=== PATIENT | female | born 1960 | race African-American/Black ===

== ENCOUNTER 2016-09-04 20:12 | Inpatient (IN) | payer MEDICARE, MEDICAID ==
--- NOTE | 2016-09-04 21:44 | ER Document Report ---
ED Medical Screen (RME) - General Stated Complaint: SWELLING LEGS Time seen by provider: 21:39 Mode of Arrival: Ambulatory Information source: Patient Notes: 55-year-old female presents to ED for bilateral leg swelling for about 3 weeks. She states she has not been to a provider since they started swelling. She has a history of a kidney transplant in . She states she called the train to [place] a couple days after she got to [place] her leg started swelling it has slowly progressed. She states that the swelling got bad a little over a week ago so she tried elevating them but that did not help. Her son brought her home about a week ago. She takes oxycodone for her chronic pain in her back and neck. She has a history of lupus and she's had surgery on her neck and her back. I have greeted and performed a rapid initial assessment of this patient. A comprehensive ED assessment and evaluation of the patient, analysis of test results and completion of medical decision making process will be conducted by an additional ED providers. TRAVEL OUTSIDE OF THE [place] IN LAST 30 DAYS: No - Related Data Allergies/Adverse Reactions: latex [Latex] Allergy (Mild, Verified 12/28/13 10:25) Hives Past Medical History - Past Medical History Cardiac Medical History: Reports: Hx Congestive Heart Failure, Hx Hypercholesterolemia, Hx Hypertension Pulmonary Medical History: Denies: Hx Tuberculosis Neurological Medical History: Denies: Hx Seizures Renal/ Medical History: Reports: Hx End Stage Renal Disease - s/p kidney transplant in 2002 GI Medical History: Reports: Hx Gastroesophageal Reflux Disease Psychiatric Medical History: Reports: Hx Depression Past Surgical History: Reports: Hx Kidney (Renal Surgery) - kidney transplant 2002, Hx Orthopedic Surgery - neck fusion. Denies: Hx Hysterectomy - Immunizations Hx Diphtheria, Pertussis, Tetanus Vaccination: - unk
[2016-09-04 22:23] LABS: ABSOLUTE EOSINOPHILS # (AUTO) 0.1 10^3/uL (0.0-0.6); ABSOLUTE LYMPHOCYTES (AUTO) 0.7 10^3/uL (0.5-4.7); ABSOLUTE MONOCYTES (AUTO) 0.7 10^3/uL (0.1-1.4); ABSOLUTE NEUT (AUTO) 4.8 10^3/uL (1.7-8.2); BASOPHILS % (AUTO) 0.4 % (0-2); EOSINOPHILS % (AUTO) 0.8 % (0-6); HEMATOCRIT 19.8 % (36.0-47.0); HGB HCT DIFFERENCE -0.9; LYMPHOCYTES % (AUTO) 10.8 % (13-45); MEAN CORPUSCULAR HEMOGLOBIN 26.3 pg (27.0-33.4); MEAN CORPUSCULAR VOLUME 82 fl (80-97); MONOCYTES % (AUTO) 10.5 % (3-13); RED BLOOD COUNT 2.41 10^6/uL (3.72-5.28); RED CELL DISTRIBUTION WIDTH 15.3 % (11.5-14.0); SEGMENTED NEUTROPHILS % (AUTO) 77.5 % (42-78); WHITE BLOOD COUNT 6.2 10^3/uL (4.0-10.5)
[2016-09-04 22:28] LABS: APPEARANCE,URINE CLEAR; BILIRUBIN,URINE NEGATIVE (NEGATIVE); GLUCOSE, URINE 150 mg/dL (NEGATIVE); KETONES,URINE NEGATIVE (NEGATIVE); LEUKOCYTE ESTERASE,URINE NEGATIVE (NEGATIVE); NITRITE,URINE NEGATIVE (NEGATIVE); PROTEIN,URINE >=500 mg/dL (NEGATIVE); URINE SPECIFIC GRAVITY 1.008; UROBILINOGEN,URINE NEGATIVE mg/dL (<2.0)
[2016-09-04 22:42] LABS: ALANINE AMINOTRANSFERASE 22 U/L (9-52); ALBUMIN 3.8 g/dL (3.5-5.0); ALKALINE PHOSPHATASE 90 U/L (38-126); ANION GAP 15 (5-19); ASPARTATE AMINO TRANSFERASE 12 U/L (14-36); BILIRUBIN,DIRECT 0.2 mg/dL (0.0-0.4); BILIRUBIN,TOTAL 0.3 mg/dL (0.2-1.3); BLOOD UREA NITROGEN 29 mg/dL (7-20); CALCIUM 9.2 mg/dL (8.4-10.2); CARBON DIOXIDE 16 mmol/L (22-30); CHLORIDE 110 mmol/L (98-107); CREATININE RESULT 3.56 mg/dL (0.52-1.25); GLUCOSE 102 mg/dL (75-110); POTASSIUM 4.1 mmol/L (3.6-5.0); SODIUM 140.8 mmol/L (137-145); TOTAL PROTEIN 6.7 g/dL (6.3-8.2)
[2016-09-04 22:43] LABS: HEMOGLOBIN 6.3 g/dL (12.0-15.5)
[2016-09-05] MEDS ORDERED: OXYCODONE HCL IR 5 MG TABLET PO ONE (00:42)
[2016-09-05 01:25] LABS: THYROID STIMULATING HORMONE 2.95 uIU/mL (0.47-4.68)
--- NOTE | 2016-09-05 01:50 | ER Document Report ---
ED General - General Chief Complaint: Leg Swelling Stated Complaint: SWELLING LEGS Time seen by provider: 00:05 Mode of Arrival: Ambulatory Information source: Patient TRAVEL OUTSIDE OF THE [place] IN LAST 30 DAYS: No - HPI Notes: Patient is a 55-year-old female with history of lupus and previous renal failure with renal transplant 2002 comes in with report of increasing dyspnea on exertion over the last few weeks with approximately 40 pound weight loss in the last 3 months and progressive swelling throughout both lower extremities for the last month. The patient does not her completely updated list of medications, presenting with a medication list from one year ago. The patient states she was supposed to be taking Lasix but she was not. She states she has been unable to take her sodium bicarbonate pills that she is regularly prescribed. She does describe previous transfusion over 10 years ago, and one year ago she was diagnosed with an esophageal ulcer in [place]. The patient reports no chest pain or fever or diarrhea or melena. - Related Data Allergies/Adverse Reactions: latex [Latex] Allergy (Mild, Verified 12/28/13 10:25) Hives Past Medical History - General Information source: Patient - Social History Smoking Status: Never Smoker Chew tobacco use (# tins/day): No Frequency of alcohol use: None Drug Abuse: None Family History: Reviewed & Not Pertinent Patient has suicidal ideation: No Patient has homicidal ideation: No - Past Medical History Cardiac Medical History: Reports: Hx Congestive Heart Failure, Hx Hypercholesterolemia, Hx Hypertension Pulmonary Medical History: Denies: Hx Tuberculosis Neurological Medical History: Denies: Hx Seizures Renal/ Medical History: Reports: Hx End Stage Renal Disease - s/p kidney transplant in 2002. Denies: Hx Peritoneal Dialysis GI Medical History: Reports: Hx Gastroesophageal Reflux Disease Psychiatric Medical History: Reports: Hx Depression Past Surgical History: Reports: Hx Kidney (Renal Surgery) - kidney transplant 2002, Hx Orthopedic Surgery - neck fusion. Denies: Hx Hysterectomy - Immunizations Hx Diphtheria, Pertussis, Tetanus Vaccination: - unk Hx Pneumococcal Vaccination: 06/08/09 Review of Systems - Review of Systems Notes: REVIEW OF SYSTEMS: CONSTITUTIONAL : Denies fever, chills, or sweats. Denies recent illness. EENT: Denies eye, ear, throat, or mouth pain or symptoms. Denies nasal or sinus congestion or discharge. Denies throat, tongue, or mouth swelling or difficulty swallowing. CARDIOVASCULAR: Denies chest pain. Denies palpitations or racing or irregular heart beat. RESPIRATORY: Denies cough, cold, or chest congestion. Denies wheezing. GASTROINTESTINAL: Denies abdominal pain or distention. Denies nausea, vomiting , or diarrhea. Denies blood in vomitus, stools, or per rectum. Denies black, tarry stools. Reports mild chronic constipation. GENITOURINARY: Denies difficulty urinating, painful urination, burning, frequency, blood in urine, or discharge. FEMALE GENITOURINARY: Denies vaginal bleeding, heavy or abnormal periods, irregular periods. Denies vaginal discharge or odor. MUSCULOSKELETAL: Denies back or neck pain or stiffness. Denies joint pain. SKIN: Denies rash, lesions or sores. HEMATOLOGIC : Denies easy bruising or bleeding. LYMPHATIC: Denies swollen, enlarged glands. NEUROLOGICAL: Denies confusion or altered mental status. Denies passing out or loss of consciousness. Denies dizziness or lightheadedness. Denies headache. Denies weakness or paralysis or loss of use of either side. Denies problems with gait or speech. Denies sensory loss, numbness, or tingling. Denies seizures. PSYCHIATRIC: Denies anxiety or stress. Denies depression, suicidal ideation, or homicidal ideation. ALL OTHER SYSTEMS REVIEWED AND NEGATIVE. Dictation was performed using [employer] voice recognition software Physical Exam - Vital signs Vitals: Temp Pulse Resp BP Pulse Ox 98.8 F 89 16 135/85 H 97 09/04/16 21:39 09/04/16 21:39 09/04/16 21:39 09/04/16 21:39 09/04/16 21:39 - Notes Notes: PHYSICAL EXAMINATION: GENERAL: Well-appearing, well-nourished and in no acute distress. HEAD: Atraumatic, normocephalic. EYES: Pupils equal round and reactive to light, extraocular movements intact, conjunctiva are normal. ENT: Nares patent, oropharynx clear without exudates. Moist mucous membranes. NECK: Normal range of motion, supple without lymphadenopathy. no JVD. LUNGS: Breath sounds clear to auscultation bilaterally and equal. No wheezes or rhonchi. Scant mid lung field rales HEART: Regular rate and rhythm 1/6 murmur over the apex. ABDOMEN: Soft, nontender, nondistended abdomen. No guarding, no rebound. No masses appreciated. Female : deferred Musculoskeletal: Normal range of motion. No cyanosis. 2+ bilateral lower extremity edema. Negative Homans. No palpable cord. NEUROLOGICAL: Cranial nerves grossly intact. Normal speech, normal gait. Normal sensory, motor exams PSYCH: Normal mood, normal affect. SKIN: Warm, Dry, normal turgor, no rashes or lesions noted. Course - Re-evaluation Re-evalutation: 09/05/16 01:51 Patient was heme negative on exam. Patient's anemia is much more pronounced than previous, but her renal insufficiency is consistent with previous values. Bicarbonate level somewhat low at 16, but she previously has been 17 in the past , and she admits to being noncompliant with sodium bicarbonate tablets. No obvious evidence for current GI bleed. Unclear if the anemia is related to chronic renal disease versus patient's lupus. Chest x-ray is negative for obvious congestive heart failure, but patient's BNP is elevated. I am somewhat concerned about diuresing the patient to aggressively given her low bicarbonate. No clinical suggestion for DVT given the equal lower extremity swelling. Swelling may be secondary to Lasix noncompliance versus secondary effects of patient's chronic anemia. Discussion was undertaken with the patient, and she was in agreement with transfusion of blood products given her symptoms and significant anemia. Patient was given magnesium replacement IV. Transfusion for 1 unit packed RBCs was given, with pretreatment of Lasix 40 mg IV. Discussion was undertaken with Dr. Muhammad, who agreed to admit the patient to observation. 09/05/16 02:00 09/05/16 02:01 - Vital Signs Vital signs: Temp Pulse Resp BP Pulse Ox 98.8 F 89 18 135/85 H 97 09/04/16 21:39 09/04/16 21:39 09/04/16 23:32 09/04/16 21:39 09/04/16 21:39 - Laboratory Result Diagrams: 09/04/16 21:50 09/04/16 21:50 Laboratory results interpreted by me: 09/04/16 09/04/16 09/04/16 21:50 21:50 21:50 RBC 2.41 L Hgb 6.3 L Hct 19.8 L MCH 26.3 L RDW 15.3 H Lymphocytes % 10.8 L Chloride 110 H Carbon Dioxide 16 L BUN 29 H Creatinine 3.56 H Est GFR ( Amer) 16 L Est GFR (Non-Af Amer) 13 L Magnesium AST 12 L NT-Pro-B Natriuret Pep Urine Protein >=500 H Urine Glucose (UA) 150 H 09/04/16 09/04/16 21:50 21:50 RBC Hgb Hct MCH RDW Lymphocytes % Chloride Carbon Dioxide BUN Creatinine Est GFR ( Amer) Est GFR (Non-Af Amer) Magnesium 1.2 L* AST NT-Pro-B Natriuret Pep 3800 H Urine Protein Urine Glucose (UA) Critical Care Note - Critical Care Note Total time excluding time spent on procedures (mins): 43 Discharge - Discharge Clinical Impression: Stage 3 chronic kidney disease, Hypomagnesemia Anemia Qualifiers: Anemia type: other cause Other causes of anemia: chronic disease, kidney Qualified Code(s): N18.9 - Chronic kidney disease, unspecified; D63.1 - Anemia in chronic kidney disease SLE (systemic lupus erythematosus) Qualifiers: Systemic lupus erythematosus type: unspecified Systemic lupus erythematosus organ involvement: tubulo-interstitial nephropathy Qualified Code(s): M32.15 - Tubulo-interstitial nephropathy in systemic lupus erythematosus Congestive heart failure Qualifiers: Congestive heart failure type: unspecified congestive heart failure type Congestive heart failure chronicity: unspecified congestive heart failure chronicity Qualified Code(s): I50.9 - Heart failure, unspecified Disposition: ADMITTED OBSERVATION Admitting Provider: Hospitalist Unit Admitted: Telemetry
[2016-09-05] MEDS ORDERED: NORMAL SALINE 250 ML IV PRN ×4 (01:59→11:10)
[2016-09-05] MEDS ORDERED: ACETAMINOPHEN 325 MG TABLET PO PRN (02:01)
[2016-09-05] MEDS ORDERED: MAG HYDROX/AL HYDROX/SIMETH SUSP 30 ML UDCUP PO PRN (02:01)
[2016-09-05] MEDS ORDERED: IPRATROPIUM/ALBUTEROL 0.5-2.5 MG/3 ML AMPUL NEB PRN (02:01)
[2016-09-05] MEDS ORDERED: FUROSEMIDE INJ/PF 40 MG/4 ML SDV IV ONE (02:04)
[2016-09-05] MEDS ORDERED: SODIUM BICARBONATE 650 MG TABLET PO ONE (02:31)
[2016-09-05] MEDS: MAGNESIUM SULFATE/D5W 100 ML IV SCH ×2 (02:32→03:45)
[2016-09-05 02:51] LABS: ERYTHROCYTE SEDIMENTATION RATE 84 mm/hr (0-30)
[2016-09-05 03:07] LABS: URINE BARBITURATES SCREEN NEGATIVE; URINE METHADONE SCREEN NEGATIVE; URINE OPIATES LOW NEGATIVE; URINE PHENCYCLIDINE SCREEN NEGATIVE
--- NOTE | 2016-09-05 03:21 | PDOC H&P ---
History of Present Illness Patient complains of: Exertional shortness of breath and lower extremity swelling History of Present Illness: YUSUF CANTRELL is a 55 year old female with a past medical history of lupus leading to renal failure followed by renal transplant 2001, depression, chronic pain, GERD and hypertension. Who was in her usual state of health until approximately 6 weeks ago with lower extremity swelling, new hypertension and a change of her urine described as foamy, denying change in color denying menorrhagia, dark stools or hemorrhoids. At that time she was started on 2 blood pressure agents that she cannot recall that did not improve her lower extremity edema at which time Lasix was prescribed and taken for approximately a week without response. Over the last several days she's had excessive fatigue shortness of breath with exertion prompting her to seek evaluation emergency room where she's found to have a hemoglobin of only 6, metabolic acidosis, end-stage renal failure with a GFR of 20 and proteinuria without hematuria. She's referred to the hospitalist for admission Past Medical History Cardiac Medical History: Reports: Congestive Heart Failure, Hyperlipidema, Hypertension Pulmonary Medical History: Denies: Tuberculosis Neurological Medical History: Denies: Seizures Renal/ Medical History: Reports: End Stage Renal Disease - s/p kidney transplant in 2002 GI Medical History: Reports: Gastroesophageal Reflux Disease Psychiatric Medical History: Reports: Depression Past Surgical History Past Surgical History: Reports: Orthopedic Surgery - neck fusion, Other - Renal transplant 2001 Denies: Hysterectomy Social History Information Source: Patient Lives with: Family Smoking Status: Never Smoker Frequency of Alcohol Use: None Hx Recreational Drug Use: No Drugs: None Hx Prescription Drug Abuse: No - Advance Directive Resuscitation Status: Full Code Family History Family History: Hypertension Parental Family History Reviewed: Yes Children Family History Reviewed: Yes Sibling(s) Family History Reviewed.: Yes Medication/Allergy Home Medications: Amlodipine Besylate 1 tab PO DAILY 07/27/13 Fluoxetine HCl [Prozac] 10 mg PO QAM 07/27/13 Furosemide [Lasix] 20 mg PO QAM 07/27/13 Labetalol HCl 100 mg PO BID 07/27/13 Medroxyprogesterone Acet [Provera 10 mg Tablet] 10 mg PO QAM 07/27/13 Mycophenolate Sodium [Myfortic 180 mg Tablet.dr] 540 mg PO BID 07/27/13 Oxycodone HCl 15 mg PO ASDIR PRN 07/27/13 Prednisone 5 mg PO QAM 07/27/13 Tacrolimus Anhydrous [Prograf 1 mg Capsule] 2 mg PO BID 07/27/13 Cyclobenzaprine HCl 10 mg PO Q8H PRN 07/28/13 Ondansetron [Zofran Odt 4 mg Tablet] 4 mg PO Q4HP PRN #10 tab.rapdis 12/31/13 Hydrocodone/Acetaminophen [[place] 7.5-325 Tablet] 1 each PO Q6 PRN #12 tablet Mag Hydrox/Al Hydrox/Simeth [Maalox Suspension] 15 ml PO Q2H PRN #300 oral.susp 09/09/15 Ondansetron [Zofran Odt 4 mg Tablet] 1 - 2 tab PO Q4H PRN #20 tab.rapdis Clindamycin HCl 300 mg PO TID #30 capsule 10/08/15 Oxycodone HCl/Acetaminophen [Percocet 5-325 mg Tablet] 1 - 2 tab PO Q4H PRN #15 tablet 10/08/15 Allergies/Adverse Reactions: latex [Latex] Allergy (Mild, Verified 12/28/13 10:25) Hives Review of Systems Constitutional: PRESENT: as per HPI, fatigue, weakness Eyes: ABSENT: visual disturbances Ears: ABSENT: hearing changes Cardiovascular: ABSENT: chest pain, dyspnea on exertion, edema, orthropnea, palpitations Respiratory: PRESENT: dyspnea Gastrointestinal: ABSENT: abdominal pain, constipation, diarrhea, hematemesis, hematochezia, nausea, vomiting Genitourinary: ABSENT: dysuria, hematuria Musculoskeletal: ABSENT: joint swelling Integumentary: ABSENT: rash, wounds Neurological: ABSENT: abnormal gait, abnormal speech, confusion, dizziness, focal weakness, syncope Psychiatric: ABSENT: anxiety, depression, homidical ideation, suicidal ideation Endocrine: ABSENT: cold intolerance, heat intolerance, polydipsia, polyuria Hematologic/Lymphatic: ABSENT: easy bleeding, easy bruising Physical Exam Vital Signs: Temp Pulse Resp BP Pulse Ox 98.8 F 89 17 154/90 H 100 09/04/16 21:39 09/04/16 21:39 09/05/16 02:31 09/05/16 02:31 09/05/16 02:31 Intake & Output 09/03/16 09/04/16 09/05/16 11:59 11:59 11:59 Weight 78.4 kg General appearance: PRESENT: no acute distress, well-developed, well-nourished Head exam: PRESENT: atraumatic, normocephalic Eye exam: PRESENT: conjunctiva pink, EOMI, PERRLA. ABSENT: scleral icterus Ear exam: PRESENT: normal external ear exam Mouth exam: PRESENT: moist, tongue midline Neck exam: ABSENT: carotid bruit, JVD, lymphadenopathy, thyromegaly Respiratory exam: PRESENT: clear to auscultation анна. ABSENT: rales, rhonchi, wheezes Cardiovascular exam: PRESENT: RRR. ABSENT: diastolic murmur, rubs, systolic murmur Pulses: PRESENT: normal dorsalis pedis pul Vascular exam: PRESENT: normal capillary refill GI/Abdominal exam: PRESENT: normal bowel sounds, soft. ABSENT: distended, guarding, mass, organolmegaly, rebound, tenderness Rectal exam: PRESENT: deferred Extremities exam: PRESENT: full ROM, pedal edema, +2 edema. ABSENT: calf tenderness, clubbing, joint swelling Neurological exam: PRESENT: alert, awake, oriented to person, oriented to place , oriented to time, oriented to situation, CN II-XII grossly intact. ABSENT: motor sensory deficit Psychiatric exam: PRESENT: appropriate affect, normal mood. ABSENT: homicidal ideation, suicidal ideation Skin exam: PRESENT: dry, intact, warm. ABSENT: cyanosis, rash Results Laboratory Results: 09/04/16 21:50 09/04/16 21:50 09/04/16 09/04/16 09/04/16 21:50 21:50 21:50 WBC 6.2 RBC 2.41 L Hgb 6.3 L Hct 19.8 L MCV 82 MCH 26.3 L MCHC 32.0 RDW 15.3 H Plt Count 306 Seg Neutrophils % 77.5 Lymphocytes % 10.8 L Monocytes % 10.5 Eosinophils % 0.8 Basophils % 0.4 Absolute Neutrophils 4.8 Absolute Lymphocytes 0.7 Absolute Monocytes 0.7 Absolute Eosinophils 0.1 Absolute Basophils 0.0 Retic Count (auto) Sodium 140.8 Potassium 4.1 Chloride 110 H Carbon Dioxide 16 L Anion Gap 15 BUN 29 H Creatinine 3.56 H Est GFR ( Amer) 16 L Est GFR (Non-Af Amer) 13 L Glucose 102 Calcium 9.2 Magnesium Total Bilirubin 0.3 AST 12 L ALT 22 Alkaline Phosphatase 90 Total Protein 6.7 Albumin 3.8 TSH Free T4 Urine Color YELLOW Urine Appearance CLEAR Urine pH 6.0 Ur Specific [place] 1.008 Urine Protein >=500 H Urine Glucose (UA) 150 H Urine Ketones NEGATIVE Urine Blood NEGATIVE Urine Nitrite NEGATIVE Ur Leukocyte Esterase NEGATIVE Urine WBC (Auto) 0 Stool Occult Blood Blood Type Antibody Screen 09/04/16 09/04/16 09/04/16 21:50 21:50 21:50 WBC RBC Hgb Hct MCV MCH MCHC RDW Plt Count Seg Neutrophils % Lymphocytes % Monocytes % Eosinophils % Basophils % Absolute Neutrophils Absolute Lymphocytes Absolute Monocytes Absolute Eosinophils Absolute Basophils Retic Count (auto) 1.12 Sodium Potassium Chloride Carbon Dioxide Anion Gap BUN Creatinine Est GFR ( Amer) Est GFR (Non-Af Amer) Glucose Calcium Magnesium 1.2 L* Total Bilirubin AST ALT Alkaline Phosphatase Total Protein Albumin TSH 2.95 Free T4 0.93 Urine Color Urine Appearance Urine pH Ur Specific [place] Urine Protein Urine Glucose (UA) Urine Ketones Urine Blood Urine Nitrite Ur Leukocyte Esterase Urine WBC (Auto) Stool Occult Blood Blood Type Antibody Screen 09/05/16 09/05/16 00:23 00:45 WBC RBC Hgb Hct MCV MCH MCHC RDW Plt Count Seg Neutrophils % Lymphocytes % Monocytes % Eosinophils % Basophils % Absolute Neutrophils Absolute Lymphocytes Absolute Monocytes Absolute Eosinophils Absolute Basophils Retic Count (auto) Sodium Potassium Chloride Carbon Dioxide Anion Gap BUN Creatinine Est GFR ( Amer) Est GFR (Non-Af Amer) Glucose Calcium Magnesium Total Bilirubin AST ALT Alkaline Phosphatase Total Protein Albumin TSH Free T4 Urine Color Urine Appearance Urine pH Ur Specific [place] Urine Protein Urine Glucose (UA) Urine Ketones Urine Blood Urine Nitrite Ur Leukocyte Esterase Urine WBC (Auto) Stool Occult Blood NEGATIVE Blood Type O POSITIVE Antibody Screen NEGATIVE 09/04/16 21:50 NT-Pro-B Natriuret Pep 3800 H Impressions: Chest X-Ray 09/04/16 21:44 IMPRESSION: No acute findings. Assessment & Plan - Diagnosis (1) Kidney disease, chronic, stage IV (GFR 15-29 ml/min) Is this a current diagnosis for this admission?: YesPlan: Unclear cause and compliance will obtain nephrology consultation Avoid nephrotoxic meds and doses (2) Nephrotic syndrome Is this a current diagnosis for this admission?: YesPlan: Likely resulting in lower extremity edema will obtain nephrology consultation continue outpatient medications including prednisone (3) Anemia Qualifiers: Anemia type: other cause Other causes of anemia: chronic disease, kidney Qualified Code(s): N18.9 - Chronic kidney disease, unspecified; D63.1 - Anemia in chronic kidney disease Is this a current diagnosis for this admission?: YesPlan: Most likely secondary to chronic kidney disease though will obtain anemia workup. She is receiving 1 unit of pack red blood cells with follow-up CBC (4) SLE (systemic lupus erythematosus) Is this a current diagnosis for this admission?: YesPlan: I'll screen activity with ESR level and otherwise continue immunosuppressive regiment - Time Time Spent: 50 to 70 Minutes
[2016-09-05] MEDS ORDERED: METHYLPREDNISOLONE INJ 125 MG/2 ML SDV IV ONE (03:22)
[2016-09-05 04:25] LABS: FOLATE > 20.00 ng/mL (>2.76)
[2016-09-05] MEDS ORDERED: HEPARIN SOD (PORCINE) 5,000 UNIT/ML 1 ML SYRINGE SUBCUT SCH (06:00)
[2016-09-05] MEDS: SODIUM BICARBONATE 650 MG TABLET PO SCH ×3 (06:24→18:21)
[2016-09-05] MEDS ORDERED: PREDNISONE 5 MG TABLET PO SCH (08:00)
[2016-09-05] MEDS: FLUOXETINE HCL 20 MG/5 ML UDCUP PO SCH (08:17)
[2016-09-05] MEDS: DOCUSATE SODIUM 100 MG CAPSULE PO SCH ×2 (09:11→18:20)
[2016-09-05] MEDS: AMLODIPINE BESYLATE 10 MG TABLET PO SCH (09:12)
[2016-09-05] MEDS: TACROLIMUS ANHYDROUS 1 MG CAPSULE PO SCH ×2 (09:12→18:23)
[2016-09-05] MEDS: PREDNISONE 20 MG TABLET PO SCH ×2 (09:13→18:20)
[2016-09-05] MEDS ORDERED: LABETALOL HCL 200 MG TABLET PO SCH (10:00)
[2016-09-05] MEDS ORDERED: (PENDING PHARMACY ID) (Labetalol Hcl [Labetalol Hcl] 100 MG) PO SCH (10:00)
[2016-09-05] MEDS ORDERED: (PENDING PHARMACY ID) (Mycophenolate Sodium 540 MG) PO SCH (10:00)
[2016-09-05 10:08] LABS: HEMATOCRIT 22.6 % (36.0-47.0); HGB HCT DIFFERENCE -0.7; MEAN CORPUSCULAR HEMOGLOBIN 26.6 pg (27.0-33.4); MEAN CORPUSCULAR HGB CONC 32.2 g/dL (32.0-36.0); MEAN CORPUSCULAR VOLUME 83 fl (80-97); RED BLOOD COUNT 2.74 10^6/uL (3.72-5.28); RED CELL DISTRIBUTION WIDTH 14.9 % (11.5-14.0); WHITE BLOOD COUNT 5.7 10^3/uL (4.0-10.5)
[2016-09-05 10:10] LABS: HEMOGLOBIN 7.3 g/dL (12.0-15.5)
[2016-09-05] MEDS: LABETALOL HCL 200 MG TABLET PO SCH ×2 (10:20→22:08)
[2016-09-05] MEDS ORDERED: CYANOCOBALAMIN (VITAMIN B-12) 1,000 MCG TABLET PO ONE (11:45)
--- NOTE | 2016-09-05 12:06 | PDOC PROGRESS REPORT ---
Subjective Progress Note for:: 09/05/16 Subjective:: Patient is complaining of discomfort in the lower extremity because of the swelling She has no chest pain no shortness of breath no fever no chills She has some discomfort in her abdomen Physical Exam Vital Signs: Temp Pulse Resp BP Pulse Ox 99.4 F 89 16 139/83 H 98 09/05/16 11:56 09/05/16 11:56 09/05/16 11:56 09/05/16 11:56 09/05/16 11:56 Intake & Output 09/04/16 09/05/16 09/06/16 00:59 00:59 00:59 Intake Total 700 Balance 700 Weight 77.3 kg General appearance: PRESENT: no acute distress, well-developed, well-nourished Head exam: PRESENT: atraumatic, normocephalic Eye exam: PRESENT: conjunctiva pink, EOMI, PERRLA. ABSENT: scleral icterus Ear exam: PRESENT: normal external ear exam Mouth exam: PRESENT: moist, tongue midline Neck exam: ABSENT: carotid bruit, JVD, lymphadenopathy, thyromegaly Respiratory exam: PRESENT: clear to auscultation анна. ABSENT: rales, rhonchi, wheezes Cardiovascular exam: PRESENT: RRR, systolic murmur - Grade 2/6. ABSENT: diastolic murmur, rubs Pulses: PRESENT: normal dorsalis pedis pul Vascular exam: PRESENT: normal capillary refill GI/Abdominal exam: PRESENT: normal bowel sounds, soft. ABSENT: distended, guarding, mass, organolmegaly, rebound, tenderness Rectal exam: PRESENT: deferred Extremities exam: PRESENT: full ROM, pedal edema, +2 edema - Bilaterally. ABSENT: calf tenderness, clubbing Neurological exam: PRESENT: alert, awake, oriented to person, oriented to place , oriented to time, oriented to situation, CN II-XII grossly intact. ABSENT: motor sensory deficit Psychiatric exam: PRESENT: appropriate affect, normal mood. ABSENT: homicidal ideation, suicidal ideation Skin exam: PRESENT: dry, intact, warm. ABSENT: cyanosis, rash Results Laboratory Results: 09/05/16 09:35 09/05/16 09:35 WBC 5.7 RBC 2.74 L Hgb 7.3 L Hct 22.6 L MCV 83 MCH 26.6 L MCHC 32.2 RDW 14.9 H Plt Count 289 Impressions: Chest X-Ray 09/04/16 21:44 IMPRESSION: No acute findings. Assessment & Plan - Diagnosis (1) Edema, lower extremity Qualifiers: Laterality: bilateral Qualified Code(s): R60.0 - Localized edema Is this a current diagnosis for this admission?: YesPlan: Likely to be secondary to hypoalbuminemia We will obtain a venous ultrasound lower extremities to exclude DVT (2) Weight loss Is this a current diagnosis for this admission?: YesPlan: Reason is unclear patient states she lost more than 50 pounds in the last 6 weeks and has anorexia CT abdomen and pelvis is pending (3) Proteinuria Qualifiers: Proteinuria type: unspecified Qualified Code(s): R80.9 - Proteinuria , unspecified Is this a current diagnosis for this admission?: YesPlan: 24 hour urine for protein and creatinine are pending Patient may have nephrotic syndrome; the last serum albumin was not very low at 3.4 (4) Anemia Qualifiers: Anemia type: other cause Other causes of anemia: chronic disease, kidney Qualified Code(s): N18.9 - Chronic kidney disease, unspecified; D63.1 - Anemia in chronic kidney disease Is this a current diagnosis for this admission?: YesPlan: acute on chronic anemia Multiple causes Vitamin B-12 deficiency; we will replace Anemia of chronic disease secondary to chronic renal failure; patient may benefit initiate from Procrit injections Iron deficiency anemia from blood loss has to be excluded Stools for occult blood will be sent; does have a history of peptic ulcer disease a year ago ; serum iron is 34 (5) Kidney disease, chronic, stage IV (GFR 15-29 ml/min) Is this a current diagnosis for this admission?: YesPlan: Worsening of the kidney function Creatinine is now 3.5; it was 2.[address] abdomen and pelvis is pending to evaluate transplanted kidney and exclude post obstructive uropathy (6) Lupus Qualifiers: Systemic lupus erythematosus type: unspecified Systemic lupus erythematosus organ involvement: tubulo-interstitial nephropathy Qualified Code(s): M32.15 - Tubulo-interstitial nephropathy in systemic lupus erythematosus Is this a current diagnosis for this admission?: YesPlan: Increased prednisone to 60 mg daily - Time Time Spent with patient: 25-34 minutes
[2016-09-05] MEDS: OXYCODONE HCL IR 5 MG TABLET PO PRN ×2 (12:31→18:20)
--- NOTE | 2016-09-05 12:34 | XCELERA REPORT ---
[address] [address] Lower Extremity Venous Evaluation Name: YUSUF CANTRELL Age: 55 yrs Gender: Female : 1960 Patient Status: Inpatient Patient Location: 5\[id number]\532\[id number]\A Study Date: 09/05/2016 11:54 AM Procedure: Color flow and duplex imaging bilaterally of the veins of the lower extremities as well as the Common Femoral veins. Reason For Study: edema lower extremities Ordering Physician: JUDY SELBY Performed By: Destiney Diamond Right Sided Venous Evaluation Normal vessel filling wall to wall, compression and augmentation as well as Colour flow down to the infrageniculate veins. Left Sided Venous Evaluation Normal vessel filling wall to wall, compression and augmentation as well as Colour flow down to the infrageniculate veins. Interpretation Summary No duplex evidence of DVT or obstruction in the bilateral lower extremities. : JUDY SELBY > Moisés Ennis
[2016-09-05] MEDS: SUCRALFATE 1 GM TABLET PO SCH ×2 (16:05→22:07)
[2016-09-05] MEDS ORDERED: EPOETIN ALFA INJ 20000 UNIT/1 ML VIAL (RENAL) SUBCUT ONE (16:30)
--- NOTE | 2016-09-05 16:30 | PDOC CONSULTATION ---
Consultation Consult Date: 09/05/16 Attending physician:: JUDY SELBY Consult reason:: I was asked by Dr. Selby to see the patient because of worsening kidney function with history of previous kidney transplant. 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 At that time she was started on 2 blood pressure agents that she cannot recall that did not improve her lower extremity edema at which time Lasix was prescribed and taken for approximately a week without response. Records from TCU revealed that her labetalol was changed to carvedilol and hydralazine was added on June 2016. Over the last several days she's had excessive fatigue, shortness of breath with exertion, lightheadedness prompting her to seek evaluation emergency room where she's found to have a hemoglobin of only 6, metabolic acidosis, renal failure with a GFR of 20 and proteinuria without hematuria. She's referred to the hospitalist for admission. Patient came in yesterday with BUN of 29 and creatinine of 3.56 with estimated GFR of 16. Based from her records [facility], her last creatinine was 3.3 on 06/2016. Apparently her baseline prior to that was 2.2- 2.5 mg per deciliter of creatinine. She is also known to have proteinuria with urine protein to creatinine ratio 4.7 at the same time. At that time the immunosuppression medication were not change. Her blood pressure medications were modified as above. During this admission her urinalysis showed persistent proteinuria and is mentioned above no hematuria. 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 She didn't mention any changes in her urine output. In terms of her anemia she tells me that she has never been anemic before. She denies any blood in the stool or any hematemesis. She said she was on iron for 3 months last year but that was stopped. She is currently not being maintained on Procrit. We don't have a more recent hemoglobin from [facility] based from her records that we received. Patient was given a dose of Lasix 40 mg intravenously early this morning. She was also given one unit of packed RBC and is supposed to receive 2 more units of packed RBC today. She said her leg swelling seems to be slightly better but not significantly better yet. She still feels the same and not feeling any better than when she presented. She denies any chest pain nor nausea nor vomiting nor diarrhea. She denies any history of congestive heart failure in the past. She does not follow up with a clinical statistical programmer for her lupus. She said she has not had a lupus flare since she has been on antirejection medications after the kidney transplant in 2001. 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; uterine or bladder prolapse GI Medical History: Reports: Gastroesophageal Reflux Disease, Peptic Ulcer Disease - 2016 Musculoskeltal Medical History: Reports: Systemic Lupus Erythematosus Psychiatric Medical History: Reports: Depression Hematology Medical History: Reports Iron Deficiency Anemia Past Surgical History Past Surgical History: Reports: Orthopedic Surgery - neck fusion, Other - Renal transplant 2001; low back surgery Social History Lives with: Alone Smoking Status: Never Smoker Frequency of Alcohol Use: None Hx Recreational Drug Use: Yes Drugs: None Hx Prescription Drug Abuse: No - Advance Directive Resuscitation Status: Full Code Family History Family History: Hypertension - Mother Parental Family History Reviewed: Yes Children Family History Reviewed: Yes Sibling(s) Family History Reviewed.: Yes Medication/Allergy Home Medications: Amlodipine Besylate [Norvasc 10 mg Tablet] 10 mg PO DAILY 09/05/16 Carvedilol [Coreg 12.5 mg Tablet] 12.5 mg PO BID 09/05/16 Furosemide [Lasix] 20 mg PO DAILY 09/05/16 Hydralazine HCl [Apresoline 50 mg Tablet] 50 mg PO BID 09/05/16 Labetalol HCl [Trandate] 100 mg PO BID 09/05/16 Mycophenolate Sodium [Myfortic 180 mg Tablet.dr] 2 tab PO BID 09/05/16 Omeprazole 20 mg PO BID 09/05/16 Oxycodone HCl 15 mg PO Q4HP PRN 09/05/16 Prednisone [Deltasone 5 mg Tablet] 5 mg PO [id number] 09/05/16 Sodium Bicarbonate [Sodium Bicarbonate 650 mg Tablet] 650 mg PO BID 09/05/16 Sucralfate [Carafate 1 gm Tablet] 1 gm PO QID 09/05/16 Tacrolimus Anhydrous [Prograf 1 mg Capsule] 2 mg PO BID 09/05/16 Topiramate [Topamax 25 mg Tablet] 25 mg PO DAILY 09/05/16 Allergies/Adverse Reactions: latex [Latex] Allergy (Mild, Verified 12/28/13 10:25) Hives Review of Systems All systems: reviewed and no additional remarkable complaints except as stated Review of Systems: Constitutional: ABSENT: chills, fever(s), headache(s), weight gain; admits to fatigue and weight loss Eyes: ABSENT: visual disturbances Ears: ABSENT: hearing changes Cardiovascular: ABSENT: chest pain, orthropnea, palpitations; admits worsening lower extremity edema and dyspnea on exertion Respiratory: ABSENT: cough, hemoptysis Gastrointestinal: ABSENT: abdominal pain, constipation, diarrhea, hematemesis, hematochezia, nausea, vomiting Genitourinary: ABSENT: dysuria, hematuria Musculoskeletal: ABSENT: joint swelling Integumentary: ABSENT: rash, wounds Neurological: ABSENT: abnormal gait, abnormal speech, confusion, focal weakness , numbness, syncope; admits lightheadedness Psychiatric: ABSENT: anxiety, depression Endocrine: ABSENT: cold intolerance, heat intolerance, polydipsia, polyuria Hematologic/Lymphatic: ABSENT: easy bleeding, easy bruising, lymphadenopathy Physical Exam Vital Signs: Temp Pulse Resp BP Pulse Ox 99.4 F 85 16 139/83 H 98 09/05/16 11:56 09/05/16 14:27 09/05/16 11:56 09/05/16 11:56 09/05/16 11:56 Intake & Output 09/04/16 09/05/16 09/06/16 06:59 06:59 06:59 Intake Total 400 300 Balance 400 300 Weight 77.3 kg Exam: General appearance: no acute distress, cooperative, well-developed, well- nourished Head exam: PRESENT: atraumatic, normocephalic Eye exam: PRESENT: Conjunctiva pale, EOMI, PERRLA. ABSENT: conjunctival injection, scleral icterus Mouth exam: PRESENT: moist, neck supple, tongue midline Neck exam: PRESENT: full ROM. ABSENT: carotid bruit, JVD, lymphadenopathy, thyromegaly Respiratory exam: PRESENT: Diminished to auscultation bilaterally. ABSENT: rales, rhonchi, stridor, wheezes Cardiovascular exam: PRESENT: RRR, +S1, +S2. ABSENT: systolic murmur Pulses: PRESENT: normal radial pulses, normal dorsalis pedis pulses GI/Abdominal exam: PRESENT: normal bowel sounds, soft. Palpable kidney transplant graft on her right lower quadrant area without any tenderness ABSENT : guarding, mass, tenderness Rectal exam: deferred Extremities exam: PRESENT: full ROM. Positive grade 2 bilateral pitting edema ABSENT: calf tenderness Musculoskeletal: PRESENT: full ROM. ABSENT: deformity Neurological exam: PRESENT: alert, Awake, Oriented to person, Oriented to place , Oriented to time, reflexes normal, CN II-XII grossly intact. ABSENT: motor sensory deficit Psychiatric exam: PRESENT: appropriate affect, normal mood. ABSENT: homicidal ideation, suicidal ideation Skin exam: PRESENT: intact, dry, warm. She has very minimal stage I ulcer in her her rectal area without any drainage ABSENT: rash Results Laboratory Results: 09/05/16 09:35 09/05/16 09:35 WBC 5.7 RBC 2.74 L Hgb 7.3 L Hct 22.6 L MCV 83 MCH 26.6 L MCHC 32.2 RDW 14.9 H Plt Count 289 Impressions: Chest X-Ray 09/04/16 21:44 IMPRESSION: No acute findings. Abdomen/Pelvis CT 09/05/16 11:20 IMPRESSION: 1. TRANSPLANT KIDNEY IN THE RIGHT LOWER QUADRANT. NO ABNORMAL APPEARANCE. 2. CHRONIC SEVERE HYDRONEPHROSIS OF THE RIGHT KIDNEY WITH MARKED CORTICAL THINNING. SURGICAL CLIP ACROSS THE MID URETER. CHRONIC ATROPHY OF THE LEFT KIDNEY. 3. STABLE HEPATIC CYST. 4. UMBILICAL HERNIA CONTAINING FAT ONLY. LOWER ABDOMINAL WALL HERNIA CONTAINING A PORTION OF SMALL BOWEL WITH NO BOWEL OBSTRUCTION. 5. PROBABLE UTERINE FIBROIDS. 6. THE ABOVE FINDINGS ARE CHRONIC AND STABLE. NO OTHER SIGNIFICANT FINDINGS. Assessment & Plan - Diagnosis (1) Chronic kidney disease, stage IV (severe) Is this a current diagnosis for this admission?: YesPlan: Patient has history of living related kidney transplant in November 2001, with history of acute cellular rejection in February 2015. Patient's kidney function seems to be progressively deteriorating. This is associated with nephrotic range proteinuria. She does not have any hematuria. I think this is a progressive decline of her kidney function and possibly indicating a failing kidney transplant rather than lupus nephritis flare. I will give the patient Lasix 40 mg IV every 12 hours. Agree with blood transfusion. I discussed the case with Dr. Selby today. If her creatinine is worse tomorrow anywhere from creatinine of 4 or more, I think we need to transfer her to the [facility] transplant team for further management. She might need at least transplant kidney biopsy which we do not do here in the hospital. Continue antirejection medications. Patient is to bring her Myfortic acid medication from home since it is not available in the hospital so she can continue to get it while here. Continue to monitor kidney function. She does not need any urgent renal replacement therapy at this time. I discussed assessment and plan with the patient and she understood. (2) Status post living-donor kidney transplantation Is this a current diagnosis for this admission?: YesPlan: Needs to consider possibility of acute rejection versus progressive deterioration of transplanted kidney. Patient was given methylprednisolone intravenously in the emergency room and is currently on a higher dose of prednisone. This will not hurt so we will continue at this point. (3) Proteinuria Qualifiers: Proteinuria type: unspecified Qualified Code(s): R80.9 - Proteinuria , unspecified Is this a current diagnosis for this admission?: YesPlan: Known with the nephrotic range since at least June 2016 with urine protein creatinine ratio that time of 4.7 g. (4) Metabolic acidosis Is this a current diagnosis for this admission?: YesPlan: Continue sodium bicarbonate orally. (5) Edema, lower extremity Qualifiers: Laterality: bilateral Qualified Code(s): R60.0 - Localized edema Is this a current diagnosis for this admission?: YesPlan: Lasix 40 mg IV every 12 hours. (6) Anemia Qualifiers: Anemia type: other cause Other causes of anemia: chronic disease, kidney Qualified Code(s): N18.9 - Chronic kidney disease, unspecified; D63.1 - Anemia in chronic kidney disease Is this a current diagnosis for this admission?: YesPlan: This is likely secondary to progressive deterioration of kidney function leading to anemia of chronic kidney disease. Agree with blood transfusion of 2 more units. Patient does not have any evidence of acute bleeding. I will also give Procrit 20,000 units subcutaneously 1 dose tonight. (7) Hypomagnesemia Is this a current diagnosis for this admission?: YesPlan: Magnesium replacement as necessary. - Notes Notes: Thank you very much for this consultation. Plan discussed with Dr. Selby. - Time Time Spent: Greater than 70 Minutes
[2016-09-05] MEDS ORDERED: (PENDING PHARMACY ID) (Labetalol Hcl [Trandate] 100 MG) PO SCH (18:00)
[2016-09-05] MEDS ORDERED: MYCOPHENOLATE SODIUM PO SCH (18:00)
[2016-09-05] MEDS: FUROSEMIDE INJ/PF 40 MG/4 ML SDV IV SCH (18:21)
[2016-09-05] MEDS: HYDRALAZINE HCL 50 MG TABLET PO SCH (18:21)
[2016-09-05] MEDS: FUROSEMIDE 20 MG TABLET PO PRN (20:12)
[2016-09-05] MEDS: CARVEDILOL 12.5 MG TABLET PO SCH (22:09)
[2016-09-05] MEDS: HEPARIN SOD (PORCINE) 5,000 UNIT/ML 1 ML SYRINGE SUBCUT SCH (22:09)
[2016-09-06] MEDS: PANTOPRAZOLE SODIUM 40 MG VIAL IV SCH ×2 (00:22→10:53)
[2016-09-06] MEDS: OXYCODONE HCL IR 5 MG TABLET PO PRN ×2 (00:23→07:44)
[2016-09-06] MEDS: SODIUM BICARBONATE 650 MG TABLET PO SCH ×2 (00:23→06:13)
[2016-09-06] MEDS: FUROSEMIDE 20 MG TABLET PO PRN (00:24)
[2016-09-06 03:17] LABS: HEMATOCRIT 26.8 % (36.0-47.0); HEMOGLOBIN 8.8 g/dL (12.0-15.5); HGB HCT DIFFERENCE -0.4; MEAN CORPUSCULAR HEMOGLOBIN 27.3 pg (27.0-33.4); MEAN CORPUSCULAR VOLUME 83 fl (80-97); RED BLOOD COUNT 3.23 10^6/uL (3.72-5.28); RED CELL DISTRIBUTION WIDTH 15.3 % (11.5-14.0); WHITE BLOOD COUNT 6.2 10^3/uL (4.0-10.5)
[2016-09-06] MEDS: FUROSEMIDE INJ/PF 40 MG/4 ML SDV IV SCH (06:13)
[2016-09-06] MEDS: HYDRALAZINE HCL 50 MG TABLET PO SCH (06:13)
[2016-09-06 07:44] LABS: ABSOLUTE LYMPHOCYTES (AUTO) 0.4 10^3/uL (0.5-4.7); ABSOLUTE MONOCYTES (AUTO) 0.2 10^3/uL (0.1-1.4); ABSOLUTE NEUT (AUTO) 6.8 10^3/uL (1.7-8.2); BASOPHILS % (AUTO) 0.3 % (0-2); HEMOGLOBIN 8.8 g/dL (12.0-15.5); HGB HCT DIFFERENCE -0.6; LYMPHOCYTES % (AUTO) 5.7 % (13-45); MEAN CORPUSCULAR HEMOGLOBIN 27.2 pg (27.0-33.4); MEAN CORPUSCULAR HGB CONC 32.6 g/dL (32.0-36.0); MEAN CORPUSCULAR VOLUME 84 fl (80-97); MONOCYTES % (AUTO) 3.1 % (3-13); RED BLOOD COUNT 3.23 10^6/uL (3.72-5.28); RED CELL DISTRIBUTION WIDTH 15.4 % (11.5-14.0); SEGMENTED NEUTROPHILS % (AUTO) 90.9 % (42-78); WHITE BLOOD COUNT 7.5 10^3/uL (4.0-10.5)
[2016-09-06 08:03] LABS: BLOOD UREA NITROGEN 38 mg/dL (7-20); CARBON DIOXIDE 13 mmol/L (22-30); CHLORIDE 108 mmol/L (98-107); CREATININE RESULT 3.54 mg/dL (0.52-1.25); GLUCOSE 110 mg/dL (75-110); POTASSIUM 4.3 mmol/L (3.6-5.0); SODIUM 137.1 mmol/L (137-145)
[2016-09-06 08:04] LABS: ANION GAP 16 (5-19); MAGNESIUM 1.6 mg/dL (1.6-2.3)
[2016-09-06] MEDS ORDERED: FUROSEMIDE 20 MG TABLET PO SCH (10:00)
[2016-09-06] MEDS ORDERED: TOPIRAMATE 25 MG TABLET PO SCH (10:00)
[2016-09-06] MEDS ORDERED: CYANOCOBALAMIN (VITAMIN B-12) 1,000 MCG TABLET PO SCH (10:00)
[2016-09-06] MEDS: TACROLIMUS ANHYDROUS 1 MG CAPSULE PO SCH (10:54)
[2016-09-06] MEDS: LABETALOL HCL 200 MG TABLET PO SCH (10:54)
[2016-09-06] MEDS: CARVEDILOL 12.5 MG TABLET PO SCH (10:54)
[2016-09-06] MEDS: DOCUSATE SODIUM 100 MG CAPSULE PO SCH (10:54)
[2016-09-06] MEDS: PREDNISONE 20 MG TABLET PO SCH (10:54)
[2016-09-06] MEDS: AMLODIPINE BESYLATE 10 MG TABLET PO SCH (10:55)
[2016-09-06] MEDS: SUCRALFATE 1 GM TABLET PO SCH (10:55)
[2016-09-06] MEDS: HEPARIN SOD (PORCINE) 5,000 UNIT/ML 1 ML SYRINGE SUBCUT SCH (10:56)
[2016-09-06] MEDS: FLUOXETINE HCL 20 MG/5 ML UDCUP PO SCH (10:57)
--- NOTE | 2016-09-06 12:46 | PDOC DISCHARGE SUMMARY ---
General - Admit/Disc Date/PCP Admission Date/Primary Care Provider: 09/05/16 18:10 Dr [facility] Discharge Date: 09/06/16 - Discharge Diagnosis (1) Edema, lower extremity Is this a current diagnosis for this admission?: YesSummary: secondary to nephrotic syndrome lasix was increased to 40 mg twice a day (2) Weight loss Is this a current diagnosis for this admission?: YesSummary: 50 lbs in pat 6 weeks etiology unknown Patient was diagnosed of PUD in June 2016 ; Protonix was prescribed 40 mg po qHS follow up with GI may be indicated (3) Proteinuria Is this a current diagnosis for this admission?: YesSummary: nephrotic range (4) Anemia Is this a current diagnosis for this admission?: YesSummary: anemia chronic disease patient was transfused 4 units PRBc's she received Procrit 20.000 SC 09/04/16 09/04/16 09/06/16 21:50 21:50 06:21 Hgb 6.3 L 8.8 L Hct 19.8 L 27.0 L Iron 34.5 L TIBC 223 L % Saturation 15 Ferritin 178.00 Vitamin B12 322.0 Folate > 20.00 (5) Kidney disease, chronic, stage IV (GFR 15-29 ml/min) Is this a current diagnosis for this admission?: YesSummary: acute / chronic renal failure creatinine 3.5 ? progressive deterioration versus acute rejection increase prednisone dose to 60 mg daily and evaluation by transplant team early next week (6) Lupus Is this a current diagnosis for this admission?: Yes - Additional Information Resuscitation Status: Full Code Discharge Diet: Other (Comments) - prerenal Discharge Activity: Activity As Tolerated Home Medications: Amlodipine Besylate [Norvasc 10 mg Tablet] 10 mg PO DAILY 09/05/16 Carvedilol [Coreg 12.5 mg Tablet] 12.5 mg PO BID 09/05/16 Hydralazine HCl [Apresoline 50 mg Tablet] 50 mg PO BID 09/05/16 Labetalol HCl [Trandate] 100 mg PO BID 09/05/16 Mycophenolate Sodium [Myfortic 180 mg Tablet.] 2 tab PO BID 09/05/16 Oxycodone HCl 15 mg PO Q4HP PRN 09/05/16 Sucralfate [Carafate 1 gm Tablet] 1 gm PO QID 09/05/16 Tacrolimus Anhydrous [Prograf 1 mg Capsule] 2 mg PO BID 09/05/16 Topiramate [Topamax 25 mg Tablet] 25 mg PO DAILY 09/05/16 Furosemide [Lasix] 40 mg PO BID #60 tablet 09/06/16 Pantoprazole Sodium [Protonix] 40 mg PO QHS #30 tablet. 09/06/16 Prednisone [Deltasone 20 mg Tablet] 30 mg PO BID #50 tablet 09/06/16 Sodium Bicarbonate [Sodium Bicarbonate 650 mg Tablet] 1,300 mg PO BID #100 tablet 09/06/16 History of Present Illness Patient complains of: SOB and swelling lower extremities History of Present Illness: YUSUF CANTRELL is a 55 year old female with a past medical history of lupus leading to renal failure followed by renal transplant 2001, depression, chronic pain, GERD and hypertension. Who was in her usual state of health until approximately 6 weeks ago with lower extremity swelling, new hypertension and a change of her urine described as foamy, denying change in color denying menorrhagia, dark stools or hemorrhoids. At that time she was started on 2 blood pressure agents that she cannot recall that did not improve her lower extremity edema at which time Lasix was prescribed and taken for approximately a week without response. Over the last several days she's had excessive fatigue shortness of breath with exertion prompting her to seek evaluation emergency room where she's found to have a hemoglobin of only 6, metabolic acidosis, end-stage renal failure with a GFR of 20 and proteinuria without hematuria. She's referred to the hospitalist for admission Hospital Course Hospital Course: see above Physical Exam Vital Signs: Temp Pulse Resp BP Pulse Ox 98.5 F 68 16 153/94 H 100 09/06/16 09:00 09/06/16 09:00 09/06/16 09:00 09/06/16 07:57 09/06/16 07:57 Intake & Output 09/05/16 09/06/16 09/07/16 00:59 00:59 00:59 Intake Total 1200 1050 Output Total 2300 Balance -1100 1050 Weight 80.5 kg General appearance: PRESENT: no acute distress, well-developed, well-nourished Head exam: PRESENT: atraumatic, normocephalic Eye exam: PRESENT: conjunctiva pink, EOMI, PERRLA. ABSENT: scleral icterus Ear exam: PRESENT: normal external ear exam Mouth exam: PRESENT: moist, tongue midline Neck exam: ABSENT: carotid bruit, JVD, lymphadenopathy, thyromegaly Respiratory exam: PRESENT: clear to auscultation анна. ABSENT: rales, rhonchi, wheezes Cardiovascular exam: PRESENT: RRR, systolic murmur. ABSENT: diastolic murmur, rubs Pulses: PRESENT: normal dorsalis pedis pul Vascular exam: PRESENT: normal capillary refill GI/Abdominal exam: PRESENT: normal bowel sounds, soft. ABSENT: distended, guarding, mass, organolmegaly, rebound, tenderness Rectal exam: PRESENT: deferred Extremities exam: PRESENT: full ROM. ABSENT: calf tenderness, clubbing, pedal edema Neurological exam: PRESENT: alert, awake, oriented to person, oriented to place , oriented to time, oriented to situation, CN II-XII grossly intact. ABSENT: motor sensory deficit Psychiatric exam: PRESENT: appropriate affect, normal mood. ABSENT: homicidal ideation, suicidal ideation Skin exam: PRESENT: dry, intact, warm. ABSENT: cyanosis, rash Results Laboratory Results: 09/06/16 06:21 09/06/16 06:21 09/06/16 09/06/16 09/06/16 03:06 06:21 06:21 WBC 6.2 7.5 RBC 3.23 L 3.23 L Hgb 8.8 L 8.8 L Hct 26.8 L 27.0 L MCV 83 84 MCH 27.3 27.2 MCHC 33.0 32.6 RDW 15.3 H 15.4 H Plt Count 267 180 Seg Neutrophils % 90.9 H Lymphocytes % 5.7 L Monocytes % 3.1 Eosinophils % 0.0 Basophils % 0.3 Absolute Neutrophils 6.8 Absolute Lymphocytes 0.4 L Absolute Monocytes 0.2 Absolute Eosinophils 0.0 Absolute Basophils 0.0 Sodium 137.1 Potassium 4.3 Chloride 108 H Carbon Dioxide 13 L Anion Gap 16 BUN 38 H Creatinine 3.54 H Est GFR ( Amer) 16 L Est GFR (Non-Af Amer) 13 L Glucose 110 Calcium 9.0 Magnesium 1.6 Labs- Entire Visit 09/04/16 09/04/16 09/04/16 21:50 21:50 21:50 WBC 6.2 RBC 2.41 L Hgb 6.3 L Hct 19.8 L MCV 82 MCH 26.3 L MCHC 32.0 RDW 15.3 H Plt Count 306 Seg Neutrophils % 77.5 Lymphocytes % 10.8 L Monocytes % 10.5 Eosinophils % 0.8 Basophils % 0.4 Absolute Neutrophils 4.8 Absolute Lymphocytes 0.7 Absolute Monocytes 0.7 Absolute Eosinophils 0.1 Absolute Basophils 0.0 ESR Retic Count (auto) PT INR Sodium 140.8 Potassium 4.1 Chloride 110 H Carbon Dioxide 16 L Anion Gap 15 BUN 29 H Creatinine 3.56 H Est GFR ( Amer) 16 L Est GFR (Non-Af Amer) 13 L Glucose 102 Calcium 9.2 Magnesium Iron TIBC % Saturation Ferritin Total Bilirubin 0.3 Direct Bilirubin 0.2 Indirect Bilirubin Not Reportable Neonat Total Bilirubin Not Reportable AST 12 L ALT 22 Alkaline Phosphatase 90 NT-Pro-B Natriuret Pep Total Protein 6.7 Albumin 3.8 Vitamin B12 Folate TSH Free T4 Urine Color YELLOW Urine Appearance CLEAR Urine pH 6.0 Ur Specific Bloomery 1.008 Urine Protein >=500 H Urine Glucose (UA) 150 H Urine Ketones NEGATIVE Urine Blood NEGATIVE Urine Nitrite NEGATIVE Urine Bilirubin NEGATIVE Urine Urobilinogen NEGATIVE Ur Leukocyte Esterase NEGATIVE Urine WBC (Auto) 0 Squamous Epi Cells Auto <1 Urine Mucus (Auto) RARE Urine Ascorbic Acid NEGATIVE Stool Occult Blood Urine Opiates Screen Urine Methadone Screen Ur Barbiturates Screen Ur Phencyclidine Scrn Ur Amphetamines Screen U Benzodiazepines Scrn Urine Cocaine Screen U Marijuana (THC) Screen Blood Type Blood Type Confirm Antibody Screen Crossmatch 09/04/16 09/04/16 09/04/16 21:50 21:50 21:50 WBC RBC Hgb Hct MCV MCH MCHC RDW Plt Count Seg Neutrophils % Lymphocytes % Monocytes % Eosinophils % Basophils % Absolute Neutrophils Absolute Lymphocytes Absolute Monocytes Absolute Eosinophils Absolute Basophils ESR Retic Count (auto) PT INR Sodium Potassium Chloride Carbon Dioxide Anion Gap BUN Creatinine Est GFR ( Amer) Est GFR (Non-Af Amer) Glucose Calcium Magnesium 1.2 L* Iron TIBC % Saturation Ferritin Total Bilirubin Direct Bilirubin Indirect Bilirubin Neonat Total Bilirubin AST ALT Alkaline Phosphatase NT-Pro-B Natriuret Pep 3800 H Total Protein Albumin Vitamin B12 Folate TSH 2.95 Free T4 0.93 Urine Color Urine Appearance Urine pH Ur Specific Bloomery Urine Protein Urine Glucose (UA) Urine Ketones Urine Blood Urine Nitrite Urine Bilirubin Urine Urobilinogen Ur Leukocyte Esterase Urine WBC (Auto) Squamous Epi Cells Auto Urine Mucus (Auto) Urine Ascorbic Acid Stool Occult Blood Urine Opiates Screen Urine Methadone Screen Ur Barbiturates Screen Ur Phencyclidine Scrn Ur Amphetamines Screen U Benzodiazepines Scrn Urine Cocaine Screen U Marijuana (THC) Screen Blood Type Blood Type Confirm Antibody Screen Crossmatch 09/04/16 09/04/16 09/04/16 21:50 21:50 21:50 WBC RBC Hgb Hct MCV MCH MCHC RDW Plt Count Seg Neutrophils % Lymphocytes % Monocytes % Eosinophils % Basophils % Absolute Neutrophils Absolute Lymphocytes Absolute Monocytes Absolute Eosinophils Absolute Basophils ESR 84 H Retic Count (auto) 1.12 PT 14.0 INR 1.05 Sodium Potassium Chloride Carbon Dioxide Anion Gap BUN Creatinine Est GFR ( Amer) Est GFR (Non-Af Amer) Glucose Calcium Magnesium Iron 34.5 L TIBC 223 L % Saturation 15 Ferritin 178.00 Total Bilirubin Direct Bilirubin Indirect Bilirubin Neonat Total Bilirubin AST ALT Alkaline Phosphatase NT-Pro-B Natriuret Pep Total Protein Albumin Vitamin B12 322.0 Folate > 20.00 TSH Free T4 Urine Color Urine Appearance Urine pH Ur Specific Bloomery Urine Protein Urine Glucose (UA) Urine Ketones Urine Blood Urine Nitrite Urine Bilirubin Urine Urobilinogen Ur Leukocyte Esterase Urine WBC (Auto) Squamous Epi Cells Auto Urine Mucus (Auto) Urine Ascorbic Acid Stool Occult Blood Urine Opiates Screen Urine Methadone Screen Ur Barbiturates Screen Ur Phencyclidine Scrn Ur Amphetamines Screen U Benzodiazepines Scrn Urine Cocaine Screen U Marijuana (THC) Screen Blood Type Blood Type Confirm Antibody Screen Crossmatch 09/04/16 09/05/16 09/05/16 21:50 00:23 00:45 WBC RBC Hgb Hct MCV MCH MCHC RDW Plt Count Seg Neutrophils % Lymphocytes % Monocytes % Eosinophils % Basophils % Absolute Neutrophils Absolute Lymphocytes Absolute Monocytes Absolute Eosinophils Absolute Basophils ESR Retic Count (auto) PT INR Sodium Potassium Chloride Carbon Dioxide Anion Gap BUN Creatinine Est GFR ( Amer) Est GFR (Non-Af Amer) Glucose Calcium Magnesium Iron TIBC % Saturation Ferritin Total Bilirubin Direct Bilirubin Indirect Bilirubin Neonat Total Bilirubin AST ALT Alkaline Phosphatase NT-Pro-B Natriuret Pep Total Protein Albumin Vitamin B12 Folate TSH Free T4 Urine Color Urine Appearance Urine pH Ur Specific Bloomery Urine Protein Urine Glucose (UA) Urine Ketones Urine Blood Urine Nitrite Urine Bilirubin Urine Urobilinogen Ur Leukocyte Esterase Urine WBC (Auto) Squamous Epi Cells Auto Urine Mucus (Auto) Urine Ascorbic Acid Stool Occult Blood NEGATIVE Urine Opiates Screen NEGATIVE Urine Methadone Screen NEGATIVE Ur Barbiturates Screen NEGATIVE Ur Phencyclidine Scrn NEGATIVE Ur Amphetamines Screen NEGATIVE U Benzodiazepines Scrn NEGATIVE Urine Cocaine Screen NEGATIVE U Marijuana (THC) Screen NEGATIVE Blood Type O POSITIVE Blood Type Confirm O POSITIVE Antibody Screen NEGATIVE Crossmatch See Detail 09/05/16 09/05/16 09/06/16 01:31 09:35 03:06 WBC 5.7 6.2 RBC 2.74 L 3.23 L Hgb 7.3 L 8.8 L Hct 22.6 L 26.8 L MCV 83 83 MCH 26.6 L 27.3 MCHC 32.2 33.0 RDW 14.9 H 15.3 H Plt Count 289 267 Seg Neutrophils % Lymphocytes % Monocytes % Eosinophils % Basophils % Absolute Neutrophils Absolute Lymphocytes Absolute Monocytes Absolute Eosinophils Absolute Basophils ESR Retic Count (auto) PT INR Sodium Potassium Chloride Carbon Dioxide Anion Gap BUN Creatinine Est GFR ( Amer) Est GFR (Non-Af Amer) Glucose Calcium Magnesium Iron TIBC % Saturation Ferritin Total Bilirubin Direct Bilirubin Indirect Bilirubin Neonat Total Bilirubin AST ALT Alkaline Phosphatase NT-Pro-B Natriuret Pep Total Protein Albumin Vitamin B12 Folate TSH Free T4 Urine Color Urine Appearance Urine pH Ur Specific Bloomery Urine Protein Urine Glucose (UA) Urine Ketones Urine Blood Urine Nitrite Urine Bilirubin Urine Urobilinogen Ur Leukocyte Esterase Urine WBC (Auto) Squamous Epi Cells Auto Urine Mucus (Auto) Urine Ascorbic Acid Stool Occult Blood Urine Opiates Screen Urine Methadone Screen Ur Barbiturates Screen Ur Phencyclidine Scrn Ur Amphetamines Screen U Benzodiazepines Scrn Urine Cocaine Screen U Marijuana (THC) Screen Blood Type Blood Type Confirm O POSITIVE Antibody Screen Crossmatch 09/06/16 09/06/16 06:21 06:21 WBC 7.5 RBC 3.23 L Hgb 8.8 L Hct 27.0 L MCV 84 MCH 27.2 MCHC 32.6 RDW 15.4 H Plt Count 180 Seg Neutrophils % 90.9 H Lymphocytes % 5.7 L Monocytes % 3.1 Eosinophils % 0.0 Basophils % 0.3 Absolute Neutrophils 6.8 Absolute Lymphocytes 0.4 L Absolute Monocytes 0.2 Absolute Eosinophils 0.0 Absolute Basophils 0.0 ESR Retic Count (auto) PT INR Sodium 137.1 Potassium 4.3 Chloride 108 H Carbon Dioxide 13 L Anion Gap 16 BUN 38 H Creatinine 3.54 H Est GFR ( Amer) 16 L Est GFR (Non-Af Amer) 13 L Glucose 110 Calcium 9.0 Magnesium 1.6 Iron TIBC % Saturation Ferritin Total Bilirubin Direct Bilirubin Indirect Bilirubin Neonat Total Bilirubin AST ALT Alkaline Phosphatase NT-Pro-B Natriuret Pep Total Protein Albumin Vitamin B12 Folate TSH Free T4 Urine Color Urine Appearance Urine pH Ur Specific Bloomery Urine Protein Urine Glucose (UA) Urine Ketones Urine Blood Urine Nitrite Urine Bilirubin Urine Urobilinogen Ur Leukocyte Esterase Urine WBC (Auto) Squamous Epi Cells Auto Urine Mucus (Auto) Urine Ascorbic Acid Stool Occult Blood Urine Opiates Screen Urine Methadone Screen Ur Barbiturates Screen Ur Phencyclidine Scrn Ur Amphetamines Screen U Benzodiazepines Scrn Urine Cocaine Screen U Marijuana (THC) Screen Blood Type Blood Type Confirm Antibody Screen Crossmatch Impressions: Chest X-Ray 09/04/16 21:44 IMPRESSION: No acute findings. Abdomen/Pelvis CT 09/05/16 11:20 IMPRESSION: 1. TRANSPLANT KIDNEY IN THE RIGHT LOWER QUADRANT. NO ABNORMAL APPEARANCE. 2. CHRONIC SEVERE HYDRONEPHROSIS OF THE RIGHT KIDNEY WITH MARKED CORTICAL THINNING. SURGICAL CLIP ACROSS THE MID URETER. CHRONIC ATROPHY OF THE LEFT KIDNEY. 3. STABLE HEPATIC CYST. 4. UMBILICAL HERNIA CONTAINING FAT ONLY. LOWER ABDOMINAL WALL HERNIA CONTAINING A PORTION OF SMALL BOWEL WITH NO BOWEL OBSTRUCTION. 5. PROBABLE UTERINE FIBROIDS. 6. THE ABOVE FINDINGS ARE CHRONIC AND STABLE. NO OTHER SIGNIFICANT FINDINGS. Plan Discharge Plan: discharge home follow up with transplant clinic on thursday Case was discussed with Him Analyst at [facility] Time Spent: Greater than 30 Minutes
[2016-09-06 12:51] VITALS: BP 145/87
== END 2016-09-06 13:22 | disposition home or self-care (01) | DRG 699 ==
LOC: ER 20:12 → EH 09-05 02:01 → UNDOADMOB 09-05 02:18 → 5 09-05 04:11 → OBSVTOIN 09-05 18:10
PROVIDERS: ADMIT Internal Medicine; ATTEND Internal Medicine
PROC: 30233N1 Transfusion of Nonautologous Red Blood Cells into Peripheral Vein, Percutaneous Approach (ICD-10-PCS; principal; 2016-09-05)
DX: N04.9 Nephrotic syndrome with unspecified morphologic changes (principal); I13.0 Hypertensive heart and chronic kidney disease with heart failure and stage 1 through stage 4 chronic kidney disease, or unspecified chronic kidney disease; Z94.0 Kidney transplant status; E87.2 Acidosis; N18.4 Chronic kidney disease, stage 4 (severe); I50.9 Heart failure, unspecified; D63.1 Anemia in chronic kidney disease; M32.15 Tubulo-interstitial nephropathy in systemic lupus erythematosus; F32.9 Major depressive disorder, single episode, unspecified; K21.9 Gastro-esophageal reflux disease without esophagitis; G89.29 Other chronic pain; E78.5 Hyperlipidemia, unspecified; R63.4 Abnormal weight loss; Z79.899 Other long term (current) drug therapy; Z91.040 Latex allergy status
CPT/HCPCS: 36415; 36430; 71020; 74176; 80048; 80053; 80307; 81001; 82272; 82607; 82728; 82746; 83540; 83550; 83735; 83880; 84439; 84443; 85025; 85027; 85045; 85610; 85652; 86850; 86900; 86901; 86920; 93970; 96365; 96375; 99291; G0378; J1644; J1940; J2930; J3475; J3490; J7507; J7512; P9016; Q4081; S0164

== ENCOUNTER 2016-12-05 14:05 | Emergency (ER) | payer MEDICARE, MEDICAID ==
--- NOTE | 2016-12-05 16:08 | ER Document Report ---
ED Medical Screen (RME) - General Chief Complaint: Vaginal Discharge Stated Complaint: ABDOMINAL PAIN Time Seen by Provider: 12/05/16 15:59 Mode of Arrival: Ambulatory Information source: Patient Notes: 56 yo female presents to ed for pelvic pain off on for about 6 months and her primary md was to refer her to [facility] but she was not able to keep appointment due to emergency. she also has pain in right flank for the past three days where she has a donor kidney. Her primary/trasplant md is in [facility]. Patient denies any nausea or vomiting but states she has lost a lot of weight in the last 2 months. Patient states she is on progesterone that was started in october but she has not had a menstrual cycle in 2-3 years. she sees a specialist in [place] for her back she went to them at the beginning of November she weighted 167 and went back on the and weighted 147. I have greeted and performed a rapid initial assessment of this patient. A comprehensive ED assessment and evaluation of the patient, analysis of test results and completion of medical decision making process will be conducted by an additional ED providers. TRAVEL OUTSIDE OF THE [place] IN LAST 30 DAYS: No - Related Data Allergies/Adverse Reactions: latex [Latex] Allergy (Mild, Verified 12/28/13 10:25) Hives Past Medical History - General Last Menstrual Period: ? - Past Medical History Cardiac Medical History: Reports: Hx Congestive Heart Failure, Hx Hypercholesterolemia, Hx Hypertension Pulmonary Medical History: Denies: Hx Tuberculosis Neurological Medical History: Denies: Hx Seizures Renal/ Medical History: Reports: Hx End Stage Renal Disease - Was on dialysis for 6 months prior to kidney transplant. Denies: Hx Peritoneal Dialysis GI Medical History: Reports: Hx Gastroesophageal Reflux Disease Psychiatric Medical History: Reports: Hx Depression Past Surgical History: Reports: Hx Kidney (Renal Surgery) - kidney transplant 2002, Hx Orthopedic Surgery - neck fusion, Other - Renal transplant 2001; low back surgery. Denies: Hx Hysterectomy - Immunizations Hx Diphtheria, Pertussis, Tetanus Vaccination: - unk Physical Exam - Vital signs Vitals: Temp Pulse Resp BP Pulse Ox 98.2 F 87 15 128/75 H 100 12/05/16 14:28 12/05/16 14:28 12/05/16 14:28 12/05/16 14:28 12/05/16 14:28 Course - Vital Signs Vital signs: Temp Pulse Resp BP Pulse Ox 98.2 F 87 15 128/75 H 100 12/05/16 14:28 12/05/16 14:28 12/05/16 14:28 12/05/16 14:28 12/05/16 14:28 - Laboratory Result Diagrams: 12/05/16 16:15 12/05/16 16:15 Laboratory results interpreted by me: 12/05/16 12/05/16 12/05/16 16:15 16:15 16:15 RBC 3.40 L Hgb 8.7 L Hct 28.6 L MCH 25.5 L MCHC 30.3 L RDW 15.0 H Carbon Dioxide 18 L BUN 31 H Creatinine 3.49 H Est GFR ( Amer) 16 L Est GFR (Non-Af Amer) 14 L Magnesium 1.4 L AST 12 L Urine Protein Urine Glucose (UA) Ur Leukocyte Esterase 12/05/16 16:55 RBC Hgb Hct MCH MCHC RDW Carbon Dioxide BUN Creatinine Est GFR ( Amer) Est GFR (Non-Af Amer) Magnesium AST Urine Protein >=500 H Urine Glucose (UA) 150 H Ur Leukocyte Esterase TRACE H
[2016-12-05 16:27] LABS: ABSOLUTE EOSINOPHILS # (AUTO) 0.1 10^3/uL (0.0-0.6); ABSOLUTE LYMPHOCYTES (AUTO) 1.1 10^3/uL (0.5-4.7); ABSOLUTE MONOCYTES (AUTO) 0.5 10^3/uL (0.1-1.4); ABSOLUTE NEUT (AUTO) 2.7 10^3/uL (1.7-8.2); BASOPHILS % (AUTO) 0.8 % (0-2); EOSINOPHILS % (AUTO) 1.6 % (0-6); HEMATOCRIT 28.6 % (36.0-47.0); HEMOGLOBIN 8.7 g/dL (12.0-15.5); HGB HCT DIFFERENCE -2.5; LYMPHOCYTES % (AUTO) 24.1 % (13-45); MEAN CORPUSCULAR HEMOGLOBIN 25.5 pg (27.0-33.4); MEAN CORPUSCULAR HGB CONC 30.3 g/dL (32.0-36.0); MEAN CORPUSCULAR VOLUME 84 fl (80-97); MONOCYTES % (AUTO) 12.1 % (3-13); SEGMENTED NEUTROPHILS % (AUTO) 61.4 % (42-78); WHITE BLOOD COUNT 4.4 10^3/uL (4.0-10.5)
[2016-12-05 16:43] LABS: ALANINE AMINOTRANSFERASE 19 U/L (9-52); ALBUMIN 3.8 g/dL (3.5-5.0); ALKALINE PHOSPHATASE 89 U/L (38-126); ANION GAP 13 (5-19); ASPARTATE AMINO TRANSFERASE 12 U/L (14-36); BILIRUBIN,DIRECT 0.4 mg/dL (0.0-0.4); BILIRUBIN,TOTAL 0.5 mg/dL (0.2-1.3); BLOOD UREA NITROGEN 31 mg/dL (7-20); CALCIUM 8.7 mg/dL (8.4-10.2); CARBON DIOXIDE 18 mmol/L (22-30); CHLORIDE 107 mmol/L (98-107); CREATININE RESULT 3.49 mg/dL (0.52-1.25); GLUCOSE 86 mg/dL (75-110); POTASSIUM 3.8 mmol/L (3.6-5.0); SODIUM 137.8 mmol/L (137-145)
--- NOTE | 2016-12-05 16:56 | ER Document Report ---
ED General - General Chief Complaint: Vaginal Discharge Stated Complaint: ABDOMINAL PAIN Time Seen by Provider: 12/05/16 15:59 Mode of Arrival: Ambulatory Information source: Patient Notes: This is a 56-year-old female with a history of a kidney transplant (2003, in [place]) followed by Dr Zheng Olivo who presents to the emergency room with pain in the stomach and vaginal area with protrusion of something out of her vagina. Patient states she has had the Organ coming out of her vagina on and off for the past year. She does have an appointment with a paint mixer in [place] in December. She does have an appointment with Dr. Calzada in [place] in December as well. Denies any fever, chills. She does admit to generalized weakness. She reports having anemia and requiring admission for transfusion in September. Her BUN and creatinine at that time was approximately 38/3.5 TRAVEL OUTSIDE OF THE [place] IN LAST 30 DAYS: No - HPI Onset: Just prior to arrival Onset/Duration: Gradual Quality of pain: Achy Severity: None Pain Level: Denies Associated symptoms: denies: Chest pain, Fever, Shortness of breath Exacerbated by: Denies Relieved by: Denies Similar symptoms previously: Yes Recently seen / treated by doctor: Yes - Related Data Allergies/Adverse Reactions: latex [Latex] Allergy (Mild, Verified 12/28/13 10:25) Hives Past Medical History - General Information source: Patient Last Menstrual Period: ? - Social History Smoking Status: Never Smoker Cigarette use (# per day): No Chew tobacco use (# tins/day): No Frequency of alcohol use: None Drug Abuse: None Lives with: Family Family History: Hypertension Patient has suicidal ideation: No Patient has homicidal ideation: No - Past Medical History Cardiac Medical History: Reports: Hx Congestive Heart Failure, Hx Hypercholesterolemia, Hx Hypertension Pulmonary Medical History: Denies: Hx Tuberculosis Neurological Medical History: Denies: Hx Seizures Renal/ Medical History: Reports: Hx End Stage Renal Disease - Was on dialysis for 6 months prior to kidney transplant. Denies: Hx Peritoneal Dialysis GI Medical History: Reports: Hx Gastroesophageal Reflux Disease Psychiatric Medical History: Reports: Hx Depression Past Surgical History: Reports: Hx Kidney (Renal Surgery) - kidney transplant 2002, Hx Orthopedic Surgery - neck fusion, Other - Renal transplant 2001; low back surgery. Denies: Hx Hysterectomy - Immunizations Hx Diphtheria, Pertussis, Tetanus Vaccination: - unk Hx Pneumococcal Vaccination: 06/08/09 Review of Systems - Review of Systems Constitutional: denies: Chills, Fever EENT: No symptoms reported Cardiovascular: No symptoms reported Respiratory: No symptoms reported Gastrointestinal: See HPI Genitourinary: No symptoms reported Female Genitourinary: No symptoms reported Musculoskeletal: No symptoms reported Skin: No symptoms reported Hematologic/Lymphatic: No symptoms reported Neurological/Psychological: No symptoms reported Physical Exam - Vital signs Vitals: Temp Pulse BP Pulse Ox 98.2 F 82 128/75 H 100 12/05/16 14:27 12/05/16 14:27 12/05/16 14:27 12/05/16 14:27 Notes: Physical exam: GENERAL: 56-year-old female, alert and oriented 3, no acute distress HEAD: Atraumatic, normocephalic. EYES: Pupils equal round and reactive to light, extraocular movements intact, sclera anicteric, conjunctiva are normal. ENT: TMs normal, nares patent, oropharynx clear without exudates. Moist mucous membranes. NECK: Normal range of motion, supple without lymphadenopathy or JVD. LUNGS: Breath sounds clear to auscultation bilaterally and equal. No wheezes rales or rhonchi. HEART: Regular rate and rhythm without murmurs, rubs or gallops. ABDOMEN: Soft, normoactive bowel sounds. No tenderness to palpation. No guarding, no rebound. No masses appreciated. Kidney transplant is in the right lower quadrant and there is no overlying erythema or pain or swelling over that area. Vaginal: In the presence of a female tech: Patient does have her cervix protruding from her vaginal canal. The tissue is pink and there is no cyanosis. I was able to manually place the cervix back into the vaginal canal. EXTREMITIES: Normal range of motion, no pitting or edema. No clubbing or cyanosis. NEUROLOGICAL: Cranial nerves II through XII grossly intact. Normal speech, normal gait. PSYCH: Normal mood, normal affect. SKIN: Warm, Dry, normal turgor, no rashes or lesions noted. Course - Vital Signs Vital signs: Temp Pulse Resp BP Pulse Ox 98.3 F 72 16 131/90 H 100 12/05/16 21:51 12/05/16 21:51 12/05/16 21:51 12/05/16 21:51 12/05/16 21:51 - Laboratory Result Diagrams: 12/05/16 16:15 12/05/16 16:15 Laboratory results interpreted by me: 12/05/16 12/05/16 12/05/16 16:15 16:15 16:15 RBC 3.40 L Hgb 8.7 L Hct 28.6 L MCH 25.5 L MCHC 30.3 L RDW 15.0 H Carbon Dioxide 18 L BUN 31 H Creatinine 3.49 H Est GFR ( Amer) 16 L Est GFR (Non-Af Amer) 14 L Magnesium 1.4 L AST 12 L Urine Protein Urine Glucose (UA) Ur Leukocyte Esterase 12/05/16 16:55 RBC Hgb Hct MCH MCHC RDW Carbon Dioxide BUN Creatinine Est GFR ( Amer) Est GFR (Non-Af Amer) Magnesium AST Urine Protein >=500 H Urine Glucose (UA) 150 H Ur Leukocyte Esterase TRACE H - Diagnostic Test Radiology reviewed: Image reviewed, Reports reviewed - Transplanted kidney shows no significant obstructive issues Discharge - Discharge Clinical Impression: PROLAPSED UTERUS, UTI, Hypomagnesemia Condition: Stable Disposition: HOME, SELF-CARE Instructions: Oral Narcotic Medication ([facility]) Additional Instructions: As we discussed, your kidney tests were at baseline which is good. CT scan looked okay. The urine test did show some white cells which could be suggestive of a urine infection. Your magnesium level was low and you were given IV magnesium. Magnesium is an electrolyte. Take the antibiotics as prescribed. Your exam did show you when prolapse of the uterus. Ultimately, he may require surgery. Follow-up with the paint mixer in [place] as planned. Also like you to follow-up with your kidney doctor in [place]: Bring a copy of today's lab work, urine analysis and CT with you when you go. Emergency room for any problems. Prescriptions: Cephalexin Monohydrate [Keflex 500 mg Capsule] 500 mg PO QID #20 capsule Oxycodone HCl/Acetaminophen [Percocet 5-325 mg Tablet] 1 - 2 tab PO ASDIR PRN # 25 tablet PRN Reason: Promethazine HCl [Phenergan 25 mg Tablet] 25 mg PO Q6H PRN #15 tablet PRN Reason: Referrals: KIARA JOYCE MD [Primary Care Provider] - Follow up in 3-5 days
[2016-12-05] MEDS ORDERED: OXYCODONE HCL IR 5 MG TABLET PO ONE (18:03)
[2016-12-05] MEDS: MAGNESIUM SULFATE/D5W 100 ML IV SCH ×2 (18:24→20:28)
--- NOTE | 2016-12-05 18:32 | RADIOLOGY REPORT (SQ) ---
EXAM DESCRIPTION: CT ABD/PELVIS NO ORAL OR IV COMPLETED DATE/TIME: 12/05/2016 6:12 pm REASON FOR STUDY: right flank pain COMPARISON: 09/05/2016 TECHNIQUE: CT scan of the abdomen and pelvis performed without intravenous or oral contrast. Images reviewed with lung, soft tissue, and bone windows. Reconstructed coronal and sagittal MPR images revi ewed. All images stored on PACS. All CT scanners at this facility use dose modulation, iterative reconstruction, and/or weight based d osing when appropriate to reduce radiation dose to as low as reasonably achievable (ALARA). [facility]: Dose Right [facility]: CareDose [facility]: Dose Right [facility]: Teradose 4D [facility]: [employer] RADIATION DOSE: 5.55mGy. LIMITATIONS: None. FINDINGS: LOWER CHEST: No significant findings. No nodules or infiltrates. NON-CONTRASTED LIVER, SPLEEN, ADRENALS: A 3 cm cyst is present in the liver. The spleen and adrenal glands are normal. PANCREAS: No masses. No peripancreatic inflammatory changes. GALLBLADDER: No identified stones by CT criteria. No inflammatory changes to suggest cholecystitis. RIGHT KIDNEY AND URETER: The tangirnaq right kidney represents a hydronephrotic sac. LEFT KIDNEY AND URETER: There is marked atrophy of the left kidney. No significant calcifications. No hydronephrosis or hydroureter. AORTA AND RETROPERITONEUM: No aneurysm. No retroperitoneal masses or adenopathy. BOWEL AND PERITONEAL CAVITY: No obvious masses or inflammatory changes. No free fluid. APPENDIX: Not identified. PELVIS, BLADDER, AND ABDOMINAL WALL:A transplanted kidney is present in the upper pelvis on the right . The urinary bladder is normal. There is no adnexal mass or fluid collection. There is a ventral hernia containing only fat. BONES: No significant findings. OTHER: No other significant finding. IMPRESSION: 1. Marked hydronephrosis of the right kidney. Atrophy of the left kidney. 2. Normal appearing transplanted kidney the right upper pelvis. 3. Hepatic cyst. 4. Ventral hernia containing only fat. TECHNICAL DOCUMENTATION: JOB ID: [id number] Quality ID # [id number]: Final reports with documentation of one or more dose reduction techniques (e.g., Au tomated exposure control, adjustment of the mA and/or kV according to patient size, use of iterative reconstruction technique) 2010 [employer]- All Rights Reserved
[2016-12-05 18:42] LABS: APPEARANCE,URINE CLEAR; BILIRUBIN,URINE NEGATIVE (NEGATIVE); GLUCOSE, URINE 150 mg/dL (NEGATIVE); KETONES,URINE NEGATIVE (NEGATIVE); LEUKOCYTE ESTERASE,URINE TRACE (NEGATIVE); NITRITE,URINE NEGATIVE (NEGATIVE); PROTEIN,URINE >=500 mg/dL (NEGATIVE); URINE SPECIFIC GRAVITY 1.009; UROBILINOGEN,URINE NEGATIVE mg/dL (<2.0)
[2016-12-05 22:00] VITALS: BP 131/90
== END 2016-12-05 22:00 | disposition home or self-care (01) ==
LOC: ER 14:05
DX: N81.4 Uterovaginal prolapse, unspecified (principal); N39.0 Urinary tract infection, site not specified; E83.42 Hypomagnesemia; Z94.0 Kidney transplant status; R53.1 Weakness; I10 Essential (primary) hypertension; Z91.040 Latex allergy status
CPT/HCPCS: 99284; 96365; 96366; 36415; 83735; 84703; 85025; 80053; 81001; 74176; J3475; A9270

== ENCOUNTER 2016-12-31 09:36 | Emergency (ER) | payer MEDICAID, MEDICARE ==
--- NOTE | 2016-12-31 10:29 | ER Document Report ---
ED Fall - General Chief Complaint: Fall Stated Complaint: FALL/BACK,ARM,LEG PAIN Time Seen by Provider: 12/31/16 10:03 Notes: 56yo female c/o pain to right shoulder, elbow, low back and left hip after falling. pt reports she slipped on a wet floor at [employer]. her left leg went out from under her. she twisted, tried to catch her self. did not hit head. no LOC TRAVEL OUTSIDE OF THE [place] IN LAST 30 DAYS: No - HPI Occurred: Just prior to arrival Where: Public place - [employer] Context: Slipped Associated symptoms: None Location of injury/pain: Back, Elbow - right, Hip - left, Shoulder - right Adult Front & Back: 1 - pain 2 - pain 3 - pain - Related data Allergies/Adverse Reactions: latex [Latex] Allergy (Mild, Verified 12/31/16 09:39) Hives Past Medical History - Social History Smoking Status: Never Smoker Chew tobacco use (# tins/day): No Frequency of alcohol use: None Drug Abuse: None Family History: Hypertension - Past Medical History Cardiac Medical History: Reports: Hx Congestive Heart Failure, Hx Hypercholesterolemia, Hx Hypertension Pulmonary Medical History: Denies: Hx Tuberculosis Neurological Medical History: Denies: Hx Seizures Renal/ Medical History: Reports: Hx End Stage Renal Disease - Was on dialysis for 6 months prior to kidney transplant. Denies: Hx Peritoneal Dialysis GI Medical History: Reports: Hx Gastroesophageal Reflux Disease Psychiatric Medical History: Reports: Hx Depression Past Surgical History: Reports: Hx Kidney (Renal Surgery) - kidney transplant 2002, Hx Orthopedic Surgery - neck fusion, Other - Renal transplant 2001; low back surgery. Denies: Hx Hysterectomy - Immunizations Hx Diphtheria, Pertussis, Tetanus Vaccination: Yes - unk Hx Pneumococcal Vaccination: 06/08/09 Physical Exam - Vital signs Vitals: Temp Pulse Resp BP Pulse Ox 98.4 F 99 18 133/89 H 98 12/31/16 09:40 12/31/16 09:40 12/31/16 09:40 12/31/16 09:40 12/31/16 09:40 Course - Re-evaluation Re-evalutation: 12/31/16 11:32 xrays negative. results reviewed with patient. will treat with muscle relaxant and pain meds. pt stable for discharge and outpatient PCM follow up. pt agreeable with plan - Vital Signs Vital signs: Temp Pulse Resp BP Pulse Ox 98.4 F 99 18 133/89 H 98 12/31/16 09:40 12/31/16 09:40 12/31/16 09:40 12/31/16 09:40 12/31/16 09:40 Discharge - Discharge Clinical Impression: Right shoulder strain Condition: Stable Disposition: HOME, SELF-CARE Instructions: Sprain ([facility]), Muscle Strain ([facility]), Low Back Pain ([facility]), Muscle Relaxers ([facility]), Oral Narcotic Medication ([facility]), Ice Packs ([facility]), Warm Packs ([facility] ) Additional Instructions: Your xrays are negative for fracture Take muscle relaxant and pain medication as needed alternate ice/heat to sore areas follow up with primary care for further evaluation and treatment Prescriptions: Methocarbamol [Robaxin 500 Mg Tablet] 1,000 mg PO Q6 #30 tablet Oxycodone HCl/Acetaminophen [Percocet 5-325 mg Tablet] 1 - 2 tab PO ASDIR PRN # 25 tablet PRN Reason:
--- NOTE | 2016-12-31 11:26 | RADIOLOGY REPORT (SQ) ---
EXAM DESCRIPTION: HIP LEFT AP/LATERAL COMPLETED DATE/TIME: 12/31/2016 11:08 am REASON FOR STUDY: fell on wet tile floor COMPARISON: None. NUMBER OF VIEWS: Two views. TECHNIQUE: AP pelvis and additional frog-leg view of the left hip. LIMITATIONS: None. FINDINGS: MINERALIZATION: Normal. LEFT HIP: No fracture or dislocation. No worrisome bone lesions. RIGHT HIP: No fracture or dislocation. No worrisome bone lesions. PUBIS AND ISCHIUM: No fracture. PELVIS: No fracture. SACRUM: No fracture or dislocation. No worrisome bone lesions. LOWER LUMBAR SPINE: No fracture or dislocation. No worrisome bone lesions. No significant disc disea se. SOFT TISSUES: No findings. OTHER: No other significant finding. IMPRESSION: NEGATIVE STUDY OF THE LEFT HIP AND PELVIS. NO RADIOGRAPHIC EVIDENCE OF ACUTE INJURY. TECHNICAL DOCUMENTATION: JOB ID: [id number] [email or web address]- All Rights Reserved
--- NOTE | 2016-12-31 11:28 | RADIOLOGY REPORT (SQ) ---
EXAM DESCRIPTION: SHOULDER RIGHT 2 OR MORE VIEWS COMPLETED DATE/TIME: 12/31/2016 11:08 am REASON FOR STUDY: fell on wet tile floor COMPARISON: None. NUMBER OF VIEWS: Three views. TECHNIQUE: Internal rotation, external rotation, and Y view images acquired of the right shoulder. LIMITATIONS: None. FINDINGS: MINERALIZATION: Normal. BONES: No acute fracture or dislocation. No worrisome bone lesions. JOINTS: No dislocation. VISUALIZED LUNGS AND RIBS: No pneumothorax. No rib fracture. SOFT TISSUES: No radiopaque foreign body. OTHER: No other significant finding. IMPRESSION: NEGATIVE STUDY OF THE RIGHT SHOULDER. NO RADIOGRAPHIC EVIDENCE OF ACUTE INJURY. TECHNICAL DOCUMENTATION: JOB ID: [id number] [employer]- All Rights Reserved
--- NOTE | 2016-12-31 11:28 | RADIOLOGY REPORT (SQ) ---
EXAM DESCRIPTION: L SPINE WHOLE COMPLETED DATE/TIME: 12/31/2016 11:08 am REASON FOR STUDY: fell on wet tile floor COMPARISON: None. NUMBER OF VIEWS: Five views including obliques. TECHNIQUE: AP, lateral, oblique, and sacral radiographic images acquired of the lumbar spine. LIMITATIONS: None. FINDINGS: MINERALIZATION: Normal. SEGMENTATION: Normal. No transitional anatomy. ALIGNMENT: Normal. VERTEBRAE: Maintained height. No fracture or worrisome bone lesion. DISCS: Disc space narrowing with vacuum change at L5-S1. POSTERIOR ELEMENTS: Pedicles and facets are intact. No pars defect or posterior arch defects. HARDWARE: None in the spine. PARASPINAL SOFT TISSUES: Normal. PELVIS: Intact as visualized. No fractures or worrisome bone lesions. SI joints intact. OTHER: No other significant finding. IMPRESSION: DEGENERATIVE DISC DISEASE AT L5-S 1. NO ACUTE FINDINGS. TECHNICAL DOCUMENTATION: JOB ID: [id number] [employer]- All Rights Reserved
--- NOTE | 2016-12-31 11:28 | RADIOLOGY REPORT (SQ) ---
EXAM DESCRIPTION: ELBOW RIGHT OVER 2 VIEWS COMPLETED DATE/TIME: 12/31/2016 11:08 am REASON FOR STUDY: fell on wet tile floor COMPARISON: None. NUMBER OF VIEWS: Four views. TECHNIQUE: AP, lateral, and both oblique radiographic images acquired of the right elbow. LIMITATIONS: None. FINDINGS: MINERALIZATION: Normal. BONES: No acute fracture or dislocation. No worrisome bone lesions. JOINT: No effusion. SOFT TISSUES: No soft tissue swelling. No foreign body. OTHER: No other significant finding. IMPRESSION: NEGATIVE STUDY OF THE RIGHT ELBOW. NO RADIOGRAPHIC EVIDENCE OF ACUTE INJURY. TECHNICAL DOCUMENTATION: JOB ID: [id number] [employer]- All Rights Reserved
[2016-12-31 11:46] VITALS: BP 127/90
== END 2016-12-31 11:50 | disposition home or self-care (01) ==
LOC: ER 09:36
DX: S46.911A Strain of unspecified muscle, fascia and tendon at shoulder and upper arm level, right arm, initial encounter (principal); M25.521 Pain in right elbow; M25.552 Pain in left hip; M54.5 Low back pain; W01.0XXA Fall on same level from slipping, tripping and stumbling without subsequent striking against object, initial encounter; Y92.512 Supermarket, store or market as the place of occurrence of the external cause
CPT/HCPCS: 72110; 99283

== ENCOUNTER 2017-05-19 13:13 | Inpatient (IN) | payer MEDICARE, MEDICAID ==
[2017-05-19] MEDS ORDERED: ONDANSETRON 4 MG TAB.RAPDIS PO ONE (13:45)
--- NOTE | 2017-05-19 13:47 | ER Document Report ---
ED Medical Screen (RME) - General Chief Complaint: Vomiting/Diarrhea Stated Complaint: DIARRHEA,VOMITING Time Seen by Provider: 05/19/17 13:41 Notes: 56-year-old female patient complains of one-week history of nausea vomiting diarrhea. Reports he feels lightheaded and weak. Has noted some bright red blood in the vomitus. She has not tried any medication for the nausea or the vomiting. I have greeted and performed a rapid initial assessment of this patient. A comprehensive ED assessment and evaluation of the patient, analysis of test results and completion of the medical decision making process will be conducted by additional ED providers. TRAVEL OUTSIDE OF THE [place] IN LAST 30 DAYS: No - Related Data Allergies/Adverse Reactions: latex [Latex] Allergy (Mild, Verified 05/19/17 13:14) Hives Home Medications: Current Home Medications Promethazine HCl [Phenergan 25 mg Tablet] 25 mg PO Q6H 05/19/17 [History] Past Medical History - Social History Chew tobacco use (# tins/day): No Frequency of alcohol use: None Drug Abuse: None - Past Medical History Cardiac Medical History: Reports: Hx Congestive Heart Failure, Hx Hypercholesterolemia, Hx Hypertension Pulmonary Medical History: Denies: Hx Tuberculosis Neurological Medical History: Denies: Hx Seizures Renal/ Medical History: Reports: Hx End Stage Renal Disease - Was on dialysis for 6 months prior to kidney transplant. Denies: Hx Peritoneal Dialysis GI Medical History: Reports: Hx Gastroesophageal Reflux Disease Psychiatric Medical History: Reports: Hx Depression Past Surgical History: Reports: Hx Kidney (Renal Surgery) - kidney transplant 2002, Hx Orthopedic Surgery - neck fusion, Other - Renal transplant 2001; low back surgery. Denies: Hx Hysterectomy - Immunizations Hx Diphtheria, Pertussis, Tetanus Vaccination: Yes - unk Physical Exam - Vital signs Vitals: Temp Pulse Resp BP Pulse Ox 98.7 F 75 16 124/79 97 05/19/17 13:18 05/19/17 13:18 05/19/17 13:18 05/19/17 13:18 05/19/17 13:18 Course - Vital Signs Vital signs: Temp Pulse Resp BP Pulse Ox 98.7 F 75 16 124/79 97 05/19/17 13:18 05/19/17 13:18 05/19/17 13:18 05/19/17 13:18 05/19/17 13:18
[2017-05-19 14:29] LABS: ABSOLUTE LYMPHOCYTES (AUTO) 0.4 10^3/uL (0.5-4.7); ABSOLUTE MONOCYTES (AUTO) 0.1 10^3/uL (0.1-1.4); ABSOLUTE NEUT (AUTO) 4.4 10^3/uL (1.7-8.2); BASOPHILS % (AUTO) 0.7 % (0-2); EOSINOPHILS % (AUTO) 0.1 % (0-6); HEMATOCRIT 21.8 % (36.0-47.0); HGB HCT DIFFERENCE -0.8; LYMPHOCYTES % (AUTO) 7.3 % (13-45); MEAN CORPUSCULAR HEMOGLOBIN 27.6 pg (27.0-33.4); MEAN CORPUSCULAR HGB CONC 32.2 g/dL (32.0-36.0); MEAN CORPUSCULAR VOLUME 86 fl (80-97); MONOCYTES % (AUTO) 2.5 % (3-13); RED BLOOD COUNT 2.54 10^6/uL (3.72-5.28); RED CELL DISTRIBUTION WIDTH 13.6 % (11.5-14.0); SEGMENTED NEUTROPHILS % (AUTO) 89.4 % (42-78); WHITE BLOOD COUNT 4.9 10^3/uL (4.0-10.5)
[2017-05-19 14:58] LABS: ALANINE AMINOTRANSFERASE 24 U/L (9-52); ALBUMIN 4.1 g/dL (3.5-5.0); ALKALINE PHOSPHATASE 88 U/L (38-126); ASPARTATE AMINO TRANSFERASE 12 U/L (14-36); BILIRUBIN,DIRECT 0.4 mg/dL (0.0-0.4); BILIRUBIN,TOTAL 0.4 mg/dL (0.2-1.3); BLOOD UREA NITROGEN 43 mg/dL (7-20); CARBON DIOXIDE 11 mmol/L (22-30); CHLORIDE 109 mmol/L (98-107); CREATININE RESULT 4.99 mg/dL (0.52-1.25); GLUCOSE 79 mg/dL (75-110); TOTAL PROTEIN 7.4 g/dL (6.3-8.2)
[2017-05-19 15:06] LABS: SODIUM 139.7 mmol/L (137-145)
[2017-05-19 15:10] LABS: ANION GAP 20 (5-19)
[2017-05-19 16:43] LABS: PROTHROMBIN TIME 12.4 SEC (11.4-15.4)
[2017-05-19] MEDS ORDERED: NORMAL SALINE 1000 ML 1,000 ML IV ONE (21:01)
[2017-05-19] MEDS ORDERED: NORMAL SALINE 250 ML IV PRN ×2 (21:20)
[2017-05-19] MEDS ORDERED: MORPHINE SULFATE 10 MG/ML INJ IV ONE (21:22)
--- NOTE | 2017-05-19 21:29 | ER Document Report ---
ED General - General Chief Complaint: Vomiting/Diarrhea Stated Complaint: DIARRHEA,VOMITING Time Seen by Provider: 05/19/17 13:41 Mode of Arrival: Ambulatory Information source: Patient TRAVEL OUTSIDE OF THE [place] IN LAST 30 DAYS: No - HPI Patient complains to provider of: Vomiting and diarrhea Onset: Other - Patient states that she has had decreased appetite for some time now. She states the last few weeks she has had watery diarrhea. She states she threw up once at 430 this morning and it was bloody. She threw up here in the emergency department and there was no blood in it. - Related Data Allergies/Adverse Reactions: latex [Latex] Allergy (Mild, Verified 05/19/17 13:14) Hives Home Medications: Current Home Medications Promethazine HCl [Phenergan 25 mg Tablet] 25 mg PO Q6H 05/19/17 [History] Past Medical History - General Information source: Patient - Social History Smoking Status: Never Smoker Chew tobacco use (# tins/day): No Frequency of alcohol use: None Drug Abuse: None Lives with: Family Family History: Hypertension Patient has suicidal ideation: No Patient has homicidal ideation: No - Medical History Notes: States her last blood transfusion was approximately 2 months ago - Past Medical History Cardiac Medical History: Reports: Hx Congestive Heart Failure, Hx Hypercholesterolemia, Hx Hypertension Pulmonary Medical History: Reports: None Denies: Hx Tuberculosis EENT Medical History: Reports: None Neurological Medical History: Denies: Hx Seizures Endocrine Medical History: Reports: None Other: Patient received a kidney transplant 11/21/2002 from her sister after having kidney failure secondary to lupus. She states that her kidney is starting to fail. Renal/ Medical History: Reports: Hx End Stage Renal Disease - Was on dialysis for 6 months prior to kidney transplant, Other - Patient had kidney failure secondary to lupus.. Denies: Hx Peritoneal Dialysis GI Medical History: Reports: Hx Gastroesophageal Reflux Disease, Hx Endoscopy - Patient had an endoscopy at [facility] approximately 2 months ago. Musculoskeltal Medical History: Reports None Skin Medical History: Reports None Psychiatric Medical History: Reports: Hx Depression Past Surgical History: Reports: Hx Kidney (Renal Surgery) - kidney transplant 2002, Hx Orthopedic Surgery - neck fusion, Other - Renal transplant 2001; low back surgery. Denies: Hx Hysterectomy - Immunizations Hx Diphtheria, Pertussis, Tetanus Vaccination: Yes - unk Hx Pneumococcal Vaccination: 06/08/09 Review of Systems - Review of Systems Constitutional: Chills, Weakness EENT: No symptoms reported Cardiovascular: Lightheaded Respiratory: No symptoms reported Gastrointestinal: Diarrhea, Nausea, Vomiting, Poor appetite, Blood in vomit Genitourinary: No symptoms reported Female Genitourinary: No symptoms reported Musculoskeletal: No symptoms reported Skin: No symptoms reported Hematologic/Lymphatic: Anemia Neurological/Psychological: No symptoms reported Physical Exam - Vital signs Vitals: Temp Pulse Resp BP Pulse Ox 98.7 F 75 16 124/79 97 05/19/17 13:18 05/19/17 13:18 05/19/17 13:18 05/19/17 13:18 05/19/17 13:18 - Notes Notes: PHYSICAL EXAMINATION: GENERAL: Pale, ill-appearing. HEAD: Atraumatic, normocephalic. EYES: Pupils equal round and reactive to light, extraocular movements intact, conjunctiva are normal. ENT: Nares patent, oropharynx clear without exudates. Dry mucous membranes. NECK: Normal range of motion, supple without lymphadenopathy. LUNGS: Breath sounds clear to auscultation bilaterally and equal. No wheezes rales or rhonchi. HEART: Regular rate and rhythm without murmurs ABDOMEN: Soft, mildly diffuse abdominal tenderness, nondistended abdomen. No guarding, no rebound. No masses appreciated. Female : deferred Musculoskeletal: Normal range of motion, no pitting or edema. No cyanosis. NEUROLOGICAL: Cranial nerves grossly intact. Normal speech, normal gait. Normal sensory, motor exams PSYCH: Normal mood, normal affect. SKIN: Warm, Dry, normal turgor, no rashes or lesions noted. Course - Vital Signs Vital signs: Temp Pulse Resp BP Pulse Ox 98.7 F 75 16 124/79 99 05/19/17 13:18 05/19/17 13:18 05/19/17 13:18 05/19/17 13:18 05/19/17 21:35 - Laboratory Result Diagrams: 05/19/17 14:00 05/19/17 14:00 Laboratory results interpreted by me: 05/19/17 05/19/17 05/19/17 14:00 14:00 16:20 RBC 2.54 L Hgb 7.0 L Hct 21.8 L Seg Neutrophils % 89.4 H Lymphocytes % 7.3 L Monocytes % 2.5 L Absolute Lymphocytes 0.4 L Chloride 109 H Carbon Dioxide 11 L Anion Gap 20 H BUN 43 H Creatinine 4.99 H Est GFR ( Amer) 11 L Est GFR (Non-Af Amer) 9 L AST 12 L Crossmatch See Detail Discharge - Discharge Clinical Impression: Anemia, Kidney disease, chronic, stage IV (GFR 15-29 ml/min), Status post living-donor kidney transplantation, Vomiting, Dehydration Condition: Stable Disposition: ADMITTED INPATIENT Admitting Provider: Armida Sethi [place] [facility] Admitted: Telemetry
[2017-05-19] MEDS ORDERED: ONDANSETRON HCL INJ/PF 4 MG/2 ML SDV IV PRN (21:52)
[2017-05-19] MEDS ORDERED: OXYCODONE-ACETAMINOPHEN 5-325 MG TABLET PO PRN (21:52)
[2017-05-19] MEDS ORDERED: PROMETHAZINE HCL 25 MG SUPP.RECT PR PRN (21:52)
[2017-05-19] MEDS ORDERED: ACETAMINOPHEN 325 MG TABLET PO PRN (21:52)
[2017-05-19 22:51] LABS: PROTHROMBIN TIME 15.4 SEC (11.4-15.4)
[2017-05-19 22:52] LABS: PARTIAL THROMBOPLASTIN TIME 36.5 SEC (23.5-35.8)
[2017-05-19] MEDS ORDERED: TACROLIMUS ANHYDROUS 1 MG CAPSULE PO ONE (23:00)
[2017-05-19] MEDS: PANTOPRAZOLE SODIUM 40 MG VIAL IV SCH (23:08)
[2017-05-19] MEDS: SUCRALFATE 1 GM TABLET PO SCH (23:09)
[2017-05-19] MEDS: METHOCARBAMOL 500 MG TABLET PO SCH (23:09)
[2017-05-19] MEDS: NORMAL SALINE 1000 ML 1,000 ML IV PRN (23:12)
[2017-05-20] MEDS: NORMAL SALINE 1000 ML 1,000 ML IV PRN ×2 (00:35→18:16)
[2017-05-20] MEDS ORDERED: MAGNESIUM SULFATE/D5W 1 GM/100 ML RTUPB IV ONE (01:37)
[2017-05-20] MEDS ORDERED: SODIUM BICARBONATE 650 MG TABLET PO ONE (01:43)
--- NOTE | 2017-05-20 01:53 | PDOC H&P ---
History of Present Illness Admission Date/PCP: 05/19/17 21:49 Dr. Calzada, [facility] History of Present Illness: YUSUF CANTRELL is a 56 year old female with past medical history of systemic lupus erythematosus, hypertension, GERD, depression, chronic opioid dependency due to chronic neck and back pain, chronic kidney disease with renal transplant in 2002, peptic ulcer disease who presents to the emergency department with complaints of nausea vomiting and diarrhea. Patient has had several admissions for nausea vomiting and diarrhea. Patient reports that she was noted to have a hiatal hernia and underwent recent surgery for this. Patient reports that she has had nausea vomiting and diarrhea for approximately the last week. She denies any raw or undercooked meat or any foreign travel. Patient reports that her kidney is chronically failing and her baseline creatinine is somewhere between 4 and 5. She reports however she has been able unable to keep down food or medicine. Her stools have been clear in color and water-like in consistency without hematochezia or melena. She admits to chills, but no fever. Patient reports recently being on Keflex for UTI. She does report to a total of 100 pounds weight loss over the past 12 months. Patient also reports recent upper and lower endoscopy within the last 2 months. Past Medical History Cardiac Medical History: Reports: Congestive Heart Failure, Hyperlipidema, Hypertension Pulmonary Medical History: Reports: None Denies: Tuberculosis EENT Medical History: Reports: None Neurological Medical History: Denies: Seizures Endocrine Medical History: Reports: None Renal/ Medical History: Reports: End Stage Renal Disease - Was on dialysis for 6 months prior to kidney transplant, Other - Patient had kidney failure secondary to lupus. GI Medical History: Reports: Gastroesophageal Reflux Disease, Hiatal Hernia, Peptic Ulcer Disease Musculoskeltal Medical History: Reports: Arthritis, Other - Systemic lupus erythematosus Skin Medical History: Reports: None Psychiatric Medical History: Reports: Depression Past Surgical History Past Surgical History: Reports: Orthopedic Surgery - neck fusion, Other - Renal transplant 2001; low back surgery Tess fundoplication Denies: Hysterectomy Social History Lives with: Family Smoking Status: Never Smoker Frequency of Alcohol Use: None Hx Recreational Drug Use: No Drugs: None Hx Prescription Drug Abuse: No - Advance Directive Resuscitation Status: Full Code Surrogate healthcare decision maker:: Kevin Cantrell, son Family History Family History: Hypertension, Malignancy Parental Family History Reviewed: Yes Children Family History Reviewed: Yes Sibling(s) Family History Reviewed.: Yes Medication/Allergy Home Medications: Amlodipine Besylate [Norvasc 10 mg Tablet] 10 mg PO DAILY 09/05/16 Carvedilol [Coreg 12.5 mg Tablet] 12.5 mg PO BID 09/05/16 Hydralazine HCl [Apresoline 50 mg Tablet] 50 mg PO BID 09/05/16 Labetalol HCl [Trandate] 100 mg PO BID 09/05/16 Mycophenolate Sodium [Myfortic 180 mg Tablet.] 2 tab PO BID 09/05/16 Sucralfate [Carafate 1 gm Tablet] 1 gm PO QID 09/05/16 Tacrolimus Anhydrous [Prograf 1 mg Capsule] 2 mg PO BID 09/05/16 Furosemide [Lasix] 40 mg PO BID #60 tablet 09/06/16 Pantoprazole Sodium [Protonix] 40 mg PO QHS #30 tablet. 09/06/16 Prednisone [Deltasone 20 mg Tablet] 30 mg PO BID #50 tablet 09/06/16 Sodium Bicarbonate [Sodium Bicarbonate 650 mg Tablet] 1,300 mg PO BID #100 tablet 09/06/16 Cephalexin Monohydrate [Keflex 500 mg Capsule] 500 mg PO QID #20 capsule Oxycodone HCl/Acetaminophen [Percocet 5-325 mg Tablet] 1 - 2 tab PO ASDIR PRN # 25 tablet 12/05/16 Methocarbamol [Robaxin 500 Mg Tablet] 1,000 mg PO Q6 #30 tablet 12/31/16 Promethazine HCl [Phenergan 25 mg Tablet] 25 mg PO Q6H 05/19/17 Allergies/Adverse Reactions: latex [Latex] Allergy (Mild, Verified 05/19/17 13:14) Hives Review of Systems Constitutional: PRESENT: anorexia, chills, fatigue, weakness, weight loss. ABSENT: fever(s), headache(s), weight gain Eyes: ABSENT: visual disturbances Ears: ABSENT: hearing changes Cardiovascular: ABSENT: chest pain, dyspnea on exertion, edema, orthropnea, palpitations Respiratory: ABSENT: cough, dyspnea, hemoptysis, sputum Gastrointestinal: PRESENT: abdominal pain, diarrhea, heartburn, nausea, vomiting. ABSENT: coffee ground emesis, constipation, hematemesis, hematochezia , melena Genitourinary: ABSENT: difficulty urinating, dysuria, hematuria Musculoskeletal: PRESENT: back pain - Chronic. ABSENT: joint swelling Integumentary: ABSENT: rash, wounds Neurological: ABSENT: abnormal gait, abnormal speech, confusion, dizziness, focal weakness, syncope Psychiatric: ABSENT: anxiety, depression, homidical ideation, suicidal ideation Endocrine: ABSENT: cold intolerance, heat intolerance, polydipsia, polyuria Hematologic/Lymphatic: ABSENT: easy bleeding, easy bruising Physical Exam Vital Signs: Temp Pulse Resp BP Pulse Ox 98.7 F 75 16 114/79 100 05/19/17 13:18 05/19/17 13:18 05/19/17 23:01 05/19/17 23:01 05/19/17 23:01 General appearance: PRESENT: no acute distress, thin, well-developed. ABSENT: well-nourished Head exam: PRESENT: atraumatic, normocephalic Eye exam: PRESENT: conjunctiva pink, EOMI, PERRLA. ABSENT: scleral icterus Ear exam: PRESENT: normal external ear exam Mouth exam: PRESENT: moist, tongue midline Neck exam: ABSENT: JVD, lymphadenopathy, thyromegaly, tracheal deviation Respiratory exam: PRESENT: clear to auscultation анна, unlabored. ABSENT: accessory muscle use, prolonged expiratory phas, rales, rhonchi, tachypnea, wheezes Cardiovascular exam: PRESENT: RRR, +S1, +S2, systolic murmur. ABSENT: diastolic murmur, gallop, rubs Pulses: PRESENT: normal dorsalis pedis pul Vascular exam: PRESENT: normal capillary refill GI/Abdominal exam: PRESENT: hyperactive bowel sounds, soft, tenderness - Mild tenderness to palpation suprapubically. ABSENT: ascites, distended, firm, guarding, hernia, mass, Gonzalez's sign, organolmegaly, rebound, rigid Rectal exam: PRESENT: deferred Extremities exam: PRESENT: full ROM. ABSENT: calf tenderness, clubbing, pedal edema Neurological exam: PRESENT: alert, awake, oriented to person, oriented to place , oriented to time, oriented to situation, CN II-XII grossly intact. ABSENT: motor sensory deficit Psychiatric exam: PRESENT: appropriate affect, normal mood. ABSENT: homicidal ideation, suicidal ideation Skin exam: PRESENT: dry, intact, warm. ABSENT: cyanosis, rash Results Laboratory Results: 05/19/17 22:12 Blood Type O POSITIVE Antibody Screen NEGATIVE 12/05/16 05/19/17 05/19/17 16:15 14:00 14:00 WBC 4.9 Hgb 7.0 L Hct 21.8 L Seg Neutrophils % 89.4 H INR Sodium 139.7 Potassium 4.0 Chloride 109 H Carbon Dioxide 11 L Anion Gap 20 H BUN 43 H Creatinine 4.99 H Est GFR ( Amer) 11 L Glucose 79 Calcium 9.0 Magnesium 1.4 L Total Bilirubin 0.4 Direct Bilirubin 0.4 AST 12 L ALT 24 Alkaline Phosphatase 88 Total Protein 7.4 Albumin 4.1 TSH 05/19/17 05/19/17 14:00 22:12 WBC Hgb Hct Seg Neutrophils % INR 1.14 Sodium Potassium Chloride Carbon Dioxide Anion Gap BUN Creatinine Est GFR ( Amer) Glucose Calcium Magnesium Total Bilirubin Direct Bilirubin AST ALT Alkaline Phosphatase Total Protein Albumin TSH 3.40 Status: Imported from PACS Assessment & Plan - Diagnosis (1) High anion gap metabolic acidosis Is this a current diagnosis for this admission?: Yes Plan: We will repeat patient's BMP and give sodium bicarbonate. Will monitor on telemetry for arrhythmia and for signs of tetany. Likely secondary to patient' s renal failure, but will check a lactate and alcohol level. (2) Acute on chronic renal failure Qualifiers: Acute renal failure type: unspecified Chronic kidney disease stage: stage 4 (severe) Qualified Code(s): N17.9 - Acute kidney failure, unspecified; N18.4 - Chronic kidney disease, stage 4 (severe); N18.4 - Chronic kidney disease , stage 4 (severe); N18.4 - Chronic kidney disease, stage 4 (severe); N18.4 - Chronic kidney disease, stage 4 (severe) Is this a current diagnosis for this admission?: Yes Plan: Patient appears to have a baseline creatinine at least 6 months ago of 3.49. This would give her CKD stage IV now with superimposed RF due to dehydration. Will place on gentle hydration and consult nephrology. Have sent for a tacrolimus level. She reports no recent changes in her medications. We will also check a UA and urine culture as she reports she has been treated recently with Keflex for a UTI. (3) Anemia Qualifiers: Anemia type: unspecified type Qualified Code(s): D64.9 - Anemia, unspecified Is this a current diagnosis for this admission?: Yes Plan: Likely secondary to anemia of chronic disease. Concern for acute blood loss anemia due to reports of bloody emesis. Will transfuse 1 unit and continue to monitor (4) Dehydration Is this a current diagnosis for this admission?: Yes (5) Status post living-donor kidney transplantation Is this a current diagnosis for this admission?: Yes Plan: Check ultrasound of her kidney, ENE virus in the urine, and tacrolimus level. Will discuss with the team contacting her kidney transplant specialist at [facility], Dr. Roberto Calzada. (6) Vomiting Qualifiers: Vomiting type: unspecified Vomiting Intractability: non-intractable Nausea presence: with nausea Qualified Code(s): R11.2 - Nausea with vomiting, unspecified Is this a current diagnosis for this admission?: Yes Plan: Continue patient on Phenergan (7) Hypomagnesemia Is this a current diagnosis for this admission?: Yes Plan: Replete and recheck (8) Metabolic acidosis Is this a current diagnosis for this admission?: Yes Plan: Patient is chronically on sodium bicarbonate at home and I feel that this is likely a chronic issue for this patient and based on past laboratory studies it has been chronic for her. (9) Proteinuria Qualifiers: Proteinuria type: persistent Qualified Code(s): R80.1 - Persistent proteinuria, unspecified Is this a current diagnosis for this admission?: Yes Plan: Patient has in the past for nephrotic range proteinuria (10) Weight loss Is this a current diagnosis for this admission?: Yes (11) GERD (gastroesophageal reflux disease) Qualifiers: Esophagitis presence: esophagitis presence not specified Qualified Code(s) : K21.9 - Gastro-esophageal reflux disease without esophagitis Is this a current diagnosis for this admission?: Yes Plan: Continue patient on PPI and Carafate (12) SLE (systemic lupus erythematosus) Qualifiers: Systemic lupus erythematosus type: other Systemic lupus erythematosus organ involvement: unspecified Qualified Code(s): M32.8 - Other forms of systemic lupus erythematosus Is this a current diagnosis for this admission?: Yes Plan: Patient with kidney transplant secondary to this. On chronic prednisone (13) UTI (urinary tract infection) Qualifiers: Urinary tract infection type: site unspecified Hematuria presence: without hematuria Qualified Code(s): N39.0 - Urinary tract infection, site not specified Is this a current diagnosis for this admission?: Yes Plan: Place patient on Rocephin and obtain culture and UA - Time Time Spent: 50 to 70 Minutes Medications reviewed and adjusted accordingly: Yes Anticipated discharge: Home with Homehealth Within: Other - Upon improvement of symptomatology - Inpatient Certification Based on my medical assessment, after consideration of the patient's comorbidities, presenting symptoms, or acuity I expect that the services needed warrant INPATIENT care.: Yes I certify that my determination is in accordance with my understanding of Medicare's requirements for reasonable and necessary INPATIENT services [42 CFR 412.3e].: Yes Medical Necessity: Need For IV Fluids, Need For Continuous Telemetry Monitoring , Need for IV Antibiotics, Risk of Complication if Not Cared For in Hospital Post Hospital Care: D/C Vp Clinical Research Documentation
[2017-05-20 02:25] LABS: ABSOLUTE LYMPHOCYTES (AUTO) 0.8 10^3/uL (0.5-4.7); ABSOLUTE MONOCYTES (AUTO) 0.4 10^3/uL (0.1-1.4); ABSOLUTE NEUT (AUTO) 2.5 10^3/uL (1.7-8.2); BASOPHILS % (AUTO) 0.5 % (0-2); EOSINOPHILS % (AUTO) 0.4 % (0-6); HEMATOCRIT 21.4 % (36.0-47.0); HGB HCT DIFFERENCE -0.7; LYMPHOCYTES % (AUTO) 21.5 % (13-45); MEAN CORPUSCULAR HEMOGLOBIN 27.9 pg (27.0-33.4); MEAN CORPUSCULAR HGB CONC 32.1 g/dL (32.0-36.0); MEAN CORPUSCULAR VOLUME 87 fl (80-97); MONOCYTES % (AUTO) 10.1 % (3-13); RED BLOOD COUNT 2.46 10^6/uL (3.72-5.28); RED CELL DISTRIBUTION WIDTH 13.6 % (11.5-14.0); SEGMENTED NEUTROPHILS % (AUTO) 67.5 % (42-78); WHITE BLOOD COUNT 3.7 10^3/uL (4.0-10.5)
[2017-05-20 02:28] LABS: HEMOGLOBIN 6.9 g/dL (12.0-15.5)
[2017-05-20 02:38] LABS: ALANINE AMINOTRANSFERASE 24 U/L (9-52); ALBUMIN 3.8 g/dL (3.5-5.0); ALKALINE PHOSPHATASE 83 U/L (38-126); ASPARTATE AMINO TRANSFERASE 11 U/L (14-36); BILIRUBIN,DIRECT 0.2 mg/dL (0.0-0.4); BILIRUBIN,TOTAL 0.2 mg/dL (0.2-1.3); BLOOD UREA NITROGEN 48 mg/dL (7-20); CALCIUM 8.5 mg/dL (8.4-10.2); CREATININE RESULT 5.01 mg/dL (0.52-1.25); GLUCOSE 69 mg/dL (75-110); PHOSPHORUS 6.3 mg/dL (2.5-4.5); POTASSIUM 4.1 mmol/L (3.6-5.0); TOTAL PROTEIN 6.8 g/dL (6.3-8.2)
[2017-05-20 02:57] LABS: CHLORIDE 115 mmol/L (98-107); SODIUM 144.4 mmol/L (137-145)
[2017-05-20 02:58] LABS: ANION GAP 20 (5-19)
[2017-05-20 02:59] LABS: CARBON DIOXIDE 9 mmol/L (22-30); MAGNESIUM 1.2 mg/dL (1.6-2.3)
--- NOTE | 2017-05-20 03:18 | RADIOLOGY REPORT (SQ) ---
EXAM DESCRIPTION: 1. Complete retroperitoneal ultrasound. 2. Renal artery duplex ultrasound of transplant kidney. CLINICAL HISTORY: 56 years, Female, RLQ FOR EVAL OF KTP COMPARISON: None. TECHNIQUE: Real-time sonographic images of the retroperitoneum and transplant kidney obtained. Color and spectral Doppler imaging of the transplant renal artery and aorta obtained. FINDINGS: Retroperitoneal ultrasound: Right kidney measures 14.9 x 7.1 x 6.0 cm. Numerous cysts throughout the right kidney. Thin renal parenchyma. No definite hydronephrosis or solid mass. Left kidney is not visualized. The urinary bladder is not visualized. Right transplant kidney measures 11.1 x 5.5 x 4.8 cm. No hydronephrosis. Velocities (in centimeters per second): Renal hilum: 66.8 Segmental artery: 62.4 Aortic: 74.0 Renal aortic ratio: 0.9 IMPRESSION: 1. Right pelvic transplant kidney has a normal ultrasound appearance. No evidence of transplant renal arterial stenosis. 2. 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 3. Left [place] kidney not visualized. 2011 [employer]- All Rights Reserved
--- NOTE | 2017-05-20 03:18 | RADIOLOGY REPORT (SQ) ---
EXAM DESCRIPTION: 1. Complete retroperitoneal ultrasound. 2. Renal artery duplex ultrasound of transplant kidney. CLINICAL HISTORY: 56 years, Female, RLQ FOR EVAL OF KTP COMPARISON: None. TECHNIQUE: Real-time sonographic images of the retroperitoneum and transplant kidney obtained. Color and spectral Doppler imaging of the transplant renal artery and aorta obtained. FINDINGS: Retroperitoneal ultrasound: Right kidney measures 14.9 x 7.1 x 6.0 cm. Numerous cysts throughout the right kidney. Thin renal parenchyma. No definite hydronephrosis or solid mass. Left kidney is not visualized. The urinary bladder is not visualized. Right transplant kidney measures 11.1 x 5.5 x 4.8 cm. No hydronephrosis. Velocities (in centimeters per second): Renal hilum: 66.8 Segmental artery: 62.4 Aortic: 74.0 Renal aortic ratio: 0.9 IMPRESSION: 1. Right pelvic transplant kidney has a normal ultrasound appearance. No evidence of transplant renal arterial stenosis. 2. 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 3. Left [place] kidney not visualized. 2011 [employer]- All Rights Reserved
[2017-05-20] MEDS ORDERED: SODIUM BICARBONATE 8.4% INJ 50 MEQ/50 ML DISP.SYRIN IV ONE (03:31)
[2017-05-20] MEDS: OXYCODONE-ACETAMINOPHEN 5-325 MG TABLET PO PRN ×4 (03:45→22:54)
[2017-05-20] MEDS: MAGNESIUM SULFATE/D5W 1 GM/100 ML RTUPB IV SCH ×2 (04:39→04:56)
[2017-05-20 06:56] LABS: HEMATOCRIT 20.8 % (36.0-47.0); HGB HCT DIFFERENCE -0.4; MEAN CORPUSCULAR HEMOGLOBIN 27.6 pg (27.0-33.4); MEAN CORPUSCULAR HGB CONC 32.5 g/dL (32.0-36.0); MEAN CORPUSCULAR VOLUME 85 fl (80-97); RED BLOOD COUNT 2.45 10^6/uL (3.72-5.28); RED CELL DISTRIBUTION WIDTH 13.8 % (11.5-14.0); WHITE BLOOD COUNT 3.7 10^3/uL (4.0-10.5)
[2017-05-20 07:16] LABS: HEMOGLOBIN 6.8 g/dL (12.0-15.5)
[2017-05-20] MEDS: METHOCARBAMOL 500 MG TABLET PO SCH ×3 (07:18→18:40)
[2017-05-20 07:33] LABS: ABSOLUTE EOSINOPHILS# (MANUAL) 0.1 10^3/uL (0.0-0.6); BASOPHILS % (MANUAL) 1 % (0-2); EOSINOPHILS % (MANUAL) 2 % (0-6); LYMPHOCYTES % (MANUAL) 31 % (13-45); OVALOCYTES 2+; POIKILOCYTOSIS 2+; ROULEAUX SLIGHT; TOTAL CELLS COUNTED 100
[2017-05-20 07:34] LABS: HYPOCHROMASIA SLIGHT; POLYCHROMASIA SLIGHT; SCHISTOCYTES SLIGHT
[2017-05-20 08:40] LABS: ALANINE AMINOTRANSFERASE 24 U/L (9-52); ALBUMIN 3.1 g/dL (3.5-5.0); ALKALINE PHOSPHATASE 76 U/L (38-126); ANION GAP 17 (5-19); ASPARTATE AMINO TRANSFERASE 10 U/L (14-36); BILIRUBIN,DIRECT 0.3 mg/dL (0.0-0.4); BILIRUBIN,TOTAL 0.4 mg/dL (0.2-1.3); BLOOD UREA NITROGEN 46 mg/dL (7-20); CALCIUM 8.2 mg/dL (8.4-10.2); CARBON DIOXIDE 11 mmol/L (22-30); CHLORIDE 110 mmol/L (98-107); CREATININE RESULT 4.72 mg/dL (0.52-1.25); GLUCOSE 70 mg/dL (75-110); POTASSIUM 3.6 mmol/L (3.6-5.0); SODIUM 138.4 mmol/L (137-145); TOTAL PROTEIN 5.9 g/dL (6.3-8.2)
[2017-05-20] MEDS: MAGNESIUM OXIDE 400 MG TABLET PO SCH ×3 (09:59→18:17)
[2017-05-20] MEDS: CALCIUM ACETATE 667 MG CAPSULE PO SCH ×3 (09:59→18:17)
[2017-05-20] MEDS ORDERED: AMLODIPINE BESYLATE 10 MG TABLET PO SCH (10:00)
[2017-05-20] MEDS ORDERED: PREDNISONE 20 MG TABLET PO SCH (10:00)
[2017-05-20] MEDS ORDERED: CARVEDILOL 12.5 MG TABLET PO SCH (10:00)
[2017-05-20] MEDS ORDERED: HYDRALAZINE HCL 50 MG TABLET PO SCH ×2 (10:00→22:00)
[2017-05-20] MEDS ORDERED: DOCUSATE SODIUM 100 MG/10 ML UDC PO SCH (10:00)
[2017-05-20] MEDS ORDERED: (PENDING PHARMACY ID) (Labetalol Hcl [Trandate] 100 MG) PO SCH (10:00)
[2017-05-20] MEDS ORDERED: FUROSEMIDE 40 MG TABLET PO SCH (10:00)
[2017-05-20] MEDS ORDERED: MYCOPHENOLATE SODIUM PO SCH (10:00)
[2017-05-20] MEDS: CEFTRIAXONE 1 GM/D5W RTU 1 GM/50 ML RTUPB IV SCH (10:01)
[2017-05-20] MEDS: PANTOPRAZOLE SODIUM 40 MG VIAL IV SCH ×2 (10:02→21:14)
[2017-05-20] MEDS: SODIUM BICARBONATE 650 MG TABLET PO SCH ×2 (10:02→18:18)
[2017-05-20] MEDS: LACTOBACILLUS ACIDOPHILUS 250 MG TAB PO SCH ×2 (10:02→18:17)
[2017-05-20] MEDS: SUCRALFATE 1 GM TABLET PO SCH ×4 (10:03→21:15)
[2017-05-20 10:04] LABS: APPEARANCE,URINE CLEAR; BILIRUBIN,URINE NEGATIVE (NEGATIVE); GLUCOSE, URINE 50 mg/dL (NEGATIVE); KETONES,URINE 20 mg/dL (NEGATIVE); LEUKOCYTE ESTERASE,URINE MODERATE (NEGATIVE); NITRITE,URINE NEGATIVE (NEGATIVE); PROTEIN,URINE 100 mg/dL (NEGATIVE); URINE SPECIFIC GRAVITY 1.009; UROBILINOGEN,URINE NEGATIVE mg/dL (<2.0)
[2017-05-20] MEDS: TACROLIMUS ANHYDROUS 1 MG CAPSULE PO SCH ×3 (10:11→21:14)
[2017-05-20] MEDS: PSYLLIUM SEED-SF 5.85 GM PACKET PO SCH ×2 (10:11)
[2017-05-20] MEDS ORDERED: PREDNISONE 5 MG TABLET PO ONE ×2 (13:30→14:00)
[2017-05-20] MEDS ORDERED: TOPIRAMATE 25 MG TABLET PO ONE (14:30)
--- NOTE | 2017-05-20 15:33 | Physician Advisory Note ---
Physician Advisor ProgressNote .: [facility], I have reviewed the medical record for this patient. Physician Advisor Statement: Nice documentation of ARF on CKD stage 4. Please specify in documentation, if possible: 1. Does she have "Acute on chronic metabolic acidosis", or just "Chronic metabolic acidosis"? 2. Anemia of chronic Kidney dz? or "Anemia of chronic [dz type]"? 3. "Chronic ___ type CHF"? or "Past episode of ___ [systolic? diastolic?] type CHF due to ___ that is resolved, not chronic" Thanks! CK
[2017-05-20 16:54] LABS: HEMATOCRIT 23.2 % (36.0-47.0); HGB HCT DIFFERENCE -0.7; MEAN CORPUSCULAR HEMOGLOBIN 27.3 pg (27.0-33.4); MEAN CORPUSCULAR HGB CONC 32.4 g/dL (32.0-36.0); MEAN CORPUSCULAR VOLUME 84 fl (80-97); RED BLOOD COUNT 2.75 10^6/uL (3.72-5.28); RED CELL DISTRIBUTION WIDTH 13.8 % (11.5-14.0); WHITE BLOOD COUNT 3.2 10^3/uL (4.0-10.5)
[2017-05-20 16:57] LABS: HEMOGLOBIN 7.5 g/dL (12.0-15.5)
[2017-05-20 17:10] LABS: ANION GAP 15 (5-19); BLOOD UREA NITROGEN 44 mg/dL (7-20); CALCIUM 8.5 mg/dL (8.4-10.2); CARBON DIOXIDE 13 mmol/L (22-30); CHLORIDE 109 mmol/L (98-107); CREATININE RESULT 4.27 mg/dL (0.52-1.25); GLUCOSE 86 mg/dL (75-110); POTASSIUM 3.4 mmol/L (3.6-5.0); SODIUM 137.4 mmol/L (137-145)
--- NOTE | 2017-05-20 17:17 | PDOC CONSULTATION ---
Consultation Consult Date: 05/20/17 Consult reason:: Acute on CKD 4. History of Present Illness Admission Date/PCP: 05/19/17 21:49 History of Present Illness: YUSUF CANTRELL is a 56 year old female with past medical history of systemic lupus erythematosus, hypertension, GERD, depression, chronic opioid dependency due to chronic neck and back pain, chronic kidney disease with a living related donor renal transplant from her sister in 2002, peptic ulcer disease who presents to the emergency department with complaints of nausea vomiting and diarrhea. Patient has had several admissions for nausea vomiting and diarrhea. Says was on a antibiotic during .However she is not a good historian as she seemed to struggle to remember her diagnoses and issues. New and is it related with possible early uremia ??. Patient reports that she was noted to have a hiatal hernia and underwent recent surgery for this. Patient reports that she has had nausea vomiting and diarrhea for approximately the last week. She denies any raw or undercooked meat or any foreign travel. She sees Dr Choi, transplant Plating Equipment Tender [facility] for her renal transplant and failing kidney. Patient reports that her kidney is chronically failing and her baseline creatinine is somewhere between 4 and 5. She reports however she has been unable to keep down food or medicine. Her stools have been clear in color and water-like in consistency without hematochezia or melena. She admits to chills, but no fever. She does report to a total of 100 pounds weight loss over the past 12 months. Patient also reports recent upper and lower endoscopy within the last 2 months. Past Medical History Cardiac Medical History: Reports: Hyperlipidemia, Hypertension-primary Pulmonary Medical History: Reports: None Denies: Tuberculosis EENT Medical History: Reports: None Neurological Medical History: Denies: Seizures Endocrine Medical History: Reports: None Renal/ Medical History: Reports: Chronic Kidney Disease Stage IV, End Stage Renal Disease - Was on dialysis for 6 months prior to kidney transplant, Renal Transplant, Other - Patient had kidney failure secondary to lupus. GI Medical History: Reports: Gastroesophageal Reflux Disease, Hiatal Hernia, Peptic Ulcer Disease Musculoskeltal Medical History: Reports: None, Arthritis, Systemic Lupus Erythematosus, Other - Systemic lupus erythematosus Skin Medical History: Reports: None Psychiatric Medical History: Reports: Depression Past Surgical History Past Surgical History: Reports: Orthopedic Surgery - neck fusion, Other - Renal transplant 2001; low back surgery Tess fundoplication Denies: Hysterectomy Social History Lives with: Family Smoking Status: Never Smoker Frequency of Alcohol Use: None Hx Recreational Drug Use: No Drugs: None Hx Prescription Drug Abuse: No - Advance Directive Resuscitation Status: Full Code Family History Parental Family History Reviewed: No Children Family History Reviewed: No Sibling(s) Family History Reviewed.: No Medication/Allergy Home Medications: Amlodipine Besylate [Norvasc 10 mg Tablet] 10 mg PO DAILY 09/05/16 Hydralazine HCl [Apresoline 50 mg Tablet] 50 mg PO Q12 09/05/16 Labetalol HCl [Trandate] 100 mg PO Q12 09/05/16 Mycophenolate Sodium [Myfortic 180 mg Tablet.] 180 mg PO Q12 09/05/16 Tacrolimus Anhydrous [Prograf 1 mg Capsule] 2 mg PO Q12 09/05/16 Pantoprazole Sodium [Protonix] 40 mg PO QHS #30 tablet. 09/06/16 Furosemide [Lasix 80 mg Tablet] 80 mg PO QAM 05/20/17 Oxycodone HCl [Oxy-Ir 5 mg Tablet] 15 mg PO Q8HP PRN MDD 3 TABS 05/20/17 Prednisone [Deltasone 5 mg Tablet] 5 mg PO [id number] 05/20/17 Topiramate [Topamax] 50 mg PO DAILY 05/20/17 Allergies/Adverse Reactions: latex [Latex] Allergy (Mild, Verified 05/19/17 13:14) Hives Review of Systems Constitutional: PRESENT: fatigue, weakness. ABSENT: fever(s), headache(s), night sweats Nose, Mouth, and Throat: ABSENT: mouth pain, sore throat, vertigo Cardiovascular: PRESENT: dyspnea on exertion. ABSENT: edema, orthropnea, palpitations Gastrointestinal: PRESENT: bloating, diarrhea, nausea. ABSENT: abdominal pain, dysphagia, heartburn, hematemesis, hematochezia Integumentary: ABSENT: erythema, lesions, pruritus, rash Neurological: ABSENT: abnormal movements, abnormal speech, convulsions, focal weakness Hematologic/Lymphatic: ABSENT: easy bruising, lymphadenopathy Physical Exam Vital Signs: Temp Pulse Resp BP Pulse Ox 98.7 F 64 16 141/78 H 100 05/20/17 07:35 05/20/17 07:35 05/20/17 07:35 05/20/17 07:35 05/20/17 07:35 Intake & Output 05/19/17 05/20/17 05/21/17 06:59 06:59 06:59 Intake Total 1230 350 Balance 1230 350 Weight 54.8 kg General appearance: PRESENT: no acute distress Eye exam: PRESENT: conjunctiva pink, EOMI, PERRLA. ABSENT: nystagmus Ear exam: PRESENT: normal external ear exam Mouth exam: PRESENT: neck supple. ABSENT: moist Neck exam: ABSENT: lymphadenopathy, meningismus, tenderness, thyromegaly, tracheal deviation Respiratory exam: PRESENT: clear to auscultation анна, symmetrical. ABSENT: crackles Cardiovascular exam: PRESENT: +S1, +S2 GI/Abdominal exam: PRESENT: soft, tenderness - mildly tender over her renal transplant in [place].No bruits heard. Extremities exam: ABSENT: pedal edema Neurological exam: PRESENT: awake, oriented to person, oriented to place Psychiatric exam: PRESENT: flat affect Skin exam: ABSENT: dry, erythema, mottled Results Laboratory Results: 05/20/17 06:27 05/20/17 06:26 05/19/17 05/20/17 05/20/17 22:12 02:10 02:10 WBC 3.7 L RBC 2.46 L Hgb 6.9 L Hct 21.4 L MCV 87 MCH 27.9 MCHC 32.1 RDW 13.6 Plt Count 174 Seg Neutrophils % 67.5 Lymphocytes % 21.5 Monocytes % 10.1 Eosinophils % 0.4 Basophils % 0.5 Absolute Neutrophils 2.5 Absolute Lymphocytes 0.8 Absolute Monocytes 0.4 Absolute Eosinophils 0.0 Absolute Basophils 0.0 Sodium 144.4 Potassium 4.1 Chloride 115 H Carbon Dioxide 9 L* Anion Gap 20 H BUN 48 H Creatinine 5.01 H Est GFR ( Amer) 11 L Est GFR (Non-Af Amer) 9 L Glucose 69 L Lactic Acid Calcium 8.5 Phosphorus 6.3 H Magnesium 1.2 L* Total Bilirubin 0.2 AST 11 L ALT 24 Alkaline Phosphatase 83 Total Protein 6.8 Albumin 3.8 Urine Color Urine Appearance Urine pH Ur Specific [place] Urine Protein Urine Glucose (UA) Urine Ketones Urine Blood Urine Nitrite Ur Leukocyte Esterase Urine WBC (Auto) Urine RBC (Auto) Stool Occult Blood Stool for White Cells Blood Type O POSITIVE Antibody Screen NEGATIVE 05/20/17 05/20/17 05/20/17 02:10 02:14 02:14 WBC RBC Hgb Hct MCV MCH MCHC RDW Plt Count Seg Neutrophils % Lymphocytes % Monocytes % Eosinophils % Basophils % Absolute Neutrophils Absolute Lymphocytes Absolute Monocytes Absolute Eosinophils Absolute Basophils Sodium Potassium Chloride Carbon Dioxide Anion Gap BUN Creatinine Est GFR ( Amer) Est GFR (Non-Af Amer) Glucose Lactic Acid 0.8 Calcium Phosphorus Magnesium Total Bilirubin AST ALT Alkaline Phosphatase Total Protein Albumin Urine Color Urine Appearance Urine pH Ur Specific [place] Urine Protein Urine Glucose (UA) Urine Ketones Urine Blood Urine Nitrite Ur Leukocyte Esterase Urine WBC (Auto) Urine RBC (Auto) Stool Occult Blood NEGATIVE Stool for White Cells FEW H Blood Type Antibody Screen 05/20/17 05/20/17 05/20/17 06:26 06:26 06:27 WBC 3.7 L RBC 2.45 L Hgb 6.8 L Hct 20.8 L MCV 85 MCH 27.6 MCHC 32.5 RDW 13.8 Plt Count 153 Seg Neutrophils % Not Reportable Lymphocytes % Not Reportable Monocytes % Not Reportable Eosinophils % Not Reportable Basophils % Not Reportable Absolute Neutrophils Not Reportable Absolute Lymphocytes Not Reportable Absolute Monocytes Not Reportable Absolute Eosinophils Not Reportable Absolute Basophils Not Reportable Sodium 138.4 Potassium 3.6 Chloride 110 H Carbon Dioxide 11 L Anion Gap 17 BUN 46 H Creatinine 4.72 H Est GFR ( Amer) 12 L Est GFR (Non-Af Amer) 10 L Glucose 70 L Lactic Acid Calcium 8.2 L Phosphorus Magnesium 2.1 Total Bilirubin 0.4 AST 10 L ALT 24 Alkaline Phosphatase 76 Total Protein 5.9 L Albumin 3.1 L Urine Color Urine Appearance Urine pH Ur Specific [place] Urine Protein Urine Glucose (UA) Urine Ketones Urine Blood Urine Nitrite Ur Leukocyte Esterase Urine WBC (Auto) Urine RBC (Auto) Stool Occult Blood Stool for White Cells Blood Type Antibody Screen 05/20/17 09:25 WBC RBC Hgb Hct MCV MCH MCHC RDW Plt Count Seg Neutrophils % Lymphocytes % Monocytes % Eosinophils % Basophils % Absolute Neutrophils Absolute Lymphocytes Absolute Monocytes Absolute Eosinophils Absolute Basophils Sodium Potassium Chloride Carbon Dioxide Anion Gap BUN Creatinine Est GFR ( Amer) Est GFR (Non-Af Amer) Glucose Lactic Acid Calcium Phosphorus Magnesium Total Bilirubin AST ALT Alkaline Phosphatase Total Protein Albumin Urine Color STRAW Urine Appearance CLEAR Urine pH 6.0 Ur Specific [place] 1.009 Urine Protein 100 H Urine Glucose (UA) 50 H Urine Ketones 20 H Urine Blood SMALL H Urine Nitrite NEGATIVE Ur Leukocyte Esterase MODERATE H Urine WBC (Auto) 23 Urine RBC (Auto) 1 Stool Occult Blood Stool for White Cells Blood Type Antibody Screen Impressions: Renal Ultrasound 05/20/17 00:00 IMPRESSION: 1. Right pelvic transplant kidney has a normal ultrasound appearance. No evidence of transplant renal arterial stenosis. 2. 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 3. Left [place] kidney not visualized. 2010 [employer]- All Rights Reserved Vascular Ultrasound 05/20/17 00:00 IMPRESSION: 1. Right pelvic transplant kidney has a normal ultrasound appearance. No evidence of transplant renal arterial stenosis. 2. 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 3. Left [place] kidney not visualized. 2010 [employer]- All Rights Reserved Assessment & Plan - Diagnosis (1) Diarrhea Plan: Need to r/o C.Diff. Diff includes Colitis, Myfortic, which can be held if c.diff is negative. (2) Acute on chronic renal failure Qualifiers: Acute renal failure type: unspecified Chronic kidney disease stage: stage 4 (severe) Qualified Code(s): N17.9 - Acute kidney failure, unspecified; N18.4 - Chronic kidney disease, stage 4 (severe); N18.4 - Chronic kidney disease , stage 4 (severe); N18.4 - Chronic kidney disease, stage 4 (severe); N18.4 - Chronic kidney disease, stage 4 (severe) Is this a current diagnosis for this admission?: Yes Plan: She has a base creatinine between 3.5 and 4 and is almost ESRD. Lytes are stable and she has gap acidosis. Started on bicarb replacement. She looks like she might be in early uremia. See how she responds to conservative managements including fluid resuscitation. Monitor closely for initiation of dialysis. (3) Anemia Qualifiers: Anemia type: unspecified type Qualified Code(s): D64.9 - Anemia, unspecified Is this a current diagnosis for this admission?: Yes Plan: She has been transfused. Get iron studies and other relevant tests and start on EPO. (4) Chronic kidney disease, stage IV (severe) Plan: In the setting of failing renal transplant. She is aware of her failing renal status and is expecting to be starting on dialysis soon. (5) Dehydration Is this a current diagnosis for this admission?: Yes Plan: Recommend gentle hydration. (6) Status post living-donor kidney transplantation Is this a current diagnosis for this admission?: Yes (7) Lupus Qualifiers: Systemic lupus erythematosus type: unspecified Systemic lupus erythematosus organ involvement: tubulo-interstitial nephropathy Qualified Code(s): M32.15 - Tubulo-interstitial nephropathy in systemic lupus erythematosus Is this a current diagnosis for this admission?: Yes Plan: Apparently the initial cause of her ESRD and getting the living donor renal transplant. (8) Hypomagnesemia Is this a current diagnosis for this admission?: Yes Plan: s/p replacement.Monitor.
--- NOTE | 2017-05-20 18:30 | PDOC PROGRESS REPORT ---
Subjective Progress Note for:: 05/20/17 Subjective:: 56-year-old female with past medical history of SLE Hypertension Depression Chronic neck and back pain with chronic opiate dependence GERD Chronic kidney disease with renal transplant in 2002 Peptic ulcer disease Hiatal hernia status post recent surgery CHF Hyperlipidemia . She is on prednisone Prograf and CellCept. She presented to the hospital on May 19 with nausea vomiting and diarrhea the past 1 week. The patient reported being unable to keep down any food or medicine and her stools have been clear and watery like. She did not notice any hematochezia or melena. She admitted to some chills but no fever and noted that she was recently started on Keflex for a urinary tract infection. The patient reported an approximate 100 pound weight loss in the past 12 months and also recently had an upper endoscopy and colonoscopy within the past year. She was diagnosed with acute on chronic renal failure. Baseline creatinine is around 3.49. Patient was started on Rocephin for a UTI. Urine analysis and cultures were ordered. Was found to have high anion gap metabolic acidosis and was given sodium bicarbonate. Kidney ultrasound, ENE virus in the urine and tacrolimus levels were ordered. Office Administration is Dr. Roberto Calzada in [place]. Renal ultrasound showed numerous cysts throughout the right kidney with thin renal parenchyma. Left kidney not visualized. Right transplant kidney showed no hydronephrosis or renal artery stenosis. Reason For Visit: ACUTE ON CHRONIC RENAL FAILURE N/V/D Physical Exam Vital Signs: Temp Pulse Resp BP Pulse Ox 98.0 F 66 16 150/88 H 98 05/20/17 04:55 05/20/17 04:55 05/20/17 04:55 05/20/17 04:55 05/20/17 04:55 Intake & Output 05/19/17 05/20/17 05/21/17 06:59 06:59 06:59 Intake Total 600 350 Balance 600 350 Weight 54.8 kg Additional comments: The patient is a middle-aged -[place] female sitting up in bed not in acute distress HEENT: Pupils equal reactive light was pink vaginal mucosa with no lesions, normal external ears and nose Lungs: Clear to auscultation bilaterally normal respiratory effort Cardiac: S1-S2 regular no murmurs heard cyanosis no calf tenderness Abdomen: Soft, no focal tenderness, normal bowel sounds Skin: Warm and dry Neuro: Awake and alert, speech is clear and fluent, no facial droop Results Laboratory Results: 05/20/17 06:27 05/19/17 05/20/17 05/20/17 22:12 02:10 02:10 WBC 3.7 L RBC 2.46 L Hgb 6.9 L Hct 21.4 L MCV 87 MCH 27.9 MCHC 32.1 RDW 13.6 Plt Count 174 Seg Neutrophils % 67.5 Lymphocytes % 21.5 Monocytes % 10.1 Eosinophils % 0.4 Basophils % 0.5 Absolute Neutrophils 2.5 Absolute Lymphocytes 0.8 Absolute Monocytes 0.4 Absolute Eosinophils 0.0 Absolute Basophils 0.0 Sodium 144.4 Potassium 4.1 Chloride 115 H Carbon Dioxide 9 L* Anion Gap 20 H BUN 48 H Creatinine 5.01 H Est GFR ( Amer) 11 L Est GFR (Non-Af Amer) 9 L Glucose 69 L Lactic Acid Calcium 8.5 Phosphorus 6.3 H Magnesium 1.2 L* Total Bilirubin 0.2 AST 11 L ALT 24 Alkaline Phosphatase 83 Total Protein 6.8 Albumin 3.8 Stool Occult Blood Stool for White Cells Blood Type O POSITIVE Antibody Screen NEGATIVE 05/20/17 05/20/17 05/20/17 02:10 02:14 02:14 WBC RBC Hgb Hct MCV MCH MCHC RDW Plt Count Seg Neutrophils % Lymphocytes % Monocytes % Eosinophils % Basophils % Absolute Neutrophils Absolute Lymphocytes Absolute Monocytes Absolute Eosinophils Absolute Basophils Sodium Potassium Chloride Carbon Dioxide Anion Gap BUN Creatinine Est GFR ( Amer) Est GFR (Non-Af Amer) Glucose Lactic Acid 0.8 Calcium Phosphorus Magnesium Total Bilirubin AST ALT Alkaline Phosphatase Total Protein Albumin Stool Occult Blood NEGATIVE Stool for White Cells FEW H Blood Type Antibody Screen 05/20/17 06:27 WBC 3.7 L RBC 2.45 L Hgb 6.8 L Hct 20.8 L MCV 85 MCH 27.6 MCHC 32.5 RDW 13.8 Plt Count 153 Seg Neutrophils % Not Reportable Lymphocytes % Not Reportable Monocytes % Not Reportable Eosinophils % Not Reportable Basophils % Not Reportable Absolute Neutrophils Not Reportable Absolute Lymphocytes Not Reportable Absolute Monocytes Not Reportable Absolute Eosinophils Not Reportable Absolute Basophils Not Reportable Sodium Potassium Chloride Carbon Dioxide Anion Gap BUN Creatinine Est GFR ( Amer) Est GFR (Non-Af Amer) Glucose Lactic Acid Calcium Phosphorus Magnesium Total Bilirubin AST ALT Alkaline Phosphatase Total Protein Albumin Stool Occult Blood Stool for White Cells Blood Type Antibody Screen Impressions: Renal Ultrasound 05/20/17 00:00 IMPRESSION: 1. Right pelvic transplant kidney has a normal ultrasound appearance. No evidence of transplant renal arterial stenosis. 2. Polycystic [place] right kidney. 3. Left [place] kidney not visualized. 2010 [employer]- All Rights Reserved Vascular Ultrasound 05/20/17 00:00 IMPRESSION: 1. Right pelvic transplant kidney has a normal ultrasound appearance. No evidence of transplant renal arterial stenosis. 2. Polycystic [place] right kidney. 3. Left [place] kidney not visualized. 2010 [employer]- All Rights Reserved Assessment & Plan - Diagnosis (2) Acute on chronic renal failure Qualifiers: Acute renal failure type: unspecified Chronic kidney disease stage: stage 4 (severe) Qualified Code(s): N17.9 - Acute kidney failure, unspecified; N18.4 - Chronic kidney disease, stage 4 (severe); N18.4 - Chronic kidney disease , stage 4 (severe); N18.4 - Chronic kidney disease, stage 4 (severe); N18.4 - Chronic kidney disease, stage 4 (severe) Is this a current diagnosis for this admission?: Yes (3) Anemia Qualifiers: Anemia type: unspecified type Qualified Code(s): D64.9 - Anemia, unspecified Is this a current diagnosis for this admission?: Yes (5) Dehydration Is this a current diagnosis for this admission?: Yes (7) High anion gap metabolic acidosis Is this a current diagnosis for this admission?: Yes (8) Status post living-donor kidney transplantation Is this a current diagnosis for this admission?: Yes (9) Vomiting Qualifiers: Vomiting type: unspecified Vomiting Intractability: non-intractable Nausea presence: with nausea Qualified Code(s): R11.2 - Nausea with vomiting, unspecified Is this a current diagnosis for this admission?: Yes (10) Hypomagnesemia Is this a current diagnosis for this admission?: Yes (11) Proteinuria Qualifiers: Proteinuria type: persistent Qualified Code(s): R80.1 - Persistent proteinuria, unspecified Is this a current diagnosis for this admission?: Yes (12) GERD (gastroesophageal reflux disease) Qualifiers: Esophagitis presence: esophagitis presence not specified Qualified Code(s) : K21.9 - Gastro-esophageal reflux disease without esophagitis Is this a current diagnosis for this admission?: Yes (13) SLE (systemic lupus erythematosus) Qualifiers: Systemic lupus erythematosus type: other Systemic lupus erythematosus organ involvement: unspecified Qualified Code(s): M32.8 - Other forms of systemic lupus erythematosus Is this a current diagnosis for this admission?: Yes Plan: I spoke to Dr. Julianne Ruiz, the mobile developer on-call at [facility]. The patient has been accepted to their service. She recommended reducing the Prograf to 1mg BID. Patient received 1 unit of packed red blood cells this morning. We are following her labs closely. We will continue IV fluids and hold her Lasix. Avoid any nephrotoxic agents and continue to monitor renal function. She is awaiting a bed at [facility]. - Time Time Spent with patient: 35 or more minutes
[2017-05-20] MEDS: TOPIRAMATE 25 MG TABLET PO SCH (21:15)
[2017-05-21 05:07] LABS: HEMATOCRIT 20.4 % (36.0-47.0); HGB HCT DIFFERENCE -0.3; MEAN CORPUSCULAR HEMOGLOBIN 27.5 pg (27.0-33.4); MEAN CORPUSCULAR HGB CONC 33.1 g/dL (32.0-36.0); MEAN CORPUSCULAR VOLUME 83 fl (80-97); RED BLOOD COUNT 2.45 10^6/uL (3.72-5.28); RED CELL DISTRIBUTION WIDTH 13.7 % (11.5-14.0); WHITE BLOOD COUNT 2.6 10^3/uL (4.0-10.5)
[2017-05-21 05:30] LABS: ALANINE AMINOTRANSFERASE 23 U/L (9-52); ALKALINE PHOSPHATASE 74 U/L (38-126); ANION GAP 13 (5-19); ASPARTATE AMINO TRANSFERASE 11 U/L (14-36); BILIRUBIN,DIRECT 0.2 mg/dL (0.0-0.4); BILIRUBIN,TOTAL 0.2 mg/dL (0.2-1.3); BLOOD UREA NITROGEN 37 mg/dL (7-20); CALCIUM 8.5 mg/dL (8.4-10.2); CARBON DIOXIDE 13 mmol/L (22-30); CHLORIDE 112 mmol/L (98-107); CREATININE RESULT 3.96 mg/dL (0.52-1.25); GLUCOSE 88 mg/dL (75-110); POTASSIUM 3.4 mmol/L (3.6-5.0); SODIUM 138.2 mmol/L (137-145); TOTAL PROTEIN 5.6 g/dL (6.3-8.2)
[2017-05-21 05:52] LABS: HEMOGLOBIN 6.7 g/dL (12.0-15.5)
[2017-05-21 05:56] LABS: BASOPHILS % (MANUAL) 0 % (0-2); EOSINOPHILS % (MANUAL) 1 % (0-6); LYMPHOCYTES % (MANUAL) 12 % (13-45); TOTAL CELLS COUNTED 100
[2017-05-21 05:58] LABS: BURR CELLS SLIGHT; OVALOCYTES SLIGHT; POIKILOCYTOSIS SLIGHT
[2017-05-21] MEDS ORDERED: LANSOPRAZOLE 30 MG TAB.RAP.DR PO SCH (06:00)
[2017-05-21] MEDS ORDERED: PREDNISONE 5 MG TABLET PO SCH (08:00)
[2017-05-21] MEDS ORDERED: HYDRALAZINE HCL 25 MG TABLET PO SCH (08:00)
[2017-05-21] MEDS ORDERED: POTASSIUM CHLORIDE 10 MEQ TABLET.SA PO ONE (08:20)
[2017-05-21] MEDS ORDERED: FUROSEMIDE INJ/PF 40 MG/4 ML SDV IV ONE ×2 (08:32→13:30)
[2017-05-21] MEDS: CALCIUM ACETATE 667 MG CAPSULE PO SCH ×2 (08:39→13:18)
[2017-05-21] MEDS: PREDNISONE 5 MG TABLET PO SCH (08:39)
[2017-05-21] MEDS: MAGNESIUM OXIDE 400 MG TABLET PO SCH ×3 (08:39→18:02)
[2017-05-21] MEDS: OXYCODONE-ACETAMINOPHEN 5-325 MG TABLET PO PRN ×2 (08:40→15:13)
[2017-05-21] MEDS: NORMAL SALINE 1000 ML 1,000 ML IV PRN (08:42)
[2017-05-21] MEDS: AMLODIPINE BESYLATE 2.5 MG TABLET PO SCH (10:55)
[2017-05-21] MEDS: CEFTRIAXONE 1 GM/D5W RTU 1 GM/50 ML RTUPB IV SCH (10:56)
[2017-05-21] MEDS: LACTOBACILLUS ACIDOPHILUS 250 MG TAB PO SCH (10:56)
[2017-05-21] MEDS: HYDRALAZINE HCL 25 MG TABLET PO SCH ×2 (10:56→21:25)
[2017-05-21] MEDS: PSYLLIUM SEED-SF 5.85 GM PACKET PO SCH ×2 (10:56)
[2017-05-21] MEDS: SUCRALFATE 1 GM TABLET PO SCH ×4 (10:58→21:26)
[2017-05-21] MEDS: PANTOPRAZOLE SODIUM 40 MG VIAL IV SCH ×2 (10:58→21:26)
[2017-05-21] MEDS: TACROLIMUS ANHYDROUS 1 MG CAPSULE PO SCH ×2 (10:59→21:27)
[2017-05-21] MEDS ORDERED: MYFORTIC PO ONE (11:00)
[2017-05-21] MEDS: SODIUM BICARBONATE 650 MG TABLET PO SCH ×2 (11:00→18:02)
[2017-05-21] MEDS: TOPIRAMATE 25 MG TABLET PO SCH ×2 (11:12→21:30)
[2017-05-21] MEDS ORDERED: INFLUENZA ADLT QUAD (36MOS+) 2017-18 VAC 0.5 ML SYR IM PRN (12:12)
--- NOTE | 2017-05-21 13:35 | PDOC PROGRESS REPORT ---
Subjective Progress Note for:: 05/21/17 Subjective:: Patient was seen comfortably laying in her bed. She was happy the current progress that was being made here. Since admission her diarrhea has gotten better. She is aware of the need for blood transfusions and is agreeable. She is also agreeable to receiving epogen if need be. Denies SOB, chest pain, fever or chills. Reason For Visit: ACUTE ON CHRONIC RENAL FAILURE N/V/D Physical Exam Vital Signs: Temp Pulse Resp BP Pulse Ox 98.1 F 67 19 132/82 H 100 05/21/17 12:45 05/21/17 12:45 05/21/17 12:45 05/21/17 12:45 05/21/17 12:45 Intake & Output 05/20/17 05/21/17 05/22/17 06:59 06:59 06:59 Intake Total 1230 4964 300 Output Total 700 Balance 1230 4264 300 Weight 54.8 kg 59.9 kg General appearance: PRESENT: no acute distress, well-developed, well-nourished Head exam: PRESENT: atraumatic, normocephalic Mouth exam: PRESENT: moist, tongue midline Neck exam: PRESENT: full ROM. ABSENT: JVD Respiratory exam: PRESENT: clear to auscultation анна. ABSENT: accessory muscle use, crackles, rales, wheezes Cardiovascular exam: PRESENT: RRR, +S1, +S2 GI/Abdominal exam: PRESENT: soft. ABSENT: distended, tenderness - mildly tender over her renal transplant in [place].No bruits heard. Extremities exam: ABSENT: pedal edema, tenderness Musculoskeletal exam: PRESENT: normal inspection. ABSENT: deformity, tenderness Neurological exam: PRESENT: alert, awake, oriented to person, oriented to place , oriented to time, oriented to situation Psychiatric exam: PRESENT: appropriate affect, normal mood Skin exam: PRESENT: dry, intact, warm Results Laboratory Results: 05/21/17 04:16 05/21/17 04:16 05/19/17 05/20/17 05/20/17 22:12 16:28 16:28 WBC 3.2 L RBC 2.75 L Hgb 7.5 L Hct 23.2 L MCV 84 MCH 27.3 MCHC 32.4 RDW 13.8 Plt Count 160 Seg Neutrophils % Lymphocytes % Monocytes % Eosinophils % Basophils % Absolute Neutrophils Absolute Lymphocytes Absolute Monocytes Absolute Eosinophils Absolute Basophils Sodium 137.4 Potassium 3.4 L Chloride 109 H Carbon Dioxide 13 L Anion Gap 15 BUN 44 H Creatinine 4.27 H Est GFR ( Amer) 13 L Est GFR (Non-Af Amer) 11 L Glucose 86 Calcium 8.5 Total Bilirubin AST ALT Alkaline Phosphatase Total Protein Albumin Blood Type O POSITIVE Antibody Screen NEGATIVE 05/21/17 05/21/17 04:16 04:16 WBC 2.6 L RBC 2.45 L Hgb 6.7 L Hct 20.4 L MCV 83 MCH 27.5 MCHC 33.1 RDW 13.7 Plt Count 146 L Seg Neutrophils % Not Reportable Lymphocytes % Not Reportable Monocytes % Not Reportable Eosinophils % Not Reportable Basophils % Not Reportable Absolute Neutrophils Not Reportable Absolute Lymphocytes Not Reportable Absolute Monocytes Not Reportable Absolute Eosinophils Not Reportable Absolute Basophils Not Reportable Sodium 138.2 Potassium 3.4 L Chloride 112 H Carbon Dioxide 13 L Anion Gap 13 BUN 37 H Creatinine 3.96 H Est GFR ( Amer) 14 L Est GFR (Non-Af Amer) 12 L Glucose 88 Calcium 8.5 Total Bilirubin 0.2 AST 11 L ALT 23 Alkaline Phosphatase 74 Total Protein 5.6 L Albumin 3.0 L Blood Type Antibody Screen Impressions: Renal Ultrasound 05/20/17 00:00 IMPRESSION: 1. Right pelvic transplant kidney has a normal ultrasound appearance. No evidence of transplant renal arterial stenosis. 2. Polycystic [place] right kidney. 3. Left [place] kidney not visualized. 2010 [employer] All Rights Reserved Vascular Ultrasound 05/20/17 00:00 IMPRESSION: 1. Right pelvic transplant kidney has a normal ultrasound appearance. No evidence of transplant renal arterial stenosis. 2. Polycystic [place] right kidney. 3. Left [place] kidney not visualized. 2010 [employer] All Rights Reserved Assessment & Plan - Diagnosis (1) Acute on chronic renal failure Qualifiers: Acute renal failure type: unspecified Chronic kidney disease stage: stage 4 (severe) Qualified Code(s): N17.9 - Acute kidney failure, unspecified; N18.4 - Chronic kidney disease, stage 4 (severe); N18.4 - Chronic kidney disease , stage 4 (severe); N18.4 - Chronic kidney disease, stage 4 (severe); N18.4 - Chronic kidney disease, stage 4 (severe) Is this a current diagnosis for this admission?: Yes Plan: looks to be improving, advise to continue orally rehydrating the kidneys. (2) Metabolic acidosis Is this a current diagnosis for this admission?: Yes Plan: currently on sodium bicarb 1300mg bid, trending up right now. (3) Hypokalemia Plan: ordered 20mEQ of PO potassium. (4) Anemia Qualifiers: Anemia type: unspecified type Qualified Code(s): D64.9 - Anemia, unspecified Is this a current diagnosis for this admission?: Yes Plan: drawing iron panels in the morning and if normal will give epogen (5) Chronic kidney disease, stage IV (severe) Plan: almost down to baseline of 3.5. Seems to be lost foggy minded and able to process information better today. (6) Diarrhea Plan: looks to be improving (7) Lupus Qualifiers: Systemic lupus erythematosus type: unspecified Systemic lupus erythematosus organ involvement: tubulo-interstitial nephropathy Qualified Code(s): M32.15 - Tubulo-interstitial nephropathy in systemic lupus erythematosus Is this a current diagnosis for this admission?: Yes
[2017-05-21] MEDS: MORPHINE SULFATE 10 MG/ML INJ IV PRN ×2 (17:14→21:26)
--- NOTE | 2017-05-21 17:16 | PDOC PROGRESS REPORT ---
Subjective Progress Note for:: 05/21/17 Subjective:: 56-year-old female with past medical history of SLE Hypertension Depression Chronic neck and back pain with chronic opiate dependence GERD Chronic kidney disease with renal transplant in 2002 Peptic ulcer disease Hiatal hernia status post recent surgery CHF Hyperlipidemia . She is on prednisone Prograf and CellCept. She presented to the hospital on May 19 with nausea vomiting and diarrhea the past 1 week. The patient reported being unable to keep down any food or medicine and her stools have been clear and watery like. She did not notice any hematochezia or melena. She admitted to some chills but no fever and noted that she was recently started on Keflex for a urinary tract infection. The patient reported an approximate 100 pound weight loss in the past 12 months and also recently had an upper endoscopy and colonoscopy within the past year. She was diagnosed with acute on chronic renal failure. Baseline creatinine is around 3.49. Patient was started on Rocephin for a UTI. Urine analysis and cultures were ordered. Was found to have high anion gap metabolic acidosis and was given sodium bicarbonate. Kidney ultrasound, ENE virus in the urine and tacrolimus levels were ordered. Recruiter Coordinator is Dr. Roberto Calzada in [place]. Renal ultrasound showed numerous cysts throughout the right kidney with thin renal parenchyma. Left kidney not visualized. Right transplant kidney showed no hydronephrosis or renal artery stenosis. Reason For Visit: ACUTE ON CHRONIC RENAL FAILURE N/V/D She feels better today diarrhea has resolved. Eating her diet okay. Has been accepted at [facility] by Dr. Carrillo and is awaiting a bed. Physical Exam Vital Signs: Temp Pulse Resp BP Pulse Ox 98.4 F 68 19 129/79 H 98 05/21/17 16:40 05/21/17 16:40 05/21/17 16:40 05/21/17 16:40 05/21/17 16:40 Intake & Output 05/20/17 05/21/17 05/22/17 06:59 06:59 06:59 Intake Total 1230 4964 637 Output Total 700 1000 Balance 1230 4296 -363 Weight 54.8 kg 59.9 kg Additional comments: Middle-aged -Niue[place] female sitting in bed not in acute distress Lungs: Clear to auscultation bilaterally normal respiratory effort Cardiac: S1-S2 regular no murmurs heard no peripheral edema Abdomen: Soft, no focal tenderness normal bowel sounds Skin: Warm and dry Neurologic: Awake and alert oriented 3 speech is clear and fluent Results Laboratory Results: 05/21/17 04:16 05/21/17 04:16 05/19/17 05/21/17 05/21/17 22:12 04:16 04:16 WBC 2.6 L RBC 2.45 L Hgb 6.7 L Hct 20.4 L MCV 83 MCH 27.5 MCHC 33.1 RDW 13.7 Plt Count 146 L Seg Neutrophils % Not Reportable Lymphocytes % Not Reportable Monocytes % Not Reportable Eosinophils % Not Reportable Basophils % Not Reportable Absolute Neutrophils Not Reportable Absolute Lymphocytes Not Reportable Absolute Monocytes Not Reportable Absolute Eosinophils Not Reportable Absolute Basophils Not Reportable Sodium 138.2 Potassium 3.4 L Chloride 112 H Carbon Dioxide 13 L Anion Gap 13 BUN 37 H Creatinine 3.96 H Est GFR ( Amer) 14 L Est GFR (Non-Af Amer) 12 L Glucose 88 Calcium 8.5 Total Bilirubin 0.2 AST 11 L ALT 23 Alkaline Phosphatase 74 Total Protein 5.6 L Albumin 3.0 L Blood Type O POSITIVE Antibody Screen NEGATIVE Impressions: Renal Ultrasound 05/20/17 00:00 IMPRESSION: 1. Right pelvic transplant kidney has a normal ultrasound appearance. No evidence of transplant renal arterial stenosis. 2. Polycystic [place] right kidney. 3. Left [place] kidney not visualized. 2010 [employer] All Rights Reserved Vascular Ultrasound 05/20/17 00:00 IMPRESSION: 1. Right pelvic transplant kidney has a normal ultrasound appearance. No evidence of transplant renal arterial stenosis. 2. Polycystic [place] right kidney. 3. Left [place] kidney not visualized. 2010 [employer] All Rights Reserved Assessment & Plan - Diagnosis (2) Acute on chronic renal failure Qualifiers: Acute renal failure type: unspecified Chronic kidney disease stage: stage 4 (severe) Qualified Code(s): N17.9 - Acute kidney failure, unspecified; N18.4 - Chronic kidney disease, stage 4 (severe); N18.4 - Chronic kidney disease , stage 4 (severe); N18.4 - Chronic kidney disease, stage 4 (severe); N18.4 - Chronic kidney disease, stage 4 (severe) Is this a current diagnosis for this admission?: Yes (3) Anemia Qualifiers: Anemia type: unspecified type Qualified Code(s): D64.9 - Anemia, unspecified Is this a current diagnosis for this admission?: Yes (5) Dehydration Is this a current diagnosis for this admission?: Yes (7) High anion gap metabolic acidosis Is this a current diagnosis for this admission?: Yes (8) Status post living-donor kidney transplantation Is this a current diagnosis for this admission?: Yes (9) Vomiting Qualifiers: Vomiting type: unspecified Vomiting Intractability: non-intractable Nausea presence: with nausea Qualified Code(s): R11.2 - Nausea with vomiting, unspecified Is this a current diagnosis for this admission?: Yes (10) Hypomagnesemia Is this a current diagnosis for this admission?: Yes (11) Proteinuria Qualifiers: Proteinuria type: persistent Qualified Code(s): R80.1 - Persistent proteinuria, unspecified Is this a current diagnosis for this admission?: Yes (12) GERD (gastroesophageal reflux disease) Qualifiers: Esophagitis presence: esophagitis presence not specified Qualified Code(s) : K21.9 - Gastro-esophageal reflux disease without esophagitis Is this a current diagnosis for this admission?: Yes (13) SLE (systemic lupus erythematosus) Qualifiers: Systemic lupus erythematosus type: other Systemic lupus erythematosus organ involvement: unspecified Qualified Code(s): M32.8 - Other forms of systemic lupus erythematosus Is this a current diagnosis for this admission?: Yes - Time Time Spent with patient: 25-34 minutes - Plan Summary Plan Summary: Continue current management with IV fluids. 2 more packed red blood cells were ordered today. Continue to monitor electrolyte and kidney function and replete as needed. Prograf levels are pending.
[2017-05-21] MEDS: MYFORTIC PO SCH (18:02)
[2017-05-21] MEDS: LABETALOL HCL 200 MG TABLET PO SCH (21:25)
[2017-05-22] MEDS: MORPHINE SULFATE 10 MG/ML INJ IV PRN (05:05)
[2017-05-22 05:06] LABS: ALANINE AMINOTRANSFERASE 25 U/L (9-52); ALBUMIN 3.1 g/dL (3.5-5.0); ALKALINE PHOSPHATASE 76 U/L (38-126); ANION GAP 13 (5-19); ASPARTATE AMINO TRANSFERASE 10 U/L (14-36); BILIRUBIN,DIRECT 0.3 mg/dL (0.0-0.4); BILIRUBIN,TOTAL 0.4 mg/dL (0.2-1.3); BLOOD UREA NITROGEN 30 mg/dL (7-20); CALCIUM 8.6 mg/dL (8.4-10.2); CARBON DIOXIDE 15 mmol/L (22-30); CHLORIDE 110 mmol/L (98-107); CREATININE RESULT 3.77 mg/dL (0.52-1.25); GLUCOSE 90 mg/dL (75-110); MAGNESIUM 1.5 mg/dL (1.6-2.3); PHOSPHORUS 3.6 mg/dL (2.5-4.5); POTASSIUM 3.1 mmol/L (3.6-5.0); SODIUM 137.8 mmol/L (137-145)
[2017-05-22 05:07] LABS: HEMATOCRIT 26.1 % (36.0-47.0); HGB HCT DIFFERENCE 1.2; MEAN CORPUSCULAR HEMOGLOBIN 28.2 pg (27.0-33.4); MEAN CORPUSCULAR HGB CONC 34.9 g/dL (32.0-36.0); MEAN CORPUSCULAR VOLUME 81 fl (80-97); RED BLOOD COUNT 3.22 10^6/uL (3.72-5.28); RED CELL DISTRIBUTION WIDTH 14.6 % (11.5-14.0); WHITE BLOOD COUNT 3.2 10^3/uL (4.0-10.5)
[2017-05-22 05:33] LABS: BASOPHILS % (MANUAL) 0 % (0-2); EOSINOPHILS % (MANUAL) 0 % (0-6); LYMPHOCYTES % (MANUAL) 18 % (13-45); TOTAL CELLS COUNTED 100
[2017-05-22 05:35] LABS: ANISOCYTOSIS SLIGHT; BURR CELLS SLIGHT; POIKILOCYTOSIS SLIGHT; SCHISTOCYTES SLIGHT; TOXIC GRANULATION SLIGHT
[2017-05-22 05:36] LABS: HEMOGLOBIN 9.1 g/dL (12.0-15.5)
[2017-05-22] MEDS: PREDNISONE 5 MG TABLET PO SCH (07:45)
[2017-05-22] MEDS: HYDRALAZINE HCL 25 MG TABLET PO SCH ×2 (07:57→21:33)
[2017-05-22] MEDS: OXYCODONE-ACETAMINOPHEN 5-325 MG TABLET PO PRN ×3 (07:57→21:34)
[2017-05-22] MEDS: AMLODIPINE BESYLATE 2.5 MG TABLET PO SCH (07:57)
[2017-05-22] MEDS: NORMAL SALINE 1000 ML 1,000 ML IV PRN ×2 (07:59→21:10)
[2017-05-22] MEDS ORDERED: MAGNESIUM OXIDE 400 MG TABLET PO SCH (10:00)
[2017-05-22] MEDS ORDERED: POTASSI CL 20 MEQ/50 ML RIDER 20 MEQ/50 ML RTUPB IV ONE (10:00)
[2017-05-22] MEDS ORDERED: EPOETIN ALFA INJ 20000 UNIT/1 ML VIAL (RENAL) SUBCUT ONE (10:06)
[2017-05-22] MEDS ORDERED: PREDNISONE 5 MG TABLET PO SCH (10:12)
--- NOTE | 2017-05-22 10:13 | PDOC PROGRESS REPORT ---
Subjective Progress Note for:: 05/22/17 Reason For Visit: Patient was seen for follow up of her GILSON on CKD 4 in the setting of renal transplant. She is feeling better today even though she still has some diarrhea .Its not as intense as earlier. She has mild intermittent nausea and an occasional vomiting. No abdominal pains, blood in stools.C.Diff is negative. Apparently the hospitalist has decided to transfer the patient to [facility]. Physical Exam Vital Signs: Temp Pulse Resp BP Pulse Ox 98.3 F 63 18 143/93 H 99 05/22/17 07:37 05/22/17 07:37 05/22/17 07:37 05/22/17 07:37 05/22/17 07:37 Intake & Output 05/21/17 05/22/17 05/23/17 06:59 06:59 06:59 Intake Total 4964 3119 Output Total 700 2800 Balance 4264 319 Weight 59.9 kg 59.9 kg General appearance: PRESENT: no acute distress Respiratory exam: PRESENT: clear to auscultation анна, symmetrical. ABSENT: crackles Cardiovascular exam: PRESENT: RRR, +S1, +S2 GI/Abdominal exam: PRESENT: normal bowel sounds, soft. ABSENT: distended, organomegaly, tenderness - mildly tender over her renal transplant in [place].No bruits heard. Extremities exam: ABSENT: pedal edema Neurological exam: PRESENT: alert, awake, oriented to person, oriented to place Results Laboratory Results: 05/22/17 04:17 05/22/17 04:17 05/19/17 05/22/17 05/22/17 22:12 04:17 04:17 WBC 3.2 L RBC 3.22 L Hgb 9.1 L D Hct 26.1 L MCV 81 MCH 28.2 MCHC 34.9 RDW 14.6 H Plt Count 145 L Seg Neutrophils % Not Reportable Lymphocytes % Not Reportable Monocytes % Not Reportable Eosinophils % Not Reportable Basophils % Not Reportable Absolute Neutrophils Not Reportable Absolute Lymphocytes Not Reportable Absolute Monocytes Not Reportable Absolute Eosinophils Not Reportable Absolute Basophils Not Reportable Sodium 137.8 Potassium 3.1 L Chloride 110 H Carbon Dioxide 15 L Anion Gap 13 BUN 30 H Creatinine 3.77 H Est GFR ( Amer) 15 L Est GFR (Non-Af Amer) 12 L Glucose 90 Calcium 8.6 Phosphorus 3.6 Magnesium 1.5 L Iron 128.2 TIBC 155 L % Saturation 83 Ferritin 340.00 H Total Bilirubin 0.4 AST 10 L ALT 25 Alkaline Phosphatase 76 Total Protein 6.0 L Albumin 3.1 L Blood Type O POSITIVE Antibody Screen NEGATIVE 05/20/17 02:14 Stool - Stool - Final Impressions: Renal Ultrasound 05/20/17 00:00 IMPRESSION: 1. Right pelvic transplant kidney has a normal ultrasound appearance. No evidence of transplant renal arterial stenosis. 2. Polycystic [place] right kidney. 3. [place] kidney not visualized. 2010 [email or web address] All Rights Reserved Vascular Ultrasound 05/20/17 00:00 IMPRESSION: 1. Right pelvic transplant kidney has a normal ultrasound appearance. No evidence of transplant renal arterial stenosis. 2. Polycystic [place] right kidney. 3. Left [place] kidney not visualized. 2010 [employer] All Rights Reserved Assessment & Plan - Diagnosis (1) Diarrhea Plan: It looks like Myfortic is the culprit here and so I am going to hold off on it. Will later start it at a lower dose once her GI symptoms improve. (2) Acute on chronic renal failure Qualifiers: Acute renal failure type: unspecified Chronic kidney disease stage: stage 4 (severe) Qualified Code(s): N17.9 - Acute kidney failure, unspecified; N18.4 - Chronic kidney disease, stage 4 (severe); N18.4 - Chronic kidney disease , stage 4 (severe); N18.4 - Chronic kidney disease, stage 4 (severe); N18.4 - Chronic kidney disease, stage 4 (severe) Is this a current diagnosis for this admission?: Yes Plan: Improving well. 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 Continue on IVF. (3) Anemia Qualifiers: Anemia type: unspecified type Qualified Code(s): D64.9 - Anemia, unspecified Is this a current diagnosis for this admission?: Yes Plan: S/P Transfusion. Iron stores are adequate. Will start on Procrit 20 K. (4) Chronic kidney disease, stage IV (severe) Plan: In the setting of failing renal transplant. She is aware of her failing renal status and is expecting to be starting on dialysis soon.However she is showing improving renal nos and that is very encouraging. (5) Dehydration Is this a current diagnosis for this admission?: Yes (6) Status post living-donor kidney transplantation Is this a current diagnosis for this admission?: Yes Plan: On high risk meds.Hold off on Myfortic ,increase prednisone to 10 mg qd. (7) Lupus Qualifiers: Systemic lupus erythematosus type: unspecified Systemic lupus erythematosus organ involvement: tubulo-interstitial nephropathy Qualified Code(s): M32.15 - Tubulo-interstitial nephropathy in systemic lupus erythematosus Is this a current diagnosis for this admission?: Yes (8) Hypomagnesemia Is this a current diagnosis for this admission?: Yes Plan: Will replace IV and monitor. (9) Hypokalemia Plan: will replace IV and monitor. (10) High anion gap metabolic acidosis Is this a current diagnosis for this admission?: Yes Plan: On replacements and improving.
[2017-05-22] MEDS: MYFORTIC PO SCH (10:35)
[2017-05-22] MEDS: CEFTRIAXONE 1 GM/D5W RTU 1 GM/50 ML RTUPB IV SCH (10:47)
[2017-05-22] MEDS: PANTOPRAZOLE SODIUM 40 MG VIAL IV SCH ×2 (10:48→21:34)
[2017-05-22] MEDS: LABETALOL HCL 200 MG TABLET PO SCH ×2 (10:51→21:34)
[2017-05-22] MEDS: SODIUM BICARBONATE 650 MG TABLET PO SCH ×2 (10:51→17:45)
[2017-05-22] MEDS: TACROLIMUS ANHYDROUS 1 MG CAPSULE PO SCH ×2 (10:51→21:34)
[2017-05-22] MEDS: SUCRALFATE 1 GM TABLET PO SCH ×4 (10:53→21:34)
[2017-05-22] MEDS: TOPIRAMATE 25 MG TABLET PO SCH ×2 (10:55→21:35)
[2017-05-22] MEDS ORDERED: MAGNESIUM SULFATE/D5W 1 GM/100 ML RTUPB IV SCH ×2 (11:00→13:30)
[2017-05-22] MEDS ORDERED: PREDNISONE 5 MG TABLET PO ONE (11:15)
--- NOTE | 2017-05-22 16:20 | PDOC PROGRESS REPORT ---
Subjective Progress Note for:: 05/22/17 Subjective:: 56-year-old female with past medical history of SLE Hypertension Depression Chronic neck and back pain with chronic opiate dependence GERD Chronic kidney disease with renal transplant in 2002 Peptic ulcer disease Hiatal hernia status post recent surgery CHF Hyperlipidemia She is on prednisone Prograf and CellCept. The patient presented to the hospital on May 19 with nausea vomiting and diarrhea the past 1 week. She reported being unable to keep down any food or medicine and her stools have been clear and watery like. She did not notice any hematochezia or melena. She was diagnosed with acute on chronic renal failure and anemia. Baseline creatinine is around 3.49. Urine analysis and cultures were ordered. Was found to have high anion gap metabolic acidosis and was started on PO sodium bicarbonate. Community Engagement Manager is Dr. Roberto Calzada in [place]. Renal ultrasound showed numerous cysts throughout the right kidney with thin renal parenchyma. Left kidney not visualized. Right transplant kidney showed no hydronephrosis or renal artery stenosis. She has received 4 units of packed red blood cells so far. She does not have any hematemesis melena or hematochezia. Approximately 3 weeks ago she was released from [facility] after having spent days there. She underwent endoscopy and hiatal hernia surgery there. I spoke to the transplant assistant broker math and science division chair on May 20, and given her GI symptoms and recent workup at [facility], they recommended transfer to that hospital. As of now beds are still unavailable, she is on their waiting list. The patient reports feeling much better today. She has been tolerating her diet well. Diarrhea has improved. C. difficile was negative. Reason For Visit: ACUTE ON CHRONIC RENAL FAILURE N/V/D Physical Exam Vital Signs: Temp Pulse Resp BP Pulse Ox 97.3 F 63 18 144/84 H 96 05/22/17 11:20 05/22/17 11:20 05/22/17 11:20 05/22/17 11:20 05/22/17 11:20 Intake & Output 05/21/17 05/22/17 05/23/17 06:59 06:59 06:59 Intake Total 4964 3119 440 Output Total 700 2800 600 Balance 4264 319 -160 Weight 59.9 kg 59.9 kg Results Laboratory Results: 05/22/17 04:17 05/22/17 04:17 05/22/17 05/22/17 04:17 04:17 WBC 3.2 L RBC 3.22 L Hgb 9.1 L D Hct 26.1 L MCV 81 MCH 28.2 MCHC 34.9 RDW 14.6 H Plt Count 145 L Seg Neutrophils % Not Reportable Lymphocytes % Not Reportable Monocytes % Not Reportable Eosinophils % Not Reportable Basophils % Not Reportable Absolute Neutrophils Not Reportable Absolute Lymphocytes Not Reportable Absolute Monocytes Not Reportable Absolute Eosinophils Not Reportable Absolute Basophils Not Reportable Sodium 137.8 Potassium 3.1 L Chloride 110 H Carbon Dioxide 15 L Anion Gap 13 BUN 30 H Creatinine 3.77 H Est GFR ( Amer) 15 L Est GFR (Non-Af Amer) 12 L Glucose 90 Calcium 8.6 Phosphorus 3.6 Magnesium 1.5 L Iron 128.2 TIBC 155 L % Saturation 83 Ferritin 340.00 H Total Bilirubin 0.4 AST 10 L ALT 25 Alkaline Phosphatase 76 Total Protein 6.0 L Albumin 3.1 L 05/20/17 02:14 Stool - Stool - Final 05/20/17 02:14 Stool - Stool Stool Culture - Final NO SALMONELLA, SHIGELLA, CAMPYLOBACTER, OR E.COLI 0157 RECOVERED. NEGATIVE FOR SHIGA TOXINS 1&2. 05/20/17 09:25 Clean Catch Midstream Urine Culture - Final Mixed Urogenital Estefany Impressions: Renal Ultrasound 05/20/17 00:00 IMPRESSION: 1. Right pelvic transplant kidney has a normal ultrasound appearance. No evidence of transplant renal arterial stenosis. 2. Polycystic [place] right kidney. 3. Left [place] kidney not visualized. 2010 [employer] All Rights Reserved Vascular Ultrasound 05/20/17 00:00 IMPRESSION: 1. Right pelvic transplant kidney has a normal ultrasound appearance. No evidence of transplant renal arterial stenosis. 2. Polycystic [place] right kidney. 3. Left [place] kidney not visualized. 2010 [employer] All Rights Reserved Assessment & Plan - Diagnosis (2) Acute on chronic renal failure Qualifiers: Acute renal failure type: unspecified Chronic kidney disease stage: stage 4 (severe) Qualified Code(s): N17.9 - Acute kidney failure, unspecified; N18.4 - Chronic kidney disease, stage 4 (severe); N18.4 - Chronic kidney disease , stage 4 (severe); N18.4 - Chronic kidney disease, stage 4 (severe); N18.4 - Chronic kidney disease, stage 4 (severe) Is this a current diagnosis for this admission?: Yes (3) Anemia Qualifiers: Anemia type: unspecified type Qualified Code(s): D64.9 - Anemia, unspecified Is this a current diagnosis for this admission?: Yes (5) Dehydration Is this a current diagnosis for this admission?: Yes (7) High anion gap metabolic acidosis Is this a current diagnosis for this admission?: Yes (8) Status post living-donor kidney transplantation Is this a current diagnosis for this admission?: Yes (9) Vomiting Qualifiers: Vomiting type: unspecified Vomiting Intractability: non-intractable Nausea presence: with nausea Qualified Code(s): R11.2 - Nausea with vomiting, unspecified Is this a current diagnosis for this admission?: Yes (10) Hypomagnesemia Is this a current diagnosis for this admission?: Yes (11) Proteinuria Qualifiers: Proteinuria type: persistent Qualified Code(s): R80.1 - Persistent proteinuria, unspecified Is this a current diagnosis for this admission?: Yes (12) GERD (gastroesophageal reflux disease) Qualifiers: Esophagitis presence: esophagitis presence not specified Qualified Code(s) : K21.9 - Gastro-esophageal reflux disease without esophagitis Is this a current diagnosis for this admission?: Yes (13) SLE (systemic lupus erythematosus) Qualifiers: Systemic lupus erythematosus type: other Systemic lupus erythematosus organ involvement: unspecified Qualified Code(s): M32.8 - Other forms of systemic lupus erythematosus Is this a current diagnosis for this admission?: Yes - Time Time Spent with patient: 25-34 minutes - Plan Summary Plan Summary: Continue gentle IV fluids monitor renal function. Her electrolytes and hemoglobin level. Myfortic dose has been reduced since Dr. Gay felt that this could be contributing to her diarrhea.
[2017-05-22] MEDS: POTASSI CL 20 MEQ/50 ML RIDER 20 MEQ/50 ML RTUPB IV SCH (17:46)
[2017-05-23 05:07] LABS: HEMATOCRIT 26.3 % (36.0-47.0); HEMOGLOBIN 8.9 g/dL (12.0-15.5); HGB HCT DIFFERENCE 0.4; MEAN CORPUSCULAR HEMOGLOBIN 27.9 pg (27.0-33.4); MEAN CORPUSCULAR HGB CONC 33.9 g/dL (32.0-36.0); MEAN CORPUSCULAR VOLUME 82 fl (80-97); RED CELL DISTRIBUTION WIDTH 14.8 % (11.5-14.0); WHITE BLOOD COUNT 2.9 10^3/uL (4.0-10.5)
[2017-05-23 05:29] LABS: ANION GAP 10 (5-19); BLOOD UREA NITROGEN 22 mg/dL (7-20); CALCIUM 8.6 mg/dL (8.4-10.2); CARBON DIOXIDE 16 mmol/L (22-30); CHLORIDE 113 mmol/L (98-107); CREATININE RESULT 3.34 mg/dL (0.52-1.25); GLUCOSE 83 mg/dL (75-110); MAGNESIUM 1.6 mg/dL (1.6-2.3); POTASSIUM 3.5 mmol/L (3.6-5.0); SODIUM 138.8 mmol/L (137-145)
[2017-05-23] MEDS: OXYCODONE-ACETAMINOPHEN 5-325 MG TABLET PO PRN ×2 (07:54→18:39)
[2017-05-23] MEDS ORDERED: AMLODIPINE BESYLATE 10 MG TABLET PO SCH (10:00)
[2017-05-23] MEDS: CEFTRIAXONE 1 GM/D5W RTU 1 GM/50 ML RTUPB IV SCH (10:46)
[2017-05-23] MEDS: NORMAL SALINE 1000 ML 1,000 ML IV PRN (10:46)
[2017-05-23] MEDS: MAGNESIUM SULFATE/D5W 1 GM/100 ML RTUPB IV SCH ×2 (10:47→13:33)
[2017-05-23] MEDS: MORPHINE SULFATE 10 MG/ML INJ IV PRN (10:47)
[2017-05-23] MEDS: PANTOPRAZOLE SODIUM 40 MG VIAL IV SCH (10:48)
[2017-05-23] MEDS: SODIUM BICARBONATE 650 MG TABLET PO SCH ×2 (10:50→18:06)
[2017-05-23] MEDS: HYDRALAZINE HCL 25 MG TABLET PO SCH (10:50)
[2017-05-23] MEDS: LABETALOL HCL 200 MG TABLET PO SCH (10:51)
[2017-05-23] MEDS: SUCRALFATE 1 GM TABLET PO SCH ×3 (10:51→18:06)
[2017-05-23] MEDS: TACROLIMUS ANHYDROUS 1 MG CAPSULE PO SCH (10:56)
[2017-05-23] MEDS: TOPIRAMATE 25 MG TABLET PO SCH (10:56)
[2017-05-23] MEDS ORDERED: MAGNESIUM SULFATE/D5W 1 GM/100 ML RTUPB IV ONE (13:30)
[2017-05-23] MEDS: POTASSI CL 20 MEQ/50 ML RIDER 20 MEQ/50 ML RTUPB IV SCH ×2 (14:16→18:06)
--- NOTE | 2017-05-23 16:57 | PDOC DISCHARGE SUMMARY ---
General - Admit/Disc Date/PCP Admission Date/Primary Care Provider: 05/19/17 21:49 Discharge Date: 05/23/17 - Discharge Diagnosis (2) Acute on chronic renal failure Is this a current diagnosis for this admission?: Yes (3) Anemia Is this a current diagnosis for this admission?: Yes (5) Dehydration Is this a current diagnosis for this admission?: Yes (7) High anion gap metabolic acidosis Is this a current diagnosis for this admission?: Yes (8) Status post living-donor kidney transplantation Is this a current diagnosis for this admission?: Yes (9) Vomiting Is this a current diagnosis for this admission?: Yes (10) Hypomagnesemia Is this a current diagnosis for this admission?: Yes (11) Proteinuria Is this a current diagnosis for this admission?: Yes (12) GERD (gastroesophageal reflux disease) Is this a current diagnosis for this admission?: Yes (13) SLE (systemic lupus erythematosus) Is this a current diagnosis for this admission?: Yes - Additional Information Resuscitation Status: Full Code Discharge Diet: Full Liquids Home Medications: Amlodipine Besylate [Norvasc 10 mg Tablet] 10 mg PO DAILY 09/05/16 Hydralazine HCl [Apresoline 50 mg Tablet] 50 mg PO Q12 09/05/16 Labetalol HCl [Trandate] 100 mg PO Q12 09/05/16 Pantoprazole Sodium [Protonix] 40 mg PO QHS #30 tablet. 09/06/16 Oxycodone HCl [Oxy-Ir 5 mg Tablet] 15 mg PO Q8HP PRN MDD 3 TABS 05/20/17 Prednisone [Deltasone 5 mg Tablet] 5 mg PO [id number] 05/20/17 Acetaminophen [Tylenol 325 mg Tablet] 650 mg PO Q4HP PRN tablet 05/23/17 Amlodipine Besylate [Norvasc 10 mg Tablet] 10 mg PO DAILY tablet 05/23/17 Oxycodone HCl/Acetaminophen [Percocet 5-325 mg Tablet] 1 tab PO Q4HP PRN tablet 05/23/17 Sodium Bicarbonate [Sodium Bicarbonate 650 mg Tablet] 1,300 mg PO BID tablet Sucralfate [Carafate 1 gm Tablet] 1 gm PO QID tablet 05/23/17 Tacrolimus Anhydrous [Prograf 1 mg Capsule] 1 mg PO Q12 capsule 05/23/17 Topiramate [Topamax 25 mg Tablet] 50 mg PO Q12 tablet 05/23/17 History of Present Illness History of Present Illness: YUSUF CANTRELL is a 56-year-old female with past medical history of SLE Hypertension Depression Chronic neck and back pain on chronic opiates GERD Chronic kidney disease with renal transplant in 2002 Peptic ulcer disease Hiatal hernia status post recent surgery CHF Hyperlipidemia She is on prednisone Prograf and CellCept The patient presented to the hospital on May 19 with nausea vomiting diarrhea for the past 1 week. She reported being unable to keep down any food or medicine or fluids and her stools had been clear and watery. She did have one episode of hematemesis. No hematochezia or melena was noted. She was diagnosed with acute on chronic renal failure and anemia. Hemoglobin on admission was 6.9. Her baseline creatinine is 3.49. She was found to have high anion gap metabolic acidosis and was given IV fluids and bicarbonate. Renal Ultrasound showed numerous cysts throughout the right kidney with thin renal parenchyma. Right transplant kidney showed no hydronephrosis or renal artery stenosis. 4 units of packed red blood cells were transfused. She had one episode of vomiting while in the hospital but no further hematemesis. Stool was heme negative. Ultimately 3 weeks ago she was released from [facility] after having spent 10 days there. She reported undergoing an upper endoscopy and hiatal hernia surgery. The transplant equine science instructor on-call was consulted and they recommended reducing the Prograf dose to 1 mg twice a day Her Prograf level was 1.9 She was seen by our equine science instructor here in the hospital. Stool C. difficile was negative. The patient has been tolerating a soft diet well. Kidney function has been improving. Diarrhea has improved. She continues to have abdominal discomfort worsened by food. She will require further workup cysts gastroenterology services are unavailable and she recently had procedures and surgery done at [facility] Course Hospital Course: See above. Physical Exam Vital Signs: Temp Pulse Resp BP Pulse Ox 98.3 F 77 16 129/80 H 95 05/23/17 13:04 05/23/17 13:04 05/23/17 13:04 05/23/17 13:04 05/23/17 13:04 Intake & Output 05/22/17 05/23/17 05/24/17 06:59 06:59 06:59 Intake Total 3119 4197 Output Total 2800 1200 Balance 319 2997 Weight 59.9 kg 62.7 kg Additional comments: Middle-aged Afro-Macanese female sitting up in bed not in acute distress HEENT: Pupils equal reactive to light, moist pink oropharyngeal mucosa with no lesions Lungs: Clear to auscultation bilaterally, normal respiratory effort Cardiac: S1-S2 regular no murmurs heard no peripheral edema no cyanosis no calf tenderness Abdomen: Soft, she has some epigastric periumbilical tenderness. Normal bowel sounds Skin: Warm and dry Neurologic: Awake and alert oriented 3 speech is clear and fluent no facial droop. Results Laboratory Results: 05/23/17 04:54 05/23/17 04:54 05/23/17 05/23/17 04:54 04:54 WBC 2.9 L RBC 3.20 L Hgb 8.9 L Hct 26.3 L MCV 82 MCH 27.9 MCHC 33.9 RDW 14.8 H Plt Count 141 L Sodium 138.8 Potassium 3.5 L Chloride 113 H Carbon Dioxide 16 L Anion Gap 10 BUN 22 H Creatinine 3.34 H Est GFR ( Amer) 17 L Est GFR (Non-Af Amer) 14 L Glucose 83 Calcium 8.6 Magnesium 1.6 05/20/17 02:14 Stool - Stool - Final 05/20/17 02:14 Stool - Stool Stool Culture - Final NO SALMONELLA, SHIGELLA, CAMPYLOBACTER, OR E.COLI 0157 RECOVERED. NEGATIVE FOR SHIGA TOXINS 1&2. 05/20/17 09:25 Clean Catch Midstream Urine Culture - Final Mixed Urogenital Estefany Impressions: Renal Ultrasound 05/20/17 00:00 IMPRESSION: 1. Right pelvic transplant kidney has a normal ultrasound appearance. No evidence of transplant renal arterial stenosis. 2. Polycystic [place] right kidney. 3. Left [place] kidney not visualized. 2010 [employer]- All Rights Reserved Vascular Ultrasound 05/20/17 00:00 IMPRESSION: 1. Right pelvic transplant kidney has a normal ultrasound appearance. No evidence of transplant renal arterial stenosis. 2. Polycystic [place] right kidney. 3. Left [place] kidney not visualized. 2010 [employer]- All Rights Reserved Qualifiers PATEINT BEING DISCHARGED WITH ANY OF THE FOLLOWING DIAGNOSIS?: No Plan Time Spent: Greater than 30 Minutes
[2017-05-23 17:02] VITALS: BP 133/84
== END 2017-05-23 18:53 | disposition short-term general hospital (02) | DRG 683 ==
LOC: ER 13:13 → EH 21:49 → 3W 23:54
PROVIDERS: ADMIT Family Medicine; ATTEND Family Medicine
PROC: 30233N1 Transfusion of Nonautologous Red Blood Cells into Peripheral Vein, Percutaneous Approach (ICD-10-PCS; principal; 2017-05-20)
DX: N17.9 Acute kidney failure, unspecified (principal); E87.2 Acidosis; Z94.0 Kidney transplant status; Q61.02 Congenital multiple renal cysts; T86.12 Kidney transplant failure; I13.0 Hypertensive heart and chronic kidney disease with heart failure and stage 1 through stage 4 chronic kidney disease, or unspecified chronic kidney disease; N39.0 Urinary tract infection, site not specified; K52.1 Toxic gastroenteritis and colitis; N18.4 Chronic kidney disease, stage 4 (severe); T45.1X5A Adverse effect of antineoplastic and immunosuppressive drugs, initial encounter; D63.1 Anemia in chronic kidney disease; E86.0 Dehydration; E83.42 Hypomagnesemia; K21.9 Gastro-esophageal reflux disease without esophagitis; M19.90 Unspecified osteoarthritis, unspecified site; F32.9 Major depressive disorder, single episode, unspecified; M32.15 Tubulo-interstitial nephropathy in systemic lupus erythematosus; E78.5 Hyperlipidemia, unspecified; G89.29 Other chronic pain; M54.9 Dorsalgia, unspecified; R63.4 Abnormal weight loss; I50.9 Heart failure, unspecified; Z68.23 Body mass index [BMI] 23.0-23.9, adult; M54.2 Cervicalgia; Z79.891 Long term (current) use of opiate analgesic; Z79.899 Other long term (current) drug therapy; Z87.11 Personal history of peptic ulcer disease; Z91.040 Latex allergy status; Z82.49 Family history of ischemic heart disease and other diseases of the circulatory system; Z80.9 Family history of malignant neoplasm, unspecified
CPT/HCPCS: 36415; 36430; 76770; 80048; 80053; 80197; 80307; 81001; 82272; 82728; 83540; 83550; 83605; 83735; 84100; 84443; 85025; 85027; 85610; 85730; 86850; 86900; 86901; 86920; 87040; 87045; 87086; 87205; 87493; 89055; 93976; 96361; 96374; 99285; J0696; J1940; J2270; J2405; J3475; J3480; J3490; J7030; J7507; J7512; P9016; Q4081; S0119; S0164

== ENCOUNTER 2017-07-29 16:54 | Emergency (ER) | payer MEDICARE, MEDICAID ==
[2017-07-29] MEDS ORDERED: NORMAL SALINE 1000 ML 1,000 ML IV ONE (18:21)
[2017-07-29] MEDS ORDERED: ONDANSETRON HCL INJ/PF 4 MG/2 ML SDV IV ONE (18:21)
[2017-07-29] MEDS ORDERED: HYDROMORPHONE HCL INJ/PF 2 MG/ML AMPULE IV ONE (18:23)
--- NOTE | 2017-07-29 18:24 | ER Document Report ---
ED Medical Screen (RME) - General Chief Complaint: Headache Stated Complaint: HEADACHE Time Seen by Provider: 07/29/17 18:20 Notes: Patient states that she has a history of this. She states she has been having a migraine and feels very weak like her blood is low again. She also states been having some pain around the site of her kidney transplant. TRAVEL OUTSIDE OF THE [place] IN LAST 30 DAYS: No - Related Data Allergies/Adverse Reactions: latex [Latex] Allergy (Mild, Verified 07/29/17 16:56) Hives Past Medical History - Past Medical History Cardiac Medical History: Reports: Hx Congestive Heart Failure, Hx Hypercholesterolemia, Hx Hypertension Pulmonary Medical History: Denies: Hx Tuberculosis Neurological Medical History: Denies: Hx Seizures Renal/ Medical History: Reports: Hx End Stage Renal Disease - Was on dialysis for 6 months prior to kidney transplant. Denies: Hx Peritoneal Dialysis GI Medical History: Reports: Hx Gastroesophageal Reflux Disease, Hx Hiatal Hernia, Hx Endoscopy - Patient had an endoscopy at [place] approximately 2 months ago. Musculoskeltal Medical History: Reports Hx Arthritis Psychiatric Medical History: Reports: Hx Depression Past Surgical History: Reports: Hx Kidney (Renal Surgery) - kidney transplant 2002, Hx Orthopedic Surgery - neck fusion, Other - Renal transplant 2001; low back surgery Tess fundoplication. Denies: Hx Hysterectomy - Immunizations Hx Diphtheria, Pertussis, Tetanus Vaccination: Yes - unk History of Influenza Vaccine for 03/2017 - 08/2017 Season: No Physical Exam - Vital signs Vitals: Temp Pulse Resp BP Pulse Ox 98.2 F 78 16 130/96 H 100 07/29/17 17:12 07/29/17 17:12 07/29/17 17:12 07/29/17 17:12 07/29/17 17:12 Course - Vital Signs Vital signs: Temp Pulse Resp BP Pulse Ox 98.2 F 78 16 130/96 H 100 07/29/17 17:12 07/29/17 17:12 07/29/17 17:12 07/29/17 17:12 07/29/17 17:12
[2017-07-29 19:37] LABS: APPEARANCE,URINE CLEAR; BILIRUBIN,URINE NEGATIVE (NEGATIVE); COLOR,URINE STRAW; GLUCOSE, URINE 50 mg/dL (NEGATIVE); KETONES,URINE NEGATIVE (NEGATIVE); LEUKOCYTE ESTERASE,URINE TRACE (NEGATIVE); NITRITE,URINE NEGATIVE (NEGATIVE); PROTEIN,URINE 100 mg/dL (NEGATIVE); URINE SPECIFIC GRAVITY 1.009; UROBILINOGEN,URINE NEGATIVE mg/dL (<2.0)
[2017-07-29 19:38] LABS: ABSOLUTE LYMPHOCYTES (AUTO) 0.9 10^3/uL (0.5-4.7); ABSOLUTE MONOCYTES (AUTO) 0.6 10^3/uL (0.1-1.4); ABSOLUTE NEUT (AUTO) 2.2 10^3/uL (1.7-8.2); BASOPHILS % (AUTO) 0.7 % (0-2); EOSINOPHILS % (AUTO) 1.1 % (0-6); HEMATOCRIT 27.2 % (36.0-47.0); HEMOGLOBIN 8.6 g/dL (12.0-15.5); LYMPHOCYTES % (AUTO) 24.6 % (13-45); MEAN CORPUSCULAR HEMOGLOBIN 26.8 pg (27.0-33.4); MEAN CORPUSCULAR HGB CONC 31.7 g/dL (32.0-36.0); MEAN CORPUSCULAR VOLUME 85 fl (80-97); MONOCYTES % (AUTO) 15.1 % (3-13); PLATELET COUNT 250 10^3/uL (150-450); RED BLOOD COUNT 3.22 10^6/uL (3.72-5.28); RED CELL DISTRIBUTION WIDTH 15.4 % (11.5-14.0); SEGMENTED NEUTROPHILS % (AUTO) 58.5 % (42-78); TOTAL CELLS COUNTED % (AUTO) 100 %; WHITE BLOOD COUNT 3.7 10^3/uL (4.0-10.5)
--- NOTE | 2017-07-29 19:47 | RADIOLOGY REPORT (SQ) ---
EXAM DESCRIPTION: CT HEAD WITHOUT COMPLETED DATE/TIME: 07/29/2017 7:28 pm REASON FOR STUDY: headache COMPARISON: 03/25/2008 TECHNIQUE: Axial images acquired through the brain without intravenous contrast. Images reviewed wi th bone, brain and subdural windows. Images stored on PACS. All CT scanners at this facility use dose modulation, iterative reconstruction, and/or weight based d osing when appropriate to reduce radiation dose to as low as reasonably achievable (ALARA). [facility]: Dose Right [facility]: CareDose [facility]: Dose Right [facility]: Teradose 4D [facility]: Smart Modanisa RADIATION DOSE: CT Rad equipment meets quality standard of care and radiation dose reduction techniq ues were employed. CTDIvol: 64.6 mGy. DLP: 1163 mGy-cm. mGy. LIMITATIONS: None. FINDINGS: VENTRICLES: Normal size and contour. CEREBRUM: No masses. No hemorrhage. No midline shift. No evidence for acute infarction. Normal gra y/white matter differentiation. No areas of low density in the white matter. CEREBELLUM: No masses. No hemorrhage. No alteration of density. No evidence for acute infarction. EXTRAAXIAL SPACES: No fluid collections. No masses. ORBITS AND GLOBE: No intra- or extraconal masses. Normal contour of globe without masses. CALVARIUM: No fracture. PARANASAL SINUSES: No fluid or mucosal thickening. SOFT TISSUES: No mass or hematoma. OTHER: No other significant finding. IMPRESSION: No acute intracranial findings. EVIDENCE OF ACUTE STROKE: NO. COMMENT: Quality ID # [id number]: Final reports with documentation of one or more dose reduction techniques (e.g., Automated exposure control, adjustment of the mA and/or kV according to patient size, use of iterative reconstruction technique) TECHNICAL DOCUMENTATION: JOB ID: [id number] [place]-72 2010 [employer]- All Rights Reserved
[2017-07-29 19:48] LABS: ALANINE AMINOTRANSFERASE 14 U/L (9-52); ALBUMIN 4.5 g/dL (3.5-5.0); ALKALINE PHOSPHATASE 109 U/L (38-126); ANION GAP 16 (5-19); ASPARTATE AMINO TRANSFERASE 14 U/L (14-36); BILIRUBIN,DIRECT 0.2 mg/dL (0.0-0.4); BILIRUBIN,TOTAL 0.3 mg/dL (0.2-1.3); BLOOD UREA NITROGEN 45 mg/dL (7-20); CALCIUM 9.4 mg/dL (8.4-10.2); CARBON DIOXIDE 16 mmol/L (22-30); CHLORIDE 109 mmol/L (98-107); GLUCOSE 82 mg/dL (75-110); POTASSIUM 4.2 mmol/L (3.6-5.0); SODIUM 140.8 mmol/L (137-145); TOTAL PROTEIN 7.3 g/dL (6.3-8.2)
[2017-07-29] MEDS ORDERED: DIPHENHYDRAMINE HCL 50 MG/ML VIAL IV ONE (21:29)
[2017-07-29] MEDS ORDERED: PROCHLORPERAZINE EDISYLATE INJ 10 MG/2 ML VIAL IV ONE (21:29)
[2017-07-29] MEDS ORDERED: DEXAMETHASONE SOD PHOS INJ 10 MG/1 ML VIAL IV ONE (21:30)
--- NOTE | 2017-07-29 21:33 | ER Document Report ---
ED Headache - General Chief Complaint: Headache Stated Complaint: HEADACHE Time Seen by Provider: 07/29/17 18:20 Notes: The patient is a 56-year-old female, past medical history kidney transplant, CKD , anemia, presents with 2 weeks of a left-sided headache as a dull ache. She is also having chronic back pain and feels like her anemia is worsening. She tried taking double the dose of her oxycodone without much relief of her symptoms. Patient denies fevers, nausea, vomiting, neck stiffness, blurry vision, focal weakness, numbness, tingling or back pain. TRAVEL OUTSIDE OF THE [place] IN LAST 30 DAYS: No - Related Data Allergies/Adverse Reactions: latex [Latex] Allergy (Mild, Verified 07/29/17 16:56) Hives Past Medical History - General Information source: Patient - Social History Smoking Status: Unknown if Ever Smoked Family History: Hypertension, Malignancy Patient has suicidal ideation: No Patient has homicidal ideation: No - Past Medical History Cardiac Medical History: Reports: Hx Congestive Heart Failure, Hx Hypercholesterolemia, Hx Hypertension Pulmonary Medical History: Denies: Hx Tuberculosis Neurological Medical History: Denies: Hx Seizures Renal/ Medical History: Reports: Hx End Stage Renal Disease - Was on dialysis for 6 months prior to kidney transplant. Denies: Hx Peritoneal Dialysis GI Medical History: Reports: Hx Gastroesophageal Reflux Disease, Hx Hiatal Hernia, Hx Endoscopy - Patient had an endoscopy at [facility] approximately 2 months ago. Musculoskeltal Medical History: Reports Hx Arthritis Psychiatric Medical History: Reports: Hx Depression Past Surgical History: Reports: Hx Kidney (Renal Surgery) - kidney transplant 2002, Hx Orthopedic Surgery - neck fusion, Other - Renal transplant 2001; low back surgery Tess fundoplication. Denies: Hx Hysterectomy - Immunizations Hx Diphtheria, Pertussis, Tetanus Vaccination: Yes - unk Hx Pneumococcal Vaccination: 06/08/09 Review of Systems - Review of Systems Notes: REVIEW OF SYSTEMS: CONSTITUTIONAL: -fevers, -chills EENT: -eye pain, -difficulty swallowing, -nasal congestion CARDIOVASCULAR: -chest pain, -syncope. RESPIRATORY: -cough, -SOB GASTROINTESTINAL: -abdominal pain, -nausea, -vomiting, -diarrhea GENITOURINARY: -dysuria, -hematuria MUSCULOSKELETAL: -back pain, -neck pain SKIN: -rash or skin lesions. HEMATOLOGIC: -easy bruising or bleeding. LYMPHATIC: -swollen, enlarged glands. NEUROLOGICAL: -altered mental status or loss of consciousness, +headache, - neurologic symptoms PSYCHIATRIC: -anxiety, -depression. ALL OTHER SYSTEMS REVIEWED AND NEGATIVE. Physical Exam - Vital signs Vitals: Temp Pulse Resp BP Pulse Ox 98.2 F 78 16 130/96 H 100 07/29/17 17:12 07/29/17 17:12 07/29/17 17:12 07/29/17 17:12 07/29/17 17:12 - Notes Notes: PHYSICAL EXAMINATION: GENERAL: Well-appearing, well-nourished and in no acute distress. HEAD: Atraumatic, normocephalic. EYES: Pupils equal round and reactive to light, extraocular movements intact, sclera anicteric, conjunctiva are normal. ENT: nares patent, oropharynx clear without exudates. Moist mucous membranes. NECK: Normal range of motion, supple without lymphadenopathy LUNGS: Breath sounds clear to auscultation bilaterally and equal. No wheezes rales or rhonchi. HEART: Regular rate and rhythm without murmurs ABDOMEN: Soft, nontender, normoactive bowel sounds. No guarding, no rebound. No masses appreciated. EXTREMITIES: Normal range of motion, no pitting or edema. No cyanosis. NEUROLOGICAL: Cranial nerves grossly intact. Normal speech, normal gait. Normal sensory and motor exams. PSYCH: Normal mood, normal affect. SKIN: Warm, Dry, normal turgor, no rashes or lesions noted. Course - Re-evaluation Re-evalutation: Patient's headache appears benign in nature and she has had this for several weeks. CT head obtained from triage does not show any acute abnormalities and blood work is consistent with her known CKD. Symptoms do not appear typical for SAH, meningitis and ICH at this time. Urine does not show evidence of a kidney infection. Her headache has improved after medications. Instructed her to continue Tylenol, fluids and have her follow-up with her primary care physician and neurologist. - Vital Signs Vital signs: Temp Pulse Resp BP Pulse Ox 98.2 F 78 16 130/96 H 100 07/29/17 17:12 07/29/17 17:12 07/29/17 17:12 07/29/17 17:12 07/29/17 17:12 - Laboratory Result Diagrams: 07/29/17 19:15 07/29/17 19:15 Laboratory results interpreted by me: 07/29/17 07/29/17 07/29/17 19:00 19:15 19:15 WBC 3.7 L RBC 3.22 L Hgb 8.6 L Hct 27.2 L MCH 26.8 L MCHC 31.7 L RDW 15.4 H Monocytes % 15.1 H Chloride 109 H Carbon Dioxide 16 L BUN 45 H Creatinine 3.60 H Est GFR ( Amer) 16 L Est GFR (Non-Af Amer) 13 L Urine Protein 100 H Urine Glucose (UA) 50 H Ur Leukocyte Esterase TRACE H - Diagnostic Test Radiology reviewed: Image reviewed, Reports reviewed Radiology results interpreted by me: CT Head: NAD Discharge - Discharge Clinical Impression: Headache Qualifiers: Headache type: unspecified Headache chronicity pattern: chronic headache Intractability: not intractable Qualified Code(s): R51 - Headache Back pain Qualifiers: Back pain location: back pain in unspecified location Chronicity: chronic Back pain laterality: unspecified Qualified Code(s): M54.9 - Dorsalgia, unspecified Condition: Stable Disposition: HOME, SELF-CARE Additional Instructions: HEADACHE: The physician does not feel that the headache you are experiencing has a serious underlying cause. Most headaches are due to emotional stress, with resultant muscle tension (tension headache). Occasionally, headaches are secondary to changes in the blood vessels of the scalp (vascular headache and migraine headache). Sometimes, a headache is the first symptom of another developing illness, such as a viral infection. You have no evidence of stroke, bleeding, meningitis, or other serious cause of your headache. The treatment of headaches varies with the severity and cause of the pain. Not all headaches need pain shots. In fact, there is evidence that using narcotics for headaches may make them worse in the long run. The physician will determine the therapy that's in your best interest. If you develop a fever, if the headache is different from any you've previously experienced, or if the headache progressively worsens, then call your physician at once or go to the emergency room. USE OF DIPHENHYDRAMINE: Diphenhydramine (Benadryl) is an antihistamine and has been recommended to help treat your headache and to prevent side effects of other medications used to treat headaches. The medication can be repeated four times daily. Age Elixir (12.5 mg/tsp) 25 mg pill adult 1-2 tabs Antihistamines may cause drowsiness, especially with the first dose. Do not operate machinery or drive while under the effects of the medication. Do not combine the medication with alcohol, or with any other medication without talking to your doctor. INTRAVENOUS COMPAZINE FOR HEADACHE: You have received therapy for headaches, using intravenous Compazine. This treatment is dramatically successful in relieving the headache in about 50 percent of cases. When it works, it provides a rapid method of eliminating the headache without resorting to narcotics (and the problems associated with them). Most patients still feel fully alert after the Compazine, but others may be slightly drowsy. It's best not to drive or work with machinery for six to eight hours. Do not take alcohol or other medication unless you discuss it with the doctor. If you develop tightness and spasms in your muscles, especially the neck and tongue, you should return. This is a side effect which can be treated. FOLLOW-UP CARE: If you have been referred to a physician for follow-up care, call the physician s office for an appointment as you were instructed or within the next two days. If you experience worsening or a significant change in your symptoms, notify the physician immediately or return to the Emergency Department at any time for re-evaluation. Prescriptions: Butalb/Acetaminophen/Caffeine [Fioricet 50-300-40 mg Capsule] 1 cap PO Q4 PRN # 10 cap PRN Reason: Forms: Elevated Blood Pressure Referrals: IVONNE FERRARA MD [ACTIVE STAFF] - Follow up as needed
[2017-07-29 23:28] VITALS: BP 161/98
== END 2017-07-29 23:28 | disposition home or self-care (01) ==
LOC: ER 16:54
DX: R51 Headache (principal); G89.29 Other chronic pain; M54.9 Dorsalgia, unspecified; Z79.891 Long term (current) use of opiate analgesic; I12.9 Hypertensive chronic kidney disease with stage 1 through stage 4 chronic kidney disease, or unspecified chronic kidney disease; N18.9 Chronic kidney disease, unspecified; Z94.0 Kidney transplant status; Z91.040 Latex allergy status
CPT/HCPCS: 99284; 96361; 96374; 96375; 36415; 85025; 80053; 81001; 70450; J1200; J1170; J0780; J2405; J7030; J1100

== ENCOUNTER 2017-09-07 12:09 | Emergency (ER) | payer MEDICARE, MEDICAID | END 2017-09-07 12:35 | disposition left against medical advice (07) | LOC: ER 12:09 | DX: Z53.21 Procedure and treatment not carried out due to patient leaving prior to being seen by health care provider (principal) ==

== ENCOUNTER 2017-11-16 09:45 | Inpatient (IN) | payer MEDICARE, MEDICAID ==
--- NOTE | 2017-11-16 11:10 | ER Document Report ---
ED Medical Screen (RME) - General Chief Complaint: Vaginal Discharge Stated Complaint: FLANK PAIN Time Seen by Provider: 11/16/17 11:09 Mode of Arrival: Ambulatory Information source: Patient Notes: 57-year-old female history of kidney transplant presents with complaints of right flank pain foul-smelling vaginal discharge. Patient notes that she has a pessary in place for 1 year has not had any intercourse for 3 years states symptoms have been ongoing for a few days now I have greeted and performed a rapid initial assessment of this patient. A comprehensive ED assessment and evaluation of the patient, analysis of test results and completion of the medical decision making process will be conducted by additional ED providers. PHYSICAL EXAMINATION: GENERAL: Well-appearing, well-nourished and in no acute distress. HEAD: Atraumatic, normocephalic. EYES: Pupils equal round extraocular movements intact, conjunctiva are normal. ENT: Nares patent NECK: Normal range of motion LUNGS: No respiratory distress Musculoskeletal: Normal range of motion NEUROLOGICAL: Normal speech, normal gait. PSYCH: Normal mood, normal affect. SKIN: Warm, Dry, normal turgor, no rashes or lesions noted. TRAVEL OUTSIDE OF THE [place] IN LAST 30 DAYS: No - Related Data Allergies/Adverse Reactions: latex [Latex] Allergy (Mild, Verified 11/16/17 09:48) Hives Past Medical History - Past Medical History Cardiac Medical History: Reports: Hx Congestive Heart Failure, Hx Hypercholesterolemia, Hx Hypertension Pulmonary Medical History: Denies: Hx Tuberculosis Neurological Medical History: Denies: Hx Seizures Renal/ Medical History: Reports: Hx End Stage Renal Disease - Was on dialysis for 6 months prior to kidney transplant. Denies: Hx Peritoneal Dialysis GI Medical History: Reports: Hx Gastroesophageal Reflux Disease, Hx Hiatal Hernia, Hx Endoscopy - Patient had an endoscopy at [place] approximately 2 months ago. Musculoskeltal Medical History: Reports Hx Arthritis Psychiatric Medical History: Reports: Hx Depression Past Surgical History: Reports: Hx Kidney (Renal Surgery) - kidney transplant 2002, Hx Orthopedic Surgery - neck fusion, Other - Renal transplant 2001; low back surgery Tess fundoplication. Denies: Hx Hysterectomy - Immunizations Hx Diphtheria, Pertussis, Tetanus Vaccination: Yes - unk History of Influenza Vaccine for 03/2017 - 08/2017 Season: No Physical Exam - Vital signs Vitals: Temp Pulse Resp BP Pulse Ox 98.3 F 69 18 146/94 H 99 11/16/17 09:53 11/16/17 09:53 11/16/17 09:53 11/16/17 09:53 11/16/17 09:53 Course - Vital Signs Vital signs: Temp Pulse Resp BP Pulse Ox 98.3 F 69 18 146/94 H 99 11/16/17 09:53 11/16/17 09:53 11/16/17 09:53 11/16/17 09:53 11/16/17 09:53
[2017-11-16 12:04] LABS: ABSOLUTE LYMPHOCYTES (AUTO) 0.4 10^3/uL (0.5-4.7); ABSOLUTE MONOCYTES (AUTO) 0.2 10^3/uL (0.1-1.4); ABSOLUTE NEUT (AUTO) 3.5 10^3/uL (1.7-8.2); BASOPHILS % (AUTO) 0.4 % (0-2); EOSINOPHILS % (AUTO) 1.1 % (0-6); HEMATOCRIT 27.9 % (36.0-47.0); HEMOGLOBIN 8.7 g/dL (12.0-15.5); LYMPHOCYTES % (AUTO) 9.4 % (13-45); MEAN CORPUSCULAR HEMOGLOBIN 26.8 pg (27.0-33.4); MEAN CORPUSCULAR HGB CONC 31.3 g/dL (32.0-36.0); MEAN CORPUSCULAR VOLUME 86 fl (80-97); MONOCYTES % (AUTO) 4.5 % (3-13); PLATELET COUNT 262 10^3/uL (150-450); RED BLOOD COUNT 3.25 10^6/uL (3.72-5.28); RED CELL DISTRIBUTION WIDTH 15.3 % (11.5-14.0); SEGMENTED NEUTROPHILS % (AUTO) 84.6 % (42-78); TOTAL CELLS COUNTED % (AUTO) 100 %; WHITE BLOOD COUNT 4.1 10^3/uL (4.0-10.5)
[2017-11-16 12:31] LABS: ALANINE AMINOTRANSFERASE 11 U/L (9-52); ALKALINE PHOSPHATASE 131 U/L (38-126); ANION GAP 15 (5-19); ASPARTATE AMINO TRANSFERASE 11 U/L (14-36); BILIRUBIN,DIRECT 0.2 mg/dL (0.0-0.4); BILIRUBIN,TOTAL 0.2 mg/dL (0.2-1.3); BLOOD UREA NITROGEN 32 mg/dL (7-20); CARBON DIOXIDE 15 mmol/L (22-30); CHLORIDE 111 mmol/L (98-107); GLUCOSE 92 mg/dL (75-110); SODIUM 140.7 mmol/L (137-145); TOTAL PROTEIN 7.1 g/dL (6.3-8.2)
[2017-11-16 13:03] LABS: APPEARANCE,URINE CLEAR; BILIRUBIN,URINE NEGATIVE (NEGATIVE); COLOR,URINE YELLOW; GLUCOSE, URINE >=500 mg/dL (NEGATIVE); KETONES,URINE NEGATIVE (NEGATIVE); LEUKOCYTE ESTERASE,URINE TRACE (NEGATIVE); NITRITE,URINE NEGATIVE (NEGATIVE); PROTEIN,URINE >=500 mg/dL (NEGATIVE); URINE SPECIFIC GRAVITY 1.011; UROBILINOGEN,URINE NEGATIVE mg/dL (<2.0)
[2017-11-16] MEDS ORDERED: PROMETHAZINE HCL 25 MG TABLET PO ONE (13:19)
[2017-11-16] MEDS ORDERED: CEFTRIAXONE INJ 1000 MG VIAL IV ONE (13:19)
[2017-11-16] MEDS ORDERED: OXYCODONE-ACETAMINOPHEN 5-325 MG TABLET PO ONE (13:19)
[2017-11-16] MEDS ORDERED: CEFTRIAXONE 1 GM/D5W RTU 1 GM/50 ML RTUPB IV ONE (13:30)
[2017-11-16 13:33] LABS: T.VAGINALIS (WET MOUNT) NO TRICHOMONAS SEEN; WBCS (WET MOUNT) 1+ WBCS SEEN; YEAST (WET MOUNT) BUDDING YEAST SEEN
[2017-11-16 13:34] LABS: RBCS (WET MOUNT) NO RBCS SEEN
--- NOTE | 2017-11-16 13:34 | ER Document Report ---
ED GI/ - General Chief Complaint: Vaginal Discharge Stated Complaint: FLANK PAIN Time Seen by Provider: 11/16/17 11:09 Mode of Arrival: Ambulatory Notes: Patient is complaining of pain in the lower right abdomen since Thursday, 2 days ago. She has not eaten much and not drinking much. Pain is constant and does not radiate. She is vomited once. Has noted some urinary frequency. Not aware of any fever. She feels lightheaded and dizzy. Patient noted that she had a foul-smelling vaginal discharge about 2 weeks ago. She is taken a couple of vinegar baths to try to self treat the discharge. She underwent a kidney transplant in 2002 at [facility]. Is followed up there annually. Knows that her kidney function has been affected somewhat with some abnormal values, but not certain as to the values for her creatinine, etc. Patient wears a pessary which she will remove from my pelvic exam. Patient has lupus and is on prednisone 5 mg daily. Has had an abdominal hernia repair. Has had bilateral upper and lower back surgery. TRAVEL OUTSIDE OF THE [place] IN LAST 30 DAYS: No - Related Data Allergies/Adverse Reactions: latex [Latex] Allergy (Mild, Verified 11/16/17 12:12) Hives Past Medical History - General Information source: Patient - Social History Smoking Status: Never Smoker Frequency of alcohol use: None Drug Abuse: None Family History: Reviewed & Not Pertinent, Hypertension, Malignancy Patient has suicidal ideation: No Patient has homicidal ideation: No - Past Medical History Cardiac Medical History: Reports: Hx Congestive Heart Failure, Hx Hypercholesterolemia, Hx Hypertension Renal/ Medical History: Reports: Hx End Stage Renal Disease - Was on dialysis for 6 months prior to kidney transplant, Other - Kidney transplant in 2002. GI Medical History: Reports: Hx Gastroesophageal Reflux Disease, Hx Hiatal Hernia, Hx Endoscopy - Patient had an endoscopy at [facility] approximately 2 months ago. Musculoskeltal Medical History: Reports Hx Arthritis, Reports Other - Lupus Psychiatric Medical History: Reports: Hx Depression Past Surgical History: Reports: Hx Herniorrhaphy, Hx Kidney (Renal Surgery) - kidney transplant 2002, Hx Orthopedic Surgery - neck fusion, Other - Renal transplant 2001; low back surgery Tess fundoplication. Denies: Hx Hysterectomy - Immunizations Hx Diphtheria, Pertussis, Tetanus Vaccination: Yes - unk Hx Pneumococcal Vaccination: 06/08/09 Review of Systems - Review of Systems Notes: REVIEW OF SYSTEMS: CONSTITUTIONAL : Denies fever. EENT: Denies eye, ear, nose or mouth or throat pain or other symptoms. CARDIOVASCULAR: Denies chest pain. RESPIRATORY: Denies cough, chest congestion, or shortness of breath. GASTROINTESTINAL: See HPI. Vomited once. GENITOURINARY: Denies difficulty or painful urinating, urinary frequency, blood in urine. MUSCULOSKELETAL: Denies back or neck pain. Denies joint pain or swelling. SKIN: Denies rash or skin lesions. NEUROLOGICAL: Denies LOC or altered mental status. Denies headache. Denies sensory loss or motor deficits. ALL OTHER SYSTEMS REVIEWED AND NEGATIVE. Physical Exam - Vital signs Vitals: Temp Pulse Resp BP Pulse Ox 98.3 F 69 18 146/94 H 99 11/16/17 09:53 11/16/17 09:53 11/16/17 09:53 11/16/17 09:53 11/16/17 09:53 Interpretation: Normal - Notes Notes: PHYSICAL EXAMINATION: GENERAL: Well-appearing, in no acute distress. Vital signs were all normal. HEAD: Atraumatic, normocephalic. EYES: Pupils equal round and reactive to light, extraocular movements intact. ENT: oropharynx clear without exudates. Moist mucous membranes. NECK: Normal range of motion, supple. LUNGS: Breath sounds clear and equal bilaterally. HEART: Regular rate and rhythm without murmurs. ABDOMEN: Soft, tender in the right lower quadrant of the abdomen. Perhaps some small guarding present. No masses felt. No bruits heard. BACK: No tenderness throughout entire back. EXTREMITIES: Normal range of motion without pain. NEUROLOGICAL: Normal speech, normal gait. Normal sensory, motor, and reflex exams. Awake, alert, and oriented x3. Cranial nerves normal. PSYCH: Normal mood, normal affect. SKIN: Warm, dry, no rashes. - Genitourinary External exam: Normal Speculum exam: Cervix closed, Vaginal discharge Vaginal bleeding: None Bimanuel exam: Adnexal tenderness, Other - Diffusely tender, but no specific 1 Spot most tender above all others.. No: Cervical motion tender, Bladder/ Urethral tender, Adnexal mass Course - Vital Signs Vital signs: Temp Pulse Resp BP Pulse Ox 98.3 F 66 16 164/98 H 99 11/16/17 18:13 11/16/17 18:13 11/16/17 18:13 11/16/17 18:13 11/16/17 18:13 - Laboratory Result Diagrams: 11/16/17 11:41 11/16/17 11:41 Laboratory results interpreted by me: 11/16/17 11/16/17 11/16/17 11:41 11:41 11:41 RBC 3.25 L Hgb 8.7 L Hct 27.9 L MCH 26.8 L MCHC 31.3 L RDW 15.3 H Seg Neutrophils % 84.6 H Lymphocytes % 9.4 L Absolute Lymphocytes 0.4 L Chloride 111 H Carbon Dioxide 15 L BUN 32 H Creatinine 4.22 H Est GFR ( Amer) 13 L Est GFR (Non-Af Amer) 11 L AST 11 L Alkaline Phosphatase 131 H Urine Protein >=500 H Urine Glucose (UA) >=500 H Urine Blood SMALL H Ur Leukocyte Esterase TRACE H Discharge - Discharge Condition: Stable Disposition: ADMITTED OBSERVATION Admitting Provider: Hospitalist Unit Admitted: Medical Floor
[2017-11-16 14:58] LABS: CHLAM PCR NOT DETECTED (NOT DETECT); GON PCR NOT DETECTED (NOT DETECT)
--- NOTE | 2017-11-16 17:01 | RADIOLOGY REPORT (SQ) ---
EXAM DESCRIPTION: CT ABD/PELVIS ORAL ONLY COMPLETED DATE/TIME: 11/16/2017 4:23 pm REASON FOR STUDY: Right sided abdominal pain for 2 days COMPARISON: CT abdomen pelvis 06/24/2012, 09/05/2016, 12/05/2016 TECHNIQUE: CT scan of the abdomen and pelvis performed without intravenous or oral contrast. Images reviewed with lung, soft tissue, and bone windows. Reconstructed coronal and sagittal MPR images revi ewed. All images stored on PACS. All CT scanners at this facility use dose modulation, iterative reconstruction, and/or weight based d osing when appropriate to reduce radiation dose to as low as reasonably achievable (ALARA). [facility]: Dose Right [facility]: CareDose [facility]: Dose Right [facility]: Teradose 4D [facility]: [employer] RADIATION DOSE: CT Rad equipment meets quality standard of care and radiation dose reduction techniq ues were employed. CTDIvol: 5.1 mGy. DLP: 239 mGy-cm.mGy. LIMITATIONS: None. FINDINGS: LOWER CHEST: No significant findings. No nodules or infiltrates. NON-CONTRASTED LIVER, SPLEEN, ADRENALS: Evaluation limited by lack of IV contrast. No identified sign ificant masses. 4 cm benign-appearing cyst sub- diaphragmatic surface right lobe liver PANCREAS: No masses. No peripancreatic inflammatory changes. GALLBLADDER: No identified stones by CT criteria. No inflammatory changes to suggest cholecystitis. RIGHT KIDNEY AND URETER: Chronic appearing right-sided hydronephrosis and hydroureter with marked rig ht renal cortical thinning. Surgical clips are present in the right retroperitoneum adjacent to the mid 3rd ureter on coronal image 30. LEFT KIDNEY AND URETER: Left kidney is small, 6 cm in length with advanced cortical thinning. AORTA AND RETROPERITONEUM: No aneurysm. No retroperitoneal masses or adenopathy. BOWEL AND PERITONEAL CAVITY: Patient drank oral contrast. No bowel obstruction. No free intraperito arianne air. Trace fluid in the right pericolic gutter/ along the right upper pole transplant kidney, b est shown on coronal image 34. There is a chronic left of midline ventral hernia in the suprapubic r egion containing nonobstructed small bowel loops, best shown on axial images 57 through 61. This is similar compared to previous studies APPENDIX: Not visualized. PELVIS, BLADDER:No abnormal masses. No free fluid. Bladder normal. Normal size female pelvic organs. . BONES: No significant findings. OTHER: There is a right lower quadrant transplant kidney, 10 cm in length. No right lower quadrant t ransplant kidney hydronephrosis or calculi. Findings discussed with Dr. Mcarthur. IMPRESSION: Appendix not visualized. Trace fluid in the right pericolic gutter/ along the upper pole right transplant kidney of uncertain significance Small left lower quadrant ventral hernia containing nonobstructed small bowel loops. COMMENT: Quality ID # [id number]: Final reports with documentation of one or more dose reduction techniques (e.g., Automated exposure control, adjustment of the mA and/or kV according to patient size, use of iterative reconstruction technique) TECHNICAL DOCUMENTATION: JOB ID: [id number] [employer]- All Rights Reserved Reading location - IP/workstation name: [facility]
[2017-11-16] MEDS ORDERED: FENTANYL CITRATE INJ/PF 100 MCG/2 ML AMPUL IV ONE (18:22)
[2017-11-16] MEDS ORDERED: NORMAL SALINE 1000 ML 1,000 ML IV ONE ×2 (19:05→19:40)
--- NOTE | 2017-11-16 19:18 | PDOC CONSULTATION ---
Consultation Consult Date: 11/16/17 Attending physician:: ENRIQUE KNOTT Consult reason:: Abdominal pain History of Present Illness Patient complains of: Abdominal pain History of Present Illness: YUSUF CANTRELL is a 57 year old female Comes to the emergency department complaining of a several day history of abdominal pain right flank decreased p.o. intake decreased energy foul smell from the vagina. She was evaluated earlier today in the emergency department where she was felt initially to have a gynecologic problem however Dr. Andrea Knott performed a pelvic exam and found no suspicious findings on exam. Patient removed her own pessary. Gynecologic workup for STD essentially unremarkable. Urinalysis showed minimal findings. Patient does not complain of dysuria. Patient underwent CT scan of the abdomen with oral contrast only which showed no acute pathologic findings. She has known right [place] kidney hydronephrosis, hydro-ureter, left lower quadrant abdominal wall hernia with the prolapsing small bowel, large amount of colon adherent, and a distended bladder. There is no evidence of free fluid for free air phlegmon etc. the appendix could not be visualized. The patient is uncertain whether her appendix has been removed. Last colonoscopy was last year without significant pathologic findings According the patient about a month ago she had an EGD up in [place]. All of her medical care is up at [facility]. Her pocketed spring assembler is Dr. Roberto Calzada. Patient is 15 years status post living related donor kidney transplant right pelvis by Dr. Miguel Minor; her sister was her donor. Patient has had aggressive decrease in GFR; last year she had a renal biopsy, findings unknown. She remains on triple immunosuppressive agents including prednisone, Prograf and a third agent. Last year she underwent abdominal wall hernia repair, open, by general surgeon in [place], name unknown. She subsequently developed an early recurrence left side of midline. She has had some intermittent constipation. According to the patient she has had decreased energy p.o. intake for the last several weeks. She feels like she is getting sick but uncertain what exactly her problem is. She received pain medication just prior to my examination of her. Past Medical History Cardiac Medical History: Reports: Congestive Heart Failure, Hyperlipidema, Hypertension Pulmonary Medical History: Denies: Tuberculosis Neurological Medical History: Denies: Seizures Renal/ Medical History: Reports: End Stage Renal Disease - Was on dialysis for 6 months prior to kidney transplant, Other - Kidney transplant in 2002. GI Medical History: Reports: Gastroesophageal Reflux Disease, Hiatal Hernia Musculoskeltal Medical History: Reports: Arthritis, Other - Lupus Psychiatric Medical History: Reports: Depression Past Surgical History Past Surgical History: Tess fundoplication, abdominal wall hernia repair, multiple kidney biopsies; [facility] renal transplant 2002 Past Surgical History: Reports: Herniorrhaphy, Orthopedic Surgery - neck fusion , Other - Renal transplant 2001; low back surgery Tess fundoplication Denies: Hysterectomy Social History Smoking Status: Never Smoker Frequency of Alcohol Use: None Hx Recreational Drug Use: No Drugs: None Hx Prescription Drug Abuse: No Family History Family History: Reviewed & Not Pertinent, Hypertension, Malignancy Parental Family History Reviewed: Yes Children Family History Reviewed: Yes Sibling(s) Family History Reviewed.: Yes Medication/Allergy Home Medications: Amoxicillin/Potassium Clav [Amox-Clav 875-125 mg Tablet] 1 each PO Q12H Furosemide 80 mg PO DAILY 11/16/17 Hydralazine HCl 50 mg PO BID 11/16/17 Labetalol HCl 100 mg PO BID 11/16/17 Mycophenolate Sodium [Myfortic 180 mg Tablet.dr] 180 mg PO BID 11/16/17 Oxycodone HCl 15 mg PO Q4H PRN 11/16/17 Pantoprazole Sodium 40 mg PO QHS 11/16/17 Prednisone 5 mg PO WBRKFST 11/16/17 Sodium Bicarbonate 1,300 mg PO BID 11/16/17 Tacrolimus [Prograf] 2 mg PO BID 11/16/17 Topiramate [Topamax] 50 mg PO Q12 11/16/17 Allergies/Adverse Reactions: latex [Latex] Allergy (Mild, Verified 11/16/17 12:12) Hives Review of Systems Constitutional: PRESENT: as per HPI, weakness Eyes: ABSENT: visual disturbances Ears: ABSENT: hearing changes Cardiovascular: ABSENT: chest pain, dyspnea on exertion, edema, orthropnea, palpitations Respiratory: ABSENT: cough, hemoptysis Gastrointestinal: PRESENT: other - Decreased p.o. intake as stated above Genitourinary: ABSENT: dysuria, hematuria Musculoskeletal: ABSENT: joint swelling Neurological: ABSENT: abnormal gait, abnormal speech, confusion, dizziness, focal weakness, syncope Psychiatric: ABSENT: anxiety, depression, homidical ideation, suicidal ideation Physical Exam Vital Signs: Temp Pulse Resp BP Pulse Ox 98.3 F 66 16 164/98 H 99 11/16/17 18:13 11/16/17 18:13 11/16/17 18:13 11/16/17 18:13 11/16/17 18:13 Intake & Output 11/15/17 11/16/17 11/17/17 06:59 06:59 06:59 Weight 56.7 kg General appearance: PRESENT: mild distress Head exam: PRESENT: normocephalic Eye exam: PRESENT: EOMI Mouth exam: PRESENT: dry mucosa Neck exam: PRESENT: full ROM Respiratory exam: PRESENT: clear to auscultation анна Cardiovascular exam: PRESENT: RRR Pulses: PRESENT: normal carotid pulses GI/Abdominal exam: PRESENT: other - Scars consistent with midline and right flank surgery. There is a reducible our hernia left of midline with lapsing small bowel. Diffuse nonfocal abdominal tenderness Rectal exam: PRESENT: deferred Extremities exam: PRESENT: full ROM Neurological exam: PRESENT: alert, oriented to person, oriented to place, oriented to time, oriented to situation Psychiatric exam: PRESENT: anxious Results Laboratory Results: 11/16/17 11:41 11/16/17 11:41 11/16/17 11/16/17 11/16/17 11:41 11:41 11:41 WBC 4.1 RBC 3.25 L Hgb 8.7 L Hct 27.9 L MCV 86 MCH 26.8 L MCHC 31.3 L RDW 15.3 H Plt Count 262 Seg Neutrophils % 84.6 H Lymphocytes % 9.4 L Monocytes % 4.5 Eosinophils % 1.1 Basophils % 0.4 Absolute Neutrophils 3.5 Absolute Lymphocytes 0.4 L Absolute Monocytes 0.2 Absolute Eosinophils 0.0 Absolute Basophils 0.0 Sodium 140.7 Potassium 4.0 Chloride 111 H Carbon Dioxide 15 L Anion Gap 15 BUN 32 H Creatinine 4.22 H Est GFR ( Amer) 13 L Est GFR (Non-Af Amer) 11 L Glucose 92 Calcium 9.0 Total Bilirubin 0.2 AST 11 L ALT 11 Alkaline Phosphatase 131 H Total Protein 7.1 Albumin 4.0 Urine Color YELLOW Urine Appearance CLEAR Urine pH 6.0 Ur Specific [place] 1.011 Urine Protein >=500 H Urine Glucose (UA) >=500 H Urine Ketones NEGATIVE Urine Blood SMALL H Urine Nitrite NEGATIVE Ur Leukocyte Esterase TRACE H Urine WBC (Auto) 3 Urine RBC (Auto) 1 Impressions: Abdomen/Pelvis CT 11/16/17 13:20 IMPRESSION: Appendix not visualized. Trace fluid in the right pericolic gutter/ along the upper pole right transplant kidney of uncertain significance Small left lower quadrant ventral hernia containing nonobstructed small bowel loops. Assessment & Plan - Diagnosis (1) Abdominal pain Qualifiers: Abdominal location: right lower quadrant Qualified Code(s): R10.31 - Right lower quadrant pain Is this a current diagnosis for this admission?: Yes Plan: Discussion and recommendations I am uncertain as to what is plaguing this patient. I do not believe she has an acute abdomen tonight. Her examination is to due to her having just received narcotic pain medication; furthermore she is on triple immunosuppressive therapy so the reliability of her exam is limited as her white count which is essentially normal with only a minimal left shift. Her symptoms appear subacute and progressive. 1. Rehydration 2. May need bladder drained 3. Consult internal medicine; may require admission for observation further evaluation; suggest speaking with Dr. Roberto Calzada or colleague, pocketed spring assembler at [facility] who is well-known to this patient. (2) Chronic renal disease, stage 3, moderately decreased glomerular filtration rate (GFR) between 30-59 mL/min/1.73 square meter Is this a current diagnosis for this admission?: Yes Plan: Patient actually developing chronic renal failure in her transplanted kidney over the past year (3) Dehydration Is this a current diagnosis for this admission?: Yes (4) High anion gap metabolic acidosis Is this a current diagnosis for this admission?: Yes - Time Time Spent: 30 to 50 Minutes Smoking Cessation Education: over 10 minutes Medications reviewed and adjusted accordingly: Yes Anticipated discharge: Home
[2017-11-16] MEDS ORDERED: LACTULOSE SYRUP 20 GM/30 ML UDCUP PO ONE (19:31)
[2017-11-16] MEDS ORDERED: FLUCONAZOLE 100 MG TABLET PO ONE (19:31)
[2017-11-16] MEDS ORDERED: ACETAMINOPHEN 325 MG TABLET PO PRN (19:37)
[2017-11-16] MEDS ORDERED: IPRATROPIUM/ALBUTEROL 0.5-2.5 MG/3 ML AMPUL NEB PRN (19:37)
[2017-11-16] MEDS ORDERED: ONDANSETRON HCL INJ/PF 4 MG/2 ML SDV IV PRN (19:37)
[2017-11-16] MEDS ORDERED: MAGNESIUM HYDROXIDE SUSP 30 ML UDCUP PO ONE (19:40)
[2017-11-16] MEDS: LABETALOL HCL 200 MG TABLET PO SCH (22:07)
[2017-11-16] MEDS: TOPIRAMATE 25 MG TABLET PO SCH (22:13)
[2017-11-16] MEDS: HEPARIN SOD (PORCINE) 5,000 UNIT/ML 1 ML SYRINGE SUBCUT SCH (22:16)
[2017-11-16] MEDS: LANSOPRAZOLE 30 MG TAB.RAP.DR PO SCH (22:16)
[2017-11-16] MEDS: HYDRALAZINE HCL 50 MG TABLET PO SCH (22:21)
[2017-11-16] MEDS ORDERED: LACTULOSE SYRUP 20 GM/30 ML UDCUP PR ONE (22:55)
--- NOTE | 2017-11-17 04:50 | PDOC H&P ---
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 She presents with 2 days of abdominal pain which is intermittent in intensity and location exacerbated by movement and p.o. intake. She denies fever chills she has had nausea without vomiting or diarrhea. Secondary complaint is malodorous vaginal discharge, gynecologic workup for STD is unremarkable urinalysis is also unremarkable. In the emergency room she has an unremarkable workup, CT does not visualize appendix however physical exam reproduces diffuse abdominal pain arguably more intense in the left lower quadrant. She is referred to the hospitalist for admission. Past Medical History Cardiac Medical History: Reports: Congestive Heart Failure, Hyperlipidema, Hypertension Pulmonary Medical History: Denies: Tuberculosis Neurological Medical History: Denies: Seizures Renal/ Medical History: Reports: End Stage Renal Disease - Was on dialysis for 6 months prior to kidney transplant, Other - Kidney transplant in 2002. GI Medical History: Reports: Gastroesophageal Reflux Disease, Hiatal Hernia Musculoskeltal Medical History: Reports: Arthritis, Other - Lupus Psychiatric Medical History: Reports: Depression Past Surgical History Past Surgical History: Reports: Herniorrhaphy, Orthopedic Surgery - neck fusion , Other - Renal transplant 2001; low back surgery Tess fundoplication Denies: Hysterectomy Social History Information Source: Patient, [facility] Records Smoking Status: Never Smoker Frequency of Alcohol Use: None Hx Recreational Drug Use: No Drugs: None Hx Prescription Drug Abuse: No - Advance Directive Resuscitation Status: Full Code Family History Family History: Reviewed & Not Pertinent, Hypertension, Malignancy Parental Family History Reviewed: Yes Children Family History Reviewed: Yes Sibling(s) Family History Reviewed.: Yes Medication/Allergy Home Medications: Amoxicillin/Potassium Clav [Amox-Clav 875-125 mg Tablet] 1 each PO Q12H Furosemide 80 mg PO DAILY 11/16/17 Hydralazine HCl 50 mg PO BID 11/16/17 Labetalol HCl 100 mg PO BID 11/16/17 Mycophenolate Sodium [Myfortic 180 mg Tablet.] 180 mg PO BID 11/16/17 Oxycodone HCl 15 mg PO Q4H PRN 11/16/17 Pantoprazole Sodium 40 mg PO QHS 11/16/17 Prednisone 5 mg PO WBRKFST 11/16/17 Sodium Bicarbonate 1,300 mg PO BID 11/16/17 Tacrolimus [Prograf] 2 mg PO BID 11/16/17 Topiramate [Topamax] 50 mg PO Q12 11/16/17 Allergies/Adverse Reactions: latex [Latex] Allergy (Mild, Verified 11/16/17 12:12) Hives Review of Systems Constitutional: ABSENT: chills, fever(s), headache(s), weight gain, weight loss Eyes: ABSENT: visual disturbances Ears: ABSENT: hearing changes Cardiovascular: ABSENT: chest pain, dyspnea on exertion, edema, orthropnea, palpitations Respiratory: ABSENT: cough, hemoptysis Gastrointestinal: ABSENT: abdominal pain, constipation, diarrhea, hematemesis, hematochezia, nausea, vomiting Genitourinary: ABSENT: dysuria, hematuria Musculoskeletal: ABSENT: joint swelling Integumentary: ABSENT: rash, wounds Neurological: ABSENT: abnormal gait, abnormal speech, confusion, dizziness, focal weakness, syncope Psychiatric: ABSENT: anxiety, depression, homidical ideation, suicidal ideation Endocrine: ABSENT: cold intolerance, heat intolerance, polydipsia, polyuria Hematologic/Lymphatic: ABSENT: easy bleeding, easy bruising Physical Exam Vital Signs: Temp Pulse Resp BP Pulse Ox 98.1 F 66 18 164/98 H 99 11/16/17 22:04 11/16/17 22:04 11/16/17 22:04 11/16/17 18:13 11/16/17 22:04 General appearance: PRESENT: no acute distress, well-developed, well-nourished Head exam: PRESENT: atraumatic, normocephalic Eye exam: PRESENT: conjunctiva pink, EOMI, PERRLA. ABSENT: scleral icterus Ear exam: PRESENT: normal external ear exam Mouth exam: PRESENT: moist, tongue midline Neck exam: ABSENT: carotid bruit, JVD, lymphadenopathy, thyromegaly Respiratory exam: PRESENT: clear to auscultation анна. ABSENT: rales, rhonchi, wheezes Cardiovascular exam: PRESENT: RRR. ABSENT: diastolic murmur, rubs, systolic murmur Pulses: PRESENT: normal dorsalis pedis pul Vascular exam: PRESENT: normal capillary refill GI/Abdominal exam: PRESENT: hypoactive bowel sounds, normal bowel sounds, soft, tenderness. ABSENT: ascites, distended, guarding, mass, organolmegaly, rebound Rectal exam: PRESENT: deferred Extremities exam: PRESENT: full ROM. ABSENT: calf tenderness, clubbing, pedal edema Neurological exam: PRESENT: alert, awake, oriented to person, oriented to place , oriented to time, oriented to situation, CN II-XII grossly intact. ABSENT: motor sensory deficit Psychiatric exam: PRESENT: appropriate affect, normal mood. ABSENT: homicidal ideation, suicidal ideation Skin exam: PRESENT: dry, intact, warm. ABSENT: cyanosis, rash Results Impressions: Abdomen/Pelvis CT 11/16/17 13:20 IMPRESSION: Appendix not visualized. Trace fluid in the right pericolic gutter/ along the upper pole right transplant kidney of uncertain significance Small left lower quadrant ventral hernia containing nonobstructed small bowel loops. Assessment & Plan - Diagnosis (1) Abdominal pain Qualifiers: Abdominal location: right lower quadrant Qualified Code(s): R10.31 - Right lower quadrant pain Is this a current diagnosis for this admission?: Yes Plan: Medical floor observation, differential includes acute appendicitis, supportive care, surgical consultation, bowel prep (2) Acute on chronic renal failure Qualifiers: Acute renal failure type: unspecified Chronic kidney disease stage: stage 4 (severe) Qualified Code(s): N17.9 - Acute kidney failure, unspecified; N18.4 - Chronic kidney disease, stage 4 (severe); N18.4 - Chronic kidney disease , stage 4 (severe); N18.4 - Chronic kidney disease, stage 4 (severe); N18.4 - Chronic kidney disease, stage 4 (severe) Is this a current diagnosis for this admission?: Yes Plan: Avoid nephrotoxic meds and doses, reevaluate chemistry continue immunomodulation (3) Anemia Qualifiers: Anemia type: unspecified type Qualified Code(s): D64.9 - Anemia, unspecified Is this a current diagnosis for this admission?: Yes Plan: Likely secondary to chronic renal failure, deferred to outpatient. - Time Time Spent: 30 to 50 Minutes - Inpatient Certification Medical Necessity: Need Close Monitoring Due to Risk of Patient Decompensation
[2017-11-17] MEDS: HEPARIN SOD (PORCINE) 5,000 UNIT/ML 1 ML SYRINGE SUBCUT SCH ×3 (05:07→21:38)
[2017-11-17 05:44] LABS: HEMATOCRIT 25.2 % (36.0-47.0); HEMOGLOBIN 8.1 g/dL (12.0-15.5); MEAN CORPUSCULAR HEMOGLOBIN 27.5 pg (27.0-33.4); MEAN CORPUSCULAR HGB CONC 32.2 g/dL (32.0-36.0); MEAN CORPUSCULAR VOLUME 86 fl (80-97); PLATELET COUNT 228 10^3/uL (150-450); RED BLOOD COUNT 2.95 10^6/uL (3.72-5.28); RED CELL DISTRIBUTION WIDTH 14.9 % (11.5-14.0); WHITE BLOOD COUNT 3.6 10^3/uL (4.0-10.5)
[2017-11-17 05:46] LABS: ANION GAP 13 (5-19); BLOOD UREA NITROGEN 31 mg/dL (7-20); CALCIUM 8.5 mg/dL (8.4-10.2); CARBON DIOXIDE 12 mmol/L (22-30); CHLORIDE 116 mmol/L (98-107); GLUCOSE 70 mg/dL (75-110); POTASSIUM 3.8 mmol/L (3.6-5.0); SODIUM 140.6 mmol/L (137-145)
[2017-11-17 06:18] LABS: ABSOLUTE LYMPHOCYTES# (MANUAL) 1.4 10^3/uL (0.5-4.7); ABSOLUTE MONOCYTES # (MANUAL) 0.3 10^3/uL (0.1-1.4); ABSOLUTE NEUTROPHILS# (MANUAL) 1.9 10^3/uL (1.7-8.2); ANISOCYTOSIS 1+; BASOPHILS % (MANUAL) 0 % (0-2); EOSINOPHILS % (MANUAL) 2 % (0-6); HYPOCHROMASIA 2+; LYMPHOCYTES % (MANUAL) 36 % (13-45); MONOCYTES % (MANUAL) 8 % (3-13); OVALOCYTES 1+; POIKILOCYTOSIS 1+; SEGMENTED NEUTROPHILS % (MAN) 52 % (42-78); TOTAL CELLS COUNTED 100
[2017-11-17 06:19] LABS: PLATELET COMMENT ADEQUATE
[2017-11-17] MEDS: TOPIRAMATE 25 MG TABLET PO SCH ×2 (09:36→21:38)
[2017-11-17] MEDS: HYDRALAZINE HCL 50 MG TABLET PO SCH ×2 (09:37→21:38)
[2017-11-17] MEDS: LABETALOL HCL 200 MG TABLET PO SCH ×2 (09:37→21:38)
[2017-11-17] MEDS: SODIUM BICARBONATE 650 MG TABLET PO SCH ×2 (09:37→18:30)
[2017-11-17] MEDS ORDERED: MYCOPHENOLATE SODIUM 180 MG PO SCH (10:00)
[2017-11-17] MEDS ORDERED: (PENDING PHARMACY ID) (Labetalol Hcl [Labetalol Hcl] 100 MG) PO SCH (10:00)
[2017-11-17] MEDS: TACROLIMUS ANHYDROUS 1 MG CAPSULE PO SCH ×2 (10:12→18:30)
[2017-11-17] MEDS: PREDNISONE 5 MG TABLET PO SCH (10:13)
--- NOTE | 2017-11-17 17:31 | PDOC PROGRESS REPORT ---
Subjective Progress Note for:: 11/17/17 Subjective:: Patient was admitted with abdominal pain which somewhat better this morning but still pretty markedly tender. She has a history of failed allogenic transplant renal, 15 years ago and does have stage IV chronic kidney disease. She is on immunosuppressants with prednisone, CellCept and Prograf. She has been seen by the general surgeon with no indication for acute intervention noted abdominal CT noted right paracolic gutter fluid along the upper pole of the right transplanted kidney of uncertain significance. There is no nausea or vomiting. Reason For Visit: ABDOMINAL PAIN Physical Exam Vital Signs: Temp Pulse Resp BP Pulse Ox 98.4 F 71 16 149/96 H 100 11/17/17 16:00 11/17/17 16:00 11/17/17 16:00 11/17/17 16:00 11/17/17 16:00 Intake & Output 11/16/17 11/17/17 11/18/17 06:59 06:59 06:59 Intake Total 120 1200 Balance 120 1200 Weight 57.8 kg General appearance: PRESENT: no acute distress, well-developed, well-nourished Head exam: PRESENT: atraumatic, normocephalic Eye exam: PRESENT: conjunctiva pink, EOMI, PERRLA. ABSENT: scleral icterus Ear exam: PRESENT: normal external ear exam Mouth exam: PRESENT: moist, tongue midline Neck exam: ABSENT: carotid bruit, JVD, lymphadenopathy, thyromegaly Respiratory exam: PRESENT: clear to auscultation анна. ABSENT: rales, rhonchi, wheezes Cardiovascular exam: PRESENT: RRR. ABSENT: diastolic murmur, rubs, systolic murmur Pulses: PRESENT: normal dorsalis pedis pul Vascular exam: PRESENT: normal capillary refill GI/Abdominal exam: PRESENT: normal bowel sounds, rebound, soft, tenderness - Right upper quadrant tenderness. ABSENT: distended, guarding, mass, organolmegaly Rectal exam: PRESENT: deferred Extremities exam: PRESENT: full ROM. ABSENT: calf tenderness, clubbing, pedal edema Neurological exam: PRESENT: alert, awake, oriented to person, oriented to place , oriented to time, oriented to situation, CN II-XII grossly intact. ABSENT: motor sensory deficit Psychiatric exam: PRESENT: appropriate affect, normal mood. ABSENT: homicidal ideation, suicidal ideation Skin exam: PRESENT: dry, intact, warm. ABSENT: cyanosis, rash Results Laboratory Results: 11/17/17 04:36 11/17/17 04:36 11/17/17 11/17/17 04:36 04:36 WBC 3.6 L RBC 2.95 L Hgb 8.1 L Hct 25.2 L MCV 86 MCH 27.5 MCHC 32.2 RDW 14.9 H Plt Count 228 Seg Neutrophils % Not Reportable Lymphocytes % Not Reportable Monocytes % Not Reportable Eosinophils % Not Reportable Basophils % Not Reportable Absolute Neutrophils Not Reportable Absolute Lymphocytes Not Reportable Absolute Monocytes Not Reportable Absolute Eosinophils Not Reportable Absolute Basophils Not Reportable Sodium 140.6 Potassium 3.8 Chloride 116 H Carbon Dioxide 12 L Anion Gap 13 BUN 31 H Creatinine 4.08 H Est GFR ( Amer) 14 L Est GFR (Non-Af Amer) 11 L Glucose 70 L Calcium 8.5 Impressions: Abdomen/Pelvis CT 11/16/17 13:20 IMPRESSION: Appendix not visualized. Trace fluid in the right pericolic gutter/ along the upper pole right transplant kidney of uncertain significance Small left lower quadrant ventral hernia containing nonobstructed small bowel loops. Assessment & Plan - Time Time Spent with patient: 15-24 minutes Medications reviewed and adjusted accordingly: Yes Anticipated discharge: Home Within: within 72 hours - Inpatient Certification Based on my medical assessment, after consideration of the patient's comorbidities, presenting symptoms, or acuity I expect that the services needed warrant INPATIENT care.: Yes Medical Necessity: Significant Comorbidiites Make Outpatient Treatment Too Risky , Risk of Complication if Not Cared For in Hospital - Plan Summary Plan Summary: Abdominal pain of unclear etiology. There appears to be no indication of an acute abdomen a suggestion to rule out renal vein thrombosis was made and so an ultrasound Doppler has been ordered to rule out thrombosis of the transplanted kidney. This would forget patient is also on immunosuppressant so her pain physical exam will definitely be blunted. Will try to minimize any pain medicine as not to mask her true symptoms. 2. Acute on chronic renal failure stage IV will continue to monitor kidney function 3. Anemia secondary to chronic kidney disease no acute intervention planned 4. Acidosis normal anion gap likely metabolic which is pretty significant patient be is careful observation as etiology of abdominal pain is not clear with a significant acidosis will need to carefully monitor. I cannot explain her acidosis based on her kidney function alone. Has been continued on oral bicarb.
--- NOTE | 2017-11-17 19:50 | PDOC PROGRESS REPORT ---
Subjective Progress Note for:: 11/17/17 Subjective:: Overall feels better still having right sided abdominal pain. Tolerating clear liquids well with no vomiting. Patient notes about a 2 year history of failure to thrive with weight loss and diminished appetite and just not feeling well. Uncertain of the workup that has been performed to evaluate the symptoms. She does note that she has had a upper and lower endoscopies and was noted with peptic ulcer disease in the past. She states that she had a ventral hernia repair in the fall of last year and ever since that time she has had abdominal pain issues. Apparently the ventral hernia repair failed and she had prompt recurrence of her hernia. There are no obstructive symptoms however. She notes that she has good bowel function. Patient is chronic narcotic dependent for chronic back pain issues. She complains that she has not received any pain medication while she is in the hospital. Reason For Visit: ABDOMINAL PAIN Physical Exam Vital Signs: Temp Pulse Resp BP Pulse Ox 98.4 F 71 16 149/96 H 100 11/17/17 16:00 11/17/17 16:00 11/17/17 16:00 11/17/17 16:00 11/17/17 16:00 Intake & Output 11/16/17 11/17/17 11/18/17 06:59 06:59 06:59 Intake Total 120 2404 Balance 120 2404 Weight 57.8 kg General appearance: PRESENT: no acute distress, cooperative - When I walked in the room she appears very well with a cheerful affect drinking a clear liquid dinner. She does not appear ill. Eye exam: PRESENT: conjunctiva pink Respiratory exam: PRESENT: clear to auscultation анна Cardiovascular exam: PRESENT: RRR GI/Abdominal exam: PRESENT: other - Soft, nondistended, tender mostly at her right lateral abdomen. Palpable hernia defect on the mid lateral side that is easily reducible. No significant tenderness at the mid and left abdomen. Results Laboratory Results: 11/17/17 04:36 11/17/17 04:36 11/17/17 11/17/17 04:36 04:36 WBC 3.6 L RBC 2.95 L Hgb 8.1 L Hct 25.2 L MCV 86 MCH 27.5 MCHC 32.2 RDW 14.9 H Plt Count 228 Seg Neutrophils % Not Reportable Lymphocytes % Not Reportable Monocytes % Not Reportable Eosinophils % Not Reportable Basophils % Not Reportable Absolute Neutrophils Not Reportable Absolute Lymphocytes Not Reportable Absolute Monocytes Not Reportable Absolute Eosinophils Not Reportable Absolute Basophils Not Reportable Sodium 140.6 Potassium 3.8 Chloride 116 H Carbon Dioxide 12 L Anion Gap 13 BUN 31 H Creatinine 4.08 H Est GFR ( Amer) 14 L Est GFR (Non-Af Amer) 11 L Glucose 70 L Calcium 8.5 Impressions: Abdomen/Pelvis CT 11/16/17 13:20 IMPRESSION: Appendix not visualized. Trace fluid in the right pericolic gutter/ along the upper pole right transplant kidney of uncertain significance Small left lower quadrant ventral hernia containing nonobstructed small bowel loops. Assessment & Plan - Diagnosis (1) Abdominal pain Qualifiers: Abdominal location: right lower quadrant Qualified Code(s): R10.31 - Right lower quadrant pain Is this a current diagnosis for this admission?: Yes Plan: Patient appears to have most of the pain and tenderness overlying the region of her transplanted kidney. Patient is pending ultrasound vascular study of her kidney. I do not see evidence of a intra-abdominal catastrophe by CT nor by her clinical appearance. She certainly does not appear septic. Although appendicitis cannot be ruled out, her abdominal pain has been present for several weeks and I think appendicitis would be readily apparent on CT if it has been present for so long. I will obtain a right upper quadrant ultrasound to evaluate for gallstones since her pain is located on the right side. I have asked the hospitalist to resume her chronic narcotics to avoid withdrawal. I do not see any reason to withhold her narcotic pain medication. If an acute process can be ruled out in the next several days with close observation, recommend discharged with follow-up with her team leader who has been overseeing her overall care.
[2017-11-17] MEDS: LANSOPRAZOLE 30 MG TAB.RAP.DR PO SCH (21:38)
[2017-11-17] MEDS: OXYCODONE HCL IR 5 MG TABLET PO PRN (23:24)
[2017-11-18] MEDS: OXYCODONE HCL IR 5 MG TABLET PO PRN ×4 (05:36→23:59)
[2017-11-18] MEDS: HEPARIN SOD (PORCINE) 5,000 UNIT/ML 1 ML SYRINGE SUBCUT SCH ×3 (05:36→21:45)
[2017-11-18 06:30] LABS: HEMATOCRIT 25.1 % (36.0-47.0); MEAN CORPUSCULAR HEMOGLOBIN 26.7 pg (27.0-33.4); MEAN CORPUSCULAR HGB CONC 31.5 g/dL (32.0-36.0); MEAN CORPUSCULAR VOLUME 85 fl (80-97); PLATELET COUNT 231 10^3/uL (150-450); RED BLOOD COUNT 2.96 10^6/uL (3.72-5.28)
[2017-11-18 06:53] LABS: ANION GAP 13 (5-19); BLOOD UREA NITROGEN 31 mg/dL (7-20); CALCIUM 8.4 mg/dL (8.4-10.2); CARBON DIOXIDE 14 mmol/L (22-30); CHLORIDE 114 mmol/L (98-107); GLUCOSE 75 mg/dL (75-110); POTASSIUM 3.9 mmol/L (3.6-5.0); SODIUM 140.5 mmol/L (137-145)
[2017-11-18 06:56] LABS: HEMOGLOBIN 7.9 g/dL (12.0-15.5)
[2017-11-18 07:00] LABS: ABSOLUTE MONOCYTES # (MANUAL) 0.3 10^3/uL (0.1-1.4); ABSOLUTE NEUTROPHILS# (MANUAL) 1.7 10^3/uL (1.7-8.2); BASOPHILS % (MANUAL) 0 % (0-2); EOSINOPHILS % (MANUAL) 1 % (0-6); LYMPHOCYTES % (MANUAL) 32 % (13-45); MONOCYTES % (MANUAL) 9 % (3-13); SEGMENTED NEUTROPHILS % (MAN) 58 % (42-78); TOTAL CELLS COUNTED 100
[2017-11-18 07:02] LABS: HYPOCHROMASIA SLIGHT; OVALOCYTES SLIGHT; PLATELET COMMENT ADEQUATE
--- NOTE | 2017-11-18 08:48 | RADIOLOGY REPORT (SQ) ---
EXAM DESCRIPTION: DUPLEX ART/WANDY FLOW COMPLETE COMPLETED DATE/TIME: 11/18/2017 7:33 am REASON FOR STUDY: thrombus/ right kidney transplant. E87.2 ACIDOSIS COMPARISON: None. TECHNIQUE: Realtime and static grayscale images acquired of the right lower quadrant transplant kimn ey. Selected color Doppler, velocities and spectral images recorded. LIMITATIONS: None. FINDINGS: Right lower quadrant transplant kidney: RENAL ARTERY VELOCITIES: At the hilum 59 cm/sec. Segmental artery velocity 30 cm/sec. RENAL VEIN: Color doppler flow present, patent. VELOCITY RATIO: 1.0. There is an abnormal waveform in the transplant renal artery at the hilum with a tardus parvus pattern blunted systolic upstroke is present worrisome for renal artery stenosis. KIDNEY: Normal size, 9.3 cm in length. No transplant kidney hydronephrosis, cysts, stones, or mass es. Normal resistive indices in the right lower quadrant transplant kidney renal artery at the hilum and segmental arteries. IMPRESSION: NO DOPPLER EVIDENCE OF RENAL VEIN THROMBOSIS ABNORMAL WAVEFORMS IN THE RENAL ARTERY AT THE TRANSPLANT KIDNEY HILUM WORRISOME FOR RENAL ARTERY STEN OSIS COMMENT: NORMAL RENAL ARTERY/AORTA VELOCITY RATIO IS LESS THAN OR EQUAL TO 3.5. TECHNICAL DOCUMENTATION: JOB ID: [id number] [employer]- All Rights Reserved Reading location - IP/workstation name: [email or web address]
--- NOTE | 2017-11-18 08:59 | RADIOLOGY REPORT (SQ) ---
EXAM DESCRIPTION: U/S RETROPERITON (RENAL/AORTA) COMPLETED DATE/TIME: 11/18/2017 7:34 am REASON FOR STUDY: THROMBUS/ RIGHT KIDNEY TRANSPLANT E87.2 ACIDOSIS COMPARISON: CT abdomen pelvis 11/16/2017 TECHNIQUE: Dynamic and static grayscale images acquired of the kidneys and bladder and recorded on P ACS. Additional selected color Doppler and spectral images recorded. LIMITATIONS: None. FINDINGS: RIGHT KIDNEY: Right [place] kidney is 15 cm in length with end-stage hydronephrosis and end -stage cortical thinning. No stones. LEFT KIDNEY: Echogenic, atrophic and difficult to visualize by ultrasound. BLADDER: Not visualized, empty. OTHER FINDINGS: No other significant finding. IMPRESSION: End-stage hydronephrosis right kidney unchanged from prior imaging studies. Echogenic a trophic left kidney. Bladder empty TECHNICAL DOCUMENTATION: JOB ID: [id number] [employer]- All Rights Reserved Reading location - IP/workstation name: [email or web address]
[2017-11-18] MEDS: LABETALOL HCL 200 MG TABLET PO SCH ×2 (12:24→21:45)
[2017-11-18] MEDS: SODIUM BICARBONATE 650 MG TABLET PO SCH ×2 (12:24→17:23)
[2017-11-18] MEDS: PREDNISONE 5 MG TABLET PO SCH (12:25)
[2017-11-18] MEDS: HYDRALAZINE HCL 50 MG TABLET PO SCH ×2 (12:25→21:40)
[2017-11-18] MEDS: TOPIRAMATE 25 MG TABLET PO SCH ×2 (12:25→21:41)
[2017-11-18] MEDS: TACROLIMUS ANHYDROUS 1 MG CAPSULE PO SCH ×2 (12:29→17:23)
--- NOTE | 2017-11-18 14:46 | RADIOLOGY REPORT (SQ) ---
EXAM DESCRIPTION: U/S ABDOMEN LTD W/DOPPLER COMPLETED DATE/TIME: 11/18/2017 12:11 pm REASON FOR STUDY: evaluate for gallstones E87.2 ACIDOSIS COMPARISON: Renal ultrasound 11/18/2017 CT abdomen pelvis 11/16/2017 TECHNIQUE: Dynamic and static grayscale images acquired of the abdomen and recorded on PACS. Additio nal selected color Doppler and spectral images recorded. LIMITATIONS: Upper abdominal bowel gas FINDINGS: PANCREAS: Visualized pancreas unremarkable LIVER: No masses. Echotexture normal. Benign 4 cm cyst sub- diaphragmatic surface left lobe liver un changed from CT 11/16/2017. LIVER VASCULATURE: Normal directional flow of the main portal vein and hepatic veins. GALLBLADDER: The gallbladder is distended, without wall thickening or stones. Trace pericholecystic fluid, similar compared to prior CT. ULTRASOUND-DETECTED PATEL'S SIGN: Negative. INTRAHEPATIC DUCTS AND COMMON DUCT: CBD and intrahepatic ducts normal caliber. No filling defects. INFERIOR VENA CAVA: Normal flow. AORTA: No aneurysm. RIGHT KIDNEY: End-stage appearance of hydronephrosis right kidney with massive dilatation of the pel vis and calices and marked cortical thinning, similar compared to previous exams PERITONEAL AND RIGHT PLEURAL SPACE: No pleural effusion. Trace fluid in the gallbladder fossa. OTHER: No other significant findings. IMPRESSION: No gallstones. Distended gallbladder without wall thickening. Negative sonographic Mur phy's sign TECHNICAL DOCUMENTATION: JOB ID: [id number] 1893[employer]- All Rights Reserved Reading location - IP/workstation name: [email or web address]
--- NOTE | 2017-11-18 16:50 | PDOC DISCHARGE SUMMARY ---
General - Admit/Disc Date/PCP Admission Date/Primary Care Provider: 11/18/17 09:14 Discharge Date: 11/18/17 - Discharge Diagnosis (1) Abdominal pain Is this a current diagnosis for this admission?: Yes (2) Chronic kidney disease, stage IV (severe) Is this a current diagnosis for this admission?: Yes (3) Hypomagnesemia Is this a current diagnosis for this admission?: Yes (4) Metabolic acidosis Is this a current diagnosis for this admission?: Yes (5) Status post living-donor kidney transplantation Is this a current diagnosis for this admission?: Yes (6) Chronic pain disorder Is this a current diagnosis for this admission?: Yes Summary: Patient is on chronic opiate, oxycodone, for pain control. (7) Anemia Is this a current diagnosis for this admission?: Yes (8) Hypokalemia Is this a current diagnosis for this admission?: Yes - Additional Information Resuscitation Status: Full Code Discharge Diet: Other (Comments) - Renal Discharge Activity: Activity As Tolerated Home Medications: Furosemide 80 mg PO DAILY 11/16/17 Hydralazine HCl 50 mg PO BID 11/16/17 Labetalol HCl 100 mg PO BID 11/16/17 Mycophenolate Sodium [Myfortic 180 mg Tablet.dr] 180 mg PO BID 11/16/17 Oxycodone HCl 15 mg PO Q4H PRN 11/16/17 Pantoprazole Sodium 40 mg PO QHS 11/16/17 Prednisone 5 mg PO [id number] 11/16/17 Tacrolimus [Prograf] 2 mg PO BID 11/16/17 Topiramate [Topamax] 50 mg PO Q12 11/16/17 Magnesium Oxide [Mag-Ox 400 mg Tablet] 400 mg PO BID tablet 11/18/17 Sodium Bicarbonate 1,300 mg PO TID #0 11/18/17 History of Present Illness Patient complains of: Abdominal pain History of Present Illness: YUSUF CANTRELL is a 57 year old female Hospital Course Hospital Course: This patient was admitted with abdominal pain. Patient was also found to have a vagina discharge. 2 done with oral contrast only due to CKD revealed nonvisualization of the appendix but some joann-colic fluid collection around the transplant kidney. Patient was seen by the general surgeon due to concerns about an acute abdomen but after further evaluation it was felt that patient does not have an acute abdomen. She was initially made n.p.o. but her diet has been advanced and she has been tolerating her diet though she still remains tender in the right upper quadrant did renal ultrasound done reveals end-stage hydronephrosis in the right kidney which is unchanged renal artery Doppler done reveals no evidence of renal vein thrombosis but there was an abnormal waveform in the renal artery at the transplant kidney hilum worrisome for renal artery stenosis. Patient is on immunosuppressants which were continued during her hospital stay. She also received magnesium supplementation for hypomagnesemia. Patient is been transferred to [facility] and due to persistent abdominal pain and a history of renal transplant. Her kidney function apparently is stable as she was admitted with a creatinine of about 4.2 which is close to baseline. She is acidotic and her bicarb dose has been increased. Patient was also noted to be anemic today however this may be due to hemodilution as she has been receiving cautious IV fluid in hospital. Hemoglobin dropped from a high of 8.7 at admission to 7.9 today. Patient did have candidiasis vagina and she was started on miconazole. In view of possible interaction with tacrolimus this should be carefully followed and reevaluated. Due to underlying renal transplant status it is felt that patient will benefit from being in a tertiary center with her usual animal attendants and trainers and so she has been transferred to the care of Dr. Choi Physical Exam Vital Signs: Temp Pulse Resp BP Pulse Ox 97.8 F 79 20 125/67 100 11/18/17 15:37 11/18/17 15:37 11/18/17 15:37 11/18/17 15:37 11/18/17 15:37 Intake & Output 11/17/17 11/18/17 11/19/17 06:59 06:59 06:59 Intake Total 670 Balance 670 General appearance: PRESENT: no acute distress, well-developed, well-nourished Head exam: PRESENT: atraumatic, normocephalic Eye exam: PRESENT: conjunctiva pink, EOMI, PERRLA. ABSENT: scleral icterus Ear exam: PRESENT: normal external ear exam Mouth exam: PRESENT: moist, tongue midline Neck exam: ABSENT: carotid bruit, JVD, lymphadenopathy, thyromegaly Respiratory exam: PRESENT: clear to auscultation анна. ABSENT: rales, rhonchi, wheezes Cardiovascular exam: PRESENT: RRR, +S1, +S2. ABSENT: diastolic murmur, rubs, systolic murmur Pulses: PRESENT: normal dorsalis pedis pul Vascular exam: PRESENT: normal capillary refill GI/Abdominal exam: PRESENT: normal bowel sounds, soft, tenderness - R upper quadrant. ABSENT: distended, guarding, mass, organolmegaly, rebound Rectal exam: PRESENT: deferred Extremities exam: PRESENT: full ROM. ABSENT: calf tenderness, clubbing, pedal edema Musculoskeletal exam: PRESENT: ambulatory Neurological exam: PRESENT: alert, awake, oriented to person, oriented to place , oriented to time, oriented to situation, CN II-XII grossly intact. ABSENT: motor sensory deficit Psychiatric exam: PRESENT: appropriate affect, normal mood. ABSENT: homicidal ideation, suicidal ideation Skin exam: PRESENT: dry, intact, warm. ABSENT: cyanosis, rash Results Laboratory Results: 11/18/17 05:16 11/18/17 05:16 MCV 85 fl (80-97) 11/18/17 05:16 MCH 26.7 pg (27.0-33.4) L 11/18/17 05:16 MCHC 31.5 g/dL (32.0-36.0) L 11/18/17 05:16 RDW 15.0 % (11.5-14.0) H 11/18/17 05:16 Seg Neutrophils % Not Reportable 11/18/17 05:16 Lymphocytes % Not Reportable 11/18/17 05:16 Monocytes % Not Reportable 11/18/17 05:16 Eosinophils % Not Reportable 11/18/17 05:16 Basophils % Not Reportable 11/18/17 05:16 Absolute Neutrophils Not Reportable 11/18/17 05:16 Absolute Lymphocytes Not Reportable 11/18/17 05:16 Absolute Monocytes Not Reportable 11/18/17 05:16 Absolute Eosinophils Not Reportable 11/18/17 05:16 Absolute Basophils Not Reportable 11/18/17 05:16 Chloride 114 mmol/L (98-107) H 11/18/17 05:16 Carbon Dioxide 14 mmol/L (22-30) L 11/18/17 05:16 Anion Gap 13 (5-19) 11/18/17 05:16 Est GFR ( Amer) 14 (>60) L 11/18/17 05:16 Est GFR (Non-Af Amer) 11 (>60) L 11/18/17 05:16 Glucose 75 mg/dL (75-110) 11/18/17 05:16 Calcium 8.4 mg/dL (8.4-10.2) 11/18/17 05:16 Magnesium 1.5 mg/dL (1.6-2.3) L 11/18/17 05:16 Total Bilirubin 0.2 mg/dL (0.2-1.3) 11/16/17 11:41 AST 11 U/L (14-36) L 11/16/17 11:41 ALT 11 U/L (9-52) 11/16/17 11:41 Alkaline Phosphatase 131 U/L (38-126) H 11/16/17 11:41 Total Protein 7.1 g/dL (6.3-8.2) 11/16/17 11:41 Albumin 4.0 g/dL (3.5-5.0) 11/16/17 11:41 Lipase 91.2 U/L (23-300) 11/16/17 11:41 Urine Color YELLOW 11/16/17 11:41 Urine Appearance CLEAR 11/16/17 11:41 Urine pH 6.0 (5.0-9.0) 11/16/17 11:41 Ur Specific Tracy 1.011 11/16/17 11:41 Urine Protein >=500 mg/dL (NEGATIVE) H 11/16/17 11:41 Urine Glucose (UA) >=500 mg/dL (NEGATIVE) H 11/16/17 11:41 Urine Ketones NEGATIVE mg/dL (NEGATIVE) 11/16/17 11:41 Urine Blood SMALL (NEGATIVE) H 11/16/17 11:41 Urine Nitrite NEGATIVE (NEGATIVE) 11/16/17 11:41 Ur Leukocyte Esterase TRACE (NEGATIVE) H 11/16/17 11:41 Urine WBC (Auto) 3 /HPF 11/16/17 11:41 Urine RBC (Auto) 1 /HPF 11/16/17 11:41 Impressions: Abdomen/Pelvis CT 11/16/17 13:20 IMPRESSION: Appendix not visualized. Trace fluid in the right pericolic gutter/ along the upper pole right transplant kidney of uncertain significance Small left lower quadrant ventral hernia containing nonobstructed small bowel loops. Abdomen Ultrasound 11/18/17 00:00 IMPRESSION: No gallstones. Distended gallbladder without wall thickening. Negative sonographic Gonzalez's sign Renal Artery Duplex 11/18/17 00:00 IMPRESSION: NO DOPPLER EVIDENCE OF RENAL VEIN THROMBOSIS ABNORMAL WAVEFORMS IN THE RENAL ARTERY AT THE TRANSPLANT KIDNEY HILUM WORRISOME FOR RENAL ARTERY STENOSIS Renal Ultrasound 11/18/17 06:00 IMPRESSION: End-stage hydronephrosis right kidney unchanged from prior imaging studies. Echogenic atrophic left kidney. Bladder empty Qualifiers - * PATIENT BEING DISCHARGED WITH ANY OF THE FOLLOWING DIAGNOSIS: No Plan Discharge Plan: To [facility] Time Spent: Greater than 30 Minutes
[2017-11-18] MEDS: MAGNESIUM OXIDE 400 MG TABLET PO SCH (17:23)
[2017-11-18] MEDS ORDERED: MICONAZOLE NITRATE 200 MG/SUPP (3 SUPP/BOX) VG SCH (18:00)
[2017-11-18] MEDS: MICONAZOLE NITRATE 2% VAGINAL CREAM 45 GM TUBE VG SCH (21:40)
[2017-11-18] MEDS: LANSOPRAZOLE 30 MG TAB.RAP.DR PO SCH (21:40)
--- NOTE | 2017-11-18 22:46 | PDOC PROGRESS REPORT ---
Subjective Progress Note for:: 11/18/17 Subjective:: This is a 57-year-old female who is status post a transplant and ventral hernia repair in the remote past. Patient presents to the hospital with abdominal and flank pain. She underwent CT scanning showing presence of her known, recurrent ventral hernia. She was also found to have hydronephrosis on the right. She is continued to have pain, especially in her right flank. Currently she denies nausea, vomiting, fevers, chills, orthostasis, dizziness, chest pain, shortness of breath. Reason For Visit: ABDOMINAL PAIN,ANEMIA,ACUTE ON CHRONIC CKD Physical Exam Vital Signs: Temp Pulse Resp BP Pulse Ox 98.3 F 72 15 137/87 H 99 11/18/17 19:21 11/18/17 19:21 11/18/17 19:21 11/18/17 19:21 11/18/17 19:21 Intake & Output 11/17/17 11/18/17 11/19/17 06:59 06:59 06:59 Intake Total 670 Balance 670 General appearance: PRESENT: no acute distress Head exam: PRESENT: atraumatic, normocephalic Eye exam: PRESENT: EOMI, PERRLA. ABSENT: scleral icterus Teeth exam: ABSENT: poor dentation Neck exam: ABSENT: lymphadenopathy, meningismus, tenderness, thyromegaly, tracheal deviation Respiratory exam: PRESENT: clear to auscultation анна, unlabored. ABSENT: chest wall tenderness, wheezes Cardiovascular exam: PRESENT: RRR Vascular exam: PRESENT: normal capillary refill. ABSENT: pallor GI/Abdominal exam: PRESENT: soft. ABSENT: distended, tenderness Rectal exam: PRESENT: deferred Extremities exam: ABSENT: tenderness Musculoskeletal exam: PRESENT: normal inspection Neurological exam: PRESENT: alert, awake, oriented to person, oriented to place , oriented to time, oriented to situation, CN II-XII grossly intact. ABSENT: motor sensory deficit Psychiatric exam: ABSENT: agitated, anxious, depressed Skin exam: ABSENT: cyanosis, erythema, jaundice Results Impressions: Abdomen/Pelvis CT 11/16/17 13:20 IMPRESSION: Appendix not visualized. Trace fluid in the right pericolic gutter/ along the upper pole right transplant kidney of uncertain significance Small left lower quadrant ventral hernia containing nonobstructed small bowel loops. Abdomen Ultrasound 11/18/17 00:00 IMPRESSION: No gallstones. Distended gallbladder without wall thickening. Negative sonographic Gonzalez's sign Renal Artery Duplex 11/18/17 00:00 IMPRESSION: NO DOPPLER EVIDENCE OF RENAL VEIN THROMBOSIS ABNORMAL WAVEFORMS IN THE RENAL ARTERY AT THE TRANSPLANT KIDNEY HILUM WORRISOME FOR RENAL ARTERY STENOSIS Renal Ultrasound 11/18/17 06:00 IMPRESSION: End-stage hydronephrosis right kidney unchanged from prior imaging studies. Echogenic atrophic left kidney. Bladder empty Assessment & Plan - Diagnosis (1) Right flank pain Is this a current diagnosis for this admission?: Yes (2) Renal artery stenosis, transplant Is this a current diagnosis for this admission?: Yes - Plan Summary Plan Summary: This is a 57-year-old female with persistent right flank pain. She has severe hydronephrosis on the right, as well as a transplanted kidney. The patient underwent duplex ultrasound of the transplanted kidney's arterial supply. There is evidence for renal artery stenosis in the transplant. Patient has a persistent acidosis, and continues to have pain in the right flank. Consultation was obtained from the patient's supervisor sandblaster Dr. Calzada. Dr. Calzada has requested the patient be transferred to [facility]. The patient does have a recurrent ventral hernia, however tenderness in the anterior abdominal wall is minimal. Contrast from her CT scan moved through the hernia without difficulty. I do not believe the hernia is the cause of her symptoms.
[2017-11-19] MEDS: OXYCODONE HCL IR 5 MG TABLET PO PRN ×4 (05:59→22:09)
[2017-11-19] MEDS: HEPARIN SOD (PORCINE) 5,000 UNIT/ML 1 ML SYRINGE SUBCUT SCH ×3 (06:01→22:09)
--- NOTE | 2017-11-19 07:29 | PDOC PROGRESS REPORT ---
Subjective Progress Note for:: 11/18/17 Subjective:: Patient was admitted with abdominal pain which somewhat better this morning but still pretty markedly tender. She has a history of failed allogenic transplant renal, 15 years ago and does have stage IV chronic kidney disease. She is on immunosuppressants with prednisone, CellCept and Prograf. She has been seen by the general surgeon with no indication for acute intervention noted abdominal CT noted right paracolic gutter fluid along the upper pole of the right transplanted kidney of uncertain significance. There is no nausea or vomiting. Reason For Visit: ABDOMINAL PAIN,ANEMIA,ACUTE ON CHRONIC CKD Physical Exam Vital Signs: Temp Pulse Resp BP Pulse Ox 97.8 F 79 20 125/67 100 11/18/17 15:37 11/18/17 15:37 11/18/17 15:37 11/18/17 15:37 11/18/17 15:37 Intake & Output 11/17/17 11/18/17 11/19/17 06:59 06:59 06:59 Intake Total 670 Balance 670 General appearance: PRESENT: no acute distress, well-developed, well-nourished Head exam: PRESENT: atraumatic, normocephalic Eye exam: PRESENT: conjunctiva pink, EOMI, PERRLA. ABSENT: scleral icterus Ear exam: PRESENT: normal external ear exam Mouth exam: PRESENT: moist, tongue midline Neck exam: ABSENT: carotid bruit, JVD, lymphadenopathy, thyromegaly Respiratory exam: PRESENT: clear to auscultation анна. ABSENT: rales, rhonchi, wheezes Cardiovascular exam: PRESENT: RRR. ABSENT: diastolic murmur, rubs, systolic murmur Pulses: PRESENT: normal dorsalis pedis pul Vascular exam: PRESENT: normal capillary refill GI/Abdominal exam: PRESENT: normal bowel sounds, soft, tenderness - RUQ, other - ventral hernia, n=minimal tenderness. ABSENT: distended, guarding, mass, organolmegaly, rebound Rectal exam: PRESENT: deferred Extremities exam: PRESENT: full ROM. ABSENT: calf tenderness, clubbing, pedal edema Neurological exam: PRESENT: alert, awake, oriented to person, oriented to place , oriented to time, oriented to situation, CN II-XII grossly intact. ABSENT: motor sensory deficit Psychiatric exam: PRESENT: appropriate affect, normal mood. ABSENT: homicidal ideation, suicidal ideation Skin exam: PRESENT: dry, intact, warm. ABSENT: cyanosis, rash Results Impressions: Abdomen/Pelvis CT 11/16/17 13:20 IMPRESSION: Appendix not visualized. Trace fluid in the right pericolic gutter/ along the upper pole right transplant kidney of uncertain significance Small left lower quadrant ventral hernia containing nonobstructed small bowel loops. Abdomen Ultrasound 11/18/17 00:00 IMPRESSION: No gallstones. Distended gallbladder without wall thickening. Negative sonographic Gonzalez's sign Renal Artery Duplex 11/18/17 00:00 IMPRESSION: NO DOPPLER EVIDENCE OF RENAL VEIN THROMBOSIS ABNORMAL WAVEFORMS IN THE RENAL ARTERY AT THE TRANSPLANT KIDNEY HILUM WORRISOME FOR RENAL ARTERY STENOSIS Renal Ultrasound 11/18/17 06:00 IMPRESSION: End-stage hydronephrosis right kidney unchanged from prior imaging studies. Echogenic atrophic left kidney. Bladder empty Assessment & Plan - Diagnosis (1) Abdominal pain Qualifiers: Abdominal location: right lower quadrant Qualified Code(s): R10.31 - Right lower quadrant pain Is this a current diagnosis for this admission?: Yes Plan: Transfer to [facility] pending (2) Chronic kidney disease, stage IV (severe) Is this a current diagnosis for this admission?: Yes (3) Hypomagnesemia Is this a current diagnosis for this admission?: Yes Plan: Replaced (4) Metabolic acidosis Is this a current diagnosis for this admission?: Yes (5) Status post living-donor kidney transplantation Is this a current diagnosis for this admission?: Yes (6) Chronic pain disorder Is this a current diagnosis for this admission?: Yes (7) Anemia Qualifiers: Anemia type: unspecified type Qualified Code(s): D64.9 - Anemia, unspecified Is this a current diagnosis for this admission?: Yes (8) Hypokalemia Is this a current diagnosis for this admission?: Yes - Time Time Spent with patient: 15-24 minutes Medications reviewed and adjusted accordingly: Yes Anticipated discharge: [facility] Within: within 24 hours - Inpatient Certification Based on my medical assessment, after consideration of the patient's comorbidities, presenting symptoms, or acuity I expect that the services needed warrant INPATIENT care.: Yes Medical Necessity: Risk of Complication if Not Cared For in Hospital
--- NOTE | 2017-11-19 09:38 | PDOC PROGRESS REPORT ---
Subjective Progress Note for:: 11/19/17 Subjective:: Feel better. Still having abdominal pain. Reason For Visit: ABDOMINAL PAIN,ANEMIA,ACUTE ON CHRONIC CKD Physical Exam Vital Signs: Temp Pulse Resp BP Pulse Ox 98.3 F 80 16 141/96 H 99 11/19/17 07:15 11/19/17 07:15 11/19/17 07:15 11/19/17 07:15 11/19/17 07:15 Intake & Output 11/18/17 11/19/17 11/20/17 06:59 06:59 06:59 Intake Total 1320 Balance 1320 Weight 59.2 kg General appearance: PRESENT: no acute distress, cooperative GI/Abdominal exam: PRESENT: other - Soft, nondistended, mild right-sided abdominal tenderness without peritoneal signs. Much improved from couple of days ago. Results Impressions: Abdomen/Pelvis CT 11/16/17 13:20 IMPRESSION: Appendix not visualized. Trace fluid in the right pericolic gutter/ along the upper pole right transplant kidney of uncertain significance Small left lower quadrant ventral hernia containing nonobstructed small bowel loops. Abdomen Ultrasound 11/18/17 00:00 IMPRESSION: No gallstones. Distended gallbladder without wall thickening. Negative sonographic Gonzalez's sign Renal Artery Duplex 11/18/17 00:00 IMPRESSION: NO DOPPLER EVIDENCE OF RENAL VEIN THROMBOSIS ABNORMAL WAVEFORMS IN THE RENAL ARTERY AT THE TRANSPLANT KIDNEY HILUM WORRISOME FOR RENAL ARTERY STENOSIS Renal Ultrasound 11/18/17 06:00 IMPRESSION: End-stage hydronephrosis right kidney unchanged from prior imaging studies. Echogenic atrophic left kidney. Bladder empty Assessment & Plan - Diagnosis (1) Abdominal pain Qualifiers: Abdominal location: right lower quadrant Qualified Code(s): R10.31 - Right lower quadrant pain Is this a current diagnosis for this admission?: Yes Plan: Patient looks much better. I do not think she has an acute abdomen. Her pain is chronic. Right upper quadrant ultrasound demonstrated no gallbladder pathology. Appendicitis is ruled out by this period of observation with her improving exam. patient is pending transfer to [facility]. Surgicalist service signing off.
[2017-11-19] MEDS: HYDRALAZINE HCL 50 MG TABLET PO SCH ×2 (10:06→22:08)
[2017-11-19] MEDS: TOPIRAMATE 25 MG TABLET PO SCH ×2 (10:06→22:08)
[2017-11-19] MEDS: MAGNESIUM OXIDE 400 MG TABLET PO SCH ×2 (10:07→17:09)
[2017-11-19] MEDS: PREDNISONE 5 MG TABLET PO SCH (10:07)
[2017-11-19] MEDS: LABETALOL HCL 200 MG TABLET PO SCH ×2 (10:07→22:09)
[2017-11-19] MEDS: SODIUM BICARBONATE 650 MG TABLET PO SCH ×2 (10:08→17:09)
[2017-11-19] MEDS: TACROLIMUS ANHYDROUS 1 MG CAPSULE PO SCH ×2 (10:10→17:09)
[2017-11-19] MEDS ORDERED: ACETAMINOPHEN 325 MG TABLET PO PRN (13:55)
[2017-11-19] MEDS ORDERED: ONDANSETRON HCL INJ/PF 4 MG/2 ML SDV IV PRN (14:00)
--- NOTE | 2017-11-19 16:12 | PDOC PROGRESS REPORT ---
Subjective Progress Note for:: 11/19/17 Subjective:: Patient was admitted with abdominal pain which somewhat better this morning but still pretty markedly tender. She has a history of failed allogenic transplant renal, 15 years ago and does have stage IV chronic kidney disease. She is on immunosuppressants with prednisone, CellCept and Prograf. She has been seen by the general surgeon with no indication for acute intervention noted abdominal CT noted right paracolic gutter fluid along the upper pole of the right transplanted kidney of uncertain significance. There is no nausea or vomiting. Patient is currently awaiting transfer to [facility] however with continued stability and no change in abdominal pain patient is agreeable to being discharged home for outpatient follow-up in another 24 hours also if we are unable to get her transferred. We will try and arrange follow-up with her rn gyn prior to discharge if possible. She has been seen by the general surgeon again today and there is no evidence of any acute abdomen Reason For Visit: ABDOMINAL PAIN,ANEMIA,ACUTE ON CHRONIC CKD Physical Exam Vital Signs: Temp Pulse Resp BP Pulse Ox 98.3 F 80 16 141/96 H 99 11/19/17 07:15 11/19/17 07:15 11/19/17 07:15 11/19/17 07:15 11/19/17 07:15 Intake & Output 11/18/17 11/19/17 11/20/17 06:59 06:59 06:59 Intake Total 1320 Balance 1320 Weight 59.2 kg General appearance: PRESENT: no acute distress, well-developed, well-nourished Head exam: PRESENT: atraumatic, normocephalic Eye exam: PRESENT: conjunctiva pink, EOMI, PERRLA. ABSENT: scleral icterus Ear exam: PRESENT: normal external ear exam Mouth exam: PRESENT: moist, tongue midline Neck exam: ABSENT: carotid bruit, JVD, lymphadenopathy, thyromegaly Respiratory exam: PRESENT: clear to auscultation анна. ABSENT: rales, rhonchi, wheezes Cardiovascular exam: PRESENT: RRR, +S1, +S2. ABSENT: diastolic murmur, rubs, systolic murmur Pulses: PRESENT: normal dorsalis pedis pul Vascular exam: PRESENT: normal capillary refill GI/Abdominal exam: PRESENT: normal bowel sounds, soft, tenderness - RUQ Ant abd wall minimal tendrness, other - Ventral hernia. ABSENT: distended, guarding, mass, organolmegaly, rebound Rectal exam: PRESENT: deferred Extremities exam: PRESENT: full ROM. ABSENT: calf tenderness, clubbing, pedal edema Neurological exam: PRESENT: alert, awake, oriented to person, oriented to place , oriented to time, oriented to situation, CN II-XII grossly intact. ABSENT: motor sensory deficit Psychiatric exam: PRESENT: appropriate affect, normal mood. ABSENT: homicidal ideation, suicidal ideation Skin exam: PRESENT: dry, intact, warm. ABSENT: cyanosis, rash Results Laboratory Results: 11/18/17 05:16 11/18/17 05:16 MCV 85 fl (80-97) 11/18/17 05:16 MCH 26.7 pg (27.0-33.4) L 11/18/17 05:16 MCHC 31.5 g/dL (32.0-36.0) L 11/18/17 05:16 RDW 15.0 % (11.5-14.0) H 11/18/17 05:16 Seg Neutrophils % Not Reportable 11/18/17 05:16 Lymphocytes % Not Reportable 11/18/17 05:16 Monocytes % Not Reportable 11/18/17 05:16 Eosinophils % Not Reportable 11/18/17 05:16 Basophils % Not Reportable 11/18/17 05:16 Absolute Neutrophils Not Reportable 11/18/17 05:16 Absolute Lymphocytes Not Reportable 11/18/17 05:16 Absolute Monocytes Not Reportable 11/18/17 05:16 Absolute Eosinophils Not Reportable 11/18/17 05:16 Absolute Basophils Not Reportable 11/18/17 05:16 Chloride 114 mmol/L (98-107) H 11/18/17 05:16 Carbon Dioxide 14 mmol/L (22-30) L 11/18/17 05:16 Anion Gap 13 (5-19) 11/18/17 05:16 Est GFR ( Amer) 14 (>60) L 11/18/17 05:16 Est GFR (Non-Af Amer) 11 (>60) L 11/18/17 05:16 Glucose 75 mg/dL (75-110) 11/18/17 05:16 Calcium 8.4 mg/dL (8.4-10.2) 11/18/17 05:16 Magnesium 1.5 mg/dL (1.6-2.3) L 11/18/17 05:16 Total Bilirubin 0.2 mg/dL (0.2-1.3) 11/16/17 11:41 AST 11 U/L (14-36) L 11/16/17 11:41 ALT 11 U/L (9-52) 11/16/17 11:41 Alkaline Phosphatase 131 U/L (38-126) H 11/16/17 11:41 Total Protein 7.1 g/dL (6.3-8.2) 11/16/17 11:41 Albumin 4.0 g/dL (3.5-5.0) 11/16/17 11:41 Lipase 91.2 U/L (23-300) 11/16/17 11:41 Urine Color YELLOW 11/16/17 11:41 Urine Appearance CLEAR 11/16/17 11:41 Urine pH 6.0 (5.0-9.0) 11/16/17 11:41 Ur Specific [place] 1.011 11/16/17 11:41 Urine Protein >=500 mg/dL (NEGATIVE) H 11/16/17 11:41 Urine Glucose (UA) >=500 mg/dL (NEGATIVE) H 11/16/17 11:41 Urine Ketones NEGATIVE mg/dL (NEGATIVE) 11/16/17 11:41 Urine Blood SMALL (NEGATIVE) H 11/16/17 11:41 Urine Nitrite NEGATIVE (NEGATIVE) 11/16/17 11:41 Ur Leukocyte Esterase TRACE (NEGATIVE) H 11/16/17 11:41 Urine WBC (Auto) 3 /HPF 11/16/17 11:41 Urine RBC (Auto) 1 /HPF 11/16/17 11:41 Impressions: Abdomen/Pelvis CT 11/16/17 13:20 IMPRESSION: Appendix not visualized. Trace fluid in the right pericolic gutter/ along the upper pole right transplant kidney of uncertain significance Small left lower quadrant ventral hernia containing nonobstructed small bowel loops. Abdomen Ultrasound 11/18/17 00:00 IMPRESSION: No gallstones. Distended gallbladder without wall thickening. Negative sonographic Gonzalez's sign Renal Artery Duplex 11/18/17 00:00 IMPRESSION: NO DOPPLER EVIDENCE OF RENAL VEIN THROMBOSIS ABNORMAL WAVEFORMS IN THE RENAL ARTERY AT THE TRANSPLANT KIDNEY HILUM WORRISOME FOR RENAL ARTERY STENOSIS Renal Ultrasound 11/18/17 06:00 IMPRESSION: End-stage hydronephrosis right kidney unchanged from prior imaging studies. Echogenic atrophic left kidney. Bladder empty Assessment & Plan - Diagnosis (1) Abdominal pain Qualifiers: Abdominal location: right lower quadrant Qualified Code(s): R10.31 - Right lower quadrant pain Is this a current diagnosis for this admission?: Yes Plan: Transfer to [facility] and pending for possible renal artery stenosis. (2) Chronic kidney disease, stage IV (severe) Is this a current diagnosis for this admission?: Yes Plan: She is status post failed allograft renal transplant (3) Hypomagnesemia Is this a current diagnosis for this admission?: Yes Plan: Replaced (4) Metabolic acidosis Is this a current diagnosis for this admission?: Yes (5) Status post living-donor kidney transplantation Is this a current diagnosis for this admission?: Yes (6) Chronic pain disorder Is this a current diagnosis for this admission?: Yes (7) Anemia Qualifiers: Anemia type: unspecified type Qualified Code(s): D64.9 - Anemia, unspecified Is this a current diagnosis for this admission?: Yes Plan: Follow-up H&H in a.m. (8) Hypokalemia Is this a current diagnosis for this admission?: Yes - Time Time Spent with patient: 15-24 minutes Medications reviewed and adjusted accordingly: Yes Anticipated discharge: [facility] Within: within 24 hours - Inpatient Certification Based on my medical assessment, after consideration of the patient's comorbidities, presenting symptoms, or acuity I expect that the services needed warrant INPATIENT care.: Yes Medical Necessity: Significant Comorbidiites Make Outpatient Treatment Too Risky , Need for Pain Control
[2017-11-19] MEDS: LANSOPRAZOLE 30 MG TAB.RAP.DR PO SCH (22:09)
[2017-11-19] MEDS: MICONAZOLE NITRATE 2% VAGINAL CREAM 45 GM TUBE VG SCH (23:03)
[2017-11-20] MEDS: OXYCODONE HCL IR 5 MG TABLET PO PRN (05:49)
[2017-11-20] MEDS: HEPARIN SOD (PORCINE) 5,000 UNIT/ML 1 ML SYRINGE SUBCUT SCH (05:49)
[2017-11-20 07:02] LABS: ABSOLUTE EOSINOPHILS # (AUTO) 0.1 10^3/uL (0.0-0.6); ABSOLUTE LYMPHOCYTES (AUTO) 1.3 10^3/uL (0.5-4.7); ABSOLUTE MONOCYTES (AUTO) 0.4 10^3/uL (0.1-1.4); ABSOLUTE NEUT (AUTO) 1.6 10^3/uL (1.7-8.2); BASOPHILS % (AUTO) 0.6 % (0-2); EOSINOPHILS % (AUTO) 1.7 % (0-6); HEMATOCRIT 24.9 % (36.0-47.0); LYMPHOCYTES % (AUTO) 38.6 % (13-45); MEAN CORPUSCULAR HEMOGLOBIN 27.3 pg (27.0-33.4); MEAN CORPUSCULAR HGB CONC 32.3 g/dL (32.0-36.0); MEAN CORPUSCULAR VOLUME 85 fl (80-97); MONOCYTES % (AUTO) 10.8 % (3-13); PLATELET COUNT 233 10^3/uL (150-450); RED BLOOD COUNT 2.94 10^6/uL (3.72-5.28); RED CELL DISTRIBUTION WIDTH 15.2 % (11.5-14.0); SEGMENTED NEUTROPHILS % (AUTO) 48.3 % (42-78); TOTAL CELLS COUNTED % (AUTO) 100 %; WHITE BLOOD COUNT 3.3 10^3/uL (4.0-10.5)
[2017-11-20 07:15] LABS: ANION GAP 15 (5-19); BLOOD UREA NITROGEN 36 mg/dL (7-20); CARBON DIOXIDE 15 mmol/L (22-30); CHLORIDE 112 mmol/L (98-107); GLUCOSE 80 mg/dL (75-110); POTASSIUM 4.1 mmol/L (3.6-5.0); SODIUM 142.1 mmol/L (137-145)
[2017-11-20] MEDS: TACROLIMUS ANHYDROUS 1 MG CAPSULE PO SCH (09:40)
[2017-11-20] MEDS: HYDRALAZINE HCL 50 MG TABLET PO SCH (09:40)
[2017-11-20] MEDS: PREDNISONE 5 MG TABLET PO SCH (09:41)
[2017-11-20] MEDS: TOPIRAMATE 25 MG TABLET PO SCH (09:41)
[2017-11-20] MEDS: LABETALOL HCL 200 MG TABLET PO SCH (09:41)
[2017-11-20] MEDS: SODIUM BICARBONATE 650 MG TABLET PO SCH (09:41)
[2017-11-20] MEDS: MAGNESIUM OXIDE 400 MG TABLET PO SCH (09:41)
[2017-11-20 15:16] VITALS: BP 142/81
--- NOTE | 2017-11-20 19:03 | PDOC DISCHARGE SUMMARY ---
General - Admit/Disc Date/PCP Admission Date/Primary Care Provider: 11/18/17 09:14 Discharge Date: 11/20/17 - Discharge Diagnosis (1) Abdominal pain Is this a current diagnosis for this admission?: Yes (2) Chronic kidney disease, stage IV (severe) Is this a current diagnosis for this admission?: Yes (3) Hypomagnesemia Is this a current diagnosis for this admission?: Yes (4) Metabolic acidosis Is this a current diagnosis for this admission?: Yes (5) Status post living-donor kidney transplantation Is this a current diagnosis for this admission?: Yes (6) Chronic pain disorder Is this a current diagnosis for this admission?: Yes (7) Anemia Is this a current diagnosis for this admission?: Yes (8) Hypokalemia Is this a current diagnosis for this admission?: Yes - Additional Information Resuscitation Status: Full Code Discharge Diet: Other (Comments) Discharge Activity: Activity As Tolerated Home Medications: Furosemide 80 mg PO DAILY 11/16/17 Hydralazine HCl 50 mg PO BID 11/16/17 Labetalol HCl 100 mg PO BID 11/16/17 Mycophenolate Sodium [Myfortic 180 mg Tablet.dr] 180 mg PO BID 11/16/17 Oxycodone HCl 15 mg PO Q4H PRN 11/16/17 Pantoprazole Sodium 40 mg PO QHS 11/16/17 Prednisone 5 mg PO [id number] 11/16/17 Tacrolimus [Prograf] 2 mg PO BID 11/16/17 Topiramate [Topamax] 50 mg PO Q12 11/16/17 Magnesium Oxide [Mag-Ox 400 mg Tablet] 400 mg PO BID tablet 11/18/17 Sodium Bicarbonate 1,300 mg PO TID #0 11/18/17 Miconazole Nitrate [Monistat-7 Vaginal Cream 45 gm Tube] 1 applic VG QHS tube 11/20/17 History of Present Illness History of Present Illness: YUSUF CANTRELL is a 57 year old female Hospital Course Hospital Course: This patient was admitted with abdominal pain. Patient was also found to have a vagina discharge. 2 done with oral contrast only due to CKD revealed nonvisualization of the appendix but some joann-colic fluid collection around the transplant kidney. Patient was seen by the general surgeon due to concerns about an acute abdomen but after further evaluation it was felt that patient does not have an acute abdomen. She was initially made n.p.o. but her diet has been advanced and she has been tolerating her diet though she still remains tender in the right upper quadrant did renal ultrasound done reveals end-stage hydronephrosis in the right kidney which is unchanged renal artery Doppler done reveals no evidence of renal vein thrombosis but there was an abnormal waveform in the renal artery at the transplant kidney hilum worrisome for renal artery stenosis. Patient is on immunosuppressants which were continued during her hospital stay. She also received magnesium supplementation for hypomagnesemia. Patient is been transferred to [facility] due to persistent abdominal pain and a history of renal transplant. Her kidney function apparently is stable as she was admitted with a creatinine of about 4.2 which is close to baseline. She is acidotic and her bicarb dose has been increased. Patient was also noted to be anemic however this may be due to hemodilution as she has been receiving cautious IV fluid in hospital. Hemoglobin dropped from a high of 8.7 at admission to 7.9 Patient did have candidiasis vagina and she was started on miconazole. 3. Plan was for transfer to [facility] however after waiting both patient is been discharged home as she has remained hemodynamically stable with gradual improvement in her abdominal pain. After waiting to be transferred to [facility] for the last 48 hours and with no bed available and with the patient's improvement in her symptoms it was decided to discharge her and to follow-up [facility] on November 24 at 11 AM. I talked to Karley the transplant nurse and confirmed plans as made above. Physical Exam Vital Signs: Temp Pulse Resp BP Pulse Ox 97.8 F 73 16 142/81 H 100 11/20/17 15:10 11/20/17 15:10 11/20/17 15:10 11/20/17 15:10 11/20/17 15:10 Intake & Output 11/19/17 11/20/17 11/21/17 06:59 06:59 06:59 Intake Total 1320 1226 Balance 1320 1226 Weight 59.2 kg 59.9 kg General appearance: PRESENT: no acute distress, well-developed, well-nourished Head exam: PRESENT: atraumatic, normocephalic Eye exam: PRESENT: conjunctiva pink, EOMI, PERRLA. ABSENT: scleral icterus Ear exam: PRESENT: normal external ear exam Mouth exam: PRESENT: moist, tongue midline Neck exam: ABSENT: carotid bruit, JVD, lymphadenopathy, thyromegaly Respiratory exam: PRESENT: clear to auscultation анна. ABSENT: rales, rhonchi, wheezes Cardiovascular exam: PRESENT: RRR. ABSENT: diastolic murmur, rubs, systolic murmur Pulses: PRESENT: normal dorsalis pedis pul Vascular exam: PRESENT: normal capillary refill GI/Abdominal exam: PRESENT: normal bowel sounds, soft, tenderness - RUQ tenderness improved, other - ventral hernia with minimal tenderness. ABSENT: distended, guarding, mass, organolmegaly, rebound Rectal exam: PRESENT: deferred Extremities exam: PRESENT: full ROM. ABSENT: calf tenderness, clubbing, pedal edema Neurological exam: PRESENT: alert, awake, oriented to person, oriented to place , oriented to time, oriented to situation, CN II-XII grossly intact. ABSENT: motor sensory deficit Psychiatric exam: PRESENT: appropriate affect, normal mood. ABSENT: homicidal ideation, suicidal ideation Skin exam: PRESENT: dry, intact, warm. ABSENT: cyanosis, rash Results Laboratory Results: 11/20/17 06:35 11/20/17 06:35 11/20/17 11/20/17 06:35 06:35 WBC 3.3 L RBC 2.94 L Hgb 8.0 L Hct 24.9 L MCV 85 MCH 27.3 MCHC 32.3 RDW 15.2 H Plt Count 233 Seg Neutrophils % 48.3 Lymphocytes % 38.6 Monocytes % 10.8 Eosinophils % 1.7 Basophils % 0.6 Absolute Neutrophils 1.6 L Absolute Lymphocytes 1.3 Absolute Monocytes 0.4 Absolute Eosinophils 0.1 Absolute Basophils 0.0 Sodium 142.1 Potassium 4.1 Chloride 112 H Carbon Dioxide 15 L Anion Gap 15 BUN 36 H Creatinine 4.53 H Est GFR ( Amer) 12 L Est GFR (Non-Af Amer) 10 L Glucose 80 Calcium 9.0 Impressions: Abdomen/Pelvis CT 11/16/17 13:20 IMPRESSION: Appendix not visualized. Trace fluid in the right pericolic gutter/ along the upper pole right transplant kidney of uncertain significance Small left lower quadrant ventral hernia containing nonobstructed small bowel loops. Abdomen Ultrasound 11/18/17 00:00 IMPRESSION: No gallstones. Distended gallbladder without wall thickening. Negative sonographic Gonzalez's sign Renal Artery Duplex 11/18/17 00:00 IMPRESSION: NO DOPPLER EVIDENCE OF RENAL VEIN THROMBOSIS ABNORMAL WAVEFORMS IN THE RENAL ARTERY AT THE TRANSPLANT KIDNEY HILUM WORRISOME FOR RENAL ARTERY STENOSIS Renal Ultrasound 11/18/17 06:00 IMPRESSION: End-stage hydronephrosis right kidney unchanged from prior imaging studies. Echogenic atrophic left kidney. Bladder empty Qualifiers - * PATIENT BEING DISCHARGED WITH ANY OF THE FOLLOWING DIAGNOSIS: No
== END 2017-11-20 16:07 | disposition home or self-care (01) | DRG 683 ==
LOC: ER 09:45 → EH 19:52 → 4N 11-17 03:56 → OBSVTOIN 11-18 09:14
PROVIDERS: ADMIT Internal Medicine; ATTEND Internal Medicine
PROC: 3E0F73Z Introduction of Anti-inflammatory into Respiratory Tract, Via Natural or Artificial Opening (ICD-10-PCS; principal; 2017-11-17)
DX: N17.9 Acute kidney failure, unspecified (principal); Z94.0 Kidney transplant status; E87.2 Acidosis; N18.4 Chronic kidney disease, stage 4 (severe); D63.1 Anemia in chronic kidney disease; E83.42 Hypomagnesemia; G89.29 Other chronic pain; E87.6 Hypokalemia; N13.30 Unspecified hydronephrosis; B37.3 Candidiasis of vulva and vagina; K43.9 Ventral hernia without obstruction or gangrene; E78.00 Pure hypercholesterolemia, unspecified; I12.9 Hypertensive chronic kidney disease with stage 1 through stage 4 chronic kidney disease, or unspecified chronic kidney disease; K59.00 Constipation, unspecified; K21.9 Gastro-esophageal reflux disease without esophagitis; K44.9 Diaphragmatic hernia without obstruction or gangrene; M19.90 Unspecified osteoarthritis, unspecified site; M32.9 Systemic lupus erythematosus, unspecified; F32.9 Major depressive disorder, single episode, unspecified; R10.31 Right lower quadrant pain; E86.0 Dehydration; Z79.899 Other long term (current) drug therapy; Z91.040 Latex allergy status; Z82.49 Family history of ischemic heart disease and other diseases of the circulatory system; Z80.9 Family history of malignant neoplasm, unspecified
CPT/HCPCS: 36415; 74176; 76705; 76770; 80048; 80053; 81001; 83690; 83735; 85025; 87040; 87086; 87210; 87491; 87591; 93975; 93976; 96361; 96365; 96375; 99285; G0378; J0696; J1644; J3010; J3490; J7030; J7507; J7512

== ENCOUNTER 2017-12-21 21:49 | Emergency (ER) | payer MEDICARE, MEDICAID ==
[2017-12-21 22:50] LABS: ABSOLUTE LYMPHOCYTES (AUTO) 0.8 10^3/uL (0.5-4.7); ABSOLUTE MONOCYTES (AUTO) 0.2 10^3/uL (0.1-1.4); ABSOLUTE NEUT (AUTO) 1.7 10^3/uL (1.7-8.2); BASOPHILS % (AUTO) 0.7 % (0-2); EOSINOPHILS % (AUTO) 0.5 % (0-6); HEMATOCRIT 23.1 % (36.0-47.0); LYMPHOCYTES % (AUTO) 27.1 % (13-45); MEAN CORPUSCULAR HEMOGLOBIN 26.5 pg (27.0-33.4); MEAN CORPUSCULAR HGB CONC 31.6 g/dL (32.0-36.0); MEAN CORPUSCULAR VOLUME 84 fl (80-97); MONOCYTES % (AUTO) 8.9 % (3-13); PLATELET COUNT 188 10^3/uL (150-450); RED BLOOD COUNT 2.76 10^6/uL (3.72-5.28); RED CELL DISTRIBUTION WIDTH 14.6 % (11.5-14.0); SEGMENTED NEUTROPHILS % (AUTO) 62.8 % (42-78); TOTAL CELLS COUNTED % (AUTO) 100 %; WHITE BLOOD COUNT 2.8 10^3/uL (4.0-10.5)
[2017-12-21 22:53] LABS: HEMOGLOBIN 7.3 g/dL (12.0-15.5)
[2017-12-21] MEDS: MAGNESIUM SULFATE/D5W 1 GM/100 ML RTUPB IV SCH (23:00)
[2017-12-21 23:04] LABS: ALANINE AMINOTRANSFERASE 19 U/L (9-52); ALKALINE PHOSPHATASE 88 U/L (38-126); ANION GAP 15 (5-19); ASPARTATE AMINO TRANSFERASE 13 U/L (14-36); BILIRUBIN,DIRECT 0.3 mg/dL (0.0-0.4); BILIRUBIN,TOTAL 0.3 mg/dL (0.2-1.3); BLOOD UREA NITROGEN 31 mg/dL (7-20); CALCIUM 7.3 mg/dL (8.4-10.2); CARBON DIOXIDE 14 mmol/L (22-30); CHLORIDE 112 mmol/L (98-107); GLUCOSE 96 mg/dL (75-110); POTASSIUM 3.5 mmol/L (3.6-5.0); SODIUM 141.3 mmol/L (137-145)
[2017-12-21] MEDS ORDERED: CALCIUM GLUCONATE 1000 MG/10 ML INJ IV ONE (23:17)
[2017-12-21] MEDS ORDERED: POTASSIUM CHLORIDE 10 MEQ CAPSULE.ER PO ONE (23:17)
--- NOTE | 2017-12-21 23:22 | ER Document Report ---
ED General - General Chief Complaint: Abnormal Lab Results Stated Complaint: BLOOD ISSUES Time Seen by Provider: 12/21/17 22:58 Notes: Patient is 57-year-old female with a history of kidney transplant. Kidney transplant was done 2002. She is followed by Dr. Gay, mooner. She is also followed by [facility]. She has appointment divided tomorrow. Dr. Gay called before the patient arrived and informed us that her magnesium was 0.9 and hemoglobin was 7.6. He requested we give her IV magnesium and then send her home on oral magnesium. He requested we do not transfuse her any blood as she is a renal transplant patient will be going to [facility] tomorrow for that. Patient is very pleasant on exam. She says she does not have any new symptoms that are changed. She does have chronic right abdominal pain that has been there for months that she says [facility] has been try to figure out what exactly is going on with that. This pain is unchanged. She says it time she does have some palpitations. She denies any difficulty breathing. She denies any leg swelling or edema. No recent fevers or infections. No other complaints at this time. TRAVEL OUTSIDE OF THE [place] IN LAST 30 DAYS: No - Related Data Allergies/Adverse Reactions: latex [Latex] Allergy (Mild, Verified 11/16/17 12:12) Hives Past Medical History - Social History Smoking Status: Never Smoker Frequency of alcohol use: None Drug Abuse: None Family History: Reviewed & Not Pertinent, Hypertension, Malignancy Patient has suicidal ideation: No Patient has homicidal ideation: No - Past Medical History Cardiac Medical History: Reports: Hx Congestive Heart Failure, Hx Hypercholesterolemia, Hx Hypertension Pulmonary Medical History: Denies: Hx Tuberculosis Neurological Medical History: Denies: Hx Seizures Renal/ Medical History: Reports: Hx End Stage Renal Disease - Was on dialysis for 6 months prior to kidney transplant. Denies: Hx Peritoneal Dialysis GI Medical History: Reports: Hx Gastroesophageal Reflux Disease, Hx Hiatal Hernia, Hx Endoscopy - Patient had an endoscopy at [place] approximately 2 months ago. Musculoskeletal Medical History: Reports Hx Arthritis Psychiatric Medical History: Reports: Hx Depression Past Surgical History: Reports: Hx Herniorrhaphy, Hx Kidney (Renal Surgery) - kidney transplant 2002, Hx Orthopedic Surgery - neck fusion, Other - Renal transplant 2001; low back surgery Tess fundoplication. Denies: Hx Hysterectomy - Immunizations Hx Diphtheria, Pertussis, Tetanus Vaccination: Yes - unk Hx Pneumococcal Vaccination: 06/08/09 Review of Systems - Review of Systems Notes: My Normal Review Basic REVIEW OF SYSTEMS: CONSTITUTIONAL : Denies fever, chills, or sweats. Denies recent illness. EENT: Denies eye, ear, throat, or mouth pain or symptoms. Denies nasal or sinus congestion. RESPIRATORY: Denies cough, cold, or chest congestion. Denies shortness of breath, difficulty breathing, or wheezing. GASTROINTESTINAL: Chronic right-sided abdominal pain. Denies nausea, vomiting, or diarrhea. Denies constipation. GENITOURINARY: Denies difficulty urinating, painful urination, burning, frequency, or blood in urine. MUSCULOSKELETAL: Denies neck or back pain or joint pain or swelling. SKIN: Denies rash or skin lesions. NEUROLOGICAL: Denies altered mental status or loss of consciousness. Denies headache. Denies weakness or paralysis or loss of use of either side. Denies problems with gait or speech. Denies sensory or motor loss. ALL OTHER SYSTEMS REVIEWED AND NEGATIVE. Physical Exam - Vital signs Vitals: Temp Pulse Resp BP Pulse Ox 99.1 F 90 16 117/76 96 12/21/17 22:02 12/21/17 22:02 12/21/17 22:02 12/21/17 22:02 12/21/17 22:02 - Notes Notes: General Appearance: Well nourished, alert, cooperative, no acute distress, no obvious discomfort. Well appearing. Vitals: reviewed, See vital signs table. Head: no swelling or tenderness to the head Eyes: PERRL, EOMI, Conjuctiva clear Mouth: No decreasd moisture Lungs: No wheezing, No rales, No rhonci, No accessory muscle use, good air exchange bilaterally. Heart: Mildly tachycardic rate, Regular rythm, No murmur, no rub Abdomen: Normal BS, soft, No rigidity, No abdominal tenderness, No guarding, no rebound, no abdominal masses, no organomegaly Extremities: strength 5/5 in all extremities, good pulses in all extremities, no swelling or tenderness in the extremities, no edema. Skin: warm, dry, appropriate color, no rash Neuro: speech clear, oriented x 3, normal affect, responds appropriately to questions. Course - Re-evaluation Re-evalutation: 12/22/17 02:02 Patient is looking feeling much improved. She is to follow up with her tomorrow about her blood transfusion as per request from Dr. Gay. Patient also has a follow-up appointment Dr. Gay tomorrow as well. I did give her 2 g of magnesium. I will also discharge her home on oral magnesium and encouraged her to talk Dr. Gay about having her magnesium repeated sometime this week. Patient clinically looks well. On the monitor she does have some irregularity to rhythm and therefore obtain EKG and left her on the monitor to watch her rhythm. EKG shows that she actually has sinus rhythm with frequent PACs which likely is causing irregularity. I did review EKG rhythm strips from her previous visits and appears that she has had a similar pattern at times in the past. At this time I feel patient safe to be discharged home. I strongly encouraged her return to the ER if she has fevers, difficulty breathing, recurrent chest pain, or she feels like she is worsening in any way. Patient agrees with plan will be discharged home. Dictation of this chart was performed using voice recognition software; therefore, there may be some unintended grammatical errors. - Vital Signs Vital signs: Temp Pulse Resp BP Pulse Ox 98.7 F 90 13 142/97 H 100 12/22/17 01:54 12/21/17 22:02 12/22/17 01:54 12/22/17 01:54 12/22/17 01:54 - Laboratory Result Diagrams: 12/21/17 22:30 12/21/17 22:30 Laboratory results interpreted by me: 12/21/17 12/21/17 22:30 22:30 WBC 2.8 L RBC 2.76 L Hgb 7.3 L Hct 23.1 L MCH 26.5 L MCHC 31.6 L RDW 14.6 H Potassium 3.5 L Chloride 112 H Carbon Dioxide 14 L BUN 31 H Creatinine 4.57 H Est GFR ( Amer) 12 L Est GFR (Non-Af Amer) 10 L Calcium 7.3 L Magnesium 0.8 L* AST 13 L - EKG Interpretation by Me Additional EKG results interpreted by me: 12/22/17 00:42 EKG is reviewed and interpreted by me. EKG shows what appears to be sinus rhythm with occasional PAC. Patient does not appear to have a second-degree block S that she does not not have any drops of QRS complexes. She may have an ectopic atrial pacemaker as well. [place] interval is within normal range. QRS duration is within normal range. QTc interval is normal. No ST segment elevation or depression. Discharge - Discharge Clinical Impression: Hypomagnesemia, Hypocalcemia, Hypokalemia Chronic renal insufficiency Qualifiers: Chronic kidney disease stage: unspecified stage Qualified Code(s): N18.9 - Chronic kidney disease, unspecified Anemia Qualifiers: Anemia type: unspecified type Qualified Code(s): D64.9 - Anemia, unspecified Condition: Good Disposition: HOME, SELF-CARE Additional Instructions: Please take the magnseium as prescribed. Please follow up with your doctor at [facility] tomorrow as well as Dr. Gay as scheduled. Please return tot ER if you have difficulty breathing, muscle cramps, chest pain, or feel unwell. Prescriptions: Magnesium Oxide 400 mg PO BID #14 tablet
[2017-12-22] MEDS: MAGNESIUM SULFATE/D5W 1 GM/100 ML RTUPB IV SCH
[2017-12-22 02:00] VITALS: BP 142/97
--- NOTE | 2017-12-22 10:05 | EKG REPORT ---
SEVERITY:- BORDERLINE ECG - SINUS RHYTHM, APCs BORDERLINE LEFT AXIS DEVIATION BORDERLINE T ABNORMALITIES, ANT-LAT LEADS : Confirmed by: Jason Flores 22-Dec-2017 10:03:54
== END 2017-12-22 02:02 | disposition home or self-care (01) ==
LOC: ER 21:49
DX: E83.42 Hypomagnesemia (principal); D64.9 Anemia, unspecified; I12.9 Hypertensive chronic kidney disease with stage 1 through stage 4 chronic kidney disease, or unspecified chronic kidney disease; N18.9 Chronic kidney disease, unspecified; Z94.0 Kidney transplant status; E83.51 Hypocalcemia; E87.6 Hypokalemia; I49.1 Atrial premature depolarization; R00.0 Tachycardia, unspecified; R10.9 Unspecified abdominal pain; G89.29 Other chronic pain; Z91.040 Latex allergy status
CPT/HCPCS: 93005; 99284; 96365; 96366; 96368; 36415; 82728; 83540; 83550; 83735; 84100; 84165; 84156; 82570; 85025; 80053; 81001; 80197; 83970; 93010; J0610; J3475 ×2; A9270

== ENCOUNTER → 2017-12-21 | Outpatient (CLI) | payer MEDICARE, MEDICAID ==
[2017-12-21 17:59] LABS: ABSOLUTE LYMPHOCYTES (AUTO) 0.5 10^3/uL (0.5-4.7); ABSOLUTE MONOCYTES (AUTO) 0.2 10^3/uL (0.1-1.4); ABSOLUTE NEUT (AUTO) 2.2 10^3/uL (1.7-8.2); BASOPHILS % (AUTO) 0.4 % (0-2); EOSINOPHILS % (AUTO) 0.3 % (0-6); LYMPHOCYTES % (AUTO) 16.1 % (13-45); MEAN CORPUSCULAR HEMOGLOBIN 26.4 pg (27.0-33.4); MEAN CORPUSCULAR HGB CONC 31.6 g/dL (32.0-36.0); MEAN CORPUSCULAR VOLUME 83 fl (80-97); MONOCYTES % (AUTO) 7.6 % (3-13); PLATELET COUNT 196 10^3/uL (150-450); RED BLOOD COUNT 2.88 10^6/uL (3.72-5.28); RED CELL DISTRIBUTION WIDTH 14.7 % (11.5-14.0); SEGMENTED NEUTROPHILS % (AUTO) 75.6 % (42-78); TOTAL CELLS COUNTED % (AUTO) 100 %; WHITE BLOOD COUNT 2.8 10^3/uL (4.0-10.5)
[2017-12-21 18:10] LABS: HEMOGLOBIN 7.6 g/dL (12.0-15.5)
[2017-12-21 18:18] LABS: ALANINE AMINOTRANSFERASE 13 U/L (9-52); ALBUMIN 3.9 g/dL (3.5-5.0); ALKALINE PHOSPHATASE 92 U/L (38-126); ANION GAP 18 (5-19); ASPARTATE AMINO TRANSFERASE 12 U/L (14-36); BILIRUBIN,DIRECT 0.2 mg/dL (0.0-0.4); BILIRUBIN,TOTAL 0.2 mg/dL (0.2-1.3); BLOOD UREA NITROGEN 30 mg/dL (7-20); CALCIUM 7.3 mg/dL (8.4-10.2); CARBON DIOXIDE 12 mmol/L (22-30); CHLORIDE 111 mmol/L (98-107); GLUCOSE 92 mg/dL (75-110); IRON(TIBC) 120.1 ug/dL (37-170); PHOSPHORUS 5.4 mg/dL (2.5-4.5); POTASSIUM 4.1 mmol/L (3.6-5.0); SODIUM 141.2 mmol/L (137-145); TOTAL PROTEIN 7.2 g/dL (6.3-8.2)
[2017-12-21 18:47] LABS: APPEARANCE,URINE SLIGHTLY-CLOUDY; BILIRUBIN,URINE NEGATIVE (NEGATIVE); COLOR,URINE YELLOW; GLUCOSE, URINE >=500 mg/dL (NEGATIVE); KETONES,URINE TRACE mg/dL (NEGATIVE); LEUKOCYTE ESTERASE,URINE TRACE (NEGATIVE); NITRITE,URINE NEGATIVE (NEGATIVE); PROTEIN,URINE >=500 mg/dL (NEGATIVE); URINE SPECIFIC GRAVITY 1.011; UROBILINOGEN,URINE NEGATIVE mg/dL (<2.0)
[2017-12-21 19:03] LABS: URINE CREATININE 117.1 mg/dL (15-278)
[2017-12-21 19:12] LABS: URINE PROTEIN 466.4 mg/dL (<12)
[2017-12-24 07:10] LABS: TACROLIMUS (FK506) 2.5 ng/mL (2.0-20.0)
== END ==
LOC: OD 16:45
PROVIDERS: ATTEND Internal Medicine Nephrology
DX: N18.4 Chronic kidney disease, stage 4 (severe) (principal); E83.42 Hypomagnesemia; D64.9 Anemia, unspecified; R80.9 Proteinuria, unspecified
CPT/HCPCS: 36415; 80053; 80197; 81001; 82570; 82728; 83540; 83550; 83735; 83970; 84100; 84156; 84165; 85025

== ENCOUNTER → 2017-12-29 | Outpatient (CLI) | payer MEDICARE, MEDICAID ==
[2017-12-29 13:02] LABS: ANION GAP 14 (5-19); BLOOD UREA NITROGEN 40 mg/dL (7-20); CALCIUM 8.6 mg/dL (8.4-10.2); CARBON DIOXIDE 18 mmol/L (22-30); CHLORIDE 108 mmol/L (98-107); GLUCOSE 81 mg/dL (75-110); SODIUM 139.9 mmol/L (137-145)
== END ==
LOC: OD 12:01
PROVIDERS: ATTEND Internal Medicine Nephrology
DX: Z48.22 Encounter for aftercare following kidney transplant (principal); Z94.0 Kidney transplant status
CPT/HCPCS: 36415; 80048; 80197

== ENCOUNTER → 2018-01-15 | Outpatient (CLI) | payer MEDICARE, MEDICAID ==
[2018-01-15 12:15] LABS: MEAN CORPUSCULAR VOLUME 87 fl (80-97)
[2018-01-15 12:22] LABS: HEMOGLOBIN 9.2 g/dL (12.0-15.5); MEAN CORPUSCULAR HEMOGLOBIN 27.5 pg (27.0-33.4); MEAN CORPUSCULAR HGB CONC 31.7 g/dL (32.0-36.0); PLATELET COUNT 284 10^3/uL (150-450); RED BLOOD COUNT 3.34 10^6/uL (3.72-5.28); RED CELL DISTRIBUTION WIDTH 15.3 % (11.5-14.0); WHITE BLOOD COUNT 4.5 10^3/uL (4.0-10.5)
[2018-01-15 12:37] LABS: ALANINE AMINOTRANSFERASE 16 U/L (9-52); ALBUMIN 3.7 g/dL (3.5-5.0); ALKALINE PHOSPHATASE 123 U/L (38-126); ANION GAP 12 (5-19); ASPARTATE AMINO TRANSFERASE 12 U/L (14-36); BILIRUBIN,DIRECT 0.3 mg/dL (0.0-0.4); BILIRUBIN,TOTAL 0.3 mg/dL (0.2-1.3); BLOOD UREA NITROGEN 34 mg/dL (7-20); CALCIUM 8.5 mg/dL (8.4-10.2); CARBON DIOXIDE 15 mmol/L (22-30); CHLORIDE 113 mmol/L (98-107); GLUCOSE 92 mg/dL (75-110); IRON(TIBC) 79.1 ug/dL (37-170); TOTAL PROTEIN 6.9 g/dL (6.3-8.2)
[2018-01-15 12:43] LABS: ABSOLUTE LYMPHOCYTES# (MANUAL) 0.6 10^3/uL (0.5-4.7); ABSOLUTE MONOCYTES # (MANUAL) 0.3 10^3/uL (0.1-1.4); ABSOLUTE NEUTROPHILS# (MANUAL) 3.6 10^3/uL (1.7-8.2); BASOPHILS % (MANUAL) 0 % (0-2); EOSINOPHILS % (MANUAL) 0 % (0-6); LYMPHOCYTES % (MANUAL) 13 % (13-45); MONOCYTES % (MANUAL) 6 % (3-13); SEGMENTED NEUTROPHILS % (MAN) 81 % (42-78); TOTAL CELLS COUNTED 100
[2018-01-15 12:44] LABS: ANISOCYTOSIS SLIGHT; BURR CELLS 1+; OVALOCYTES 1+; PLATELET COMMENT ADEQUATE; POIKILOCYTOSIS 1+; SCHISTOCYTES 1+
== END ==
LOC: OD 11:41
PROVIDERS: ATTEND Internal Medicine Nephrology
DX: N18.4 Chronic kidney disease, stage 4 (severe) (principal); N17.9 Acute kidney failure, unspecified; D64.9 Anemia, unspecified; R80.9 Proteinuria, unspecified; E83.51 Hypocalcemia
CPT/HCPCS: 36415; 80053; 82728; 83540; 83550; 83735; 85025

== ENCOUNTER 2018-11-16 16:01 | Emergency (ER) | payer MEDICARE, MEDICAID ==
--- NOTE | 2018-11-16 17:25 | ER Document Report ---
ED Medical Screen (RME) - General Chief Complaint: Abnormal Lab Results Stated Complaint: BLOOD ISSUES Time Seen by Provider: 11/16/18 17:19 Primary Care Provider: Rene POOLE MD [Primary Care Provider] - Follow up as needed TRAVEL OUTSIDE OF THE [place] IN LAST 30 DAYS: No - HPI Notes: 11/16/18 17:23 Patient is a 58-year-old female with a history of kidney transplant 2001, hypertension, CKD (not on dialysis), anemia requiring previous transfusion who presents complaining of generalized abdominal pain and being sent here he does have a hemoglobin of 6.9. She is otherwise able to eat and drink, but does have a decreased p.o. intake. She is still urinating normally and having normal bowel movements. She has not noticed any melena or hematochezia. Denies RANGEL, fever, URI, CP, SOB, dysuria, back pain, or rash. I have treated and performed a rapid initial assessment of this patient. A comprehensive ED assessment and evaluation of the patient, analysis of test re sults and completion of medical decision making process will be conducted by additional ED providers. PHYSICAL EXAMINATION: GENERAL: Well-appearing, well-nourished and in no acute distress. A&Ox4. Answers questions appropriately. LUNGS: Breath sounds clear to auscultation bilaterally and equal. No wheezes rales or rhonchi. HEART: Regular rate and rhythm without murmurs, rubs, gallops. ABDOMEN: Soft, nondistended abdomen. No guarding, no rebound. Normal bowel sounds present. No CVA tenderness bilaterally. + Generalized abdominal tenderness, but primarily to the epigastrium (cannot elicit thorough abd exam w/o bed, however). - Related Data Allergies/Adverse Reactions: latex [Latex] Allergy (Mild, Verified 11/16/18 16:39) Hives Past Medical History - Social History Frequency of alcohol use: None Drug Abuse: None - Past Medical History Cardiac Medical History: Reports: Hx Congestive Heart Failure, Hx Hypercholesterolemia, Hx Hypertension Pulmonary Medical History: Denies: Hx Tuberculosis Neurological Medical History: Denies: Hx Seizures Renal/ Medical History: Reports: Hx End Stage Renal Disease - Was on dialysis for 6 months prior to kidney transplant. Denies: Hx Peritoneal Dialysis GI Medical History: Reports: Hx Gastroesophageal Reflux Disease, Hx Hiatal Hernia, Hx Endoscopy - Patient had an endoscopy at [place] approximately 2 months ago. Musculoskeltal Medical History: Reports Hx Arthritis, Reports Hx Systemic Lupus Erythematosus Psychiatric Medical History: Reports: Hx Depression Past Surgical History: Reports: Hx Herniorrhaphy, Hx Kidney (Renal Surgery) - kidney transplant 2002, Hx Orthopedic Surgery - neck fusion, Other - Renal transplant 2001; low back surgery Tess fundoplication. Denies: Hx Hysterectomy - Immunizations Hx Diphtheria, Pertussis, Tetanus Vaccination: Yes - unk History of Influenza Vaccine for 03/2017 - 08/2017 Season: No Physical Exam - Vital signs Vitals: Temp Pulse Resp BP Pulse Ox 98.8 F 68 18 186/111 H 100 11/16/18 16:41 11/16/18 16:41 11/16/18 16:41 11/16/18 16:41 11/16/18 16:41 Course - Vital Signs Vital signs: Temp Pulse Resp BP Pulse Ox 98.8 F 68 18 186/111 H 100 11/16/18 16:41 11/16/18 16:41 11/16/18 16:41 11/16/18 16:41 11/16/18 16:41 Doctor's Discharge - Discharge Referrals: Rene POOLE MD [Primary Care Provider] - Follow up as needed
[2018-11-16 17:58] LABS: ABSOLUTE LYMPHOCYTES (AUTO) 0.8 10^3/uL (0.5-4.7); ABSOLUTE MONOCYTES (AUTO) 0.3 10^3/uL (0.1-1.4); ABSOLUTE NEUT (AUTO) 3.1 10^3/uL (1.7-8.2); BASOPHILS % (AUTO) 0.8 % (0-2); EOSINOPHILS % (AUTO) 0.8 % (0-6); HEMATOCRIT 23.1 % (36.0-47.0); LYMPHOCYTES % (AUTO) 18.3 % (13-45); MEAN CORPUSCULAR HEMOGLOBIN 26.7 pg (27.0-33.4); MEAN CORPUSCULAR HGB CONC 31.8 g/dL (32.0-36.0); MEAN CORPUSCULAR VOLUME 84 fl (80-97); MONOCYTES % (AUTO) 6.5 % (3-13); PLATELET COUNT 236 10^3/uL (150-450); RED BLOOD COUNT 2.75 10^6/uL (3.72-5.28); RED CELL DISTRIBUTION WIDTH 15.4 % (11.5-14.0); SEGMENTED NEUTROPHILS % (AUTO) 73.6 % (42-78); TOTAL CELLS COUNTED % (AUTO) 100 %; WHITE BLOOD COUNT 4.2 10^3/uL (4.0-10.5)
[2018-11-16 18:02] LABS: HEMOGLOBIN 7.3 g/dL (12.0-15.5)
[2018-11-16 18:05] LABS: ALANINE AMINOTRANSFERASE 9 U/L (9-52); ALBUMIN 3.9 g/dL (3.5-5.0); ALKALINE PHOSPHATASE 228 U/L (38-126); ANION GAP 10 (5-19); ASPARTATE AMINO TRANSFERASE 13 U/L (14-36); BILIRUBIN,DIRECT 0.3 mg/dL (0.0-0.4); BILIRUBIN,TOTAL 0.3 mg/dL (0.2-1.3); BLOOD UREA NITROGEN 42 mg/dL (7-20); CALCIUM 8.2 mg/dL (8.4-10.2); CARBON DIOXIDE 16 mmol/L (22-30); CHLORIDE 110 mmol/L (98-107); GLUCOSE 90 mg/dL (75-110); LIPASE 75.7 U/L (23-300); POTASSIUM 4.5 mmol/L (3.6-5.0); SODIUM 135.7 mmol/L (137-145); TOTAL PROTEIN 7.3 g/dL (6.3-8.2)
[2018-11-16 18:33] LABS: APPEARANCE,URINE CLEAR; BILIRUBIN,URINE NEGATIVE (NEGATIVE); COLOR,URINE STRAW; GLUCOSE, URINE 150 mg/dL (NEGATIVE); KETONES,URINE NEGATIVE (NEGATIVE); LEUKOCYTE ESTERASE,URINE TRACE (NEGATIVE); NITRITE,URINE NEGATIVE (NEGATIVE); PROTEIN,URINE >=500 mg/dL (NEGATIVE); URINE SPECIFIC GRAVITY 1.008; UROBILINOGEN,URINE NEGATIVE mg/dL (<2.0)
[2018-11-16] MEDS ORDERED: NORMAL SALINE 250 ML IV PRN (20:35)
[2018-11-16] MEDS ORDERED: OXYCODONE HCL IR 5 MG TABLET PO ONE (20:46)
--- NOTE | 2018-11-16 23:51 | ER Document Report ---
ED General - General Chief Complaint: Abnormal Lab Results Stated Complaint: BLOOD ISSUES Time Seen by Provider: 11/16/18 17:19 Primary Care Provider: Rene POOLE MD [ACTIVE STAFF] - Follow up as needed TRAVEL OUTSIDE OF THE [place] IN LAST 30 DAYS: No - HPI Notes: Patient is a 58-year-old female with a history of chronic kidney disease, status post renal transplant, who presents to the emergency department for evaluation of a low hemoglobin. This was found incidentally on labs by her physician in [place]. She states she really does not follow with a local physician. She denies any chest pain or difficulty breathing. She denies any melena or hematochezia. She states she has had upper and lower endoscopy, within the last several years. She states no clear source of bleeding was ever found. She was told by her credit historian that she should probably be on "shots" for her anemia, but has not started any. - Related Data Allergies/Adverse Reactions: latex [Latex] Allergy (Mild, Verified 11/16/18 16:39) Hives Past Medical History - General Information source: Patient - Social History Smoking Status: Never Smoker Frequency of alcohol use: None Drug Abuse: None Family History: Reviewed & Not Pertinent, Hypertension, Malignancy Patient has suicidal ideation: No Patient has homicidal ideation: No - Past Medical History Cardiac Medical History: Reports: Hx Congestive Heart Failure, Hx Hypercholesterolemia, Hx Hypertension Pulmonary Medical History: Denies: Hx Tuberculosis Neurological Medical History: Denies: Hx Seizures Renal/ Medical History: Reports: Hx End Stage Renal Disease - Was on dialysis for 6 months prior to kidney transplant, Other - Status post renal transplant. Denies: Hx Peritoneal Dialysis GI Medical History: Reports: Hx Gastroesophageal Reflux Disease, Hx Hiatal Hernia, Hx Endoscopy - Patient had an endoscopy at [place] approximately 2 months ago. Musculoskeletal Medical History: Reports Hx Arthritis, Reports Hx Systemic Lupus Erythematosus Psychiatric Medical History: Reports: Hx Depression Past Surgical History: Reports: Hx Herniorrhaphy, Hx Kidney (Renal Surgery) - kidney transplant 2002, Hx Orthopedic Surgery - neck fusion, Other - Renal transplant 2001; low back surgery Tess fundoplication. Denies: Hx Hysterectomy - Immunizations Hx Diphtheria, Pertussis, Tetanus Vaccination: Yes - unk Hx Pneumococcal Vaccination: 06/08/09 Review of Systems - Review of Systems Constitutional: No symptoms reported EENT: No symptoms reported Cardiovascular: No symptoms reported Respiratory: No symptoms reported Gastrointestinal: No symptoms reported Genitourinary: No symptoms reported Musculoskeletal: No symptoms reported Skin: No symptoms reported Hematologic/Lymphatic: See HPI Neurological/Psychological: No symptoms reported Physical Exam - Vital signs Vitals: Temp Pulse Resp BP Pulse Ox 98.8 F 68 18 186/111 H 100 11/16/18 16:41 11/16/18 16:41 11/16/18 16:41 11/16/18 16:41 11/16/18 16:41 - Notes Notes: Vital signs reviewed, please refer to chart. Head is normocephalic, atraumatic. Pupils equal round, reactive to light. Neck is supple without meningismus. Heart is regular rate and rhythm. Lungs are clear to auscultation bilaterally. Abdomen is soft, nontender, normoactive bowel sounds throughout. Extremities without cyanosis, clubbing. Posterior calves are nontender. Peripheral pulses are equal. Skin is warm and dry. Patient is awake, alert, neurological exam is nonfocal. Course - Re-evaluation Re-evalutation: 11/16/18 23:49 Patient presents emergency department for evaluation. She had a known anemia prior to arrival, she was found to be markedly anemic here. She has absolutely no signs that this anemia is been clinically significant as of yet. She has had upper and lower endoscopy in the past. Certainly, given the late stage of her renal disease, it is likely that this is likely secondary to her renal failure. She has had endoscopy in the past and no clear source of bleeding was found. She is stable. She is transfused 2 units of packed red blood cells. We will go ahead and have her follow-up with her primary care provider in [place]. She is to return to the ED with worsening or new concerning symptoms. - Vital Signs Vital signs: Temp Pulse Resp BP Pulse Ox 98.5 F 61 12 185/101 H 100 11/16/18 22:55 11/16/18 22:55 11/16/18 22:55 11/16/18 22:55 11/16/18 22:55 - Laboratory Result Diagrams: 11/16/18 17:30 11/16/18 17:30 Laboratory results interpreted by me: 11/16/18 11/16/18 11/16/18 17:30 17:30 18:12 RBC 2.75 L Hgb 7.3 L Hct 23.1 L MCH 26.7 L MCHC 31.8 L RDW 15.4 H Sodium 135.7 L Chloride 110 H Carbon Dioxide 16 L BUN 42 H Creatinine 4.24 H Est GFR ( Amer) 13 L Est GFR (Non-Af Amer) 11 L Calcium 8.2 L AST 13 L Alkaline Phosphatase 228 H Urine Protein Urine Glucose (UA) Ur Leukocyte Esterase Crossmatch See Detail 11/16/18 18:12 RBC Hgb Hct MCH MCHC RDW Sodium Chloride Carbon Dioxide BUN Creatinine Est GFR ( Amer) Est GFR (Non-Af Amer) Calcium AST Alkaline Phosphatase Urine Protein >=500 H Urine Glucose (UA) 150 H Ur Leukocyte Esterase TRACE H Crossmatch Discharge - Discharge Clinical Impression: Anemia, Kidney disease, chronic, stage IV (GFR 15-29 ml/min) Condition: Stable Disposition: HOME, SELF-CARE Instructions: Anemia ([facility]) Additional Instructions: You need to follow-up with your physician in [place] next week. Return to the emergency department with worsening or new concerning symptoms of any sort. Referrals: Rene POOLE MD [ACTIVE STAFF] - Follow up as needed
[2018-11-17 02:13] VITALS: BP 170/107
== END 2018-11-17 02:13 | disposition home or self-care (01) ==
LOC: ER 16:01
DX: I13.2 Hypertensive heart and chronic kidney disease with heart failure and with stage 5 chronic kidney disease, or end stage renal disease (principal); N18.5 Chronic kidney disease, stage 5; D63.1 Anemia in chronic kidney disease; I50.9 Heart failure, unspecified; Z94.0 Kidney transplant status; E78.00 Pure hypercholesterolemia, unspecified; Z98.1 Arthrodesis status
CPT/HCPCS: 99283; 86900; 86901; 36415; 36430; 86850; 83690; 85025; 80053; 81001; 86920; P9016; A9270

== ENCOUNTER 2018-12-04 11:56 | Observation (INO) | payer MEDICARE, MEDICAID ==
[2018-12-04] MEDS ORDERED: ASPIRIN 81 MG TABLET, CHEWABLE PO ONE (12:21)
[2018-12-04] MEDS ORDERED: ONDANSETRON 4 MG TAB.RAPDIS PO ONE (12:21)
--- NOTE | 2018-12-04 12:23 | ER Document Report ---
ED Medical Screen (RME) - General Chief Complaint: Chest Pain Stated Complaint: CHEST PAIN Time Seen by Provider: 12/04/18 12:18 Primary Care Provider: ILYA ALBARADO JR, MD [Primary Care Provider] - Follow up as needed Mode of Arrival: Ambulatory Information source: Patient Notes: Patient presents to the emergency department with complaints of left-sided chest pain that makes her sweat and she becomes very nauseated. Reports started this morning around 0900. Patient denies history of cardiac disease but reports history of kidney transplant. EKGs show sinus rhythm no ST elevation . Patient heart rate irregular. I have greeted and performed a rapid initial assessment of this patient. A comprehensive ED assessment and evaluation of the patient, analysis of test results and completion of the medical decision making process will be conducted by additional ED providers. Dictation of this chart was performed using voice recognition software; therefo re, there may be some unintended grammatical errors. TRAVEL OUTSIDE OF THE [place] IN LAST 30 DAYS: No - Related Data Allergies/Adverse Reactions: latex [Latex] Allergy (Mild, Verified 12/04/18 11:59) Hives Past Medical History - Past Medical History Cardiac Medical History: Reports: Hx Congestive Heart Failure, Hx Hypercholesterolemia, Hx Hypertension Pulmonary Medical History: Denies: Hx Tuberculosis Neurological Medical History: Denies: Hx Seizures Renal/ Medical History: Reports: Hx End Stage Renal Disease - Was on dialysis for 6 months prior to kidney transplant. Denies: Hx Peritoneal Dialysis GI Medical History: Reports: Hx Gastroesophageal Reflux Disease, Hx Hiatal Hernia, Hx Endoscopy - Patient had an endoscopy at [place] approximately 2 months ago. Musculoskeltal Medical History: Reports Hx Arthritis, Reports Hx Systemic Lupus Erythematosus Psychiatric Medical History: Reports: Hx Depression Past Surgical History: Reports: Hx Herniorrhaphy, Hx Kidney (Renal Surgery) - kidney transplant 2002, Hx Orthopedic Surgery - neck fusion, Other - Renal transplant 2001; low back surgery Tess fundoplication. Denies: Hx Hysterectomy - Immunizations Hx Diphtheria, Pertussis, Tetanus Vaccination: Yes - unk History of Influenza Vaccine for 03/2017 - 08/2017 Season: No Physical Exam - Vital signs Vitals: Temp Pulse Resp BP Pulse Ox 98.2 F 88 16 140/98 H 97 12/04/18 12:11 12/04/18 12:11 12/04/18 12:11 12/04/18 12:11 12/04/18 12:11 Course - Vital Signs Vital signs: Temp Pulse Resp BP Pulse Ox 98.2 F 88 16 140/98 H 97 12/04/18 12:11 12/04/18 12:11 12/04/18 12:11 12/04/18 12:11 12/04/18 12:11 Doctor's Discharge - Discharge Referrals: PER SILVA,ILYA ZARATE MD [Primary Care Provider] - Follow up as needed
[2018-12-04 12:57] LABS: ABSOLUTE LYMPHOCYTES (AUTO) 0.3 10^3/uL (0.5-4.7); ABSOLUTE MONOCYTES (AUTO) 0.2 10^3/uL (0.1-1.4); EOSINOPHILS % (AUTO) 0.2 % (0-6); HEMATOCRIT 26.9 % (36.0-47.0); HEMOGLOBIN 8.6 g/dL (12.0-15.5); LYMPHOCYTES % (AUTO) 7.3 % (13-45); MEAN CORPUSCULAR HEMOGLOBIN 27.1 pg (27.0-33.4); MEAN CORPUSCULAR HGB CONC 32.1 g/dL (32.0-36.0); MEAN CORPUSCULAR VOLUME 85 fl (80-97); MONOCYTES % (AUTO) 3.3 % (3-13); PLATELET COUNT 288 10^3/uL (150-450); RED BLOOD COUNT 3.19 10^6/uL (3.72-5.28); SEGMENTED NEUTROPHILS % (AUTO) 88.2 % (42-78); TOTAL CELLS COUNTED % (AUTO) 100 %; WHITE BLOOD COUNT 4.5 10^3/uL (4.0-10.5)
--- NOTE | 2018-12-04 13:10 | RADIOLOGY REPORT (SQ) ---
EXAM DESCRIPTION: CHEST 2 VIEWS COMPLETED DATE/TIME: 12/04/2018 12:56 pm REASON FOR STUDY: cp COMPARISON: 09/04/2016. EXAM PARAMETERS: NUMBER OF VIEWS: two views TECHNIQUE: Digital Frontal and Lateral radiographic views of the chest acquired. RADIATION DOSE: NA LIMITATIONS: none FINDINGS: LUNGS AND PLEURA: No opacities, masses or pneumothorax. No pleural effusion. MEDIASTINUM AND HILAR STRUCTURES: No masses or contour abnormalities. HEART AND VASCULAR STRUCTURES: Heart normal size. No evidence for failure. BONES: No acute findings. HARDWARE: None in the chest. OTHER: No other significant finding. IMPRESSION: NO ACUTE RADIOGRAPHIC FINDING IN THE CHEST. TECHNICAL DOCUMENTATION: JOB ID: [id number] [employer]- All Rights Reserved Reading location - IP/workstation name: [email or web address]
[2018-12-04 13:16] LABS: ALANINE AMINOTRANSFERASE 11 U/L (9-52); ALBUMIN 4.1 g/dL (3.5-5.0); ALKALINE PHOSPHATASE 218 U/L (38-126); ANION GAP 14 (5-19); ASPARTATE AMINO TRANSFERASE 22 U/L (14-36); BILIRUBIN,DIRECT 0.4 mg/dL (0.0-0.4); BILIRUBIN,TOTAL 0.5 mg/dL (0.2-1.3); BLOOD UREA NITROGEN 47 mg/dL (7-20); CALCIUM 8.3 mg/dL (8.4-10.2); CARBON DIOXIDE 17 mmol/L (22-30); CHLORIDE 107 mmol/L (98-107); CREATINE KINASE 75 U/L (30-135); GLUCOSE 118 mg/dL (75-110); POTASSIUM 4.2 mmol/L (3.6-5.0); SODIUM 137.9 mmol/L (137-145)
[2018-12-04 14:12] LABS: APPEARANCE,URINE CLEAR; BILIRUBIN,URINE NEGATIVE (NEGATIVE); COLOR,URINE STRAW; GLUCOSE, URINE >=500 mg/dL (NEGATIVE); KETONES,URINE TRACE mg/dL (NEGATIVE); LEUKOCYTE ESTERASE,URINE NEGATIVE (NEGATIVE); NITRITE,URINE NEGATIVE (NEGATIVE); PROTEIN,URINE >=500 mg/dL (NEGATIVE); UROBILINOGEN,URINE NEGATIVE mg/dL (<2.0)
--- NOTE | 2018-12-04 15:19 | ER Document Report ---
ED General - General Chief Complaint: Chest Pain Stated Complaint: CHEST PAIN Time Seen by Provider: 12/04/18 12:18 Mode of Arrival: Ambulatory TRAVEL OUTSIDE OF THE [place] IN LAST 30 DAYS: No - HPI Notes: 58-year-old female with history of renal transplant from her lupus, chronic kidney disease to the emergency department with complaints of chest pain that began this morning at 9 AM. States that she was sitting on the couch when the chest pain began. She had associated shortness of breath, diaphoresis, and nausea. She states that the episode lasted about 10 minutes and resolved on its own. However she has had 2 more episodes since. She has never had a heart attack. She does recall having a stress test several years ago but none recently. She is on a blood thinner. She does have a history of renal transplant and is seen at the transplant center at [facility]. She had her renal transplant in 2001. Unfortunately, she still has stage V chronic kidney disease. She denies any cough, fevers, abdominal pain, back pain, flank pain, urinary troubles, syncope, dizziness, lightheaded. She was given for aspirin upon arrival. She is currently chest pain free. She denies any family history of heart disease. She denies any recent travel, history of DVT, recent surgery, recent immobilization. Not on hormone replacement. - Related Data Allergies/Adverse Reactions: latex [Latex] Allergy (Mild, Verified 12/04/18 11:59) Hives Past Medical History - General Information source: Patient - Social History Smoking Status: Never Smoker Frequency of alcohol use: None Drug Abuse: None Family History: Reviewed & Not Pertinent, Hypertension, Malignancy Patient has suicidal ideation: No Patient has homicidal ideation: No - Past Medical History Cardiac Medical History: Reports: Hx Congestive Heart Failure, Hx Hypercholesterolemia, Hx Hypertension Pulmonary Medical History: Denies: Hx Tuberculosis Neurological Medical History: Denies: Hx Seizures Renal/ Medical History: Reports: Hx End Stage Renal Disease - Was on dialysis for 6 months prior to kidney transplant. Denies: Hx Peritoneal Dialysis GI Medical History: Reports: Hx Gastroesophageal Reflux Disease, Hx Hiatal Hernia, Hx Endoscopy - Patient had an endoscopy at [facility] approximately 2 months ago. Musculoskeletal Medical History: Reports Hx Arthritis, Reports Hx Systemic Lupus Erythematosus Psychiatric Medical History: Reports: Hx Depression Past Surgical History: Reports: Hx Herniorrhaphy, Hx Kidney (Renal Surgery) - kidney transplant 2002, Hx Orthopedic Surgery - neck fusion, Other - Renal transplant 2001; low back surgery Tess fundoplication. Denies: Hx Hysterectomy - Immunizations Hx Diphtheria, Pertussis, Tetanus Vaccination: Yes - unk Hx Pneumococcal Vaccination: 06/08/09 Review of Systems - Review of Systems Constitutional: Diaphoresis. denies: Chills, Fever EENT: No symptoms reported Cardiovascular: Chest pain, Dyspnea. denies: Palpitations, Heart racing, Orthopnea, Syncope, Dizziness, Edema, Paroxysmal Nocturnal Dysp Respiratory: Short of breath. denies: Cough, Hurts to breathe, Wheezing Gastrointestinal: denies: Abdomen distended, Abdominal pain, Diarrhea, Nausea, Vomiting Genitourinary: No symptoms reported Female Genitourinary: No symptoms reported Musculoskeletal: No symptoms reported Skin: No symptoms reported Neurological/Psychological: No symptoms reported -: Yes All other systems reviewed and negative Physical Exam - Vital signs Vitals: Temp Pulse Resp BP Pulse Ox 98.2 F 88 16 140/98 H 97 12/04/18 12:11 12/04/18 12:11 12/04/18 12:11 12/04/18 12:11 12/04/18 12:11 Interpretation: Normal - General General appearance: Appears well, Alert - HEENT Head: Normocephalic, Atraumatic Eyes: Normal Pupils: PERRL - Respiratory Respiratory status: No respiratory distress Chest status: Nontender. No: Pain on movement, Pain with cough, Pain with deep breathing Breath sounds: Normal Chest palpation: Normal. No: Tender - Cardiovascular Rhythm: Regular - No pedal edema Heart sounds: Normal auscultation Murmur: No - Abdominal Inspection: Normal Distension: No distension Bowel sounds: Normal Tenderness: Nontender Organomegaly: No organomegaly - Back Back: Normal, Nontender - Extremities General upper extremity: Normal inspection, Nontender, Normal color, Normal ROM, Normal temperature General lower extremity: Normal inspection, Nontender, Normal color, Normal ROM, Normal temperature, Normal weight bearing. No: Raghavendra's sign - Neurological Neuro grossly intact: Yes Cognition: Normal Orientation: AAOx4 Mcleod Coma Scale Eye Opening: Spontaneous Mcleod Coma Scale Verbal: Oriented Mcleod Coma Scale Motor: Obeys Commands Mcleod Coma Scale Total: 15 Speech: Normal Motor strength normal: LUE, RUE, LLE, RLE Sensory: Normal - Psychological Associated symptoms: Normal affect, Normal mood - Skin Skin Temperature: Warm Skin Moisture: Dry Skin Color: Normal Course - Vital Signs Vital signs: Temp Pulse Resp BP Pulse Ox 98.2 F 88 11 L 151/100 H 100 12/04/18 12:11 12/04/18 12:11 12/04/18 17:01 12/04/18 17:00 12/04/18 17:01 - Laboratory Result Diagrams: 12/04/18 12:42 12/04/18 12:42 Laboratory results interpreted by me: 12/04/18 12/04/18 12/04/18 12:42 12:42 12:42 RBC 3.19 L Hgb 8.6 L Hct 26.9 L RDW 16.0 H Seg Neutrophils % 88.2 H Lymphocytes % 7.3 L Absolute Lymphocytes 0.3 L Carbon Dioxide 17 L BUN 47 H Creatinine 5.11 H Est GFR ( Amer) 10 L Est GFR (Non-Af Amer) 9 L Glucose 118 H Calcium 8.3 L Alkaline Phosphatase 218 H Urine Protein >=500 H Urine Glucose (UA) >=500 H Urine Ketones TRACE H - Diagnostic Test Radiology reviewed: Image reviewed, Reports reviewed - EKG Interpretation by Me EKG shows normal: Sinus rhythm Rate: Normal Rhythm: NSR, Other - Occasional atrial premature complexes Chardon/QRS: Left axis deviation When compared to previous EKG there are: No significant change Additional EKG results interpreted by me: 12/04/18 No StEMI, no ST changes. No significant change from prior on 12/22/2017 - Transfer of Care Notes: 12/04/[address] Hill, ER attending. She agrees with plan for admission for the patient. Will admit to our hospitalist service. Patient has a heart score four with two negative troponins. She does have a HEART score of 4, however. CXR is clear, noted CKD which is about where she has been in the past. EKG reassuring. Rounded with patient and updated her about her labs. Suggested admission and patient agrees with the plan. Spoke with Dr. Liang, hospitalist. He agrees with the plan for admission. He will come and see the patient. Impression: Chest pain with concerning history, HEART score of 4. Plan to admit for further management. Patient agrees with the plan. Discharge - Discharge Clinical Impression: Chest pain, Anemia, Chronic kidney disease Condition: Stable Disposition: ADMITTED INPATIENT Admitting Provider: Azul (Hospitalist) Unit Admitted: [facility]
[2018-12-04] MEDS ORDERED: TEMAZEPAM 7.5 MG CAPSULE PO PRN (18:41)
[2018-12-04] MEDS ORDERED: ONDANSETRON 4 MG TAB.RAPDIS PO PRN (18:41)
[2018-12-04] MEDS ORDERED: ACETAMINOPHEN 325 MG TABLET PO PRN (18:41)
[2018-12-04] MEDS ORDERED: OXYCODONE HCL IR 5 MG TABLET PO PRN (18:56)
[2018-12-04] MEDS: OXYCODONE HCL IR 5 MG TABLET PO PRN (19:26)
[2018-12-04] MEDS ORDERED: PREDNISONE 1 MG TABLET PO ONE (19:30)
--- NOTE | 2018-12-04 19:32 | PDOC H&P ---
History of Present Illness Admission Date/PCP: 12/04/18 17:21 Patient complains of: Chest pain History of Present Illness: YUSUF CANTRELL is a 58 year old female with a complex medical history including renal transplant now with stage V kidney failure, lupus erythematosus, esophageal stricture, marked weight loss and chronic pain. She was walking around her son's house when she began to have left-sided chest pressure. It was described as a squeezing pain. It radiated into her jaw and her left arm. She states that she became diaphoretic. She felt nauseated but did not vomit. She felt short of breath. She sat down and was dizzy and then she laid on the floor. Eventually the pain lessened but never completely subsided. She wanted to go home but while driving had acute worsening of the pain. It subsided somewhat but she detoured to the emergency department. By the time she had the emergency department she was having a third episode of pain. She states that when she got to the emergency department she had 4 chewable baby aspirin and a sublingual nitroglycerin tablet. This gave her almost complete relief. She was referred to the hospital service for admission. Past Medical History Cardiac Medical History: Reports: Congestive Heart Failure, Hyperlipidema, Hypertension Pulmonary Medical History: Denies: Tuberculosis Neurological Medical History: Denies: Seizures Endocrine Medical History: Reports: Obesity Denies: Diabetes Mellitus Type 2 Renal/ Medical History: Reports: End Stage Renal Disease - Was on dialysis for 6 months prior to kidney transplant Malignancy Medical History: Reports: None GI Medical History: Reports: Gastroesophageal Reflux Disease, Hiatal Hernia, Other - Esophageal stricture Musculoskeltal Medical History: Reports: Arthritis, Other - Chronic back pain Psychiatric Medical History: Reports: Depression Traumatic Medical History: Reports: None Hematology: Reports: Anemia Past Surgical History Past Surgical History: Reports: Herniorrhaphy, Orthopedic Surgery - neck fusion, Other - Renal transplant 2001; low back surgery Tess fundoplication Denies: Hysterectomy Social History Information Source: Patient Lives with: Alone Smoking Status: Never Smoker Frequency of Alcohol Use: None Hx Recreational Drug Use: No Drugs: None Hx Prescription Drug Abuse: No - Advance Directive Resuscitation Status: Full Code Surrogate healthcare decision maker:: See advance care planning note Family History Family History: Reviewed & Not Pertinent, Hypertension, Malignancy Parental Family History Reviewed: Yes Children Family History Reviewed: Yes Sibling(s) Family History Reviewed.: Yes Medication/Allergy Home Medications: Furosemide 80 mg PO DAILY 11/16/17 Hydralazine HCl 50 mg PO BID 11/16/17 Labetalol HCl 100 mg PO BID 11/16/17 Mycophenolate Sodium [Myfortic 180 mg Tablet.dr] 180 mg PO BID 11/16/17 Oxycodone HCl 15 mg PO Q4H PRN 11/16/17 Pantoprazole Sodium 40 mg PO QHS 11/16/17 Prednisone 5 mg PO [id number] 11/16/17 Tacrolimus [Prograf] 2 mg PO BID 11/16/17 Topiramate [Topamax] 50 mg PO Q12 11/16/17 Magnesium Oxide [Mag-Ox 400 mg Tablet] 400 mg PO BID tablet 11/18/17 Sodium Bicarbonate 1,300 mg PO TID #0 11/18/17 Miconazole Nitrate [Monistat-7 Vaginal Cream 45 gm Tube] 1 applic VG QHS tube 11/20/17 Magnesium Oxide 400 mg PO BID #14 tablet 12/22/17 Allergies/Adverse Reactions: latex [Latex] Allergy (Mild, Verified 12/04/18 11:59) Hives Review of Systems Constitutional: PRESENT: anorexia, weight loss - Patient reports 150 pound weight loss over the last 6 months due to esophageal stricture with dysphagia Eyes: ABSENT: visual disturbances Ears: ABSENT: hearing changes Nose, Mouth, and Throat: ABSENT: headache(s), mouth pain, sore throat Cardiovascular: PRESENT: chest pain. ABSENT: edema, palpitations Respiratory: ABSENT: dyspnea, hemoptysis, sputum Gastrointestinal: PRESENT: dysphagia - Esophageal stricture with several dilations., heartburn. ABSENT: coffee ground emesis, diarrhea, nausea, vomiting Genitourinary: ABSENT: difficulty urinating, dysuria, hematuria Musculoskeletal: PRESENT: back pain - And neck pain Integumentary: PRESENT: other - Alopecia. ABSENT: diaphoresis, pruritus, rash Neurological: ABSENT: abnormal movements, abnormal speech, confusion, frequent falls, memory loss, vertigo Psychiatric: PRESENT: depression Endocrine: ABSENT: cold intolerance, heat intolerance Hematologic/Lymphatic: ABSENT: easy bleeding, easy bruising Allergic/Immunologic: ABSENT: seasonal rhinorrhea Physical Exam Vital Signs: Temp Pulse Resp BP Pulse Ox 98.2 F 88 13 165/102 H 100 12/04/18 12:11 12/04/18 12:11 12/04/18 18:01 12/04/18 18:00 12/04/18 18:01 Intake & Output 12/03/18 12/04/18 12/05/18 06:59 06:59 06:59 Weight 54.9 kg General appearance: PRESENT: cooperative, mild distress, thin, well-developed Head exam: PRESENT: atraumatic, normocephalic, other - Wearing a wig Eye exam: PRESENT: conjunctiva pale, EOMI. ABSENT: scleral icterus Ear exam: PRESENT: normal external ear exam Mouth exam: PRESENT: moist, neck supple, tongue midline Neck exam: PRESENT: full ROM. ABSENT: carotid bruit, JVD, lymphadenopathy Respiratory exam: PRESENT: clear to auscultation анна, symmetrical, unlabored. ABSENT: rales, rhonchi, tachypnea, wheezes Cardiovascular exam: PRESENT: RRR, +S1, +S2, systolic murmur - 3/6 Pulses: PRESENT: normal radial pulses, normal dorsalis pedis pul GI/Abdominal exam: PRESENT: soft, tenderness - Diffuse nonspecific. ABSENT: distended, guarding Rectal exam: PRESENT: deferred Gentrourinary exam: ABSENT: scrotal swelling, testicular tenderness, indwelling catheter Extremities exam: ABSENT: clubbing, pedal edema, tenderness Musculoskeletal exam: PRESENT: ambulatory, normal inspection Neurological exam: PRESENT: alert, awake, oriented to person, oriented to place, oriented to time, oriented to situation, CN II-XII grossly intact Psychiatric exam: PRESENT: anxious, other - Tearful during the encounter. ABSENT: agitated Focused psych exam: ABSENT: delusional, restlessness Skin exam: PRESENT: dry, normal color, warm. ABSENT: rash Results Laboratory Results: 12/04/18 12:42 12/04/18 12:42 12/04/18 12/04/18 12/04/18 12:42 12:42 12:42 WBC 4.5 RBC 3.19 L Hgb 8.6 L Hct 26.9 L MCV 85 MCH 27.1 MCHC 32.1 RDW 16.0 H Plt Count 288 Seg Neutrophils % 88.2 H Lymphocytes % 7.3 L Monocytes % 3.3 Eosinophils % 0.2 Basophils % 1.0 Absolute Neutrophils 4.0 Absolute Lymphocytes 0.3 L Absolute Monocytes 0.2 Absolute Eosinophils 0.0 Absolute Basophils 0.0 Sodium 137.9 Potassium 4.2 Chloride 107 Carbon Dioxide 17 L Anion Gap 14 BUN 47 H Creatinine 5.11 H Est GFR ( Amer) 10 L Est GFR (Non-Af Amer) 9 L Glucose 118 H Calcium 8.3 L Total Bilirubin 0.5 AST 22 ALT 11 Alkaline Phosphatase 218 H Total Protein 8.0 Albumin 4.1 Urine Color STRAW Urine Appearance CLEAR Urine pH 7.0 Ur Specific [place] 1.010 Urine Protein >=500 H Urine Glucose (UA) >=500 H Urine Ketones TRACE H Urine Blood NEGATIVE Urine Nitrite NEGATIVE Ur Leukocyte Esterase NEGATIVE Urine WBC (Auto) 1 Urine RBC (Auto) 0 12/04/18 12/04/18 12/04/18 12:42 12:42 16:07 Creatine Kinase 75 Troponin I < 0.012 < 0.012 Impressions: Chest X-Ray 12/04/18 12:21 IMPRESSION: NO ACUTE RADIOGRAPHIC FINDING IN THE CHEST. Assessment and Plan - Diagnosis (1) Chest pain Qualifiers: Chest pain type: other chest pain Qualified Code(s): R07.89 - Other chest pain; R07.8 - Other chest pain Is this a current diagnosis for this admission?: Yes Plan: 12/04/2018-the patient had recurrent episodes that were repeatable. She is a valid historian in my mind. The symptoms are worrisome for coronary atherosclerosis. With her history of severe anemia it could have been ischemia from low hemoglobin however her hemoglobin is 8.5 and this should not cause decreased perfusion. Patient will be admitted. She is already had 2 troponin studies less than 0.012. I will draw a third this evening. I will repeat an EKG in the morning. For negative she can go home. I will then have her establish with a local programs director. (2) Stage 5 chronic kidney disease with transplanted kidney Is this a current diagnosis for this admission?: Yes Plan: 12/04/2018-the patient required a renal transplant secondary to this nephropathy. She is very frustrated about traveling back and forth for her care. She is in stage V with a glomerular filtration rate of 10. She will keep taking her antirejection drugs and we will monitor her renal function. (3) SLE (systemic lupus erythematosus) Qualifiers: Systemic lupus erythematosus type: other Systemic lupus erythematosus organ involvement: unspecified Qualified Code(s): M32.8 - Other forms of systemic lupus erythematosus Is this a current diagnosis for this admission?: Yes Plan: Continue the prednisone 2 mg twice daily. The renal transplant was directly related to the lupus. (4) Weight loss Is this a current diagnosis for this admission?: Yes Plan: 12/04/2018-the patient states that because of the esophageal stricture she has lost 150 pounds over the last 6 to 7 months. In addition to keeping the ap pointment for the esophageal dilation I suggested she try Beneprotein protein supplement because it is very easily mixed with many different foodstuffs. (5) Anemia Qualifiers: Anemia type: due to chronic kidney disease Chronic kidney disease stage: stage 5, not on chronic dialysis Qualified Code(s): N18.5 - Chronic kidney disease, stage 5; D63.1 - Anemia in chronic kidney disease Is this a current diagnosis for this admission?: Yes Plan: 12/04/2018-the patient has received multiple transfusions in the past. It is possible that her anemia is more than just her kidney disease. She felt that her hemoglobin might be low today but it was 8.5. I will refer the patient to the local hematology office since the anemia is such a chronic issue she did not drive back and forth to [place] every time. (6) Benign esophageal stricture Is this a current diagnosis for this admission?: Yes Plan: 12/04/2018-the patient has appointment with her ict support and test engineers December 08. She has an esophageal stricture that requires dilation several times a year. Because of the stricture she has a diet aphasia and dysphagia and a sensation of food getting stuck. This is mostly solids such as a piece of chicken. - Inpatient Certification Medical Necessity: Failure to Improve With Outpatient Therapy, Significant Comorbidiites Make Outpatient Treatment Too Risky, Need For Continuous Telemetry Monitoring, Need for Pain Control
[2018-12-04] MEDS ORDERED: PREDNISONE 1 MG TABLET ONE (19:37)
--- NOTE | 2018-12-04 19:41 | ADVANCED CARE ---
- Diagnosis (1) Chest pain Diagnosis Current: Yes (2) Stage 5 chronic kidney disease with transplanted kidney Diagnosis Current: Yes (3) SLE (systemic lupus erythematosus) Diagnosis Current: Yes (4) Weight loss Diagnosis Current: Yes (5) Anemia Diagnosis Current: Yes (6) Benign esophageal stricture Diagnosis Current: Yes Attendance: Discussion was held at the bedside with the patient Resuscitation Status: Full Code Discussion: The patient became upset about the complexity of her medical history. This episode of chest pain is worrisome. She is very frustrated because none of her siblings have any chronic illness and she has a complex medical history. She just experienced the of her grandchild. She sees the effect that it has had on her son. We discussed in earnest how hard it is for family is to make decisions for an incapacitated parent. I pointed out the fact that there is a blank healthcare proxy form in the admissions packet. I reviewed the different points that she should address when completing the form. We talked about specific examples such as tracheostomy, PEG tube and long-term chcf placement. She understands how difficult these decisions can be for her children to make. I encouraged discussion with her family so everyone is aware of her wishes. She became tearful during the encounter but I think that is because of the stressors of her grandchild dying, watching her son struggle with that unfortunate events, realizing the complexity of her care including esophageal dilations, chronic anemia requiring transfusions and the complexities of a kidney transplant. Care Planning Goals: The patient will seriously consider what her long-term goals are. She will discuss them with her children. She will document them and healthcare proxy form so that everyone is aware. With her complex medical history and as always the possibility of an acute catastrophic event, the patient appreciates and very much wants to complete the document. Document(s) Completed: None at this encounter. The patient will review the blank document in the admissions packet. Time Spent: 35 minutes
[2018-12-04] MEDS ORDERED: TACROLIMUS ANHYDROUS 1 MG CAPSULE PO ONE (20:00)
[2018-12-04] MEDS: AMLODIPINE BESYLATE 2.5 MG TABLET PO SCH (22:49)
[2018-12-04] MEDS: HEPARIN SOD (PORCINE) 5,000 UNIT/ML 1 ML SYRINGE SUBCUT SCH (22:50)
--- NOTE | 2018-12-05 00:10 | EKG REPORT ---
SEVERITY:- OTHERWISE NORMAL ECG - SINUS RHYTHM ATRIAL PREMATURE COMPLEX LEFT AXIS DEVIATION : Confirmed by: Jason Flores 05-Dec-2018 00:09:58
[2018-12-05 03:54] LABS: MEAN CORPUSCULAR HEMOGLOBIN 26.7 pg (27.0-33.4); MEAN CORPUSCULAR HGB CONC 31.8 g/dL (32.0-36.0); MEAN CORPUSCULAR VOLUME 84 fl (80-97); PLATELET COUNT 228 10^3/uL (150-450); RED BLOOD COUNT 2.73 10^6/uL (3.72-5.28); WHITE BLOOD COUNT 3.8 10^3/uL (4.0-10.5)
[2018-12-05 03:57] LABS: HEMOGLOBIN 7.3 g/dL (12.0-15.5)
[2018-12-05 04:13] LABS: ALBUMIN 3.2 g/dL (3.5-5.0); ANION GAP 12 (5-19); BLOOD UREA NITROGEN 47 mg/dL (7-20); CALCIUM 7.9 mg/dL (8.4-10.2); CARBON DIOXIDE 15 mmol/L (22-30); CHLORIDE 110 mmol/L (98-107); GLUCOSE 104 mg/dL (75-110); PHOSPHORUS 6.4 mg/dL (2.5-4.5); POTASSIUM 4.3 mmol/L (3.6-5.0); SODIUM 136.9 mmol/L (137-145)
[2018-12-05] MEDS: HEPARIN SOD (PORCINE) 5,000 UNIT/ML 1 ML SYRINGE SUBCUT SCH ×2 (05:55→15:02)
[2018-12-05] MEDS: AMLODIPINE BESYLATE 2.5 MG TABLET PO SCH ×2 (05:55→15:08)
[2018-12-05] MEDS ORDERED: PANTOPRAZOLE SODIUM 40 MG TABLET.DR PO SCH (06:00)
[2018-12-05] MEDS: OXYCODONE HCL IR 5 MG TABLET PO PRN ×2 (06:02→15:08)
[2018-12-05] MEDS ORDERED: TACROLIMUS ANHYDROUS 1 MG CAPSULE PO SCH (10:00)
[2018-12-05] MEDS ORDERED: CHOLECALCIFEROL (D3) 1,000 UNIT (25 MCG) TABLET PO SCH (10:00)
[2018-12-05] MEDS ORDERED: PREDNISONE 1 MG TABLET PO SCH (10:00)
[2018-12-05 12:15] LABS: HEMATOCRIT 28.1 % (36.0-47.0); HEMOGLOBIN 8.8 g/dL (12.0-15.5); MEAN CORPUSCULAR HEMOGLOBIN 26.9 pg (27.0-33.4); MEAN CORPUSCULAR HGB CONC 31.5 g/dL (32.0-36.0); MEAN CORPUSCULAR VOLUME 85 fl (80-97); PLATELET COUNT 201 10^3/uL (150-450); RED BLOOD COUNT 3.29 10^6/uL (3.72-5.28); RED CELL DISTRIBUTION WIDTH 15.6 % (11.5-14.0); WHITE BLOOD COUNT 4.8 10^3/uL (4.0-10.5)
[2018-12-05 14:40] VITALS: BP 151/84
--- NOTE | 2018-12-05 20:19 | PDOC DISCHARGE SUMMARY ---
General - Admit/Disc Date/PCP Admission Date/Primary Care Provider: 12/04/18 17:21 Discharge Date: 12/05/18 - Discharge Diagnosis (1) Chest pain Is this a current diagnosis for this admission?: Yes Summary: The patient presented with chest pain. It has been resolved by the time of discharge. There is certainly is a possibility of cardiac involvement. Her story was reasonably consistent with cardiac chest pain. Her troponins were negative however and her EKG showed no acute changes. I did direct the patient to establish with cardiology locally. She will call tomorrow morning to set up an appointment. (2) Stage 5 chronic kidney disease with transplanted kidney Is this a current diagnosis for this admission?: Yes Summary: The patient is status post kidney transplant for lupus nephritis. Unfortunately she has stage V renal failure. She does not need dialysis at this point. She does see the transplant nephrology team at [facility] regularly. If need be, she will establish with the local nephrology service. This is most likely if dialysis is needed. (3) SLE (systemic lupus erythematosus) Is this a current diagnosis for this admission?: Yes Summary: She has a long history of lupus. She is on prednisone therapy as well as antirejection drugs. She does see her interpreter and translator regularly. If the current medication regimen is contributing to her anemia then her interpreter and translator may wish to change her regimen. (4) Weight loss Is this a current diagnosis for this admission?: Yes Summary: The patient states that she has lost 150 pounds over the last 6 months. She does not exhibit the typical baggy skin from such a pronounced weight loss over that period of time. The cause of her weight loss is an esophageal stricture. She does state that foodstuffs that are easily manageable are welcomed. Foods that tend to get stuck such as boluses of chicken or beef are avoided. I did suggest protein supplements incorporated into her diet as well. (5) Anemia Is this a current diagnosis for this admission?: Yes Summary: This is been a long-standing issue for the patient. She states that she has received multiple packed red blood cell transfusions. Her wig comber is in [place]. I strongly suggested that she establish with local hematology as it will be much easier to coordinate treatment at this hospital. (6) Benign esophageal stricture Is this a current diagnosis for this admission?: Yes Summary: The patient is frustrated by the need to have esophageal dilations regularly. She does have an appointment with her business agent December 08. Unfortunately there are very few alternative treatments and so I encouraged her to follow-up with her business agent regularly. - Additional Information Resuscitation Status: Full Code Home Medications: Amlodipine Besylate [Norvasc 2.5 mg Tablet] 2.5 mg PO Q8 tablet 12/05/18 Amlodipine Besylate [Norvasc 5 mg Tablet] 5 mg PO BID 12/05/18 Calcitriol 0.5 mcg PO DAILY 12/05/18 Cholecalciferol (Vitamin D3) [Vitamin D3 1000 Unit Tablet] 2,000 unit PO DAILY tablet 12/05/18 Fluticasone Propionate [Flonase Nasal [place] 50 Mcg/[place] 16 gm] 1 spray NASL DAILYP PRN 12/05/18 Mycophenolate Sodium [Myfortic 180 mg Tablet.dr] 180 mg PO BID 12/05/18 Oxycodone HCl 15 mg PO Q4HP PRN MDD MAX OF 3 TABS PER DAY 12/05/18 Prednisone [Deltasone 1 mg Tablet] 2 mg PO BID tablet 12/05/18 Tacrolimus Anhydrous [Prograf 1 mg Capsule] 2 mg PO BID 12/05/18 Tacrolimus Anhydrous [Prograf 1 mg Capsule] 2 mg PO BID capsule 12/05/18 Temazepam [Restoril 7.5 mg Capsule] 7.5 mg PO HSP PRN capsule 12/05/18 History of Present Illness Patient complains of: Chest pain History of Present Illness: YUSUF CANTRELL is a 58 year old female with a complex medical history including renal transplant now with stage V kidney failure, lupus erythematosus, esophageal stricture, marked weight loss and chronic pain. She was walking around her son's house when she began to have left-sided chest pressure. It was described as a squeezing pain. It radiated into her jaw and her left arm. She states that she became diaphoretic. She felt nauseated but did not vomit. She felt short of breath. She sat down and was dizzy and then she laid on the floor. Eventually the pain lessened but never completely subsided. She wanted to go home but while driving had acute worsening of the pain. It subsided somewhat but she detoured to the emergency department. By the time she had the emergency department she was having a third episode of pain. She states that when she got to the emergency department she had 4 chewable baby aspirin and a sublingual nitroglycerin tablet. This gave her almost complete relief. She was referred to the hospital service for admission. Hospital Course Hospital Course: The patient had uneventful hospital course. Her chest pain resolved. Her anemia was stable. The remainder of her conditions were stable as well. As she had negative cardiac enzymes she will discharged home with follow-up appointments for cardiology (to establish locally), hematology (to establish locally) as well as establishing with a local primary care provider. This weight she has somewhat consistent to take care of her locally and she can see her specialists in [place]. Physical Exam Vital Signs: Temp Pulse Resp BP Pulse Ox 98.2 F 60 16 143/83 H 100 12/05/18 11:53 12/05/18 11:53 12/05/18 11:53 12/05/18 11:53 12/05/18 11:53 Intake & Output 12/04/18 12/05/18 12/06/18 06:59 06:59 06:59 Intake Total 260 300 Balance 260 300 Weight 56.5 kg General appearance: PRESENT: no acute distress, cooperative, well-developed Head exam: PRESENT: atraumatic, normocephalic Eye exam: PRESENT: conjunctiva pale, EOMI. ABSENT: scleral icterus Ear exam: PRESENT: normal external ear exam Mouth exam: PRESENT: moist, tongue midline Respiratory exam: PRESENT: clear to auscultation анна, symmetrical, unlabored. ABSENT: accessory muscle use, rales, rhonchi, tachypnea, wheezes Cardiovascular exam: PRESENT: RRR, +S1, +S2, systolic murmur - 2/6 systolic GI/Abdominal exam: PRESENT: normal bowel sounds, soft. ABSENT: distended, tenderness Rectal exam: PRESENT: deferred Gentrourinary exam: ABSENT: indwelling catheter Extremities exam: ABSENT: joint swelling, pedal edema Musculoskeletal exam: PRESENT: normal inspection Neurological exam: PRESENT: alert, awake, oriented to person, oriented to place, oriented to time, oriented to situation, CN II-XII grossly intact Psychiatric exam: PRESENT: normal mood. ABSENT: agitated, anxious Focused psych exam: ABSENT: delusional, restlessness Results Laboratory Results: 12/05/18 11:43 12/05/18 03:29 12/04/18 12/05/18 12/05/18 12:42 03:29 03:29 WBC 3.8 L RBC 2.73 L Hgb 7.3 L Hct 23.0 L MCV 84 MCH 26.7 L MCHC 31.8 L RDW 16.0 H Plt Count 228 Sodium 136.9 L Potassium 4.3 Chloride 110 H Carbon Dioxide 15 L Anion Gap 12 BUN 47 H Creatinine 5.05 H Est GFR ( Amer) 11 L Est GFR (Non-Af Amer) 9 L Glucose 104 Calcium 7.9 L Phosphorus 6.4 H Albumin 3.2 L Urine Color STRAW Urine Appearance CLEAR Urine pH 7.0 Ur Specific [place] 1.010 Urine Protein >=500 H Urine Glucose (UA) >=500 H Urine Ketones TRACE H Urine Blood NEGATIVE Urine Nitrite NEGATIVE Ur Leukocyte Esterase NEGATIVE Urine WBC (Auto) 1 Urine RBC (Auto) 0 Blood Type Antibody Screen 12/05/18 12/05/18 05:17 11:43 WBC 4.8 RBC 3.29 L Hgb 8.8 L Hct 28.1 L MCV 85 MCH 26.9 L MCHC 31.5 L RDW 15.6 H Plt Count 201 Sodium Potassium Chloride Carbon Dioxide Anion Gap BUN Creatinine Est GFR ( Amer) Est GFR (Non-Af Amer) Glucose Calcium Phosphorus Albumin Urine Color Urine Appearance Urine pH Ur Specific [place] Urine Protein Urine Glucose (UA) Urine Ketones Urine Blood Urine Nitrite Ur Leukocyte Esterase Urine WBC (Auto) Urine RBC (Auto) Blood Type O POSITIVE Antibody Screen NEGATIVE 12/04/18 12/04/18 12/04/18 12:42 12:42 16:07 Creatine Kinase 75 Troponin I < 0.012 < 0.012 12/04/18 22:10 Creatine Kinase Troponin I 0.013 Impressions: Chest X-Ray 12/04/18 12:21 IMPRESSION: NO ACUTE RADIOGRAPHIC FINDING IN THE CHEST. Qualifiers - * PATIENT BEING DISCHARGED WITH ANY OF THE FOLLOWING DIAGNOSIS: No Acute Heart Failure - Is this a Heart Failure Patient?: No Plan Time Spent: Greater than 30 Minutes
--- NOTE | 2018-12-05 22:29 | EKG REPORT ---
SEVERITY:- ABNORMAL ECG - SINUS RHYTHM ATRIAL PREMATURE COMPLEX FIRST DEGREE AV BLOCK BORDERLINE LEFT AXIS DEVIATION : Confirmed by: Jason Flores 05-Dec-2018 22:28:57
== END 2018-12-05 15:20 | disposition home or self-care (01) ==
LOC: ER 11:56 → EH 17:21 → INTOOBSV 17:21 → 3W 20:20
PROVIDERS: ADMIT Hospitalist; ATTEND Hospitalist
DX: R07.9 Chest pain, unspecified (principal); Z94.0 Kidney transplant status; M32.9 Systemic lupus erythematosus, unspecified; R63.4 Abnormal weight loss; K22.2 Esophageal obstruction; I13.2 Hypertensive heart and chronic kidney disease with heart failure and with stage 5 chronic kidney disease, or end stage renal disease; D63.1 Anemia in chronic kidney disease; N18.5 Chronic kidney disease, stage 5; I50.9 Heart failure, unspecified; K21.9 Gastro-esophageal reflux disease without esophagitis; K44.9 Diaphragmatic hernia without obstruction or gangrene; M19.90 Unspecified osteoarthritis, unspecified site; M54.9 Dorsalgia, unspecified; G89.29 Other chronic pain; E78.5 Hyperlipidemia, unspecified; F32.9 Major depressive disorder, single episode, unspecified; Z79.899 Other long term (current) drug therapy
CPT/HCPCS: 93005 ×2; 80069; 86900; 86901; 36415 ×2; 36430; 86850; 82550; 85025; 85027; 80053; 81001; 84484; 86920; 71046; 93010 ×2; P9016; A9270 ×10; J1644 ×2; J3490 ×2; G0378; J7507; J7512; S0119

== ENCOUNTER → 2018-12-12 | Outpatient (CLI) | payer MEDICARE, MEDICAID ==
--- NOTE | 2018-12-12 15:01 | RADIOLOGY REPORT (SQ) ---
EXAM DESCRIPTION: CT ABD/PELVIS NO ORAL OR IV COMPLETED DATE/TIME: 12/12/2018 2:34 pm REASON FOR STUDY: (R10.32)LEFT LOWER QUADRANT PAIN R10.32 LEFT LOWER QUADRANT PAIN COMPARISON: CT abdomen pelvis 11/16/2017, 12/05/2016, 09/05/2016 TECHNIQUE: CT scan of the abdomen and pelvis performed without intravenous or oral contrast. Images reviewed with lung, soft tissue, and bone windows. Reconstructed coronal and sagittal MPR images revi ewed. All images stored on PACS. All CT scanners at this facility use dose modulation, iterative reconstruction, and/or weight based d osing when appropriate to reduce radiation dose to as low as reasonably achievable (ALARA). [facility]: Dose Right [facility]: CareDose [facility]: Dose Right [facility]: Teradose 4D [facility]: Smart [facility] Directions RADIATION DOSE: CT Rad equipment meets quality standard of care and radiation dose reduction techniq ues were employed. CTDIvol: 2.8 mGy. DLP: 145 mGy-cm.mGy. LIMITATIONS: No oral IV contrast. Slender patient without much body fat between bowel loops. FINDINGS: LOWER CHEST: No significant findings. No nodules or infiltrates. NON-CONTRASTED LIVER, SPLEEN, ADRENALS: Evaluation limited by lack of IV contrast. No identified sign ificant masses. Benign 4 cm cyst right lobe liver PANCREAS: No masses. No peripancreatic inflammatory changes. GALLBLADDER: No identified stones by CT criteria. No inflammatory changes to suggest cholecystitis. RIGHT KIDNEY AND URETER: End-stage appearance of chronic high-grade obstruction with massive hydronep hrosis. Surgical luis f along the ureter. LEFT KIDNEY AND URETER: Diffuse atrophy, 5 cm in length. No significant calcifications. No hydron ephrosis or hydroureter. There is a right lower quadrant transplant kidney, best shown on coronal image 43 measuring 10 cm in length. No perinephric fluid collection. No transplant kidney stones. AORTA AND RETROPERITONEUM: No aneurysm. No retroperitoneal masses or adenopathy. BOWEL AND PERITONEAL CAVITY: No oral contrast. Moderate stool throughout the colon. No gross eviden ce of bowel obstruction. On axial images 59-63, sagittal image 42, and coronal image 23, a tiny left lower quadrant anterior abdominal wall defect is present containing nonobstructed small bowel loops. This is unchanged from 11/16/2017. APPENDIX: Normal. PELVIS, BLADDER: No abnormal masses. No free fluid. Bladder normal. Pessary in the vagina, normal si ze female pelvic organs BONES: No significant findings. OTHER: No other significant finding. IMPRESSION: Left lower quadrant ventral hernia containing nonobstructed small bowel loops, similar c ompared to CT 11/16/2017. Right lower quadrant transplant kidney COMMENT: Quality ID # [id number]: Final reports with documentation of one or more dose reduction techniques (e.g., Automated exposure control, adjustment of the mA and/or kV according to patient size, use of iterative reconstruction technique) TECHNICAL DOCUMENTATION: JOB ID: [id number] [employer]- All Rights Reserved Reading location - IP/workstation name: [email or web address]
== END ==
LOC: RAD 14:23
PROVIDERS: ATTEND Internal Medicine Gastroenterology
DX: R10.32 Left lower quadrant pain (principal)
CPT/HCPCS: 74176

== ENCOUNTER 2019-03-29 13:01 | Emergency (ER) | payer MEDICARE, MEDICAID ==
[2019-03-29] MEDS ORDERED: ASPIRIN 81 MG TABLET, CHEWABLE PO ONE (13:29)
--- NOTE | 2019-03-29 13:32 | ER Document Report ---
ED Medical Screen (RME) - General Stated Complaint: CHEST PAIN Time Seen by Provider: 03/29/19 13:25 Primary Care Provider: MARIUSZ MOFFETT MD [Primary Care Provider] - Follow up as needed Notes: Patient is a 58-year-old female who presents to the emergency department with a chief complaint of chest pain. Her symptoms started about 30 minutes ago. She states that she feels like she was hit in the ribs and she is having right arm pain also. The pain starts in the midsternal area. Patient takes aspirin every other day. She has a history of a kidney transplant in 2001. Patient has a history of hypertension, lupus, and a kidney transplant 2001. Exam: S1, S2. Tenderness upon palpation to mid sternal area. TRAVEL OUTSIDE OF THE [place] IN LAST 30 DAYS: No - Related Data Allergies/Adverse Reactions: latex [Latex] Allergy (Mild, Verified 03/29/19 13:25) Hives Past Medical History - Past Medical History Cardiac Medical History: Reports: Hx Congestive Heart Failure, Hx Hypercholesterolemia, Hx Hypertension Pulmonary Medical History: Denies: Hx Tuberculosis Neurological Medical History: Denies: Hx Seizures Endocrine Medical History: Denies: Hx Diabetes Mellitus Type 2 Renal/ Medical History: Reports: Hx End Stage Renal Disease - Was on dialysis for 6 months prior to kidney transplant. Denies: Hx Peritoneal Dialysis GI Medical History: Reports: Hx Gastroesophageal Reflux Disease, Hx Hiatal Hernia, Hx Endoscopy - Patient had an endoscopy at [place] approximately 2 months ago. Musculoskeltal Medical History: Reports Hx Arthritis, Reports Hx Systemic Lupus Erythematosus Psychiatric Medical History: Reports: Hx Depression Past Surgical History: Reports: Hx Herniorrhaphy, Hx Kidney (Renal Surgery) - kidney transplant 2002, Hx Orthopedic Surgery - neck fusion, Other - Renal transplant 2001; low back surgery Tess fundoplication. Denies: Hx Hysterectomy - Immunizations Hx Diphtheria, Pertussis, Tetanus Vaccination: Yes - unk Physical Exam - Vital signs Vitals: Temp Pulse Resp BP Pulse Ox 98.2 F 87 15 128/78 H 100 03/29/19 13:16 03/29/19 13:16 03/29/19 13:16 03/29/19 13:16 03/29/19 13:16 Course - Vital Signs Vital signs: Temp Pulse Resp BP Pulse Ox 98.2 F 87 15 128/78 H 100 03/29/19 13:16 03/29/19 13:16 03/29/19 13:16 03/29/19 13:16 03/29/19 13:16 Doctor's Discharge - Discharge Referrals: MARIUSZ MOFFETT MD [Primary Care Provider] - Follow up as needed
--- NOTE | 2019-03-29 14:11 | RADIOLOGY REPORT (SQ) ---
EXAM DESCRIPTION: CHEST SINGLE VIEW COMPLETED DATE/TIME: 03/29/2019 1:40 pm REASON FOR STUDY: chest pain COMPARISON: 12/04/2018 EXAM PARAMETERS: NUMBER OF VIEWS: One view. TECHNIQUE: Single frontal radiographic view of the chest acquired. RADIATION DOSE: NA LIMITATIONS: None. FINDINGS: LUNGS AND PLEURA: No opacities, masses or pneumothorax. No pleural effusion. MEDIASTINUM AND HILAR STRUCTURES: No masses. Contour normal. HEART AND VASCULAR STRUCTURES: Heart normal in size. Normal vasculature. BONES: No acute findings. HARDWARE: None in the chest. OTHER: No other significant finding. IMPRESSION: NO ACUTE RADIOGRAPHIC FINDING IN THE CHEST. TECHNICAL DOCUMENTATION: JOB ID: [id number] [employer]- All Rights Reserved Reading location - IP/workstation name: [email or web address]
[2019-03-29 14:16] LABS: HEMATOCRIT 26.1 % (36.0-47.0); MEAN CORPUSCULAR HEMOGLOBIN 26.6 pg (27.0-33.4); MEAN CORPUSCULAR HGB CONC 30.5 g/dL (32.0-36.0); MEAN CORPUSCULAR VOLUME 87 fl (80-97); PLATELET COUNT 260 10^3/uL (150-450); RED CELL DISTRIBUTION WIDTH 15.8 % (11.5-14.0); WHITE BLOOD COUNT 4.1 10^3/uL (4.0-10.5)
[2019-03-29 14:47] LABS: ABSOLUTE LYMPHOCYTES# (MANUAL) 0.8 10^3/uL (0.5-4.7); ABSOLUTE MONOCYTES # (MANUAL) 0.5 10^3/uL (0.1-1.4); BASOPHILS % (MANUAL) 0 % (0-2); EOSINOPHILS % (MANUAL) 2 % (0-6); LYMPHOCYTES % (MANUAL) 19 % (13-45); MONOCYTES % (MANUAL) 11 % (3-13); SEGMENTED NEUTROPHILS % (MAN) 68 % (42-78); TOTAL CELLS COUNTED 100
[2019-03-29 14:48] LABS: ANISOCYTOSIS SLIGHT; OVALOCYTES SLIGHT; PLATELET COMMENT ADEQUATE; POIKILOCYTOSIS SLIGHT; POLYCHROMASIA SLIGHT; TEAR DROP CELLS SLIGHT; TOXIC GRANULATION SLIGHT
[2019-03-29 15:22] LABS: ALBUMIN 3.4 g/dL (3.5-5.0); ALKALINE PHOSPHATASE 204 U/L (38-126); ANION GAP 13 (5-19); ASPARTATE AMINO TRANSFERASE 14 U/L (14-36); BILIRUBIN,DIRECT 0.2 mg/dL (0.0-0.4); BILIRUBIN,TOTAL 0.3 mg/dL (0.2-1.3); BLOOD UREA NITROGEN 44 mg/dL (7-20); CARBON DIOXIDE 15 mmol/L (22-30); CHLORIDE 106 mmol/L (98-107); CREATINE KINASE 147 U/L (30-135); GLUCOSE 99 mg/dL (75-110); POTASSIUM 3.6 mmol/L (3.6-5.0); TOTAL PROTEIN 6.6 g/dL (6.3-8.2)
[2019-03-29 15:34] LABS: CREATINE KINASE MB 2.41 ng/mL (<4.55); TROPONIN I 0.015 ng/mL
--- NOTE | 2019-03-29 15:43 | ER Document Report ---
ED General - General Chief Complaint: Chest Pain Stated Complaint: CHEST PAIN Time Seen by Provider: 03/29/19 13:25 Primary Care Provider: MARIUSZ MOFFETT MD [NO LOCAL MD] - Follow up as needed TRAVEL OUTSIDE OF THE [place] IN LAST 30 DAYS: No - HPI Notes: Patient is a 58-year-old female who presents emergency department for evaluation of chest pain. She states this morning she was at rest, sitting on the couch, she started having a sharp pain in her lower sternal area, with radiation into her right arm. She states she felt short of breath with it. Lasted about 15 minutes and seemed to improve. She states this is similar to pain that she had back in November and was admitted to the hospital. She states that she has not yet followed up with cardiology. She states she had "an emergency" and was unable to do so. She does have an appointment with her transplant team coming up in the next few weeks. States she is been taking all of her medications as prescribed, no changes in her medications since discharge from hospital. - Related Data Allergies/Adverse Reactions: latex [Latex] Allergy (Mild, Verified 03/29/19 13:25) [facility] Home Medications: List reviewed, please see chart Past Medical History - General Information source: Patient - Social History Smoking Status: Never Smoker Chew tobacco use (# tins/day): No Frequency of alcohol use: None Drug Abuse: None Family History: Reviewed & Not Pertinent, Hypertension, Malignancy Patient has suicidal ideation: No Patient has homicidal ideation: No - Past Medical History Cardiac Medical History: Reports: Hx Congestive Heart Failure, Hx Hypercholester olemia, Hx Hypertension Pulmonary Medical History: Denies: Hx Tuberculosis Neurological Medical History: Denies: Hx Seizures Endocrine Medical History: Denies: Hx Diabetes Mellitus Type 2 Renal/ Medical History: Reports: Hx End Stage Renal Disease - Was on dialysis for 6 months prior to kidney transplant. Denies: Hx Peritoneal Dialysis GI Medical History: Reports: Hx Gastroesophageal Reflux Disease, Hx Hiatal Hernia, Hx Endoscopy - Patient had an endoscopy at [place] approximately 2 months ago. Musculoskeletal Medical History: Reports Hx Arthritis, Reports Hx Systemic Lupus Erythematosus Psychiatric Medical History: Reports: Hx Depression Past Surgical History: Reports: Hx Herniorrhaphy, Hx Kidney (Renal Surgery) - kidney transplant 2002, Hx Orthopedic Surgery - neck fusion, Other - Renal transplant 2001; low back surgery Tess fundoplication. Denies: Hx Hysterectomy - Immunizations Hx Diphtheria, Pertussis, Tetanus Vaccination: Yes - unk Hx Pneumococcal Vaccination: 06/08/09 Review of Systems - Review of Systems Constitutional: No symptoms reported EENT: No symptoms reported Cardiovascular: See HPI Respiratory: See HPI Gastrointestinal: No symptoms reported Genitourinary: No symptoms reported Musculoskeletal: No symptoms reported Skin: No symptoms reported Neurological/Psychological: No symptoms reported Physical Exam - Vital signs Vitals: Temp Pulse Resp BP Pulse Ox 98.2 F 87 15 128/78 H 100 03/29/19 13:16 03/29/19 13:16 03/29/19 13:16 03/29/19 13:16 03/29/19 13:16 - Notes Notes: Vital signs reviewed, please refer to chart. Head is normocephalic, atraumatic. Pupils equal round, reactive to light. Neck is supple without meningismus. Heart is regular rate and rhythm. Lungs are clear to auscultation bilaterally. Semination of the chest reveals no obvious abnormality. She is tender to palpation over the lower sternum. Abdomen is soft, normally tender in the epigastrium without rebound or guarding, normoactive bowel sounds throughout. Extremities without cyanosis, clubbing. Posterior calves are nontender. Peripheral pulses are equal. Skin is warm and dry. Patient is awake, alert, n eurological exam is nonfocal. Course - Re-evaluation Re-evalutation: 03/29/19 15:42 Patient presents emergency department for evaluation. She does have some risk factors for coronary artery disease. She has not as of yet followed up with cardiology. Her troponin is of right now is negative. We will redraw a second. Lipase is also added. Patient remained stable, we will continue to monitor. 03/29/19 18:47 Patient no longer has chest pain. Her second troponin has increased somewhat, but it is still well below normal threshold. The patient is feeling improved. She has an appointment with her transplant team on Thursday, has been waiting for cardiology referral in [place] from them. At this point patient feels comf ortable with the idea of being discharged home. She understands of her pain returns or she develops worsening symptoms she needs to return. - Vital Signs Vital signs: Temp Pulse Resp BP Pulse Ox 98.2 F 87 11 L 142/97 H 100 03/29/19 13:16 03/29/19 13:16 03/29/19 18:34 03/29/19 18:34 03/29/19 18:34 - Laboratory Result Diagrams: 03/29/19 14:04 03/29/19 14:04 Laboratory results interpreted by me: 03/29/19 03/29/19 14:04 14:04 RBC 3.00 L Hgb 8.0 L Hct 26.1 L MCH 26.6 L MCHC 30.5 L RDW 15.8 H Sodium 133.9 L Carbon Dioxide 15 L BUN 44 H Creatinine 6.38 H Est GFR ( Amer) 8 L Est GFR (MDRD) Non-Af 7 L Calcium 8.0 L Alkaline Phosphatase 204 H Creatine Kinase 147 H Albumin 3.4 L - Diagnostic Test Radiology reviewed: Reports reviewed Radiology results interpreted by me: 03/29/19 18:48 03/29/19 14:04 03/29/19 14:04 MCV 87 fl (80-97) 03/29/19 14:04 MCH 26.6 pg (27.0-33.4) L 03/29/19 14:04 MCHC 30.5 g/dL (32.0-36.0) L 03/29/19 14:04 RDW 15.8 % (11.5-14.0) H 03/29/19 14:04 Seg Neutrophils % Not Reportable 03/29/19 14:04 Chloride 106 mmol/L (98-107) 03/29/19 14:04 Carbon Dioxide 15 mmol/L (22-30) L 03/29/19 14:04 Anion Gap 13 (5-19) 03/29/19 14:04 Est GFR ( Amer) 8 (>60) L 03/29/19 14:04 Glucose 99 mg/dL (75-110) 03/29/19 14:04 Calcium 8.0 mg/dL (8.4-10.2) L 03/29/19 14:04 Magnesium 1.6 mg/dL (1.6-2.3) 03/29/19 14:04 Total Bilirubin 0.3 mg/dL (0.2-1.3) 03/29/19 14:04 AST 14 U/L (14-36) 03/29/19 14:04 Alkaline Phosphatase 204 U/L (38-126) H 03/29/19 14:04 Total Protein 6.6 g/dL (6.3-8.2) 03/29/19 14:04 Albumin 3.4 g/dL (3.5-5.0) L 03/29/19 14:04 Lipase 75.3 U/L (23-300) 03/29/19 14:04 Lipase 79.3 U/L (23-300) 03/29/19 14:04 03/29/19 03/29/19 03/29/19 14:04 14:04 17:30 Creatine Kinase 147 H CK-MB (CK-2) 2.41 Troponin I 0.015 0.023 Chest X-Ray 03/29/19 13:29 IMPRESSION: NO ACUTE RADIOGRAPHIC FINDING IN THE CHEST. - EKG Interpretation by Me Additional EKG results interpreted by me: 03/29/19 15:42 Sinus mechanism with a rate of 84 bpm. Left axis deviation. Nonspecific ST changes, but no acute changes concerning for ischemia or infarction. Discharge - Discharge Clinical Impression: Stage 5 chronic kidney disease with transplanted kidney Chest pain Qualifiers: Chest pain type: unspecified Qualified Code(s): R07.9 - Chest pain, unspecified Condition: Stable Disposition: HOME, SELF-CARE Instructions: Chest Pain of Unclear Cause ([facility]) Additional Instructions: No clear cause was found for your chest pain today. We strongly advise you to follow-up with cardiology as soon as possible. Follow-up with your transplant team on Thursday. Your renal function is continued to worsening, and this will need further evaluation. If you develop worsening or new concerning symptoms of any sort, please return immediately to the emergency department for reevaluation. Referrals: MARIUSZ MOFFETT MD [NO LOCAL MD] - Follow up as needed
[2019-03-29 18:57] VITALS: BP 142/97
--- NOTE | 2019-03-29 23:51 | EKG REPORT ---
SEVERITY:- ABNORMAL ECG - SINUS RHYTHM LEFT ANTERIOR FASCICULAR BLOCK BORDERLINE T ABNORMALITIES, ANT-LAT LEADS : Confirmed by: Leslie Hebert MD 29-Mar-2019 23:50:20
== END 2019-03-29 19:06 | disposition home or self-care (01) ==
LOC: ER 13:01
DX: I13.2 Hypertensive heart and chronic kidney disease with heart failure and with stage 5 chronic kidney disease, or end stage renal disease (principal); N18.5 Chronic kidney disease, stage 5; I50.9 Heart failure, unspecified; Z94.0 Kidney transplant status; R07.9 Chest pain, unspecified; M79.601 Pain in right arm; R06.02 Shortness of breath
CPT/HCPCS: 93005; 99285; 36415; 82553; 82550; 83690; 83735; 85025; 80053; 84484; 71045; 93010; A9270

== ENCOUNTER 2019-08-28 13:39 | Emergency (ER) | payer MEDICARE, MEDICAID ==
[2019-08-28 14:23] LABS: HEMATOCRIT 29.7 % (36.0-47.0); HEMOGLOBIN 9.3 g/dL (12.0-15.5); MEAN CORPUSCULAR HEMOGLOBIN 28.3 pg (27.0-33.4); MEAN CORPUSCULAR HGB CONC 31.4 g/dL (32.0-36.0); MEAN CORPUSCULAR VOLUME 90 fl (80-97); PLATELET COUNT 160 10^3/uL (150-450); RED CELL DISTRIBUTION WIDTH 15.5 % (11.5-14.0); WHITE BLOOD COUNT 7.8 10^3/uL (4.0-10.5)
[2019-08-28] MEDS ORDERED: NORMAL SALINE 1000 ML 1,000 ML IV PRN (14:28)
--- NOTE | 2019-08-28 14:32 | ER Document Report ---
ED General - General Chief Complaint: General Weakness Stated Complaint: GENERAL WEAKNESS Time Seen by Provider: 08/28/19 14:13 Information source: Patient Notes: 58 year old female arrives via EMS from home after calling EMS. She has felt unwell for at least 2 weeks. Cough, tachycardia and some loose stool reported ly. She is a very difficult historian. She can tell me she has seen [facility] previously and refers to them when asked regarding pcp. She apparently also has htn, sle, anemia, gerd, esrd previous distant kidney transplant at [facility], and chronic back pain - takes oxycodone regularly for this - and lives alone. TRAVEL OUTSIDE OF THE [place] IN LAST 30 DAYS: No - HPI Quality of pain: No pain Severity: Moderate Exacerbated by: Denies Relieved by: Denies - Related Data Allergies/Adverse Reactions: latex [Latex] Allergy (Mild, Verified 08/28/19 13:56) Hives Home Medications: tacrolimus, oxycodone, myfortic Past Medical History - Social History Smoking Status: Never Smoker Chew tobacco use (# tins/day): No Frequency of alcohol use: None Drug Abuse: None Family History: Reviewed & Not Pertinent, Hypertension, Malignancy Patient has suicidal ideation: No Patient has homicidal ideation: No - Past Medical History Cardiac Medical History: Reports: Hx Congestive Heart Failure, Hx Hypercholesterolemia, Hx Hypertension Pulmonary Medical History: Denies: Hx Tuberculosis Neurological Medical History: Denies: Hx Seizures Endocrine Medical History: Denies: Hx Diabetes Mellitus Type 2 Renal/ Medical History: Reports: Hx End Stage Renal Disease - Was on dialysis for 6 months prior to kidney transplant. Denies: Hx Peritoneal Dialysis GI Medical History: Reports: Hx Gastroesophageal Reflux Disease, Hx Hiatal Hernia, Hx Endoscopy - Patient had an endoscopy at [place] approximately 2 months ago. Musculoskeletal Medical History: Reports Hx Arthritis, Reports Hx Systemic Lupus Erythematosus Psychiatric Medical History: Reports: Hx Depression Past Surgical History: Reports: Hx Herniorrhaphy, Hx Kidney (Renal Surgery) - kidney transplant 2002, Hx Orthopedic Surgery - neck fusion, Other - Renal transplant 2001; low back surgery Tess fundoplication. Denies: Hx Hysterectomy - Immunizations Hx Diphtheria, Pertussis, Tetanus Vaccination: Yes - unk Hx Pneumococcal Vaccination: 06/08/09 Review of Systems - Review of Systems -: Yes ROS unobtainable due to patient's medical condition Gastrointestinal: Diarrhea Physical Exam - Vital signs Vitals: Pulse Ox 98 08/28/19 13:39 Interpretation: Normal - General General appearance: Appears well, Alert - HEENT Head: Normocephalic, Atraumatic Eyes: Normal Pupils: PERRL Ears: Normal Mucous membranes: Dry Neck: Normal - Respiratory Respiratory status: No respiratory distress Chest status: Nontender Breath sounds: Normal Chest palpation: Normal - Cardiovascular Rhythm: Regular Heart sounds: Normal auscultation Murmur: No - Abdominal Inspection: Normal Distension: No distension Bowel sounds: Normal Tenderness: Nontender Organomegaly: No organomegaly - Back Back: Normal, Nontender - Extremities General upper extremity: Normal inspection, Nontender, Normal color, Normal ROM, Normal temperature General lower extremity: Normal inspection, Nontender, Normal color, Normal ROM, Normal temperature, Normal weight bearing. No: Raghavendra's sign - Neurological Neuro grossly intact: Yes Cognition: Normal Orientation: AAOx4 Madalyn Coma Scale Eye Opening: Spontaneous [place]yn Coma Scale Verbal: Oriented [place] Coma Scale Motor: Obeys Commands [place] Coma Scale Total: 15 Speech: Normal Motor strength normal: LUE, RUE, LLE, RLE Sensory: Normal - Psychological Associated symptoms: Normal affect, Normal mood - Skin Skin Temperature: Warm Skin Moisture: Dry Skin Color: Normal Course - Re-evaluation Re-evalutation: 08/28/19 15:42 MDM Unfortunate 58 year old renal transplant called EMS due to feeling unwell. She has acute on chronic renal failure and is acutely encephalopathic - unable to provide any reasonable history due to her uremic state. She is also markedly acidotic with urine output of about 200ml here so far. NS is infusing at 125ml hour and we have administered 100 meq sodium bicarbonate and I have spoken with the transfer center at [facility] and they will call back. 08/28/19 16:13 I have discussed with Dr. Espinoza at [facility] and she is with the transplant service. She would prefer the hospitalist to admit and notify the transplant team when the pt arrives. The transfer center is contacting the hospitalist service and I am awaiting a call back. 08/28/19 16:34 After speaking with the transplant team, I have discussed with Dr. Aparicio (hospitalist) and he has graciously accepted the pt in transfer to [facility]. We are awaiting a call back with a bed. NS and bicarb are infusing. 08/28/19 16:57 Pt is resting quietly and heart rate is low 100's and sat 97%. Awaiting [facility] bed availability and transfer. 08/28/19 19:38 Pt is still resting quietly and we await [facility] service. Heart rate 113 Sat 97 % and bicarb gtt infusing at 125ml/ hour. 08/28/19 19:47 [facility] is here and getting report from the nursing staff. No change in patien t status. - Vital Signs Vital signs: Temp Pulse Resp BP Pulse Ox 98.5 F 11 L 142/87 H 99 08/28/19 13:54 08/28/19 19:01 08/28/19 19:01 08/28/19 19:01 - Laboratory Result Diagrams: 08/28/19 14:09 08/28/19 14:09 Laboratory results interpreted by me: 08/28/19 08/28/19 08/28/19 14:09 14:09 14:47 RBC 3.30 L Hgb 9.3 L Hct 29.7 L MCHC 31.4 L RDW 15.5 H VBG pH 7.06 L* VBG HCO3 9.6 L Carbon Dioxide 6 L* Anion Gap 33 H BUN 169 H Creatinine 20.25 H Est GFR ( Amer) 2 L Est GFR (MDRD) Non-Af 2 L Glucose 118 H Direct Bilirubin 0.6 H Urine Protein Urine Glucose (UA) Urine Ketones Urine Blood 08/28/19 15:23 RBC Hgb Hct MCHC RDW VBG pH VBG HCO3 Carbon Dioxide Anion Gap BUN Creatinine Est GFR ( Amer) Est GFR (MDRD) Non-Af Glucose Direct Bilirubin Urine Protein >=500 H Urine Glucose (UA) 150 H Urine Ketones TRACE H Urine Blood MODERATE H - Diagnostic Test Radiology reviewed: Image reviewed, Reports reviewed - EKG Interpretation by Me EKG shows normal: Sinus rhythm - Sinus Tachy 113 BPM left axis no st elevation or depression repolarization abnormality my interpretation. Rate: Tachycardia [place]/QRS: Left axis deviation Critical Care Note - Critical Care Note Total time excluding time spent on procedures (mins): 60 Discharge - Discharge Clinical Impression: Acidosis Renal failure (ARF), acute on chronic Qualifiers: Acute renal failure type: unspecified Chronic kidney disease stage: stage 5, not on chronic dialysis Qualified Code(s): N17.9 - Acute kidney failure, unspecified Condition: Fair Disposition: [facility] [place]
[2019-08-28 14:40] LABS: ALKALINE PHOSPHATASE 73 U/L (38-126); ASPARTATE AMINO TRANSFERASE 21 U/L (14-36); BILIRUBIN,DIRECT 0.6 mg/dL (0.0-0.4); BILIRUBIN,TOTAL 0.6 mg/dL (0.2-1.3); CALCIUM 9.2 mg/dL (8.4-10.2); GLUCOSE 118 mg/dL (75-110); POTASSIUM 4.7 mmol/L (3.6-5.0); TOTAL PROTEIN 7.9 g/dL (6.3-8.2)
[2019-08-28 14:45] LABS: CHLORIDE 103 mmol/L (98-107)
[2019-08-28 14:58] LABS: ANION GAP 33 (5-19); BLOOD UREA NITROGEN 169 mg/dL (7-20)
[2019-08-28 15:00] LABS: CARBON DIOXIDE 6 mmol/L (22-30)
[2019-08-28 15:02] LABS: ABSOLUTE LYMPHOCYTES# (MANUAL) 1.6 10^3/uL (0.5-4.7); ABSOLUTE MONOCYTES # (MANUAL) 0.3 10^3/uL (0.1-1.4); BASOPHILS % (MANUAL) 0 % (0-2); EOSINOPHILS % (MANUAL) 0 % (0-6); LYMPHOCYTES % (MANUAL) 21 % (13-45); MONOCYTES % (MANUAL) 4 % (3-13); SEGMENTED NEUTROPHILS % (MAN) 75 % (42-78); TOTAL CELLS COUNTED 100
[2019-08-28 15:03] LABS: ANISOCYTOSIS SLIGHT; OVALOCYTES SLIGHT; PLATELET COMMENT ADEQUATE
[2019-08-28 15:11] LABS: VENOUS BLOOD BASE EXCESS -19.8 mmol/L; VENOUS BLOOD HCO3 9.6 mmol/L (20-32)
[2019-08-28 15:12] LABS: VENOUS BLOOD PH 7.06 (7.30-7.42)
[2019-08-28] MEDS ORDERED: SODIUM BICARBONATE 8.4% INJ 50 MEQ/50 ML DISP.SYRIN IV ONE ×2 (15:13→16:12)
--- NOTE | 2019-08-28 15:34 | RADIOLOGY REPORT (SQ) ---
EXAM DESCRIPTION: CHEST SINGLE VIEW COMPLETED DATE/TIME: 08/28/2019 3:03 pm REASON FOR STUDY: htn COMPARISON: 07/27/2013, 03/29/2019 EXAM PARAMETERS: NUMBER OF VIEWS: One view. TECHNIQUE: Single frontal radiographic view of the chest acquired. RADIATION DOSE: NA LIMITATIONS: None. FINDINGS: LUNGS AND PLEURA: No opacities, masses or pneumothorax. No pleural effusion. MEDIASTINUM AND HILAR STRUCTURES: No masses. Contour normal. HEART AND VASCULAR STRUCTURES: Heart normal in size. Normal vasculature. BONES: No acute findings. HARDWARE: None in the chest. OTHER: No other significant finding. IMPRESSION: NO ACUTE RADIOGRAPHIC FINDING IN THE CHEST. TECHNICAL DOCUMENTATION: JOB ID: [id number] 2010 [employer]- All Rights Reserved Reading location - IP/workstation name: [email or web address]
--- NOTE | 2019-08-28 15:36 | RADIOLOGY REPORT (SQ) ---
EXAM DESCRIPTION: CT HEAD WITHOUT COMPLETED DATE/TIME: 08/28/2019 3:12 pm REASON FOR STUDY: aloc COMPARISON: 07/29/2017 TECHNIQUE: Axial images acquired through the brain without intravenous contrast. Images reviewed wi th bone, brain and subdural windows. Additional sagittal and coronal reconstructions were generated. Images stored on PACS. All CT scanners at this facility use dose modulation, iterative reconstruction, and/or weight based d osing when appropriate to reduce radiation dose to as low as reasonably achievable (ALARA). [facility]: Dose Right [facility]: CareDose [facility]: Dose Right [facility]: Teradose 4D [facility]: Smart Technologies RADIATION DOSE: CT Rad equipment meets quality standard of care and radiation dose reduction techniq ues were employed. CTDIvol: 53.2 mGy. DLP: 964 mGy-cm. mGy. LIMITATIONS: None. FINDINGS: VENTRICLES: Normal size and contour. CEREBRUM: No masses. No hemorrhage. No midline shift. No evidence for acute infarction. Normal gra y/white matter differentiation. No areas of low density in the white matter. CEREBELLUM: No masses. No hemorrhage. No alteration of density. No evidence for acute infarction. EXTRAAXIAL SPACES: No fluid collections. No masses. ORBITS AND GLOBE: No intra- or extraconal masses. Normal contour of globe without masses. CALVARIUM: No fracture. PARANASAL SINUSES: No fluid or mucosal thickening. SOFT TISSUES: No mass or hematoma. OTHER: No other significant finding. IMPRESSION: NORMAL BRAIN CT WITHOUT CONTRAST. EVIDENCE OF ACUTE STROKE: NO. COMMENT: Quality ID # [id number]: Final reports with documentation of one or more dose reduction techniques (e.g., Automated exposure control, adjustment of the mA and/or kV according to patient size, use of iterative reconstruction technique) TECHNICAL DOCUMENTATION: JOB ID: [id number] 2010 [employer]- All Rights Reserved Reading location - IP/workstation name: [email or web address]
[2019-08-28 15:38] LABS: A TYPE INFLUENZA AG NEGATIVE (NEGATIVE); B INFLUENZA AG NEGATIVE (NEGATIVE)
[2019-08-28] MEDS ORDERED: NORMAL SALINE 1000 ML 1,000 ML IV ONE (15:41)
[2019-08-28 16:01] LABS: APPEARANCE,URINE SLIGHTLY-CLOUDY; BILIRUBIN,URINE NEGATIVE (NEGATIVE); COLOR,URINE YELLOW; GLUCOSE, URINE 150 mg/dL (NEGATIVE); KETONES,URINE TRACE mg/dL (NEGATIVE); LEUKOCYTE ESTERASE,URINE NEGATIVE (NEGATIVE); NITRITE,URINE NEGATIVE (NEGATIVE); PROTEIN,URINE >=500 mg/dL (NEGATIVE); URINE SPECIFIC GRAVITY 1.012; UROBILINOGEN,URINE NEGATIVE mg/dL (<2.0)
[2019-08-28 16:15] LABS: URINE AMPHETAMINES SCREEN NEGATIVE; URINE BARBITURATES SCREEN NEGATIVE; URINE BENZODIAZEPINES SCREEN NEGATIVE; URINE COCAINE SCREEN NEGATIVE; URINE MARIJUANA (THC) SCREEN NEGATIVE; URINE METHADONE SCREEN NEGATIVE; URINE PHENCYCLIDINE SCREEN NEGATIVE
[2019-08-28 20:28] VITALS: BP 146/100
--- NOTE | 2019-08-29 05:48 | EKG REPORT ---
SEVERITY:- OTHERWISE NORMAL ECG - SINUS TACHYCARDIA LEFT AXIS DEVIATION : Confirmed by: Leslie Hebert MD 29-Aug-2019 05:47:38
== END 2019-08-28 20:28 | disposition short-term general hospital (02) ==
LOC: ER 13:39
DX: I12.0 Hypertensive chronic kidney disease with stage 5 chronic kidney disease or end stage renal disease (principal); N18.5 Chronic kidney disease, stage 5; N17.9 Acute kidney failure, unspecified; G93.40 Encephalopathy, unspecified; E87.2 Acidosis; R19.7 Diarrhea, unspecified; R00.0 Tachycardia, unspecified; M54.9 Dorsalgia, unspecified; G89.29 Other chronic pain; Z79.891 Long term (current) use of opiate analgesic; Z94.0 Kidney transplant status; Z79.899 Other long term (current) drug therapy; Z91.040 Latex allergy status
CPT/HCPCS: 93005; 99285; 96360; 96361; 51702; 36415; 87040; 83605; 83735; 84443; 85025; 80053; 81001; 80307; 82803; 87804; 71045; 70450; 93010; J3490; J7030

== ENCOUNTER → 2019-10-18 | Outpatient (CLI) | payer MEDICARE, MEDICAID ==
--- NOTE | 2019-10-18 16:11 | RADIOLOGY REPORT (SQ) ---
EXAM DESCRIPTION: VENOUS UNILATERAL UPPER IMAGES COMPLETED DATE/TIME: 10/18/2019 3:59 pm REASON FOR STUDY: RUE SWELLING I82.629 ACUTE EMBOLISM AND THROMBOSIS OF DEEP VN UNSP UP EXT COMPARISON: None. TECHNIQUE: Dynamic and static villalba scale and color images acquired of the right arm venous system. S elected spectral images acquired with additional compression and augmentation maneuvers. The contrala teral subclavian vein and internal jugular vein were also imaged. Images stored on PACS. LIMITATIONS: None. FINDINGS: INTERNAL JUGULAR VEIN: Normal phasicity, compression, augmentation. No visualized echogeni c material on villalba scale. No defects on color images. Comparison opposite side normal. SUBCLAVIAN VEIN: Normal compression, augmentation. No visualized echogenic material on villalba scale. No defects on color images. AXILLARY VEIN: Normal compression, augmentation. No visualized echogenic material on villalba scale. No d efects on color images. BRACHIAL VEIN: Normal compression, augmentation. No visualized echogenic material on villalba scale. No d efects on color images. BASILIC VEIN: Normal compression, augmentation. No visualized echogenic material on villalba scale. No de fects on color images. CEPHALIC VEIN: Normal compression, augmentation. No visualized echogenic material on villalba scale. No d efects on color images. OTHER: No other significant finding. CONTRALATERAL SUBCLAVIAN VEIN AND INTERNAL JUGULAR VEIN: Normal phasicity, compression and augmentation. No visualized echogenic material on villalba scale. No de fects on color images. IMPRESSION: NO EVIDENCE DVT OR SVT IN THE RIGHT ARM. TECHNICAL DOCUMENTATION: JOB ID: [id number] 2010 [employer]- All Rights Reserved Reading location - IP/workstation name: [email or web address]
== END ==
LOC: RAD 15:00
PROVIDERS: ATTEND Internal Medicine Nephrology
DX: I82.621 Acute embolism and thrombosis of deep veins of right upper extremity (principal)
CPT/HCPCS: 93971

== ENCOUNTER 2020-02-16 16:26 | Inpatient (IN) | payer MEDICARE, MEDICAID ==
--- NOTE | 2020-02-16 16:43 | ER Document Report ---
ED Cardiac - General Chief Complaint: Chest Pain Stated Complaint: CHEST PAIN Time Seen by Provider: 02/16/20 16:32 Notes: Patient is a 59-year-old female with past medical history of atrial fibrillation, lupus, end-stage renal disease on dialysis, anxiety, who presents emergency department with a chief complaint of chest pain. Patient describes her pain as "someone hitting her in the chest." Patient was at dialysis when she developed her chest pain. Patient states that her chest pain started around 1500. She also reported some shortness of breath. EMS reports that dialysis took 3 L off and ended up giving her 1 L of IV fluids. Patient was given aspirin and nitroglycerin to help with the pain. The nitroglycerin did help with her chest pain a little bit. Rates her pain 4/5. Patient reports that she is on the wait list for a kidney transplant [facility]. TRAVEL OUTSIDE OF THE [place] IN LAST 30 DAYS: No - Related Data Allergies/Adverse Reactions: latex [Latex] Allergy (Mild, Verified 08/28/19 13:56) Hives Past Medical History - Social History Smoking Status: Never Smoker Family History: Reviewed & Not Pertinent, Hypertension, Malignancy - Past Medical History Cardiac Medical History: Reports: Hx Congestive Heart Failure, Hx Hypercholesterolemia, Hx Hypertension Pulmonary Medical History: Denies: Hx Tuberculosis Neurological Medical History: Denies: Hx Seizures Endocrine Medical History: Denies: Hx Diabetes Mellitus Type 2 Renal/ Medical History: Reports: Hx End Stage Renal Disease - Was on dialysis for 6 months prior to kidney transplant. Denies: Hx Peritoneal Dialysis GI Medical History: Reports: Hx Gastroesophageal Reflux Disease, Hx Hiatal Hernia, Hx Endoscopy - Patient had an endoscopy at [place] approximately 2 months ago. Musculoskeletal Medical History: Reports Hx Arthritis, Reports Hx Systemic Lupus Erythematosus Psychiatric Medical History: Reports: Hx Depression Past Surgical History: Reports: Hx Herniorrhaphy, Hx Kidney (Renal Surgery) - kidney transplant 2002, Hx Orthopedic Surgery - neck fusion, Other - Renal transplant 2001; low back surgery Tess fundoplication. Denies: Hx Hysterectomy - Immunizations Hx Diphtheria, Pertussis, Tetanus Vaccination: Yes - unk Hx Pneumococcal Vaccination: 06/08/09 Review of Systems - Review of Systems Notes: REVIEW OF SYSTEMS: CONSTITUTIONAL : Denies recent illness. Denies recent unintentional weight loss. Denies fever, chills, or sweats. EENT: Denies eye, ear, throat, or mouth pain, discharge, or symptoms. Denies nasal or sinus congestion. CARDIOVASCULAR: See HPI. RESPIRATORY: See HPI. GASTROINTESTINAL: Denies nausea, vomiting, and diarrhea. Denies abdominal pain. Denies constipation. GENITOURINARY: Denies difficulty urinating, burning, blood in urine, urgency or frequency. MUSCULOSKELETAL: Denies neck and back pain. Denies joint pain or swelling. SKIN: Denies rash, itchiness, or lesions HEMATOLOGIC : Denies easy bruising or bleeding. LYMPHATIC: Denies swollen, painful, enlarged glands. NEUROLOGICAL: Denies no numbness or tingling denies weakness. Denies headache. Denies altered mental status. Denies alteration in speech. PSYCHIATRIC: Denies stress, anxiety, alteration in sleep patterns, or depression. All other systems reviewed and negative. Physical Exam - Vital signs Vitals: Resp Pulse Ox 16 96 02/16/20 16:38 02/16/20 16:38 PHYSICAL EXAMINATION: GENERAL: Appears well, healthy, well-nourished, no acute distress. HEAD: Normocephalic, atraumatic. EYES: PERRL, conjunctiva normal, all extraocular movements intact, sclera nonicteric ENT: Moist mucous membranes. NECK: Supple, no noticeable swelling, redness, rash. Normal range of motion. LUNGS: Equal breath sounds bilaterally and clear to auscultation. No wheezes rales or rhonchi. CARDIOVASCULAR: Regular rate, irregular rhythm. Radial pulses 2+, normal. ABDOMEN: Normoactive bowel sounds. Soft, nontender, no guarding, no rebound tenderness, and no masses palpated. EXTREMITIES: Normal strength and range of motion, no pitting or edema. No cyanosis. NEUROLOGICAL: Moves all extremities upon command. Strength 5/5 in all extremities. PSYCH: Normal mood, normal affect. SKIN: Warm, dry. No rash, lesions, ulcerations noted. Normal skin turgor. Course - Re-evaluation Re-evalutation: 02/16/20 18:[address] Gay, the safe and vault service mechanic on-call. He states that there are no dialysis rooms available at this time. I confirm this with Clara, nursing concrete stone finishing supervisor. 02/16/20 18:09 I spoke with [facility] transfer center. Due to the level of capacity they have at their hospital, the patient will not be accepted. Will attempt to call [facility] in [place]. 02/16/20 18:15 I spoke with Berna from the transfer center at [facility]. Will await a call back. 02/16/20 18:[address] Gay, the safe and vault service mechanic. He would like to admit the patient under the hospitalist service. I also reevaluated the patient and the patient is now pain-free. Contacted [facility] and let them know that the patient can be admitted here to the hospital. Called the hospitalist. Will speak with the nighttime hospitalist at 730. 02/16/20 19:[address] Becerra, the Hospitalist. Then I touched base with Dr. Toledo, the security assurance specialist. The patient will be admitted to the Telemetry floor. - Vital Signs Vital signs: Temp Pulse Resp BP Pulse Ox 13 165/98 H 100 02/16/20 22:00 02/16/20 21:40 02/16/20 22:00 - Laboratory Result Diagrams: 02/16/20 16:44 02/16/20 16:44 Laboratory results interpreted by me: 02/16/20 02/16/20 02/16/20 16:44 16:44 16:44 Hgb 9.4 L Hct 29.4 L MCV 79 L MCH 25.1 L MCHC 31.9 L RDW 17.8 H Sodium 130.3 L Chloride 95 L Creatinine 2.77 H Est GFR ( Amer) 21 L Est GFR (MDRD) Non-Af 17 L Glucose 119 H Calcium 8.3 L Direct Bilirubin 0.5 H NT-Pro-B Natriuret Pep [id number] H Albumin 3.3 L Discharge - Discharge Clinical Impression: End stage renal disease on dialysis Chest pain Qualifiers: Chest pain type: unspecified Qualified Code(s): R07.9 - Chest pain, unspecified Condition: Stable Disposition: ADMITTED INPATIENT Admitting Provider: [facility] Admitted: Telemetry
[2020-02-16 17:09] LABS: HEMATOCRIT 29.4 % (36.0-47.0); HEMOGLOBIN 9.4 g/dL (12.0-15.5); MEAN CORPUSCULAR HEMOGLOBIN 25.1 pg (27.0-33.4); MEAN CORPUSCULAR HGB CONC 31.9 g/dL (32.0-36.0); MEAN CORPUSCULAR VOLUME 79 fl (80-97); PLATELET COUNT 327 10^3/uL (150-450); RED BLOOD COUNT 3.73 10^6/uL (3.72-5.28); RED CELL DISTRIBUTION WIDTH 17.8 % (11.5-14.0); WHITE BLOOD COUNT 4.7 10^3/uL (4.0-10.5)
--- NOTE | 2020-02-16 17:18 | RADIOLOGY REPORT (SQ) ---
EXAM DESCRIPTION: CHEST SINGLE VIEW IMAGES COMPLETED DATE/TIME: 02/16/2020 5:04 pm REASON FOR STUDY: chest pain COMPARISON: 08/28/2019 EXAM PARAMETERS: NUMBER OF VIEWS: One view. TECHNIQUE: Single frontal radiographic view of the chest acquired. RADIATION DOSE: NA LIMITATIONS: None. FINDINGS: LUNGS AND PLEURA: Increased perihilar and bibasilar interstitial lung markings. Small rig ht-sided pleural effusion. No pneumothorax. MEDIASTINUM AND HILAR STRUCTURES: No masses. Contour normal. HEART AND VASCULAR STRUCTURES: Cardiomegaly with central vascular prominence and indistinctness. BONES: No acute findings. HARDWARE: Dual-lumen central access catheter terminates in the region of the superior vena cava/cavoa trial junction. OTHER: No other significant finding. IMPRESSION: Cardiomegaly with central vascular congestion suggesting CHF exacerbation. TECHNICAL DOCUMENTATION: JOB ID: [id number] 2010 [employer]- All Rights Reserved Reading location - IP/workstation name: [email or web address]
[2020-02-16 17:24] LABS: ALBUMIN 3.3 g/dL (3.5-5.0); ALKALINE PHOSPHATASE 76 U/L (38-126); ANION GAP 9 (5-19); ASPARTATE AMINO TRANSFERASE 22 U/L (14-36); BILIRUBIN,DIRECT 0.5 mg/dL (0.0-0.4); BILIRUBIN,TOTAL 0.8 mg/dL (0.2-1.3); BLOOD UREA NITROGEN 19 mg/dL (7-20); CALCIUM 8.3 mg/dL (8.4-10.2); CARBON DIOXIDE 26 mmol/L (22-30); CHLORIDE 95 mmol/L (98-107); CREATINE KINASE 37 U/L (30-135); GLUCOSE 119 mg/dL (75-110); POTASSIUM 3.9 mmol/L (3.6-5.0); TOTAL PROTEIN 7.5 g/dL (6.3-8.2)
[2020-02-16] MEDS ORDERED: FAMOTIDINE 20 MG TABLET PO ONE (17:35)
[2020-02-16] MEDS ORDERED: SUCRALFATE 1 GM TABLET PO ONE (17:35)
[2020-02-16] MEDS ORDERED: MORPHINE SULFATE 10 MG/ML INJ IV ONE (17:35)
[2020-02-16 17:37] LABS: ABSOLUTE LYMPHOCYTES# (MANUAL) 0.7 10^3/uL (0.5-4.7); ABSOLUTE MONOCYTES # (MANUAL) 0.5 10^3/uL (0.1-1.4); BASOPHILS % (MANUAL) 0 % (0-2); EOSINOPHILS % (MANUAL) 3 % (0-6); LYMPHOCYTES % (MANUAL) 14 % (13-45); MONOCYTES % (MANUAL) 11 % (3-13); SEGMENTED NEUTROPHILS % (MAN) 72 % (42-78); TOTAL CELLS COUNTED 100
[2020-02-16 17:39] LABS: ANISOCYTOSIS 1+; HYPOCHROMASIA SLIGHT; OVALOCYTES SLIGHT; PLATELET COMMENT ADEQUATE; POIKILOCYTOSIS SLIGHT
[2020-02-16] MEDS ORDERED: NITROGLYCERIN/D5W 50 MG/250 ML RTUINJ IV PRN (21:05)
[2020-02-17] MEDS ORDERED: HEPARIN SODIUM,PORCINE/D5W 25,000 UNIT/250 ML RTUINJ IV PRN (00:42)
[2020-02-17] MEDS ORDERED: HEPARIN SOD (PORCINE) 1,000 UNIT/ML 10 ML VIAL IV ONE (00:42)
[2020-02-17 01:27] LABS: PROTHROMBIN TIME 15.4 SEC (11.4-15.4)
[2020-02-17 01:28] LABS: PARTIAL THROMBOPLASTIN TIME 39.2 SEC (23.5-35.8)
[2020-02-17 01:30] LABS: D-DIMER 1.51 ug/mL (0.00-0.50); HEMATOCRIT 27.6 % (36.0-47.0); MEAN CORPUSCULAR HEMOGLOBIN 25.7 pg (27.0-33.4); MEAN CORPUSCULAR HGB CONC 32.5 g/dL (32.0-36.0); MEAN CORPUSCULAR VOLUME 79 fl (80-97); PLATELET COUNT 291 10^3/uL (150-450); RED CELL DISTRIBUTION WIDTH 17.4 % (11.5-14.0); WHITE BLOOD COUNT 3.7 10^3/uL (4.0-10.5)
[2020-02-17 01:42] LABS: ABSOLUTE LYMPHOCYTES# (MANUAL) 1.3 10^3/uL (0.5-4.7); ABSOLUTE MONOCYTES # (MANUAL) 0.4 10^3/uL (0.1-1.4); BASOPHILS % (MANUAL) 0 % (0-2); EOSINOPHILS % (MANUAL) 0 % (0-6); LYMPHOCYTES % (MANUAL) 36 % (13-45); MONOCYTES % (MANUAL) 10 % (3-13); SEGMENTED NEUTROPHILS % (MAN) 54 % (42-78); TOTAL CELLS COUNTED 100
[2020-02-17 01:43] LABS: ANISOCYTOSIS 1+; HYPOCHROMASIA SLIGHT; OVALOCYTES SLIGHT; PLATELET COMMENT ADEQUATE; POIKILOCYTOSIS SLIGHT; TEAR DROP CELLS SLIGHT; TOXIC GRANULATION SLIGHT
[2020-02-17] MEDS ORDERED: EPOETIN ALFA-EPBX 10,000 UNIT in SYRINGE, DISPOSABLE, 1 EACH IV PRN (05:00)
[2020-02-17] MEDS ORDERED: LABETALOL HCL INJ 20 MG/4 ML DISP.SYRIN IV ONE (05:39)
--- NOTE | 2020-02-17 05:44 | PDOC CONSULTATION ---
Consultation Consult Date: 02/17/20 Provider Consulted: EHSAN ALVARADO Consult reason:: chest pain History of Present Illness Admission Date/PCP: 02/16/20 19:59 CLAUDIA DUNN PA-C History of Present Illness: YUSUF CANTRELL is a 59 year old female, ESRD on dialysis Thursday, status post kidney transplant 2016, SLE, hypertension, atrial fibrillation, who who came to the ED due to chest pain. Patient was undergoing dialysis when she developed chest pain towards the end of her session at around 3 PM. Chest pain was described as heaviness radiating to left arm, 10 out of 10 , with associated mild shortness of breath. About 1 L of fluid was given back during dialysis. She was given 4 tablets of aspirin, 3 tablets of sublingual nitroglycerin, and was sent to the emergency room. She had a similar episode back in November, and she was sent home and was advised to see a nail professional. She has not been able to set up an appointment. She has not had any prior stress test or angiogram, no prior AK. She admits to having on and off chest heaviness with effort relieved by rest. In the emergency room blood pressure was was 162/114, heart rate of 70. She was given morphine 4 mg for chest pain. EKG showed sinus rhythm no acute ST elevation, troponin 0.[address] Victor Hugo Toledo nephrology was called as well as Dr. Kenny Toledo for cardiology consult. In the emergency room she continued to have chest pain 8 out of 10, repeat troponin trended up to .039 to .0 43. EKG unchanged. I spoke to Dr. Kenny Toledo regarding this patient since with continued rise of troponin and comorbidities she will likely need an angiogram within 24 hours which we cannot do today. He recommended transfer to tertiary care center, start nitroglycerin drip, and heparin drip. I have called [facility] and have spoken to Dr. Sweeney who accepted the patient. They currently do not have a bed but would update the emergency room when bed becomes available. I also spoke to KENNETH at [place] who has accepted the patient under Dr. Chase Uriarte awaiting bed assignment. Past Medical History Cardiac Medical History: Reports: Congestive Heart Failure, Hyperlipidema, Hypertension Pulmonary Medical History: Denies: Tuberculosis Neurological Medical History: Denies: Seizures Endocrine Medical History: Denies: Diabetes Mellitus Type 2 Renal/ Medical History: Reports: End Stage Renal Disease - Was on dialysis for 6 months prior to kidney transplant GI Medical History: Reports: Gastroesophageal Reflux Disease, Hiatal Hernia Musculoskeltal Medical History: Reports: Arthritis Psychiatric Medical History: Reports: Depression Hematology: Reports: Anemia Past Surgical History Past Surgical History: Reports: Herniorrhaphy, Orthopedic Surgery - neck fusion, Other - Renal transplant 2001; low back surgery Tess fundoplication Denies: Hysterectomy Social History Lives with: Family Smoking Status: Never Smoker Frequency of Alcohol Use: None Hx Recreational Drug Use: No Drugs: None Hx Prescription Drug Abuse: No Family History Family History: Reviewed & Not Pertinent, Hypertension, Malignancy Parental Family History Reviewed: Yes Children Family History Reviewed: Yes Sibling(s) Family History Reviewed.: Yes Medication/Allergy Home Medications: Oxycodone HCl 10 mg PO Q8HP PRN 12/05/18 Prednisone [Deltasone 5 mg Tablet] 5 mg PO WBRKFST 08/28/19 Amlodipine Besylate [Norvasc 10 mg Tablet] 10 mg PO DAILY 02/16/20 Calcium Acetate [Phoslo 667 mg Capsule] 1,334 mg PO MEALS 02/16/20 Carvedilol [Coreg] 25 mg PO BID 02/16/20 Clonidine HCl [Catapres 0.2 mg Tablet] 0.2 mg PO BID 02/16/20 Mirtazapine 15 mg PO QHSX3D MDD 30MG PO AFTER INITIAL 3 DAYS 02/16/20 Allergies/Adverse Reactions: latex [Latex] Allergy (Mild, Verified 08/28/19 13:56) [place] Review of Systems Constitutional: PRESENT: as per HPI Cardiovascular: PRESENT: chest pain Gastrointestinal: ABSENT: abdominal pain, coffee ground emesis, hematemesis, nausea, vomiting Genitourinary: ABSENT: difficulty urinating, dysuria Integumentary: ABSENT: diaphoresis Neurological: ABSENT: focal weakness, numbness Physical Exam Vital Signs: Temp Pulse Resp BP Pulse Ox 98.1 F 19 186/119 H 100 02/17/20 01:18 02/17/20 04:30 02/17/20 04:30 02/17/20 04:30 Intake & Output 02/15/20 02/16/20 02/17/20 06:59 06:59 06:59 Intake Total 20 Balance 20 Weight 55.7 kg General appearance: PRESENT: no acute distress, cooperative Head exam: PRESENT: atraumatic, normocephalic Eye exam: PRESENT: EOMI, PERRLA Mouth exam: PRESENT: moist Neck exam: PRESENT: full ROM. ABSENT: JVD Respiratory exam: PRESENT: clear to auscultation анна, symmetrical, unlabored. ABSENT: rales Cardiovascular exam: PRESENT: RRR, +S1, +S2 Pulses: PRESENT: normal radial pulses Vascular exam: PRESENT: pallor GI/Abdominal exam: PRESENT: normal bowel sounds, soft. ABSENT: rebound, tenderness Rectal exam: PRESENT: deferred Extremities exam: PRESENT: full ROM Musculoskeletal exam: PRESENT: full ROM Neurological exam: PRESENT: alert, awake, oriented to person, oriented to place, oriented to time Psychiatric exam: PRESENT: normal mood Results Laboratory Results: 02/17/20 01:09 02/16/20 16:44 02/16/20 02/16/20 02/17/20 16:44 16:44 01:09 WBC 4.7 3.7 L RBC 3.73 3.50 L Hgb 9.4 L 9.0 L Hct 29.4 L 27.6 L MCV 79 L 79 L MCH 25.1 L 25.7 L MCHC 31.9 L 32.5 RDW 17.8 H 17.4 H Plt Count 327 291 Seg Neutrophils % Not Reportable Not Reportable Sodium 130.3 L Potassium 3.9 Chloride 95 L Carbon Dioxide 26 Anion Gap 9 BUN 19 Creatinine 2.77 H Est GFR ( Amer) 21 L Glucose 119 H Calcium 8.3 L Magnesium 1.9 Total Bilirubin 0.8 AST 22 Alkaline Phosphatase 76 Total Protein 7.5 Albumin 3.3 L 02/16/20 02/16/20 02/16/20 16:44 16:44 16:44 Creatine Kinase 37 Troponin I 0.035 NT-Pro-B Natriuret Pep [id number] H 02/16/20 02/16/20 20:11 23:37 Creatine Kinase Troponin I 0.039 0.043 NT-Pro-B Natriuret Pep Impressions: Chest X-Ray 02/16/20 16:40 IMPRESSION: Cardiomegaly with central vascular congestion suggesting CHF exacerbation. Assessment and Plan - Diagnosis (1) NSTEMI (non-ST elevated myocardial infarction) Is this a current diagnosis for this admission?: Yes Plan: -Patient with onset of chest pain towards the end of her dialysis yesterday at around 3 PM -Chest heaviness 10 out of 10 with mild shortness of breath -Received 4 tablets of aspirin 3 tablets of sublingual nitro -Minimal improvement improvement of chest pain -EKG sinus rhythm no acute ST elevation - troponin 0.035>0.039>0.043 - JAEL score 4 needs urgent angiogram - on nitroglycerin drip - heparin drip started - received 4 tab aspirin - transfer to [facility] for angiogram - discussed case with Dr. 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 lupus erythematosus Is this a current diagnosis for this admission?: Yes Plan: -On prednisone 5 mg daily chronically (4) SLE (systemic lupus erythematosus) Qualifiers: Systemic lupus erythematosus type: other Systemic lupus erythematosus organ involvement: unspecified Qualified Code(s): M32.8 - Other forms of systemic lupus erythematosus Is this a current diagnosis for this admission?: Yes Plan: - with renal failure - on prednisone 5 mg for years - will continue (5) Uncontrolled hypertension Is this a current diagnosis for this admission?: Yes Plan: -184/113 - currently on nitro drip titrating - 1 dose of 10 mg labetalol (6) Hypertension Qualifiers: Hypertension type: essential hypertension Qualified Code(s): I10 - Essential (primary) hypertension Is this a current diagnosis for this admission?: Yes Plan: - on clonidine and amlodipine (7) Status post living-donor kidney transplantation Is this a current diagnosis for this admission?: Yes Plan: - in 2016 - on prednisone - Plan Summary Summary: Patient is a 59-year-old female ESRD on dialysis history of kidney transplant SLE who came in the ED due to chest pain described as heaviness 10 out of 10 with shortness of breath towards the end of her dialysis. EKG showed sinus rhythm no acute ST elevation, troponin continues to trend up from 0.0 35, to 0.0 43. JAEL score of 4. Considering that she has ESRD and known SLE she will likely need angiogram urgently. I discussed the case with Dr. Kenny Toledo who recommended transfer to a tertiary care facility since we are unable to do angiogram at this point. She was started on nitro drip for chest pain Heparin for anticoagulation. She received aspirin4 tablets prior to coming to the ED - Time Time Spent with patient: 35 or more minutes Anticipated Discharge Disposition: Tertiary Anticipated Discharge Timeframe: when bed available
--- NOTE | 2020-02-17 07:00 | PDOC TRANSFER SUMMARY ---
General Admission Date/PCP: 02/16/20 19:59 CLAUDIA DUNN PA-C - Transfer Diagnosis (1) NSTEMI (non-ST elevated myocardial infarction) Is this a current diagnosis for this admission?: Yes (2) End stage renal disease on dialysis Is this a current diagnosis for this admission?: Yes (3) Lupus Is this a current diagnosis for this admission?: Yes (4) SLE (systemic lupus erythematosus) Is this a current diagnosis for this admission?: Yes (5) Uncontrolled hypertension Is this a current diagnosis for this admission?: Yes (6) Hypertension Is this a current diagnosis for this admission?: Yes (7) Status post living-donor kidney transplantation Is this a current diagnosis for this admission?: Yes - Transfer Medications Home Medications: Oxycodone HCl 10 mg PO Q8HP PRN 12/05/18 Prednisone [Deltasone 5 mg Tablet] 5 mg PO WBRKFST 08/28/19 Amlodipine Besylate [Norvasc 10 mg Tablet] 10 mg PO DAILY 02/16/20 Calcium Acetate [Phoslo 667 mg Capsule] 1,334 mg PO MEALS 02/16/20 Carvedilol [Coreg] 25 mg PO BID 02/16/20 Clonidine HCl [Catapres 0.2 mg Tablet] 0.2 mg PO BID 02/16/20 Mirtazapine 15 mg PO QHSX3D MDD 30MG PO AFTER INITIAL 3 DAYS 02/16/20 Transfer Medications: Current Medications Nitroglycerin/Dextrose (Ntg Rtu 50 Mg/D5w 250 Ml Iv Premix Bottle) 50 mg in 250 mls @ 0 mls/hr IV CONTINUOUS PRN; Protocol PRN Reason: THIS MED IS NOT "PRN" Stop: 03/17/20 21:04 Last Titration: 02/17/20 05:05 Dose: 20 mcg/min, 6 mls/hr Documented by: Epoetin Ranjith-epbx 10,000 unit/ (Syringe) 2 mls @ 0 mls/hr IV .DIALYSIS PRN PRN Reason: THIS MED IS NOT "PRN" Stop: 02/17/20 23:59 Heparin Sodium/Dextrose (Heparin Rtu 25,000 Unit/250 Ml D5w Premix) 25,000 unit in 250 mls @ 0 mls/hr IV CONTINUOUS PRN; Protocol PRN Reason: THIS MED IS NOT "PRN" Stop: 03/18/20 00:41 Last Admin: 02/17/20 02:17 Dose: 6.68 ml/hr, 6.68 mls/hr Documented by: - Allergies Allergies/Adverse Reactions: latex [Latex] Allergy (Mild, Verified 08/28/19 13:56) [place] [facility] Course Hospital Course: YUSUF CANTRELL is a 59 year old female, ESRD on dialysis Thursday, status post kidney transplant 2016, SLE, hypertension, atrial fibrillation, who who came to the ED due to chest pain. Patient was undergoing dialysis when she developed chest pain towards the end of her session at around 3 PM. Chest pain was described as heaviness radiating to left arm, 10 out of 10, with associated mild shortness of breath. About 1 L of fluid was given back during dialysis. She was given 4 tablets of aspirin, 3 tablets of sublingual nitroglycerin, and was sent to the emergency room. She had a similar episode back in November, and she was sent home and was advised to see a cover creaser. She has not been able to set up an appointment. She has not had any prior stress test or angiogram, no prior SD. She admits to having on and off chest heaviness with effort relieved by rest. In the emergency room blood pressure was was 162/114, heart rate of 70. She was given morphine 4 mg for chest pain. EKG showed sinus rhythm no acute ST elevation, troponin 0.[address] Victor Hugo Toledo nephrology was called as well as Dr. Kenny Toledo for cardiology consult. In the emergency room she continued to have chest pain 8 out of 10, repeat troponin trended up to .039 to .0 43. EKG unchanged. I spoke to Dr. Kenny Toledo regarding this patient since with continued rise of troponin and comorbidities she will likely need an angiogram within 24 hours which we cannot do today. He recommended transfer to tertiary care center, start nitroglycerin drip, and heparin drip. I have called [facility] and have spoken to Dr. Sweeney who accepted the patient. They currently do not have a bed but would update the emergency room when bed becomes available. I also spoke to KENNETH at [place] who has accepted the patient under Dr. Chase Uriarte awaiting bed assignment. Physical Exam Vital Signs: Temp Pulse Resp BP Pulse Ox 98.1 F 23 H 177/112 H 100 02/17/20 01:18 02/17/20 06:45 02/17/20 06:45 02/17/20 06:45 Intake & Output 02/15/20 02/16/20 02/17/20 06:59 06:59 06:59 Intake Total 22 Balance 22 Weight 55.7 kg Results Laboratory Results: 02/17/20 01:09 02/16/20 16:44 02/16/20 02/16/20 02/17/20 16:44 16:44 01:09 WBC 4.7 3.7 L RBC 3.73 3.50 L Hgb 9.4 L 9.0 L Hct 29.4 L 27.6 L MCV 79 L 79 L MCH 25.1 L 25.7 L MCHC 31.9 L 32.5 RDW 17.8 H 17.4 H Plt Count 327 291 Seg Neutrophils % Not Reportable Not Reportable Sodium 130.3 L Potassium 3.9 Chloride 95 L Carbon Dioxide 26 Anion Gap 9 BUN 19 Creatinine 2.77 H Est GFR ( Amer) 21 L Glucose 119 H Calcium 8.3 L Magnesium 1.9 Total Bilirubin 0.8 AST 22 Alkaline Phosphatase 76 Total Protein 7.5 Albumin 3.3 L 02/16/20 02/16/20 02/16/20 16:44 16:44 16:44 Creatine Kinase 37 Troponin I 0.035 NT-Pro-B Natriuret Pep [id number] H 02/16/20 02/16/20 20:11 23:37 Creatine Kinase Troponin I 0.039 0.043 NT-Pro-B Natriuret Pep Impressions: Chest X-Ray 02/16/20 16:40 IMPRESSION: Cardiomegaly with central vascular congestion suggesting CHF exacerbation. Plan Discharge Plan: for transfer to tertiary care center for urgent angiogram in light of ongoing chest pain, rising troponin. Discussed case with Dr. Kenny Toledo Cardiology. Time Spent: Greater than 30 Minutes
[2020-02-17 07:26] LABS: HEMATOCRIT 30.1 % (36.0-47.0); HEMOGLOBIN 9.4 g/dL (12.0-15.5); MEAN CORPUSCULAR HEMOGLOBIN 25.1 pg (27.0-33.4); MEAN CORPUSCULAR HGB CONC 31.2 g/dL (32.0-36.0); MEAN CORPUSCULAR VOLUME 80 fl (80-97); PLATELET COUNT 305 10^3/uL (150-450); RED BLOOD COUNT 3.76 10^6/uL (3.72-5.28); RED CELL DISTRIBUTION WIDTH 17.7 % (11.5-14.0); WHITE BLOOD COUNT 5.1 10^3/uL (4.0-10.5)
[2020-02-17 07:42] LABS: ANION GAP 10 (5-19); BLOOD UREA NITROGEN 26 mg/dL (7-20); CALCIUM 9.4 mg/dL (8.4-10.2); CARBON DIOXIDE 28 mmol/L (22-30); CHLORIDE 95 mmol/L (98-107); GLUCOSE 85 mg/dL (75-110); POTASSIUM 4.2 mmol/L (3.6-5.0)
[2020-02-17] MEDS ORDERED: OXYCODONE HCL IR 5 MG TABLET PO PRN ×2 (08:41→13:11)
[2020-02-17] MEDS ORDERED: PREDNISONE 5 MG TABLET PO SCH (09:30)
[2020-02-17] MEDS: CARVEDILOL 12.5 MG TABLET PO SCH ×2 (09:32→18:59)
[2020-02-17] MEDS: CLONIDINE HCL 0.2 MG TABLET PO SCH ×2 (09:33→18:59)
[2020-02-17] MEDS ORDERED: AMLODIPINE BESYLATE 10 MG TABLET PO SCH (10:00)
[2020-02-17] MEDS: CALCIUM ACETATE 667 MG CAPSULE PO SCH ×3 (10:12→19:03)
[2020-02-17] MEDS ORDERED: HEPARIN SOD (PORCINE) 1,000 UNIT/ML 10 ML VIAL IV PRN ×2 (12:31→14:12)
[2020-02-17] MEDS ORDERED: ACETAMINOPHEN 325 MG TABLET PO PRN (14:30)
[2020-02-17] MEDS ORDERED: MAG HYDROX/AL HYDROX/SIMETH SUSP 30 ML UDCUP PO PRN (14:30)
[2020-02-17] MEDS ORDERED: ONDANSETRON HCL INJ/PF 4 MG/2 ML SDV IV PRN (14:30)
[2020-02-17] MEDS ORDERED: IPRATROPIUM/ALBUTEROL 0.5-2.5 MG/3 ML AMPUL NEB PRN (14:30)
[2020-02-17] MEDS ORDERED: MORPHINE SULFATE 10 MG/ML INJ IV ONE (16:30)
--- NOTE | 2020-02-17 16:47 | EKG REPORT ---
SEVERITY:- ABNORMAL ECG - SINUS RHYTHM MULTIPLE ATRIAL PREMATURE COMPLEXES LEFT AXIS DEVIATION PROBABLE LEFT VENTRICULAR HYPERTROPHY BORDERLINE PROLONGED QT INTERVAL : Confirmed by: Kenny Toledo MD 17-Feb-2020 16:46:27
[2020-02-17] MEDS ORDERED: NITROGLYCERIN/D5W 50 MG/250 ML RTUINJ IV ONE (21:03)
[2020-02-17 21:07] VITALS: BP 141/97
--- NOTE | 2020-02-17 22:42 | PDOC CONSULTATION ---
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 The patient thought a lot of fluid was taken off causing the symptoms for which she was given back 1 L of IV fluids at the end of dialysis. She describes feeling chest pain across her chest with radiation to her jaw feeling tight in her left hand associated with palpitation, and tachycardia. EMS was called and she was brought to the emergency room. In the emergency room she was given aspirin, nitroglycerin and morphine. Her troponin trended up. Cardiology was consulted and Dr. Michael Toledo recommended transfer to tertiary care. Patient was accepted at [facility] but they do not have a bed yet. Nephrology was consulted to provide dialysis treatment. Since there is no certainty for the patient's transfer today and we do not provide dialysis over the weekend, I arrange for hemodialysis treatment today in the emergency room while waiting for a bed to be transferred at [facility]. I am seeing the patient on dialysis this afternoon. Patient states that she still have a little bit of chest pain. She states that her breathing is better. She has a slight dry cough but no fever. Currently she is hemodynamically stable and so far has been tolerating dialysis. She is currently receiving heparin drip and nitroglycerin drip. Past Medical History Cardiac Medical History: Reports: Atrial Fibrillation, Hyperlipidemia, Hypertension-primary Renal/ Medical History: Reports: End Stage Renal Disease - Was on dialysis for 6 months prior to kidney transplant, Renal Transplant, Other - History of lupus nephritis GI Medical History: Reports: Gastroesophageal Reflux Disease, Hiatal Hernia Musculoskeltal Medical History: Reports: Arthritis, Systemic Lupus Erythematosus Psychiatric Medical History: Reports: Depression Hematology Medical History: Reports Anemia of Chronic Kidney Disease Past Surgical History Past Surgical History: Reports: Herniorrhaphy, Orthopedic Surgery - neck fusion, Other - Renal transplant 11/2002; low back surgery Tess fundoplication Social History Information Source: Patient, [facility] Records Lives with: Family Smoking Status: Never Smoker Electronic Cigarette use?: No Frequency of Alcohol Use: None Hx Recreational Drug Use: No Drugs: None Hx Prescription Drug Abuse: No Family History Family History: Reviewed & Not Pertinent Parental Family History Reviewed: Yes Children Family History Reviewed: Yes Sibling(s) Family History Reviewed.: Yes Medication/Allergy Home Medications: Oxycodone HCl 10 mg PO Q8HP PRN 12/05/18 Prednisone [Deltasone 5 mg Tablet] 5 mg PO WBRKFST 08/28/19 Amlodipine Besylate [Norvasc 10 mg Tablet] 10 mg PO DAILY 02/16/20 Calcium Acetate [Phoslo 667 mg Capsule] 1,334 mg PO MEALS 02/16/20 Carvedilol [Coreg] 25 mg PO BID 02/16/20 Clonidine HCl [Catapres 0.2 mg Tablet] 0.2 mg PO BID 02/16/20 Mirtazapine 15 mg PO QHSX3D MDD 30MG PO AFTER INITIAL 3 DAYS 02/16/20 Allergies/Adverse Reactions: latex [Latex] Allergy (Mild, Verified 08/28/19 13:56) Hives Review of Systems All systems: reviewed and no additional remarkable complaints except as stated Review of Systems: Constitutional: ABSENT: chills, fatigue, fever(s), headache(s), weight gain, weight loss Eyes: ABSENT: visual disturbances Ears: ABSENT: hearing changes Cardiovascular: ABSENT: Dyspnea on exertion, edema, orthropnea; admits chest pain and palpitation Respiratory: ABSENT: Dyspnea, hemoptysis; admits dry cough Gastrointestinal: ABSENT: abdominal pain, constipation, diarrhea, hematemesis, hematochezia, nausea, vomiting Genitourinary: ABSENT: dysuria, hematuria Musculoskeletal: ABSENT: joint swelling Integumentary: ABSENT: rash, wounds Neurological: ABSENT: abnormal gait, abnormal speech, confusion, dizziness, focal weakness, numbness, syncope Psychiatric: ABSENT: anxiety, depression Endocrine: ABSENT: cold intolerance, heat intolerance, polydipsia, polyuria Hematologic/Lymphatic: ABSENT: easy bleeding, easy bruising, lymphadenopathy Physical Exam Vital Signs: Temp Pulse Resp BP Pulse Ox 98.1 F 17 135/90 H 100 02/17/20 01:18 02/17/20 11:01 02/17/20 11:01 02/17/20 11:01 Intake & Output 02/16/20 02/17/20 02/18/20 06:59 06:59 06:59 Intake Total 22 53 Balance 22 53 Weight 55.7 kg Vitals during dialysis: Blood pressure 148/97, heart rate of 76, respiration of 19, oxygen saturation 100% with 2 L of nasal cannula. Blood flow rate currently at 350 mL/min and dialysate flow rate of 800 mL/min. Exam: General appearance: No acute distress, cooperative, well-developed, well- nourished Head exam: PRESENT: atraumatic, normocephalic Eye exam: PRESENT: Conjunctiva Almond, EOMI, PERRLA. ABSENT: conjunctival injection, scleral icterus Mouth exam: PRESENT: moist, neck supple, tongue midline Neck exam: PRESENT: full ROM. ABSENT: carotid bruit, JVD, lymphadenopathy, thyromegaly Respiratory exam: PRESENT: Coarse breath sounds to auscultation bilaterally. ABSENT: rales, rhonchi, stridor, wheezes Cardiovascular exam: PRESENT: RRR, +S1, +S2. ABSENT: systolic murmur Pulses: PRESENT: normal radial pulses, normal dorsalis pedis pulses GI/Abdominal exam: PRESENT: normal bowel sounds, soft. ABSENT: guarding, mass, tenderness Rectal exam: Deferred Extremities exam: PRESENT: full ROM. ABSENT: calf tenderness, pedal edema Musculoskeletal: PRESENT: full ROM. ABSENT: deformity Neurological exam: PRESENT: alert, Awake, Oriented to person, Oriented to place, Oriented to time, reflexes normal, CN II-XII grossly intact. ABSENT: motor sensory deficit Psychiatric exam: PRESENT: appropriate affect, normal mood. ABSENT: homicidal ideation, suicidal ideation Skin exam: PRESENT: intact, dry, warm. ABSENT: rash Results Laboratory Results: 02/17/20 07:00 02/17/20 07:00 02/16/20 02/16/20 02/17/20 16:44 16:44 01:09 WBC 4.7 3.7 L RBC 3.73 3.50 L Hgb 9.4 L 9.0 L Hct 29.4 L 27.6 L MCV 79 L 79 L MCH 25.1 L 25.7 L MCHC 31.9 L 32.5 RDW 17.8 H 17.4 H Plt Count 327 291 Seg Neutrophils % Not Reportable Not Reportable Sodium 130.3 L Potassium 3.9 Chloride 95 L Carbon Dioxide 26 Anion Gap 9 BUN 19 Creatinine 2.77 H Est GFR ( Amer) 21 L Glucose 119 H Calcium 8.3 L Magnesium 1.9 Total Bilirubin 0.8 AST 22 Alkaline Phosphatase 76 Total Protein 7.5 Albumin 3.3 L 02/17/20 02/17/20 07:00 07:00 WBC 5.1 RBC 3.76 Hgb 9.4 L Hct 30.1 L MCV 80 MCH 25.1 L MCHC 31.2 L RDW 17.7 H Plt Count 305 Seg Neutrophils % Sodium 133.0 L Potassium 4.2 Chloride 95 L Carbon Dioxide 28 Anion Gap 10 BUN 26 H Creatinine 3.88 H Est GFR ( Amer) 14 L Glucose 85 Calcium 9.4 Magnesium Total Bilirubin AST Alkaline Phosphatase Total Protein Albumin 02/16/20 02/16/20 02/16/20 16:44 16:44 16:44 Creatine Kinase 37 Troponin I 0.035 NT-Pro-B Natriuret Pep [id number] H 02/16/20 02/16/20 02/17/20 20:11 23:37 07:00 Creatine Kinase Troponin I 0.039 0.043 0.035 NT-Pro-B Natriuret Pep Impressions: Chest X-Ray 02/16/20 16:40 IMPRESSION: Cardiomegaly with central vascular congestion suggesting CHF exacerbation. Assessment & Plan - Diagnosis (1) NSTEMI (non-ST elevated myocardial infarction) Is this a current diagnosis for this admission?: Yes Plan: Patient currently on nitroglycerin drip and heparin drip awaiting transfer to [facility]. (2) End stage renal disease on dialysis Is this a current diagnosis for this admission?: Yes Plan: We will do dialysis today for 2.5 hours, using the patient's PermCath, with 3 potassium bath, blood flow rate of 350 mL per minute, dialysate flow rate of 800 mL per minute, ultrafiltration 500 to 1000 mL as tolerated, on systemic heparin and Procrit with 10,000 units during dialysis intravenously. Patient is being monitored throughout dialysis treatment here in the emergency room. (3) Anemia in chronic kidney disease, on chronic dialysis Is this a current diagnosis for this admission?: Yes Plan: Retacrit to be given during dialysis as needed. (4) Hypertension Qualifiers: Hypertension type: essential hypertension Qualified Code(s): I10 - Essential (primary) hypertension Is this a current diagnosis for this admission?: Yes (5) Status post living-donor kidney transplantation Is this a current diagnosis for this admission?: Yes Plan: Kidney transplant has failed leading to initiation of chronic hemodialysis treatment. - Notes Notes: Thank you very much for this consultation. Discussed with Dr. Bauman. - Time Time with patient: Greater than 35 minutes
--- NOTE | 2020-02-18 10:55 | PDOC CONSULTATION ---
Consultation Consult Date: 02/17/20 Attending physician:: MICHAEL THOMAS Provider Consulted: NARENDRA RIVERA Consult reason:: Chest pain History of Present Illness Admission Date/PCP: 02/16/20 19:59 CLAUDIA DUNN PA-C Patient complains of: Chest pain History of Present Illness: YUSUF CANTRELL is a 59 year old female With the following active problems 1. Systemic hypertension 2. End-stage renal [id number] 3. Kidney transplant 2015 4. SLE 5. Paroxysmal atrial fibrillation She was at dialysis and towards the end of the dialysis session experienced chest pain. Apparently although fluid has been removed some of the fluid was given back at dialysis and the patient was brought to the emergency room. It is reported that the patient has had chest pain like this previously and cardiology evaluation was recommended but not pursued. Since admission to the hospital patient continued to have chest pain and was initiated on intravenous heparin as well as nitroglycerin infusion. Her troponin level was abnormal but her EKG did not have any acute changes. Overnight her chest pain is subsided and her troponin profile has remained relatively flat which would be consistent with end-stage renal disease and left ventricular hypertrophy. She is no longer experiencing chest pain. Review systems is positive for chest pain. Full 11 review of systems was asked. Pertinent positives noted here and in the HPI all other systems are negative. Past Medical History Cardiac Medical History: Reports: Congestive Heart Failure, Hyperlipidema, Hypertension Pulmonary Medical History: Denies: Tuberculosis Neurological Medical History: Denies: Seizures Endocrine Medical History: Denies: Diabetes Mellitus Type 2 Renal/ Medical History: Reports: End Stage Renal Disease - Was on dialysis for 6 months prior to kidney transplant GI Medical History: Reports: Gastroesophageal Reflux Disease, Hiatal Hernia Musculoskeltal Medical History: Reports: Arthritis Psychiatric Medical History: Reports: Depression Hematology: Reports: Anemia Past Surgical History Past Surgical History: Reports: Herniorrhaphy, Orthopedic Surgery - neck fusion, Other - Renal transplant 2001; low back surgery Tess fundoplication Denies: Hysterectomy Social History Lives with: Family Smoking Status: Never Smoker Frequency of Alcohol Use: None Hx Recreational Drug Use: No Drugs: None Hx Prescription Drug Abuse: No Family History Family History: Reviewed & Not Pertinent, Hypertension, Malignancy Parental Family History Reviewed: No Children Family History Reviewed: NA Sibling(s) Family History Reviewed.: NA Medication/Allergy Home Medications: Oxycodone HCl 10 mg PO Q8HP PRN 12/05/18 Prednisone [Deltasone 5 mg Tablet] 5 mg PO [id number] 08/28/19 Amlodipine Besylate [Norvasc 10 mg Tablet] 10 mg PO DAILY 02/16/20 Calcium Acetate [Phoslo 667 mg Capsule] 1,334 mg PO MEALS 02/16/20 Carvedilol [Coreg] 25 mg PO BID 02/16/20 Clonidine HCl [Catapres 0.2 mg Tablet] 0.2 mg PO BID 02/16/20 Mirtazapine 15 mg PO [id number] MDD 30MG PO AFTER INITIAL 3 DAYS 02/16/20 Allergies/Adverse Reactions: latex [Latex] Allergy (Mild, Verified 08/28/19 13:56) Hives Physical Exam Vital Signs: Temp Pulse Resp BP Pulse Ox 98.1 F 16 148/100 H 98 02/17/20 01:18 02/17/20 15:01 02/17/20 15:01 02/17/20 14:01 Intake & Output 02/16/20 02/17/20 02/18/20 06:59 06:59 06:59 Intake Total 22 107 Balance 22 107 Weight 55.7 kg Results Laboratory Results: 02/17/20 07:00 02/17/20 07:00 02/16/20 02/16/20 02/17/20 16:44 16:44 01:09 WBC 4.7 3.7 L RBC 3.73 3.50 L Hgb 9.4 L 9.0 L Hct 29.4 L 27.6 L MCV 79 L 79 L MCH 25.1 L 25.7 L MCHC 31.9 L 32.5 RDW 17.8 H 17.4 H Plt Count 327 291 Seg Neutrophils % Not Reportable Not Reportable Sodium 130.3 L Potassium 3.9 Chloride 95 L Carbon Dioxide 26 Anion Gap 9 BUN 19 Creatinine 2.77 H Est GFR ( Amer) 21 L Glucose 119 H Calcium 8.3 L Magnesium 1.9 Total Bilirubin 0.8 AST 22 Alkaline Phosphatase 76 Total Protein 7.5 Albumin 3.3 L 02/17/20 02/17/20 07:00 07:00 WBC 5.1 RBC 3.76 Hgb 9.4 L Hct 30.1 L MCV 80 MCH 25.1 L MCHC 31.2 L RDW 17.7 H Plt Count 305 Seg Neutrophils % Sodium 133.0 L Potassium 4.2 Chloride 95 L Carbon Dioxide 28 Anion Gap 10 BUN 26 H Creatinine 3.88 H Est GFR ( Amer) 14 L Glucose 85 Calcium 9.4 Magnesium Total Bilirubin AST Alkaline Phosphatase Total Protein Albumin 02/16/20 02/16/20 02/16/20 16:44 16:44 16:44 Creatine Kinase 37 Troponin I 0.035 NT-Pro-B Natriuret Pep [id number] H 02/16/20 02/16/20 02/17/20 20:11 23:37 07:00 Creatine Kinase Troponin I 0.039 0.043 0.035 NT-Pro-B Natriuret Pep Impressions: Chest X-Ray 02/16/20 16:40 IMPRESSION: Cardiomegaly with central vascular congestion suggesting CHF exacerbation. Assessment & Plan - Notes Notes: Chest pain in a patient with end-stage renal disease, hemodialysis, lupus. EKG shows sinus rhythm with left ventricular hypertrophy and premature atrial complexes. No acute changes to suggest ischemia or injury. Troponin elevation showed relatively flat troponin profile. Since patient was initially symptomatic with chest pain she was started on intravenous heparin infusion together with nitroglycerin infusion. This is resulted in resolution of chest pain. Since the patient has had no previous cardiac work-up and there is intermediate to high likelihood of presence of coronary artery disease it would be reasonable to pursue cardiac catheterization. Since the patient is chest pain-free at the moment this can be arranged at this hospital preferably after the weekend is over. As the patient was having active chest pain she was transferred out of the hospital to another facility before I could physically consult. Chart review was performed and my opinion was conveyed to the rounding physician. We are all in agreement that with active chest pain which is difficult to control despite the use of intravenous heparin and nitroglycerin she would need prompt evaluation in a cardiac supervisor labor gang to exclude ongoing myocardial ischemia
== END 2020-02-17 21:12 | disposition short-term general hospital (02) | DRG 280 ==
LOC: ER 16:26 → EH 19:59
PROVIDERS: ADMIT Internal Medicine; ATTEND Hospitalist
PROC: 5A1D70Z Performance of Urinary Filtration, Intermittent, Less than 6 Hours Per Day (ICD-10-PCS; principal; 2020-02-16)
DX: I21.4 Non-ST elevation (NSTEMI) myocardial infarction (principal); N18.6 End stage renal disease; T86.12 Kidney transplant failure; I13.2 Hypertensive heart and chronic kidney disease with heart failure and with stage 5 chronic kidney disease, or end stage renal disease; Z94.0 Kidney transplant status; M32.14 Glomerular disease in systemic lupus erythematosus; D63.1 Anemia in chronic kidney disease; M32.9 Systemic lupus erythematosus, unspecified; I50.9 Heart failure, unspecified; I48.0 Paroxysmal atrial fibrillation; E78.5 Hyperlipidemia, unspecified; K21.9 Gastro-esophageal reflux disease without esophagitis; K44.9 Diaphragmatic hernia without obstruction or gangrene; M19.90 Unspecified osteoarthritis, unspecified site; F32.9 Major depressive disorder, single episode, unspecified; Z99.2 Dependence on renal dialysis; Z79.52 Long term (current) use of systemic steroids; Z79.899 Other long term (current) drug therapy; Z91.040 Latex allergy status; Z98.1 Arthrodesis status; Z82.49 Family history of ischemic heart disease and other diseases of the circulatory system
CPT/HCPCS: 36415; 71045; 80048; 80053; 82550; 83735; 83880; 84484; 85025; 85027; 85379; 85610; 85730; 93005; 93010; 96374; 96375; 99285; G0257; J1644; J2270; J3490; J7512; Q5105

== ENCOUNTER 2020-02-22 20:45 | Inpatient (IN) | payer MEDICARE, MEDICAID ==
--- NOTE | 2020-02-22 21:55 | ER Document Report ---
ED Medical Screen (RME) - General Chief Complaint: Shortness Of Breath Stated Complaint: SHORTNESS OF BREATH Time Seen by Provider: 02/22/20 21:51 Primary Care Provider: CLAUDIA DUNN PA-C [Primary Care Provider] - Follow up as needed Notes: Patient is a 59-year-old female with a history of end-stage renal disease on dialysis who presents emergency department with a chief complaint of shortness of breath. Patient reports that she was seen here last week for the same and thought it was her heart. She states that she was transferred about at hospital discharge. Patient reports she did go to dialysis on Thursday and is due for tomorrow. Patient reports over the past week she has had increasing shortness of breath. Reports 2 negative COVID test over the past 2 weeks. Patient reports chills. TRAVEL OUTSIDE OF THE [place] IN LAST 30 DAYS: No - Related Data Allergies/Adverse Reactions: latex [Latex] Allergy (Mild, Verified 08/28/19 13:56) Hives Past Medical History - Past Medical History Cardiac Medical History: Reports: Hx Atrial Fibrillation, Hx Congestive Heart Failure, Hx Hypercholesterolemia, Hx Hypertension Pulmonary Medical History: Denies: Hx Tuberculosis Neurological Medical History: Denies: Hx Seizures Endocrine Medical History: Denies: Hx Diabetes Mellitus Type 2 Renal/ Medical History: Reports: Hx End Stage Renal Disease - Was on dialysis for 6 months prior to kidney transplant. Denies: Hx Peritoneal Dialysis GI Medical History: Reports: Hx Gastroesophageal Reflux Disease, Hx Hiatal Hernia, Hx Endoscopy - Patient had an endoscopy at [facility] approximately 2 months ago. Musculoskeltal Medical History: Reports Hx Arthritis, Reports Hx Systemic Lupus Erythematosus Psychiatric Medical History: Reports: Hx Depression Past Surgical History: Reports: Hx Herniorrhaphy, Hx Kidney (Renal Surgery) - kidney transplant 2002, Hx Orthopedic Surgery - neck fusion, Other - Renal transplant 2001; low back surgery Tess fundoplication. Denies: Hx Hysterectomy - Immunizations Hx Diphtheria, Pertussis, Tetanus Vaccination: Yes - unk Physical Exam - Vital signs Vitals: Temp Pulse Resp BP Pulse Ox 99.3 F 100 20 192/96 H 95 02/22/20 21:04 02/22/20 21:04 02/22/20 21:04 02/22/20 21:04 02/22/20 21:04 - Respiratory Breath sounds: Rhonchi Notes: Congested cough noted on examination. Course - Re-evaluation Re-evalutation: 02/22/20 21:54 Patient noted to be hypertensive in triage. Patient is not hypoxic. Will initiate basic labs as well as an EKG and chest x-ray. I have greeted and performed a rapid initial assessment of this patient. A comprehensive ED assessment and evaluation of the patient, analysis of test results and completion of the medical decision making process will be conducted by additional ED providers. - Vital Signs Vital signs: Temp Pulse Resp BP Pulse Ox 99.3 F 100 20 192/96 H 95 02/22/20 21:04 02/22/20 21:04 02/22/20 21:04 02/22/20 21:04 02/22/20 21:04 Doctor's Discharge - Discharge Referrals: CLAUDIA DUNN PA-C [Primary Care Provider] - Follow up as needed
[2020-02-22 22:34] LABS: HEMATOCRIT 29.6 % (36.0-47.0); HEMOGLOBIN 9.4 g/dL (12.0-15.5); MEAN CORPUSCULAR HEMOGLOBIN 25.3 pg (27.0-33.4); MEAN CORPUSCULAR HGB CONC 31.7 g/dL (32.0-36.0); MEAN CORPUSCULAR VOLUME 80 fl (80-97); PLATELET COUNT 313 10^3/uL (150-450); RED BLOOD COUNT 3.71 10^6/uL (3.72-5.28); RED CELL DISTRIBUTION WIDTH 18.6 % (11.5-14.0); WHITE BLOOD COUNT 5.7 10^3/uL (4.0-10.5)
[2020-02-22] MEDS ORDERED: MORPHINE SULFATE 10 MG/ML INJ IV ONE (22:40)
[2020-02-22 22:41] LABS: ALBUMIN 3.7 g/dL (3.5-5.0); ALKALINE PHOSPHATASE 80 U/L (38-126); ANION GAP 13 (5-19); ASPARTATE AMINO TRANSFERASE 18 U/L (14-36); BILIRUBIN,DIRECT 0.6 mg/dL (0.0-0.4); BILIRUBIN,TOTAL 0.7 mg/dL (0.2-1.3); BLOOD UREA NITROGEN 46 mg/dL (7-20); CALCIUM 10.4 mg/dL (8.4-10.2); CARBON DIOXIDE 27 mmol/L (22-30); CHLORIDE 93 mmol/L (98-107); GLUCOSE 108 mg/dL (75-110); POTASSIUM 4.5 mmol/L (3.6-5.0); TOTAL PROTEIN 8.4 g/dL (6.3-8.2)
--- NOTE | 2020-02-22 22:54 | RADIOLOGY REPORT (SQ) ---
EXAM DESCRIPTION: XR CHEST 1 VIEW COMPLETED DATE/TME: 02/22/2020 21:52 CLINICAL HISTORY: 59 years, Female, Shortness of breath COMPARISON: 02/16/2020 chest NUMBER OF VIEWS: 1 TECHNIQUE: Portable chest LIMITATIONS: None. FINDINGS: Cardiomegaly. Central venous catheter in place. Osteopenia. Mild interstitial edema. Tiny effusions are suspected bilaterally. No pneumothorax IMPRESSION: Cardiomegaly with mild interstitial edema and tiny bibasilar effusions copyright 2011 [employer]- All Rights Reserved
[2020-02-22 22:55] LABS: ABSOLUTE LYMPHOCYTES# (MANUAL) 2.6 10^3/uL (0.5-4.7); ABSOLUTE MONOCYTES # (MANUAL) 0.5 10^3/uL (0.1-1.4); BASOPHILS % (MANUAL) 1 % (0-2); EOSINOPHILS % (MANUAL) 5 % (0-6); LYMPHOCYTES % (MANUAL) 46 % (13-45); MONOCYTES % (MANUAL) 9 % (3-13); SEGMENTED NEUTROPHILS % (MAN) 39 % (42-78); TOTAL CELLS COUNTED 100
[2020-02-22 22:59] LABS: ANISOCYTOSIS 1+; HYPOCHROMASIA SLIGHT; TOXIC GRANULATION SLIGHT; TOXIC VACUOLATION PRESENT
[2020-02-22 23:00] LABS: OVALOCYTES 1+; PLATELET COMMENT ADEQUATE
--- NOTE | 2020-02-22 23:13 | ER Document Report ---
ED Respiratory Problem - General Chief Complaint: Shortness Of Breath Stated Complaint: SHORTNESS OF BREATH Time Seen by Provider: 02/22/20 21:51 Primary Care Provider: CLAUDIA DUNN PA-C [ALLIED HEALTH PROFESSIONAL] - Follow up as needed Notes: Patient is a 59-year-old female with a history of end-stage renal disease, on dialysis, and congestive heart failure presents emergency department with a chief complaint of shortness of breath. Patient states that she was here last week for chest pain. She was actually the patient I saw. She had a cath done at [facility], which was clear. Patient states that she still has the same shortness of breath pain. She did not have any shortness of breath at that time. Her COVID test were negative twice last week. Patient states that she has chills. Denies any fever. TRAVEL OUTSIDE OF THE [place] IN LAST 30 DAYS: No - Related Data Allergies/Adverse Reactions: latex [Latex] Allergy (Mild, Verified 08/28/19 13:56) Hives Past Medical History - Social History Smoking Status: Never Smoker Family History: Reviewed & Not Pertinent, Hypertension, Malignancy - Past Medical History Cardiac Medical History: Reports: Hx Atrial Fibrillation, Hx Congestive Heart Failure, Hx Hypercholesterolemia, Hx Hypertension Pulmonary Medical History: Denies: Hx Tuberculosis Neurological Medical History: Denies: Hx Seizures Endocrine Medical History: Denies: Hx Diabetes Mellitus Type 2 Renal/ Medical History: Reports: Hx End Stage Renal Disease - Was on dialysis for 6 months prior to kidney transplant. Denies: Hx Peritoneal Dialysis GI Medical History: Reports: Hx Gastroesophageal Reflux Disease, Hx Hiatal Hernia, Hx Endoscopy - Patient had an endoscopy at [facility] approximately 2 months ago. Musculoskeletal Medical History: Reports Hx Arthritis, Reports Hx Systemic Lupus Erythematosus Psychiatric Medical History: Reports: Hx Depression Past Surgical History: Reports: Hx Herniorrhaphy, Hx Kidney (Renal Surgery) - kidney transplant 2002, Hx Orthopedic Surgery - neck fusion, Other - Renal transplant 2001; low back surgery Tess fundoplication. Denies: Hx Hysterectomy - Immunizations Hx Diphtheria, Pertussis, Tetanus Vaccination: Yes - unk Hx Pneumococcal Vaccination: 06/08/09 Review of Systems - Review of Systems Notes: REVIEW OF SYSTEMS: CONSTITUTIONAL : Denies recent illness. Denies recent unintentional weight loss. See HPI. EENT: Denies eye, ear, throat, or mouth pain, discharge, or symptoms. Denies nasal or sinus congestion. CARDIOVASCULAR: Denies chest pain. RESPIRATORY: See HPI. GASTROINTESTINAL: Denies nausea, vomiting, and diarrhea. Denies abdominal pain. Denies constipation. GENITOURINARY: Denies difficulty urinating, burning, blood in urine, urgency or frequency. MUSCULOSKELETAL: Denies neck and back pain. Denies joint pain or swelling. SKIN: Denies rash, itchiness, or lesions HEMATOLOGIC : Denies easy bruising or bleeding. LYMPHATIC: Denies swollen, painful, enlarged glands. NEUROLOGICAL: Denies no numbness or tingling denies weakness. Denies headache. Denies altered mental status. Denies alteration in speech. PSYCHIATRIC: Denies stress, anxiety, alteration in sleep patterns, or depression. All other systems reviewed and negative. Physical Exam - Vital signs Vitals: Temp Pulse Resp BP Pulse Ox 99.3 F 100 20 192/96 H 95 02/22/20 21:04 02/22/20 21:04 02/22/20 21:04 02/22/20 21:04 02/22/20 21:04 - Notes Notes: PHYSICAL EXAMINATION: GENERAL: Appears well, healthy, well-nourished, no acute distress. HEAD: Normocephalic, atraumatic. EYES: PERRL, conjunctiva normal, all extraocular movements intact, sclera nonicteric ENT: Moist mucous membranes. NECK: Supple, no noticeable swelling, redness, rash. Normal range of motion. LUNGS: Diminished in the bases. CARDIOVASCULAR: S1-S2, regular rate, regular rhythm. Radial pulses 2+, normal. ABDOMEN: Normoactive bowel sounds. Soft, nontender, no guarding, no rebound t enderness, and no masses palpated. EXTREMITIES: Normal strength and range of motion, no pitting or edema. No cyanosis. NEUROLOGICAL: Moves all extremities upon command. Strength 5/5 in all extrem ities. PSYCH: Normal mood, normal affect. SKIN: Warm, dry. No rash, lesions, ulcerations noted. Normal skin turgor. Course - Re-evaluation Re-evalutation: 02/23/20 00:00 Multiple attempts to establish IV access, but this was unsuccessful. CTA of the chest canceled and VQ scan ordered. 02/23/20 02:00 Patient's blood pressure is elevated, most likely due to her pain and feeling anxious. We will give the patient some clonidine, as she is has not taken it today. Also give her 1 mg of Dilaudid. 02/23/20 07:[address] Gay, the equity manager here. 02/23/20 07:30 I was informed by Dr. Ashford that patient had multiple pulmonary emboli noted on the VQ scan. I was informed by the nursing staff that there were no dialysis beds available. 02/23/20 07:44 I called [facility] and they are on regional diversion for any patients that do not have a stroke, STEMI, or trauma. 02/23/20 08:00 I spoke with the hospitalist, Dr. Becerra. She will enquire about possible admission here. 02/23/20 08:35 I called [facility]. 02/23/20 09:[address] Gay, he will speak with his nursing operations supervisor chemical cleaning to see if we can possibly accommodate patient. 02/23/20 09:[address] Gay again. He will be able to accommodate the patient. I then attempted to call hospitalist. Will await callback. 02/23/20 09:[address] Becerra. The patient will be admitted to the telemetry floor. - Vital Signs Vital signs: Temp Pulse Resp BP Pulse Ox 98.6 F 93 23 H 162/103 H 96 02/23/20 01:55 02/23/20 02:35 02/23/20 09:01 02/23/20 09:00 02/23/20 09:01 - Laboratory Result Diagrams: 02/23/20 08:10 02/22/20 22:04 Laboratory results interpreted by me: 02/22/20 02/22/20 02/23/20 22:04 22:04 08:10 RBC 3.71 L 3.51 L Hgb 9.4 L 8.9 L Hct 29.6 L 28.2 L MCH 25.3 L 25.5 L MCHC 31.7 L 31.6 L RDW 18.6 H 18.5 H Seg Neuts % (Manual) 39 L Lymphocytes % (Manual) 46 H APTT Sodium 133.1 L Chloride 93 L BUN 46 H Creatinine 5.73 H Est GFR ( Amer) 9 L Est GFR (MDRD) Non-Af 8 L Calcium 10.4 H Direct Bilirubin 0.6 H Total Protein 8.4 H 02/23/20 08:10 RBC Hgb Hct MCH MCHC RDW Seg Neuts % (Manual) Lymphocytes % (Manual) APTT 39.0 H Sodium Chloride BUN Creatinine Est GFR ( Amer) Est GFR (MDRD) Non-Af Calcium Direct Bilirubin Total Protein Discharge - Discharge Clinical Impression: Shortness of breath Pulmonary emboli Qualifiers: Pulmonary embolism type: multiple subsegmental (without acute cor pulmonale) Qualified Code(s): I26.94 - Multiple subsegmental pulmonary emboli without acute cor pulmonale Condition: Stable Disposition: ADMITTED INPATIENT Admitting Provider: Hernan (Hospitalist) Unit Admitted: Telemetry Referrals: CLAUDIA DUNN PA-C [ALLIED HEALTH PROFESSIONAL] - Follow up as needed
[2020-02-23] MEDS ORDERED: MORPHINE SULFATE 10 MG/ML INJ IV ONE (01:30)
[2020-02-23] MEDS ORDERED: HYDROMORPHONE HCL INJ/PF 2 MG/ML AMPULE IV ONE ×2 (01:56→08:29)
[2020-02-23] MEDS ORDERED: CLONIDINE HCL 0.2 MG TABLET PO ONE (01:59)
[2020-02-23] MEDS ORDERED: PREDNISONE 20 MG TABLET PO ONE (01:59)
[2020-02-23] MEDS ORDERED: ATORVASTATIN CALCIUM 40 MG TABLET PO ONE (02:00)
--- NOTE | 2020-02-23 07:17 | RADIOLOGY REPORT (SQ) ---
Perfusion lung scan: Clinical indication: 59-year old patient with dyspnea. Comparison: Chest radiograph performed 02/22/2020. Technique: Following the intravenous injection of 5.0 mCi of technetium 99m labeled MAA, planar images of the chest were obtained in multiple projections. No ventilation imaging was obtained. Findings: There is heterogeneous radiotracer distribution in the lungs on perfusion images. There are segmental defects seen within the lung bases. There are bibasilar airspace opacities within the lung bases. Impression: There are moderate segmental defects seen within the lung bases consistent with an intermediate probability examination in comparison to recent chest radiograph.
[2020-02-23] MEDS ORDERED: HEPARIN SODIUM,PORCINE/D5W 25,000 UNIT/250 ML RTUINJ IV PRN (07:36)
[2020-02-23] MEDS ORDERED: HEPARIN SOD (PORCINE) 1,000 UNIT/ML 10 ML VIAL IV ONE (07:36)
[2020-02-23 08:38] LABS: INTERNATIONAL RATION (INR) 1.18; PROTHROMBIN TIME 15.2 SEC (11.4-15.4)
[2020-02-23 08:39] LABS: HEMATOCRIT 28.2 % (36.0-47.0); HEMOGLOBIN 8.9 g/dL (12.0-15.5); MEAN CORPUSCULAR HEMOGLOBIN 25.5 pg (27.0-33.4); MEAN CORPUSCULAR HGB CONC 31.6 g/dL (32.0-36.0); MEAN CORPUSCULAR VOLUME 81 fl (80-97); RED BLOOD COUNT 3.51 10^6/uL (3.72-5.28); RED CELL DISTRIBUTION WIDTH 18.5 % (11.5-14.0); WHITE BLOOD COUNT 4.9 10^3/uL (4.0-10.5)
[2020-02-23 09:12] LABS: ABSOLUTE LYMPHOCYTES# (MANUAL) 0.9 10^3/uL (0.5-4.7); ABSOLUTE MONOCYTES # (MANUAL) 0.2 10^3/uL (0.1-1.4); BASOPHILS % (MANUAL) 0 % (0-2); EOSINOPHILS % (MANUAL) 2 % (0-6); LYMPHOCYTES % (MANUAL) 16 % (13-45); MONOCYTES % (MANUAL) 5 % (3-13); SEGMENTED NEUTROPHILS % (MAN) 75 % (42-78); TOTAL CELLS COUNTED 100
[2020-02-23 09:14] LABS: ANISOCYTOSIS 2+; HYPOCHROMASIA SLIGHT; OVALOCYTES SLIGHT; PLATELET COMMENT ADEQUATE; POLYCHROMASIA SLIGHT; TEAR DROP CELLS SLIGHT; TOXIC GRANULATION 1+
[2020-02-23 09:15] LABS: PLATELET CLUMPS PRESENT; PLATELET COUNT 288 10^3/uL (150-450)
--- NOTE | 2020-02-23 09:17 | EKG REPORT ---
SEVERITY:- ABNORMAL ECG - SINUS RHYTHM LEFT ANTERIOR FASCICULAR BLOCK CONSIDER LEFT VENTRICULAR HYPERTROPHY : Confirmed by: Jason Flores 23-Feb-2020 09:16:48
[2020-02-23] MEDS ORDERED: HEPARIN SOD (PORCINE) 1,000 UNIT/ML 10 ML VIAL IV PRN (10:37)
--- NOTE | 2020-02-23 10:58 | ER Document Report ---
Doctor's Note Notes: 02/23/20 10:55 This is a 59-year-old female with chest pain I was asked to see with the nurse practitioner. This lady had recently been admitted to [facility] in [facility] underwent extensive cardiac evaluation including a heart cath that was negative. She apparently did not have work-up for PE. I have reviewed all pertinent clinical records and have briefly examined the patient myself at bedside. Patient underwent VQ scan today which came back intermediate probability of PE with multiple defects both lower lungs. She is hemodynamically stable and oxygenating normally. She is comfortable on 2 L of nasal O2. We note that this lady has end-stage renal disease and is on Thursday dialysis. She clearly needs anticoagulation is my recommendation that she be started on IV heparin and admitted and subsequently will be transitioned to warfarin. Nephrology is also to be consulted regarding the need for dialysis.
[2020-02-23] MEDS ORDERED: ACETAMINOPHEN 325 MG TABLET PO PRN (11:37)
[2020-02-23] MEDS ORDERED: ONDANSETRON 4 MG TAB.RAPDIS PO PRN (11:37)
[2020-02-23] MEDS ORDERED: MIRTAZAPINE 15 MG PO SCH (12:00)
--- NOTE | 2020-02-23 12:30 | RADIOLOGY REPORT (SQ) ---
EXAM DESCRIPTION: VENOUS BILATERAL LOWER IMAGES COMPLETED DATE/TIME: 02/23/2020 12:15 pm REASON FOR STUDY: intermediate PE probability COMPARISON: 10/18/2019 TECHNIQUE: Dynamic and static villalba scale and color images acquired of both lower extremity venous sy stems. Selected spectral images acquired with additional compression and augmentation maneuvers. Imag es stored on PACS. LIMITATIONS: None. FINDINGS: RIGHT LEG COMMON FEMORAL AND FEMORAL: Normal phasicity, compression and augmentation. No visualized echogenic m aterial on villalba scale. No defects on color images. POPLITEAL: Normal compression and augmentation. No visualized echogenic material on villalba scale. No de fects on color images. CALF VESSELS: Normal compression and augmentation. No visualized echogenic material on villalba scale. No defects on color image. GSV AND SSV: Normal compression. No visualized echogenic material on villalba scale. No defects on color images. ANY DEEP VENOUS INSUFFICIENCY: Not evaluated. ANY EVIDENCE OF POPLITEAL CYST: No. OTHER: No other significant finding. LEFT LEG COMMON FEMORAL AND FEMORAL: Normal phasicity, compression and augmentation. No visualized echogenic m aterial on villalba scale. No defects on color images. POPLITEAL: Normal compression and augmentation. No visualized echogenic material on villalba scale. No de fects on color images. CALF VESSELS: Normal compression and augmentation. No visualized echogenic material on villalba scale. No defects on color images. GSV AND SSV: Normal compression. No visualized echogenic material on villalba scale. No defects on color images. ANY DEEP VENOUS INSUFFICIENCY: Not evaluated. ANY EVIDENCE POPLITEAL CYST: No. OTHER: No other significant finding. IMPRESSION: NO EVIDENCE DVT OR SVT IN EITHER LEG. TECHNICAL DOCUMENTATION: JOB ID: [id number] 2010 [employer]- All Rights Reserved Reading location - IP/workstation name: [email or web address]
--- NOTE | 2020-02-23 15:16 | PDOC H&P ---
History of Present Illness Admission Date/PCP: 02/23/20 10:27 LEANNA KAMINSKI MD Patient complains of: chest pain History of Present Illness: YUSUF CANTRELL is a 59 year old female, PMH of SLE, Lupus nephritis, ESRD on dialysis Thursday, status post kidney transplant 2015, hypertension, atrial fibrillation, who came in the ED due to persistent chest pain. She was initially seen in the emergency room at [place] on February 16, 2020 due to chest pain towards the end of her dialysis session. Chest pain was described as heaviness, 10 out of 10, with mild shortness of breath. Her troponin trended up with a EKG showing no ST elevation. She was diagnosed with NSTEMI in the ED and was started on heparin drip and nitroglycerin drip and she was subsequently transferred to [facility] for an angiogram since we are unable to do angiogram at [place]. She went to [facility] on February 16 and subsequently underwent angiogram. She did not require any stent placement and she was started on aspirin. Her chest pain continued since then despite being on aspirin and nitroglycerin. She came back to the emergency room today. VQ scan was ordered which was read as intermediate probability for PE. She has no prior history. She was started on heparin drip and was subsequently admitted for further evaluation and management. Ultrasound of the lower leg did not show any DVT. Past Medical History Cardiac Medical History: Reports: Atrial Fibrillation, Congestive Heart Failure, Hyperlipidema, Hypertension Pulmonary Medical History: Denies: Tuberculosis Neurological Medical History: Denies: Seizures Endocrine Medical History: Denies: Diabetes Mellitus Type 2 Renal/ Medical History: Reports: End Stage Renal Disease - Was on dialysis for 6 months prior to kidney transplant Malignancy Medical History: Reports: Other - History of lupus GI Medical History: Reports: Gastroesophageal Reflux Disease, Hiatal Hernia Musculoskeltal Medical History: Reports: Arthritis Psychiatric Medical History: Reports: Depression Hematology: Reports: Anemia Past Surgical History Past Surgical History: Reports: Herniorrhaphy, Orthopedic Surgery - neck fusion, Other - Renal transplant 2001; low back surgery Tess fundoplication Denies: Hysterectomy Social History Information Source: Patient Smoking Status: Never Smoker Frequency of Alcohol Use: None Hx Recreational Drug Use: No Drugs: None Hx Prescription Drug Abuse: No Family History Family History: Reviewed & Not Pertinent, Hypertension, Malignancy Parental Family History Reviewed: Yes Children Family History Reviewed: Yes Sibling(s) Family History Reviewed.: Yes Medication/Allergy Home Medications: Prednisone [Deltasone 5 mg Tablet] 5 mg PO [id number] 08/28/19 Amlodipine Besylate [Norvasc 10 mg Tablet] 10 mg PO DAILY 02/16/20 Calcium Acetate [Phoslo 667 mg Capsule] 1,334 mg PO MEALS 02/16/20 Carvedilol [Coreg] 25 mg PO BID 02/16/20 Mirtazapine 15 mg PO [id number] MDD 30MG PO AFTER INITIAL 3 DAYS 02/16/20 Atorvastatin Calcium [Lipitor 40 mg Tablet] 40 mg PO QHS 02/23/20 Clonidine HCl 0.3 mg PO TID 02/23/20 Hydrochlorothiazide [Hydrodiuril 25 mg Tablet] 25 mg PO DAILY 02/23/20 Oxycodone HCl [Roxicodone] 10 mg PO Q6HP PRN MDD 3 TABS DAILY 02/23/20 Pantoprazole Sodium 40 mg PO DAILY 02/23/20 Allergies/Adverse Reactions: latex [Latex] Allergy (Mild, Verified 08/28/19 13:56) Hives Review of Systems Constitutional: ABSENT: fever(s), night sweats Eyes: PRESENT: as per HPI Ears: PRESENT: as per HPI Nose, Mouth, and Throat: PRESENT: as per HPI Breasts: PRESENT: as per HPI Cardiovascular: PRESENT: as per HPI Respiratory: PRESENT: dyspnea. ABSENT: hemoptysis Gastrointestinal: ABSENT: abdominal pain, heartburn, melena, nausea, vomiting Neurological: ABSENT: as per HPI Endocrine: PRESENT: as per HPI Physical Exam Vital Signs: Temp Pulse Resp BP Pulse Ox 98.6 F 93 18 150/95 H 96 02/23/20 01:55 02/23/20 02:35 02/23/20 12:00 02/23/20 11:00 02/23/20 11:01 Intake & Output 02/22/20 02/23/20 02/24/20 06:59 06:59 06:59 Weight 53.977 kg General appearance: PRESENT: mild distress Head exam: PRESENT: atraumatic, normocephalic Eye exam: PRESENT: EOMI, PERRLA Mouth exam: PRESENT: moist Neck exam: PRESENT: full ROM Respiratory exam: PRESENT: rales, symmetrical, tachypnea. ABSENT: wheezes Cardiovascular exam: PRESENT: RRR, +S1, +S2 Pulses: PRESENT: +2 pedal pulses bilateral GI/Abdominal exam: PRESENT: normal bowel sounds, rebound, soft. ABSENT: tenderness Extremities exam: PRESENT: full ROM Musculoskeletal exam: PRESENT: full ROM Neurological exam: PRESENT: alert, awake, oriented to person, oriented to place, oriented to time Psychiatric exam: PRESENT: normal mood Results Laboratory Results: 02/23/20 08:10 02/22/20 22:04 02/22/20 02/22/20 02/23/20 22:04 22:04 08:10 WBC 5.7 4.9 RBC 3.71 L 3.51 L Hgb 9.4 L 8.9 L Hct 29.6 L 28.2 L MCV 80 81 MCH 25.3 L 25.5 L MCHC 31.7 L 31.6 L RDW 18.6 H 18.5 H Plt Count 313 288 Seg Neutrophils % Not Reportable Not Reportable Sodium 133.1 L Potassium 4.5 Chloride 93 L Carbon Dioxide 27 Anion Gap 13 BUN 46 H Creatinine 5.73 H Est GFR ( Amer) 9 L Glucose 108 Calcium 10.4 H Total Bilirubin 0.7 AST 18 Alkaline Phosphatase 80 Total Protein 8.4 H Albumin 3.7 02/22/20 22:04 Troponin I 0.056 Impressions: Chest X-Ray 02/22/20 21:52 IMPRESSION: Cardiomegaly with mild interstitial edema and tiny bibasilar effusions copyright 2011 [employer]- All Rights Reserved Venous Doppler Study 02/23/20 09:34 IMPRESSION: NO EVIDENCE DVT OR SVT IN EITHER LEG. Assessment and Plan - Diagnosis (1) Pulmonary emboli Qualifiers: Pulmonary embolism type: multiple subsegmental (without acute cor pulmonale) Qualified Code(s): I26.94 - Multiple subsegmental pulmonary emboli without acute cor pulmonale Is this a current diagnosis for this admission?: Yes Plan: - chest pain x 1 week, pleuritic pain and dyspnea - Hx of SLE, ESRD on dialysis - Cardiac origin ruled out with no significant CAD from recent angiogram [facility] - VQ scan intermediate probability - Doppler US no DVT - Wells score PE 4.5 - she is hemodynamically stable - started on heparin drip. She will be transitioned to oral anticoagulation NOAC or coumadin tomorrow - Lupus anticoagulant sent - O2 support as needed - will defer further hypercoagulable work up outpatient. (2) NSTEMI (non-ST elevated myocardial infarction) Is this a current diagnosis for this admission?: Yes Plan: - 1 week prior came in due to chest pain - Troponin 0.039>0.043>0.056 - EKG no acute ST elevation - recent angiogram at [facility] no significant stenosis - likely Type II [place] from the PE - continue aspirin, carvedilol, lipitor (3) ESRD (end-stage renal disease) due to SLE Is this a current diagnosis for this admission?: Yes Plan: - HD every T,,S. last completed dialysis Thu. She follows with Dr. Gay - s/p kidney transplant 2015, on prednisone - Crea 5.73 - Dr. Gay on board, plan for HD tomorrwo per Dr. Gay - no signs of fluid overload - daily CMP (4) Transplant recipient Is this a current diagnosis for this admission?: Yes Plan: - received kidney transplant 2015 due to kidney failure 2/2 SLE - on prednisone. To continue (5) HLD (hyperlipidemia) Qualifiers: Hyperlipidemia type: unspecified Qualified Code(s): E78.5 - Hyperlipidemia, unspecified Is this a current diagnosis for this admission?: Yes Plan: - on lipitor (6) Hypertension Qualifiers: Hypertension type: essential hypertension Qualified Code(s): I10 - Essential (primary) hypertension Is this a current diagnosis for this admission?: Yes Plan: on Amlodipine and carvedilol, amlodipine (7) SLE (systemic lupus erythematosus) Qualifiers: Systemic lupus erythematosus type: other Systemic lupus erythematosus organ involvement: glomerular disease Qualified Code(s): M32.14 - Glomerular disease in systemic lupus erythematosus Is this a current diagnosis for this admission?: Yes Plan: - complicated by Lupus nephritis - on prednisone (8) Chest pain Qualifiers: Chest pain type: chest pain on breathing Qualified Code(s): R07.1 - Chest pain on breathing; R07.81 - Pleurodynia Is this a current diagnosis for this admission?: Yes Plan: - likely 2/2 to PE - Time Time Spent with patient: 35 or more minutes Medications reviewed and adjusted accordingly: Yes Anticipated Discharge Disposition: Home, Self Care Anticipated Discharge Timeframe: to be determined - Inpatient Certification Medical Necessity: Need For Continuous Telemetry Monitoring
[2020-02-23] MEDS: OXYCODONE HCL IR 5 MG TABLET PO PRN ×2 (15:48→23:53)
[2020-02-23] MEDS: CALCIUM ACETATE 667 MG CAPSULE PO SCH (17:11)
--- NOTE | 2020-02-23 18:25 | EKG REPORT ---
SEVERITY:- OTHERWISE NORMAL ECG - SINUS RHYTHM LEFT AXIS DEVIATION : Confirmed by: Jason Flores 23-Feb-2020 18:24:50
[2020-02-23] MEDS: CARVEDILOL 12.5 MG TABLET PO SCH (22:00)
[2020-02-23] MEDS: MIRTAZAPINE 15 MG TABLET PO SCH (22:00)
[2020-02-23] MEDS: HEPARIN SOD (PORCINE) 1,000 UNIT/ML 10 ML VIAL IV PRN (22:00)
[2020-02-24] MEDS ORDERED: EPOETIN ALFA-EPBX 10,000 UNIT in SYRINGE, DISPOSABLE, 1 EACH IV PRN (05:00)
[2020-02-24 05:42] LABS: ALBUMIN 3.1 g/dL (3.5-5.0); ALKALINE PHOSPHATASE 60 U/L (38-126); ANION GAP 12 (5-19); ASPARTATE AMINO TRANSFERASE 16 U/L (14-36); BILIRUBIN,DIRECT 0.5 mg/dL (0.0-0.4); BILIRUBIN,TOTAL 0.5 mg/dL (0.2-1.3); BLOOD UREA NITROGEN 67 mg/dL (7-20); CALCIUM 9.9 mg/dL (8.4-10.2); CARBON DIOXIDE 24 mmol/L (22-30); CHLORIDE 94 mmol/L (98-107); GLUCOSE 137 mg/dL (75-110); POTASSIUM 5.3 mmol/L (3.6-5.0); TOTAL PROTEIN 7.1 g/dL (6.3-8.2)
[2020-02-24 05:52] LABS: HEMATOCRIT 25.9 % (36.0-47.0); HEMOGLOBIN 8.3 g/dL (12.0-15.5); MEAN CORPUSCULAR HEMOGLOBIN 25.5 pg (27.0-33.4); MEAN CORPUSCULAR VOLUME 80 fl (80-97); PLATELET COUNT 272 10^3/uL (150-450); RED BLOOD COUNT 3.25 10^6/uL (3.72-5.28); RED CELL DISTRIBUTION WIDTH 18.4 % (11.5-14.0); WHITE BLOOD COUNT 4.2 10^3/uL (4.0-10.5)
[2020-02-24 06:13] LABS: ABSOLUTE MONOCYTES # (MANUAL) 0.5 10^3/uL (0.1-1.4); BASOPHILS % (MANUAL) 0 % (0-2); EOSINOPHILS % (MANUAL) 0 % (0-6); LYMPHOCYTES % (MANUAL) 24 % (13-45); MONOCYTES % (MANUAL) 12 % (3-13); SEGMENTED NEUTROPHILS % (MAN) 64 % (42-78); TOTAL CELLS COUNTED 100
[2020-02-24 06:14] LABS: ANISOCYTOSIS 2+; HYPOCHROMASIA SLIGHT; OVALOCYTES 1+; PLATELET COMMENT ADEQUATE; POIKILOCYTOSIS SLIGHT
[2020-02-24 06:24] LABS: APPEARANCE,URINE CLOUDY; BILIRUBIN,URINE NEGATIVE (NEGATIVE); COLOR,URINE YELLOW; GLUCOSE, URINE 150 mg/dL (NEGATIVE); KETONES,URINE NEGATIVE (NEGATIVE); LEUKOCYTE ESTERASE,URINE NEGATIVE (NEGATIVE); NITRITE,URINE NEGATIVE (NEGATIVE); PROTEIN,URINE >=500 mg/dL (NEGATIVE); URINE SPECIFIC GRAVITY 1.029; UROBILINOGEN,URINE NEGATIVE mg/dL (<2.0)
[2020-02-24] MEDS: AMLODIPINE BESYLATE 10 MG TABLET PO SCH (09:06)
[2020-02-24] MEDS: PREDNISONE 5 MG TABLET PO SCH (09:06)
[2020-02-24] MEDS: CARVEDILOL 12.5 MG TABLET PO SCH ×2 (09:06→21:13)
[2020-02-24] MEDS: CALCIUM ACETATE 667 MG CAPSULE PO SCH ×3 (09:06→17:56)
[2020-02-24] MEDS: OXYCODONE HCL IR 5 MG TABLET PO PRN ×2 (11:11→22:34)
--- NOTE | 2020-02-24 11:25 | PDOC CONSULTATION ---
Consultation Consult Date: 02/24/20 Provider Consulted: Rene POOLE Consult reason:: ESRD for HD. History of Present Illness Admission Date/PCP: 02/23/20 10:27 LEANNA KAMINSKI MD History of Present Illness: YUSUF CANTRELL is a 59 year old female with the background history of SLE/hypertension/failed transplant after having received a living donor transplant from her sister in 2002/severe GERD/ Chronic pain on narcotics, was admitted with history of persistent chest pain and subacute onset of shortness of breath over the last 24 to 48 hours. She was recently admitted last week for chest pain and transferred to [facility] on a provisional diagnosis of NSTEMI and they did cardiac cath which apparently was negative and was discharged home few days earlier. She says that her chest pain was not so bad that it was rather lingering when she was discharged and she also had persistent shortness of breath with exertion. Apparently her chest pain began to get worse over the last few hours prior to admission and the shortness of breath also got worse that prompted her to come to the ER. The ER evaluations included a VQ scan which was positive for pulmonary embolism and she was begun on IV heparin anticoagulation. Today I am seeing her while undergoing dialysis. She states her chest pain is a whole lot better and so to assess shortness of breath compared to prior to admission. She is undergoing dialysis without any issues. Vital signs are stable. Labs and medications were reviewed. Past Medical History Cardiac Medical History: Reports: Atrial Fibrillation, Hyperlipidemia, Hypertension-primary Pulmonary Medical History: Denies: Tuberculosis Neurological Medical History: Denies: Seizures Endocrine Medical History: Denies: Diabetes Mellitus Type 2 Renal/ Medical History: Reports: End Stage Renal Disease - Was on dialysis for 6 months prior to kidney transplant, Secondary Hyperparathyroidism Malignancy Medical History: Reports: Other - History of lupus GI Medical History: Reports: Gastroesophageal Reflux Disease, Hiatal Hernia Musculoskeltal Medical History: Reports: Arthritis, Systemic Lupus Erythematosus Psychiatric Medical History: Reports: Depression Hematology Medical History: Reports Anemia of Chronic Kidney Disease Past Surgical History Past Surgical History: Reports: Herniorrhaphy, Orthopedic Surgery - neck fusion, Other - Renal transplant 2001; low back surgery Tess fundoplication Denies: Hysterectomy Social History Smoking Status: Never Smoker Frequency of Alcohol Use: None Hx Recreational Drug Use: No Drugs: None Hx Prescription Drug Abuse: No Family History Parental Family History Reviewed: Yes - Negative for ESRD Children Family History Reviewed: Yes Sibling(s) Family History Reviewed.: Yes Medication/Allergy Home Medications: Prednisone [Deltasone 5 mg Tablet] 5 mg PO WBRKFST 08/28/19 Amlodipine Besylate [Norvasc 10 mg Tablet] 10 mg PO DAILY 02/16/20 Calcium Acetate [Phoslo 667 mg Capsule] 1,334 mg PO MEALS 02/16/20 Carvedilol [Coreg] 25 mg PO BID 02/16/20 Mirtazapine 30 mg PO QHS 02/16/20 Atorvastatin Calcium [Lipitor 40 mg Tablet] 40 mg PO QHS 02/23/20 Clonidine HCl 0.3 mg PO TID 02/23/20 Hydrochlorothiazide [Hydrodiuril 25 mg Tablet] 25 mg PO DAILY 02/23/20 Oxycodone HCl [Roxicodone] 10 mg PO Q6HP PRN MDD 3 TABS DAILY 02/23/20 Pantoprazole Sodium 40 mg PO DAILY 02/23/20 Allergies/Adverse Reactions: latex [Latex] Allergy (Mild, Verified 08/28/19 13:56) Hives Review of Systems Constitutional: ABSENT: chills, fatigue, fever(s), headache(s), night sweats, w eakness Ears: ABSENT: hearing changes Nose, Mouth, and Throat: ABSENT: mouth pain, sore throat Cardiovascular: PRESENT: chest pain, dyspnea on exertion, edema. ABSENT: orthropnea Respiratory: PRESENT: dyspnea. ABSENT: cough, hemoptysis Gastrointestinal: ABSENT: abdominal pain, coffee ground emesis, diarrhea, dysphagia, heartburn, hematemesis, nausea, vomiting Integumentary: ABSENT: lesions, pruritus, rash Neurological: ABSENT: abnormal movements, abnormal speech, confusion, convulsions, focal weakness, frequent falls Psychiatric: ABSENT: anxiety, hallucinations Hematologic/Lymphatic: ABSENT: easy bruising, lymphadenopathy Physical Exam Vital Signs: Temp Pulse Resp BP Pulse Ox 97.7 F 71 18 153/87 H 97 02/24/20 04:00 02/24/20 04:00 02/24/20 04:00 02/24/20 04:00 02/24/20 04:00 Intake & Output 02/23/20 02/24/20 02/25/20 06:59 06:59 06:59 Intake Total 816 550 Output Total 50 2000 Balance 766 -1450 Weight 53.977 kg 54.6 kg General appearance: PRESENT: no acute distress Eye exam: PRESENT: EOMI, PERRLA. ABSENT: scleral icterus Ear exam: PRESENT: normal external ear exam Mouth exam: PRESENT: moist, neck supple Neck exam: ABSENT: lymphadenopathy, meningismus, tenderness, thyromegaly, tracheal deviation Respiratory exam: PRESENT: clear to auscultation анна, decreased breath sounds. ABSENT: crackles Cardiovascular exam: PRESENT: +S1, +S2 GI/Abdominal exam: PRESENT: normal bowel sounds, soft. ABSENT: organomegaly, tenderness Extremities exam: PRESENT: pedal edema Neurological exam: PRESENT: alert, awake, oriented to person, oriented to place Psychiatric exam: PRESENT: appropriate affect Skin exam: ABSENT: erythema, mottled, rash Results Laboratory Results: 02/24/20 04:00 02/24/20 04:00 02/24/20 02/24/20 02/24/20 04:00 04:00 05:55 WBC 4.2 RBC 3.25 L Hgb 8.3 L Hct 25.9 L MCV 80 MCH 25.5 L MCHC 32.0 RDW 18.4 H Plt Count 272 Seg Neutrophils % Not Reportable Sodium 129.6 L Potassium 5.3 H Chloride 94 L Carbon Dioxide 24 Anion Gap 12 BUN 67 H Creatinine 7.31 H Est GFR ( Amer) 7 L Glucose 137 H Calcium 9.9 Magnesium 2.5 H Total Bilirubin 0.5 AST 16 Alkaline Phosphatase 60 Total Protein 7.1 Albumin 3.1 L Urine Color YELLOW Urine Appearance CLOUDY Urine pH 8.0 Ur Specific [place] 1.029 Urine Protein >=500 H Urine Glucose (UA) 150 H Urine Ketones NEGATIVE Urine Blood SMALL H Urine Nitrite NEGATIVE Ur Leukocyte Esterase NEGATIVE Urine WBC (Auto) 24 Urine RBC (Auto) 106 02/22/20 22:04 Troponin I 0.056 Impressions: Chest X-Ray 02/22/20 21:52 IMPRESSION: Cardiomegaly with mild interstitial edema and tiny bibasilar effusions copyright 2011 [employer]- All Rights Reserved Venous Doppler Study 02/23/20 09:34 IMPRESSION: NO EVIDENCE DVT OR SVT IN EITHER LEG. Assessment & Plan - Diagnosis (1) Pulmonary emboli Qualifiers: Pulmonary embolism type: multiple subsegmental (without acute cor pulmonale) Qualified Code(s): I26.94 - Multiple subsegmental pulmonary emboli without acute cor pulmonale Is this a current diagnosis for this admission?: Yes Plan: Patient improving on current IV anticoagulation. Hemodynamically stable. Being managed by hospitalist. (2) ESRD (end-stage renal disease) due to SLE Is this a current diagnosis for this admission?: Yes Plan: Currently undergoing dialysis. Is being supervised. Vital signs are stable but for uncontrolled blood pressure which should hopefully respond to ultrafiltration. We will plan to remove 1-2 L of fluid as tolerated. Dialysis orders were reviewed with the treating dialysis nurse. (3) Transplant recipient Is this a current diagnosis for this admission?: Yes Plan: Failed transplant and now back on ESRD on dialysis. (4) Anemia in chronic kidney disease, on chronic dialysis Plan: Adjust erythropoietin. Monitor. (5) Uncontrolled hypertension Plan: See response to fluid removal on dialysis. Monitor. (6) SLE (systemic lupus erythematosus) Qualifiers: Systemic lupus erythematosus type: other Systemic lupus erythematosus organ involvement: glomerular disease Qualified Code(s): M32.14 - Glomerular disease in systemic lupus erythematosus Is this a current diagnosis for this admission?: Yes Plan: Stable.
[2020-02-24] MEDS ORDERED: HEPARIN SOD (PORCINE) 1,000 UNIT/ML 10 ML VIAL IV PRN (12:30)
[2020-02-24] MEDS ORDERED: HEPARIN SODIUM,PORCINE/D5W 25,000 UNIT/250 ML RTUINJ IV PRN (12:30)
[2020-02-24] MEDS ORDERED: HYDROMORPHONE HCL INJ/PF 2 MG/ML AMPULE IV ONE (12:45)
[2020-02-24 14:00] LABS: HEMATOCRIT 29.4 % (36.0-47.0); HEMOGLOBIN 9.4 g/dL (12.0-15.5); MEAN CORPUSCULAR HEMOGLOBIN 25.4 pg (27.0-33.4); MEAN CORPUSCULAR HGB CONC 31.9 g/dL (32.0-36.0); MEAN CORPUSCULAR VOLUME 80 fl (80-97); PLATELET COUNT 321 10^3/uL (150-450); RED BLOOD COUNT 3.69 10^6/uL (3.72-5.28); RED CELL DISTRIBUTION WIDTH 18.2 % (11.5-14.0); WHITE BLOOD COUNT 4.6 10^3/uL (4.0-10.5)
[2020-02-24] MEDS ORDERED: APIXABAN 5 MG TABLET PO SCH (18:00)
[2020-02-24] MEDS ORDERED: LORAZEPAM 0.5 MG TABLET PO ONE (18:00)
--- NOTE | 2020-02-24 18:01 | PDOC PROGRESS REPORT ---
Subjective Progress Note for:: 02/24/20 Subjective:: YUSUF CANTRELL is a 59 year old female, PMH of SLE, Lupus nephritis, ESRD on dialysis Thursday, status post kidney transplant 2015, hypertension, atrial fibrillation, who came in the ED due to persistent chest pain. She was initially seen in the emergency room at [place] on February 16, 2020 due to chest pain towards the end of her dialysis session. Chest pain was described as heaviness, 10 out of 10, with mild shortness of breath. Her troponin trended up with a EKG showing no ST elevation. She was diagnosed with NSTEMI in the ED and was started on heparin drip and nitroglycerin drip and she was subsequently transferred to [facility] for an angiogram since we are unable to do angiogram at [place]. She went to [facility] on February 16 and subsequently underwent angiogram. She did not require any stent placement and she was started on aspirin. Her chest pain continued since then despite being on aspirin and nitroglycerin. She came back to the emergency room today. VQ scan was ordered which was read as intermediate probability for PE. She has no prior history. She was started on heparin drip and was subsequently admitted for further evaluation and management. Ultrasound of the lower leg did not show any DVT. D2 of hospital stay 02/24/20. She was seen and examined at bedside after undergoing dialysis. She complains of SOB when she is off the oxygen, chest pain is better but still present. She did well on dialysis. VS is stable. Plan today is to transition her from heparin drip to warfarin. Dr. Victor Hugo [place] has seen her during this admission. Reason For Visit: PULMONARY EMBOLISM,ESRD ON DIALYSIS Physical Exam Vital Signs: Temp Pulse Resp BP Pulse Ox 97.6 F 78 20 173/93 H 99 02/24/20 16:40 02/24/20 16:40 02/24/20 16:40 02/24/20 16:40 02/24/20 16:40 Intake & Output 02/23/20 02/24/20 02/25/20 06:59 06:59 06:59 Intake Total 816 800 Output Total 50 2000 Balance 766 -1200 Weight 53.977 kg 54.6 kg General appearance: PRESENT: no acute distress, cooperative Head exam: PRESENT: atraumatic, normocephalic Eye exam: PRESENT: EOMI, PERRLA Mouth exam: PRESENT: moist Neck exam: PRESENT: full ROM Respiratory exam: PRESENT: clear to auscultation анна, symmetrical, unlabored, other - on O2 support Cardiovascular exam: PRESENT: RRR, +S1, +S2 GI/Abdominal exam: PRESENT: normal bowel sounds, soft. ABSENT: rebound, tenderness Extremities exam: PRESENT: full ROM Musculoskeletal exam: PRESENT: full ROM Neurological exam: PRESENT: alert, awake, oriented to person, oriented to place, oriented to time, oriented to situation Psychiatric exam: PRESENT: normal mood Skin exam: PRESENT: normal color Results Laboratory Results: 02/24/20 13:06 02/24/20 04:00 02/24/20 02/24/20 02/24/20 04:00 04:00 05:55 WBC 4.2 RBC 3.25 L Hgb 8.3 L Hct 25.9 L MCV 80 MCH 25.5 L MCHC 32.0 RDW 18.4 H Plt Count 272 Seg Neutrophils % Not Reportable Sodium 129.6 L Potassium 5.3 H Chloride 94 L Carbon Dioxide 24 Anion Gap 12 BUN 67 H Creatinine 7.31 H Est GFR ( Amer) 7 L Glucose 137 H Calcium 9.9 Magnesium 2.5 H Total Bilirubin 0.5 AST 16 Alkaline Phosphatase 60 Total Protein 7.1 Albumin 3.1 L Urine Color YELLOW Urine Appearance CLOUDY Urine pH 8.0 Ur Specific [place] 1.029 Urine Protein >=500 H Urine Glucose (UA) 150 H Urine Ketones NEGATIVE Urine Blood SMALL H Urine Nitrite NEGATIVE Ur Leukocyte Esterase NEGATIVE Urine WBC (Auto) 24 Urine RBC (Auto) 106 02/24/20 13:06 WBC 4.6 RBC 3.69 L Hgb 9.4 L Hct 29.4 L MCV 80 MCH 25.4 L MCHC 31.9 L RDW 18.2 H Plt Count 321 Seg Neutrophils % Sodium Potassium Chloride Carbon Dioxide Anion Gap BUN Creatinine Est GFR ( Amer) Glucose Calcium Magnesium Total Bilirubin AST Alkaline Phosphatase Total Protein Albumin Urine Color Urine Appearance Urine pH Ur Specific [place] Urine Protein Urine Glucose (UA) Urine Ketones Urine Blood Urine Nitrite Ur Leukocyte Esterase Urine WBC (Auto) Urine RBC (Auto) 02/22/20 22:04 Troponin I 0.056 Impressions: Chest X-Ray 02/22/20 21:52 IMPRESSION: Cardiomegaly with mild interstitial edema and tiny bibasilar effusions copyright 2010 [employer]- All Rights Reserved Venous Doppler Study 02/23/20 09:34 IMPRESSION: NO EVIDENCE DVT OR SVT IN EITHER LEG. Assessment and Plan - Diagnosis (1) Pulmonary emboli Qualifiers: Pulmonary embolism type: multiple subsegmental (without acute cor pulmonale) Qualified Code(s): I26.94 - Multiple subsegmental pulmonary emboli without acute cor pulmonale Is this a current diagnosis for this admission?: Yes Plan: - chest pain x 1 week, pleuritic pain and dyspnea - Hx of SLE, ESRD on dialysis - Cardiac origin ruled out with no significant CAD from recent angiogram [facility] - VQ scan intermediate probability - Doppler US no DVT - Wells score PE 4.5 - she is hemodynamically stable - transitioned to coumadin from heparin - Lupus anticoagulant sent - O2 support as needed - will defer further hypercoagulable work up outpatient. - she will need an heme/onc referral (2) NSTEMI (non-ST elevated myocardial infarction) Is this a current diagnosis for this admission?: Yes Plan: - 1 week prior came in due to chest pain - Troponin 0.039>0.043>0.056 - EKG no acute ST elevation - recent angiogram at [facility] no significant stenosis - likely Type II [place] from the PE - continue aspirin, carvedilol, lipitor (3) ESRD (end-stage renal disease) due to SLE Is this a current diagnosis for this admission?: Yes Plan: - HD every T,Th,S. last completed dialysis Thu. She follows with Dr. Gay - s/p kidney transplant 2016, on prednisone - Crea 5.73 s/p dialysis today - Dr. Gay on board, plan for HD tomorrwo per Dr. Gay - no signs of fluid overload - daily CMP (4) Transplant recipient Is this a current diagnosis for this admission?: Yes Plan: - received kidney transplant 2016 due to kidney failure 2/2 SLE - on prednisone. To continue (5) HLD (hyperlipidemia) Qualifiers: Hyperlipidemia type: unspecified Qualified Code(s): E78.5 - Hyperlipidemia, unspecified Is this a current diagnosis for this admission?: Yes Plan: - on lipitor (6) Hypertension Qualifiers: Hypertension type: essential hypertension Qualified Code(s): I10 - Essential (primary) hypertension Is this a current diagnosis for this admission?: Yes Plan: on carvedilol, amlodipine (7) SLE (systemic lupus erythematosus) Qualifiers: Systemic lupus erythematosus type: other Systemic lupus erythematosus organ involvement: glomerular disease Qualified Code(s): M32.14 - Glomerular disease in systemic lupus erythematosus Is this a current diagnosis for this admission?: Yes Plan: - complicated by Lupus nephritis - on prednisone (8) Chest pain Qualifiers: Chest pain type: chest pain on breathing Qualified Code(s): R07.1 - Chest pain on breathing; R07.81 - Pleurodynia Is this a current diagnosis for this admission?: Yes Plan: - likely 2/2 to PE - Time Anticipated Discharge Disposition: Home, Self Care Anticipated Discharge Timeframe: within 48 hours
[2020-02-24] MEDS: MIRTAZAPINE 15 MG TABLET PO SCH (21:13)
[2020-02-24] MEDS: WARFARIN SODIUM 5 MG TABLET PO SCH (21:13)
[2020-02-25] MEDS ORDERED: HYDRALAZINE HCL INJ/PF 20 MG/1 ML SDV IV PRN (05:10)
[2020-02-25 06:06] LABS: INTERNATIONAL RATION (INR) 1.04; PROTHROMBIN TIME 13.8 SEC (11.4-15.4)
[2020-02-25 06:09] LABS: ABSOLUTE EOSINOPHILS # (AUTO) 0.1 10^3/uL (0.0-0.6); ABSOLUTE LYMPHOCYTES (AUTO) 1.8 10^3/uL (0.5-4.7); ABSOLUTE MONOCYTES (AUTO) 0.4 10^3/uL (0.1-1.4); ABSOLUTE NEUT (AUTO) 2.9 10^3/uL (1.7-8.2); BASOPHILS % (AUTO) 0.5 % (0-2); EOSINOPHILS % (AUTO) 1.4 % (0-6); HEMATOCRIT 28.4 % (36.0-47.0); HEMOGLOBIN 9.1 g/dL (12.0-15.5); LYMPHOCYTES % (AUTO) 34.3 % (13-45); MEAN CORPUSCULAR HEMOGLOBIN 25.7 pg (27.0-33.4); MEAN CORPUSCULAR HGB CONC 32.1 g/dL (32.0-36.0); MEAN CORPUSCULAR VOLUME 80 fl (80-97); PLATELET COUNT 311 10^3/uL (150-450); RED BLOOD COUNT 3.55 10^6/uL (3.72-5.28); RED CELL DISTRIBUTION WIDTH 18.5 % (11.5-14.0); SEGMENTED NEUTROPHILS % (AUTO) 55.8 % (42-78); TOTAL CELLS COUNTED % (AUTO) 100 %; WHITE BLOOD COUNT 5.1 10^3/uL (4.0-10.5)
[2020-02-25] MEDS ORDERED: LORAZEPAM INJ 2 MG/1 ML VIAL ONE (06:18)
[2020-02-25] MEDS ORDERED: LORAZEPAM INJ 2 MG/1 ML VIAL IV PRN (06:26)
[2020-02-25] MEDS: CARVEDILOL 12.5 MG TABLET PO SCH ×2 (09:34→21:04)
[2020-02-25] MEDS: CALCIUM ACETATE 667 MG CAPSULE PO SCH ×3 (09:35→16:09)
[2020-02-25] MEDS: AMLODIPINE BESYLATE 10 MG TABLET PO SCH (09:35)
[2020-02-25] MEDS: PREDNISONE 5 MG TABLET PO SCH (09:35)
[2020-02-25] MEDS ORDERED: EPINEPHRINE INJ/PF 1 MG/1 ML AMPULE IM ONE (12:30)
[2020-02-25] MEDS ORDERED: FAMOTIDINE INJ/PF 20 MG/2 ML SDV IV ONE ×2 (12:30→18:35)
[2020-02-25] MEDS ORDERED: CETIRIZINE 10 MG TABLET PO ONE (12:30)
--- NOTE | 2020-02-25 18:21 | PDOC CRITICAL CARE PROG REPORT ---
General Date:: 02/25/20 Resuscitation Status: Full Code Events in the past 12 to 24 Hours:: Admitted with chest pain, now with possible allergic reaction. Review of systems relevant to events:: Pulmonary, ENT Reason for ICU Addmission:: Evaluation only - Medications: Medications reviewed and adjusted accordingly: Yes Vasopressors:: None Sedation:: None Physical Exam Vital Signs: Temp Pulse Resp BP Pulse Ox 98.7 F 93 16 165/87 H 92 02/25/20 18:00 02/25/20 18:00 02/25/20 18:00 02/25/20 18:00 02/25/20 18:00 Intake & Output 02/24/20 02/25/20 02/26/20 06:59 06:59 06:59 Intake Total 816 2570 0 Output Total 50 2000 0 Balance 766 570 0 Weight 54.6 kg 54.9 kg Weight/Height Weight 54.9 kg Height 5 ft 4 in General appearance: PRESENT: no acute distress, cooperative, thin Head exam: PRESENT: atraumatic, normocephalic Eye exam: PRESENT: conjunctiva pink, EOMI, PERRLA. ABSENT: scleral icterus Mouth exam: PRESENT: moist, tongue midline, other - Voice is hasher, a subjective sense of swelling to face and throat. Neck exam: PRESENT: other - No pain or swelling. ABSENT: carotid bruit, JVD, lymphadenopathy, thyromegaly Respiratory exam: PRESENT: decreased breath sounds, other - Some tightness Cardiovascular exam: PRESENT: RRR. ABSENT: diastolic murmur, rubs, systolic murmur Vascular exam: PRESENT: normal capillary refill GI/Abdominal exam: PRESENT: normal bowel sounds, soft. ABSENT: distended, guarding, mass, organolmegaly, rebound, tenderness Rectal exam: PRESENT: deferred Extremities exam: PRESENT: full ROM. ABSENT: calf tenderness, clubbing, pedal edema Neurological exam: PRESENT: alert, awake, oriented to person, oriented to place, oriented to time, oriented to situation, CN II-XII grossly intact. ABSENT: motor sensory deficit Psychiatric exam: PRESENT: appropriate affect, normal mood. ABSENT: homicidal ideation, suicidal ideation Skin exam: PRESENT: dry, intact, warm. ABSENT: cyanosis, rash Laboratory/Radiographs Laboratory Results: 02/25/20 04:56 02/24/20 04:00 02/25/20 02/25/20 04:56 04:56 WBC 5.1 RBC 3.55 L Hgb 9.1 L Hct 28.4 L MCV 80 MCH 25.7 L MCHC 32.1 RDW 18.5 H Plt Count 311 Seg Neutrophils % 55.8 Magnesium 2.1 02/22/20 22:04 Troponin I 0.056 Impressions: Chest X-Ray 02/22/20 21:52 IMPRESSION: Cardiomegaly with mild interstitial edema and tiny bibasilar effusions copyright 2011 [employer]- All Rights Reserved Venous Doppler Study 02/23/20 09:34 IMPRESSION: NO EVIDENCE DVT OR SVT IN EITHER LEG. All labs, radiographs, diagnostic studies and EKGs were personally reviewed: Yes In addition, reports of radiographic and diagnostic studies were read: Yes Assessment and Plan - Diagnosis (1) Allergic reaction Qualifiers: Encounter type: initial encounter Qualified Code(s): T78.40XA - Allergy, unspecified, initial encounter Is this a current diagnosis for this admission?: Yes Plan: There may be an element of allergy here to an unknown substance. However there is not anaphylaxis. No airway compromise. I would suggest no epinephrine, Perhaps H2 blockers and benedryl. (2) ESRD (end-stage renal disease) due to SLE Is this a current diagnosis for this admission?: Yes Plan: She is receiving HD T, Th, Sat. No change needed (3) Pulmonary emboli Qualifiers: Pulmonary embolism type: multiple subsegmental (without acute cor pulmonale) Qualified Code(s): I26.94 - Multiple subsegmental pulmonary emboli without acute cor pulmonale Is this a current diagnosis for this admission?: Yes Plan: This is likely the reason for her chest tightness and pain. This is probably not related to swelling. Continue present treatment. Plan Summary: She is quite stable and is in no need of an ICU level of care. Reconsult if needed. Critical Time Critical Time (minutes): 35 Level of Care: MEDICAL Anticipated discharge: Home Anticipated DC Timeframe: Other -: 1. The care of a critical patient is a dynamic process. This note is a account maintenance representative synopsis but static in nature. The timeframe for treatments given in order is not necessarily the actual time these treatments may have been done. 2. This patient requires critical care secondary to ongoing requirements for therapy not offered or safe outside the critical care environment. Transfer to a lower level of care will result in altered life or limb morbidity and mortality. 3. Multidisciplinary rounds completed. 4. ABCDE bundle addressed.
--- NOTE | 2020-02-25 18:24 | PDOC PROGRESS REPORT ---
Subjective Progress Note for:: 02/25/20 Subjective:: YUSUF CANTRELL is a 59 year old female, PMH of SLE, Lupus nephritis, ESRD on dialysis Thursday, status post kidney transplant 2015, hypertension, atrial fibrillation, who came in the ED due to persistent chest pain. She was initially seen in the emergency room at [facility] on February 16, 2020 due to chest pain towards the end of her dialysis session. Chest pain was described as heaviness, 10 out of 10, with mild shortness of breath. Her troponin trended up with a EKG showing no ST elevation. She was diagnosed with NSTEMI in the ED and was started on heparin drip and nitroglycerin drip and she was subsequently transferred to [facility] for an angiogram since we are unable to do angiogram at [facility]. She went to [facility] on February 16 and subsequently underwent angiogram. She did not require any stent placement and she was started on aspirin. Her chest pain continued since then despite being on aspirin and nitroglycerin. She came back to the emergency room today. VQ scan was ordered which was read as intermediate probability for PE. She has no prior history. She was started on heparin drip and was subsequently admitted for further evaluation and management. Ultrasound of the lower leg did not show any DVT. D2 of hospital stay 02/24/20. She was seen and examined at bedside after undergoing dialysis. She complains of SOB when she is off the oxygen, chest pain is better but still present. She did well on dialysis. VS is stable. Plan today is to transition her from heparin drip to warfarin. Dr. Victor Hugo Toledo has seen her during this admission. D3 Hospital stay 02/25/20. She was seen and examined at bedside. She is compla ining of facial and tongue swelling which developed about an hour after she was given hydralazine. This was noted on my physical exam as well. She was given epinephrine, prednisone, famotidine and cetrizine. She continued to be drowsy and with her tongue swelling, it is worrisome for airway compromise. Dr. Nieves and I assessed her at bedside and at this time she was noted to be more awake sitting on the chair, still with tongue swelling and muffled voice. Dr. Nieves advised another dose of famotidine and benadryl and to elevate her head, no need for ICU admission yet. Reason For Visit: PULMONARY EMBOLISM,ESRD ON DIALYSIS Physical Exam Vital Signs: Temp Pulse Resp BP Pulse Ox 98.6 F 83 20 148/95 H 99 02/25/20 16:00 02/25/20 16:00 02/25/20 16:00 02/25/20 16:00 02/25/20 16:00 Intake & Output 02/24/20 02/25/20 02/26/20 06:59 06:59 06:59 Intake Total 816 2570 0 Output Total 50 2000 0 Balance 766 570 0 Weight 54.6 kg 54.9 kg General appearance: PRESENT: cooperative, mild distress Head exam: PRESENT: atraumatic, normocephalic Eye exam: PRESENT: periorbital swelling Mouth exam: PRESENT: other - tongue swelling, lip swelling Throat exam: ABSENT: tonsillar erythema Neck exam: PRESENT: full ROM Respiratory exam: PRESENT: clear to auscultation анна, symmetrical, tachypnea. ABSENT: rales, wheezes Cardiovascular exam: PRESENT: RRR, +S1, +S2 Pulses: PRESENT: +2 pedal pulses bilateral GI/Abdominal exam: PRESENT: normal bowel sounds, soft. ABSENT: rebound, tenderness Extremities exam: PRESENT: full ROM Musculoskeletal exam: PRESENT: full ROM Neurological exam: PRESENT: alert, awake, oriented to person, oriented to place, oriented to time, oriented to situation Psychiatric exam: PRESENT: normal mood Skin exam: PRESENT: normal color Results Laboratory Results: 02/25/20 04:56 02/24/20 04:00 02/25/20 02/25/20 04:56 04:56 WBC 5.1 RBC 3.55 L Hgb 9.1 L Hct 28.4 L MCV 80 MCH 25.7 L MCHC 32.1 RDW 18.5 H Plt Count 311 Seg Neutrophils % 55.8 Magnesium 2.1 02/22/20 22:04 Troponin I 0.056 Impressions: Chest X-Ray 02/22/20 21:52 IMPRESSION: Cardiomegaly with mild interstitial edema and tiny bibasilar effusions copyright 2011 [employer]- All Rights Reserved Venous Doppler Study 02/23/20 09:34 IMPRESSION: NO EVIDENCE DVT OR SVT IN EITHER LEG. Assessment and Plan - Diagnosis (1) Anaphylaxis Qualifiers: Encounter type: initial encounter Qualified Code(s): T78.2XXA - Anaphylactic shock, unspecified, initial encounter Is this a current diagnosis for this admission?: Yes Plan: -Patient developed facial swelling periorbital swelling, with tongue swelling and shortness of breath approximately an hour after receiving hydralazine coverage specialist -She was given epinephrine, famotidine, prednisone, cetirizine -Hydralazine put as an allergy to her medication list -I asked Dr. Nieves to evaluate her due to concern for airway compromise in light of anaphylaxis and tongue swelling. Per Dr. Arambula may give another dose of famotidine, Benadryl. No indication for ICU admission -Vital signs every 2 hours continuous pulse ox (2) Pulmonary emboli Qualifiers: Pulmonary embolism type: multiple subsegmental (without acute cor pulmonale) Qualified Code(s): I26.94 - Multiple subsegmental pulmonary emboli without acute cor pulmonale Is this a current diagnosis for this admission?: Yes Plan: chest pain x 1 week, pleuritic pain and dyspnea - Hx of SLE, ESRD on dialysis - Cardiac origin ruled out with no significant CAD from recent angiogram [facility] - VQ scan intermediate probability - Doppler US no DVT - Wells score PE 4.5 - she is hemodynamically stable - transitioned to coumadin from heparin - Lupus anticoagulant sent - O2 support as needed - will defer further hypercoagulable work up outpatient. - she will need an heme/onc referral (3) NSTEMI (non-ST elevated myocardial infarction) Is this a current diagnosis for this admission?: Yes Plan: - 1 week prior came in due to chest pain - Troponin 0.039>0.043>0.056 - EKG no acute ST elevation - recent angiogram at [facility] no significant stenosis - likely Type II [place] from the PE - continue aspirin, carvedilol, lipitor (4) ESRD (end-stage renal disease) due to SLE Is this a current diagnosis for this admission?: Yes Plan: She is receiving HD , , Thu. No change needed (5) Transplant recipient Is this a current diagnosis for this admission?: Yes Plan: - received kidney transplant 2015 due to kidney failure 2/2 SLE - on prednisone. To continue (6) HLD (hyperlipidemia) Qualifiers: Hyperlipidemia type: unspecified Qualified Code(s): E78.5 - Hyperlipidemia, unspecified Is this a current diagnosis for this admission?: Yes Plan: - on lipitor (7) Hypertension Qualifiers: Hypertension type: essential hypertension Qualified Code(s): I10 - Essential (primary) hypertension Is this a current diagnosis for this admission?: Yes Plan: on carvedilol, amlodipine (8) SLE (systemic lupus erythematosus) Qualifiers: Systemic lupus erythematosus type: other Systemic lupus erythematosus organ involvement: glomerular disease Qualified Code(s): M32.14 - Glomerular disease in systemic lupus erythematosus Is this a current diagnosis for this admission?: Yes Plan: - complicated by Lupus nephritis - on prednisone (9) Chest pain Qualifiers: Chest pain type: chest pain on breathing Qualified Code(s): R07.1 - Chest pain on breathing; R07.81 - Pleurodynia Is this a current diagnosis for this admission?: Yes Plan: - likely 2/2 to PE - Time Anticipated Discharge Disposition: Home, Self Care Anticipated Discharge Timeframe: within 48 hours
[2020-02-25] MEDS ORDERED: DIPHENHYDRAMINE HCL 50 MG/ML VIAL IV ONE (18:35)
[2020-02-25] MEDS: MIRTAZAPINE 15 MG TABLET PO SCH (21:03)
[2020-02-25] MEDS: WARFARIN SODIUM 5 MG TABLET PO SCH (21:04)
[2020-02-25] MEDS: OXYCODONE HCL IR 5 MG TABLET PO PRN (23:59)
[2020-02-26 05:54] LABS: HEMATOCRIT 26.6 % (36.0-47.0); HEMOGLOBIN 8.4 g/dL (12.0-15.5); MEAN CORPUSCULAR HEMOGLOBIN 25.5 pg (27.0-33.4); MEAN CORPUSCULAR HGB CONC 31.5 g/dL (32.0-36.0); MEAN CORPUSCULAR VOLUME 81 fl (80-97); PLATELET COUNT 286 10^3/uL (150-450); RED CELL DISTRIBUTION WIDTH 18.9 % (11.5-14.0); WHITE BLOOD COUNT 4.1 10^3/uL (4.0-10.5)
[2020-02-26 06:11] LABS: INTERNATIONAL RATION (INR) 1.21; PROTHROMBIN TIME 15.5 SEC (11.4-15.4)
[2020-02-26 06:30] LABS: ABSOLUTE LYMPHOCYTES# (MANUAL) 1.6 10^3/uL (0.5-4.7); ABSOLUTE MONOCYTES # (MANUAL) 0.4 10^3/uL (0.1-1.4); ANISOCYTOSIS 2+; BAND NEUTROPHILS % (MANUAL) 1 % (3-5); BASOPHILS % (MANUAL) 0 % (0-2); EOSINOPHILS % (MANUAL) 1 % (0-6); HYPOCHROMASIA SLIGHT; LYMPHOCYTES % (MANUAL) 38 % (13-45); MONOCYTES % (MANUAL) 10 % (3-13); OVALOCYTES SLIGHT; POIKILOCYTOSIS 1+; SEGMENTED NEUTROPHILS % (MAN) 50 % (42-78); TEAR DROP CELLS SLIGHT; TOTAL CELLS COUNTED 100
[2020-02-26 06:31] LABS: PLATELET COMMENT ADEQUATE
[2020-02-26] MEDS: AMLODIPINE BESYLATE 10 MG TABLET PO SCH (09:00)
[2020-02-26] MEDS: CALCIUM ACETATE 667 MG CAPSULE PO SCH ×3 (09:00→16:20)
[2020-02-26] MEDS: CARVEDILOL 12.5 MG TABLET PO SCH ×2 (09:00→21:56)
[2020-02-26] MEDS: PREDNISONE 5 MG TABLET PO SCH (09:00)
[2020-02-26] MEDS: OXYCODONE HCL IR 5 MG TABLET PO PRN ×2 (09:01→21:55)
[2020-02-26] MEDS ORDERED: HEPARIN SODIUM,PORCINE/D5W 25,000 UNIT/250 ML RTUINJ IV PRN ×4 (16:45→23:38)
--- NOTE | 2020-02-26 17:34 | PDOC PROGRESS REPORT ---
Subjective Progress Note for:: 02/26/20 Subjective:: YUSUF CANTRELL is a 59 year old female, PMH of SLE, Lupus nephritis, ESRD on dialysis Thursday, status post kidney transplant 2015, hypertension, atrial fibrillation, who came in the ED due to persistent chest pain. She was initially seen in the emergency room at [facility] on February 16, 2020 due to chest pain towards the end of her dialysis session. Chest pain was described as heaviness, 10 out of 10, with mild shortness of breath. Her troponin trended up with a EKG showing no ST elevation. She was diagnosed with NSTEMI in the ED and was started on heparin drip and nitroglycerin drip and she was subsequently transferred to [facility] for an angiogram since we are unable to do angiogram at [facility]. She went to [facility] on February 16 and subsequently underwent angiogram. She did not require any stent placement and she was started on aspirin. Her chest pain continued since then despite being on aspirin and nitroglycerin. She came back to the emergency room today. VQ scan was ordered which was read as intermediate probability for PE. She has no prior history. She was started on heparin drip and was subsequently admitted for further evaluation and management. Ultrasound of the lower leg did not show any DVT. D2 of hospital stay 02/24/20. She was seen and examined at bedside after undergoing dialysis. She complains of SOB when she is off the oxygen, chest pain is better but still present. She did well on dialysis. VS is stable. Plan today is to transition her from heparin drip to warfarin. Dr. Victor Hugo Toledo has seen her during this admission. D3 Hospital stay 02/25/20. She was seen and examined at bedside. She is compla ining of facial and tongue swelling which developed about an hour after she was given hydralazine. This was noted on my physical exam as well. She was given epinephrine, prednisone, famotidine and cetrizine. She continued to be drowsy and with her tongue swelling, it is worrisome for airway compromise. Dr. Nieves and I assessed her at bedside and at this time she was noted to be more awake sitting on the chair, still with tongue swelling and muffled voice. Dr. Nieves advised another dose of famotidine and benadryl and to elevate her head, no need for ICU admission yet. D4 Hospital stay 02/26/20. She was seen and examined at bedside. She reports improvement of her facial swelling, tongue swelling. She still has some chest pain and still requires oxygen support. She is supposedly on an drip being bridged to warfarin but apparently her heparin drip was stopped. Orders were never discontinued. Clarified with the pharmacist and nurse was instructed to restart heparin drip. CT angios of the chest ordered to confirm pulmonary embolism. Dr. Brooks was consulted due to episodes of PVCs in [facility], blood pressure remained stable. She is on carvedilol 12.5 twice daily. Her echo and angiogram results from Thursday and was reviewed by Dr. Brooks. Reason For Visit: PULMONARY EMBOLISM,ESRD ON DIALYSIS Physical Exam Vital Signs: Temp Pulse Resp BP Pulse Ox 97.5 F 89 18 155/94 H 96 02/26/20 11:13 02/26/20 14:00 02/26/20 11:13 02/26/20 11:13 02/26/20 11:13 Intake & Output 02/25/20 02/26/20 02/27/20 06:59 06:59 06:59 Intake Total 2570 260 500 Output Total 2000 0 0 Balance 570 260 500 Weight 54.9 kg 58.2 kg General appearance: PRESENT: no acute distress, mild distress, other - With mild facial swelling, tongue swelling has decreased Head exam: PRESENT: atraumatic, normocephalic Eye exam: PRESENT: EOMI, PERRLA Mouth exam: PRESENT: moist Neck exam: PRESENT: full ROM Respiratory exam: PRESENT: clear to auscultation анна, symmetrical, unlabored. ABSENT: tachypnea, wheezes Cardiovascular exam: PRESENT: RRR, +S1, +S2, other - episodes of extra beats Pulses: PRESENT: +2 pedal pulses bilateral GI/Abdominal exam: PRESENT: normal bowel sounds, soft. ABSENT: rebound, tenderness Extremities exam: PRESENT: full ROM Musculoskeletal exam: PRESENT: full ROM Neurological exam: PRESENT: alert, awake, oriented to person, oriented to place, oriented to time, oriented to situation Results Laboratory Results: 02/26/20 05:04 02/24/20 04:00 02/26/20 02/26/20 05:04 05:04 WBC 4.1 RBC 3.30 L Hgb 8.4 L Hct 26.6 L MCV 81 MCH 25.5 L MCHC 31.5 L RDW 18.9 H Plt Count 286 Seg Neutrophils % Not Reportable Magnesium 2.1 02/22/20 22:04 Troponin I 0.056 Impressions: Chest X-Ray 02/22/20 21:52 IMPRESSION: Cardiomegaly with mild interstitial edema and tiny bibasilar effusions copyright 2011 [employer]- All Rights Reserved Venous Doppler Study 02/23/20 09:34 IMPRESSION: NO EVIDENCE DVT OR SVT IN EITHER LEG. Assessment and Plan - Diagnosis (1) Anaphylaxis Qualifiers: Encounter type: initial encounter Qualified Code(s): T78.2XXA - Anap hylactic shock, unspecified, initial encounter Is this a current diagnosis for this admission?: Yes Plan: -IMPROVING -Patient developed facial swelling periorbital swelling, with tongue swelling and shortness of breath approximately an hour after receiving hydralazine dado operator -She was given epinephrine, famotidine, prednisone, cetirizine -Hydralazine put as an allergy to her medication list -I asked Dr. Nieves to evaluate her due to concern for airway compromise in light of anaphylaxis and tongue swelling. Per Dr. Arambula may give another dose of famotidine, Benadryl. No indication for ICU admission -Vital signs every 2 hours continuous pulse ox (2) Pulmonary emboli Qualifiers: Pulmonary embolism type: multiple subsegmental (without acute cor pulmonale) Qualified Code(s): I26.94 - Multiple subsegmental pulmonary emboli without acute cor pulmonale Is this a current diagnosis for this admission?: Yes Plan: chest pain x 1 week, pleuritic pain and dyspnea - Hx of SLE, ESRD on dialysis - Cardiac origin ruled out with no significant CAD from recent angiogram [facility] - VQ scan intermediate probability - Doppler US no DVT - Wells score PE 4.5 - she is hemodynamically stable - She is supposedly being bridged to warfarin from heparin however her heparin was not being given and she was just on warfarin. Order for heparin drip is still active. Verified with the pharmacy that order is still active. Instructed the nurse to restart heparin drip. - CT angio of chest ordered to confirm PE - Lupus anticoagulant sent - O2 support as needed - will defer further hypercoagulable work up outpatient. - she will need an heme/onc referral (3) NSTEMI (non-ST elevated myocardial infarction) Is this a current diagnosis for this admission?: Yes Plan: - 1 week prior came in due to chest pain - Troponin 0.039>0.043>0.056 - EKG no acute ST elevation - recent angiogram at [facility] no significant stenosis - likely Type II [place] from the PE - continue aspirin, carvedilol, lipitor (4) ESRD (end-stage renal disease) due to SLE Is this a current diagnosis for this admission?: Yes Plan: She is receiving HD T, Th, Sat. No change needed (5) Transplant recipient Is this a current diagnosis for this admission?: Yes Plan: - received kidney transplant 2015 due to kidney failure 2/2 SLE - on prednisone. To continue (6) HLD (hyperlipidemia) Qualifiers: Hyperlipidemia type: unspecified Qualified Code(s): E78.5 - Hyperlipidemia, unspecified Is this a current diagnosis for this admission?: Yes Plan: - on lipitor (7) Hypertension Qualifiers: Hypertension type: essential hypertension Qualified Code(s): I10 - Essential (primary) hypertension Is this a current diagnosis for this admission?: Yes Plan: on carvedilol, amlodipine (8) SLE (systemic lupus erythematosus) Qualifiers: Systemic lupus erythematosus type: other Systemic lupus erythematosus organ involvement: glomerular disease Qualified Code(s): M32.14 - Glomerular disease in systemic lupus erythematosus Is this a current diagnosis for this admission?: Yes Plan: - complicated by Lupus nephritis - on prednisone (9) Chest pain Qualifiers: Chest pain type: chest pain on breathing Qualified Code(s): R07.1 - Chest pain on breathing; R07.81 - Pleurodynia Is this a current diagnosis for this admission?: Yes Plan: - likely 2/2 to PE - Time Time Spent with patient: 25-34 minutes Anticipated Discharge Disposition: Home, Self Care Anticipated Discharge Timeframe: to be determined
[2020-02-26 18:22] LABS: HEMATOCRIT 28.8 % (36.0-47.0); HEMOGLOBIN 9.2 g/dL (12.0-15.5); MEAN CORPUSCULAR HEMOGLOBIN 25.6 pg (27.0-33.4); MEAN CORPUSCULAR HGB CONC 32.1 g/dL (32.0-36.0); MEAN CORPUSCULAR VOLUME 80 fl (80-97); PLATELET COUNT 331 10^3/uL (150-450); RED CELL DISTRIBUTION WIDTH 18.5 % (11.5-14.0); WHITE BLOOD COUNT 4.2 10^3/uL (4.0-10.5)
[2020-02-26 18:39] LABS: ABSOLUTE MONOCYTES # (MANUAL) 0.2 10^3/uL (0.1-1.4); BASOPHILS % (MANUAL) 0 % (0-2); EOSINOPHILS % (MANUAL) 0 % (0-6); LYMPHOCYTES % (MANUAL) 24 % (13-45); MONOCYTES % (MANUAL) 4 % (3-13); SEGMENTED NEUTROPHILS % (MAN) 72 % (42-78); TOTAL CELLS COUNTED 100
[2020-02-26 18:41] LABS: ANISOCYTOSIS 2+; HYPOCHROMASIA SLIGHT; OVALOCYTES SLIGHT; PLATELET COMMENT ADEQUATE
--- NOTE | 2020-02-26 20:06 | RADIOLOGY REPORT (SQ) ---
EXAM DESCRIPTION: CTA CHEST IMAGES COMPLETED DATE/TIME: 02/26/2020 7:48 pm REASON FOR STUDY: Pulmonary embolism COMPARISON: Ventilation perfusion study 02/23/2020 ; CT abdomen pelvis 12/12/2018 TECHNIQUE: CT scan of the chest performed using helical scanning technique with dynamic intravenous contrast injection. Images reviewed with lung, soft tissue and bone windows. Reconstructed coronal and sagittal MPR images reviewed. Additional 3 dimensional post-processing performed to develop Maximal Intensity Projection images (MN P). All images stored on PACS. All CT scanners at this facility use dose modulation, iterative reconstruction, and/or weight based d osing when appropriate to reduce radiation dose to as low as reasonably achievable (ALARA). [facility]: Dose Right [facility]: CareDose [facility]: Dose Right [facility]: Teradose 4D [facility]: [employer] CONTRAST TYPE AND DOSE: contrast/concentration: Isovue 350.00 mmol/ml; Total Contrast Delivered: 51. 0 ml; Total Saline Delivered: 35.4 ml 51 mL Isovue 350 Contrast bolus optimized for the pulmonary arteries. Not diagnostic for the aorta. RENAL FUNCTION: End-stage renal disease on dialysis RADIATION DOSE: CT Rad equipment meets quality standard of care and radiation dose reduction techniq ues were employed. CTDIvol: 14.3 - 19.8 mGy. DLP: 505 mGy-cm. . LIMITATIONS: None. FINDINGS: LUNGS AND PLEURA: Small bilateral pleural effusions with likely adjacent compressive atele ctasis. Otherwise, no focal consolidation. No pneumothorax. AORTA AND GREAT VESSELS: No aneurysm. Contrast bolus not optimized for the aorta. HEART: No pericardial effusion. No significant coronary artery calcifications. PULMONARY ARTERIES: No emboli visualized in the main pulmonary arteries or the segmental branches. HILAR AND MEDIASTINAL STRUCTURES: No identified masses or abnormal nodes. HARDWARE: None in the chest. UPPER ABDOMEN: In stage massive hydronephrosis of the right kidney, incompletely evaluated. Atrophic appearance of the left kidney, also incompletely imaged. THYROID AND OTHER SOFT TISSUES: No masses. No adenopathy. BONES: No acute or significant finding. 3D MIPS: Confirm above findings. OTHER: No other significant finding. IMPRESSION: No pulmonary embolus. Small bilateral pleural effusions with likely adjacent compressive atelectasis. COMMENT: Quality ID # [id number]: Final reports with documentation of one or more dose reduction techniques (e.g., Automated exposure control, adjustment of the mA and/or kV according to patient size, use of iterative reconstruction technique) TECHNICAL DOCUMENTATION: JOB ID: [id number] 2010 [employer]- All Rights Reserved Reading location - IP/workstation name: [email or web address]
--- NOTE | 2020-02-26 20:24 | EKG REPORT ---
SEVERITY:- ABNORMAL ECG - SINUS RHYTHM VENTRICULAR TRIGEMINY BORDERLINE LEFT AXIS DEVIATION BORDERLINE T ABNORMALITIES, ANT-LAT LEADS : Confirmed by: Jason Flores 26-Feb-2020 20:23:44
[2020-02-26] MEDS: WARFARIN SODIUM 5 MG TABLET PO SCH (21:53)
[2020-02-27] MEDS ORDERED: METOPROLOL TARTRATE PF/INJ 5 MG/5 ML SDV IV PRN (01:26)
[2020-02-27 02:44] LABS: INTERNATIONAL RATION (INR) 1.24; PROTHROMBIN TIME 15.8 SEC (11.4-15.4)
[2020-02-27 02:54] LABS: ANION GAP 14 (5-19); BLOOD UREA NITROGEN 59 mg/dL (7-20); CALCIUM 10.4 mg/dL (8.4-10.2); CARBON DIOXIDE 24 mmol/L (22-30); CHLORIDE 90 mmol/L (98-107); GLUCOSE 100 mg/dL (75-110); POTASSIUM 5.2 mmol/L (3.6-5.0)
[2020-02-27] MEDS: HEPARIN SOD (PORCINE) 1,000 UNIT/ML 10 ML VIAL IV PRN ×2 (03:01→10:50)
[2020-02-27] MEDS ORDERED: EPOETIN ALFA-EPBX 20,000 UNIT in SYRINGE, DISPOSABLE, 1 EACH IV PRN (05:00)
[2020-02-27] MEDS: CALCIUM ACETATE 667 MG CAPSULE PO SCH ×3 (11:20→17:26)
[2020-02-27] MEDS: OXYCODONE HCL IR 5 MG TABLET PO PRN ×2 (11:20→19:34)
[2020-02-27] MEDS: AMLODIPINE BESYLATE 10 MG TABLET PO SCH (11:21)
[2020-02-27] MEDS: PREDNISONE 5 MG TABLET PO SCH (11:21)
[2020-02-27] MEDS: CARVEDILOL 12.5 MG TABLET PO SCH ×2 (11:21→21:02)
--- NOTE | 2020-02-27 12:16 | PDOC PROGRESS REPORT ---
Subjective Progress Note for:: 02/27/20 Reason For Visit: Patient seen on dialysis today. Undergoing dialysis without any issues. Patient was admitted with history of pleuritic chest pain/shortness of breath. Initial diagnosis was possible pulmonary embolism based on intermediate VQ scan. However follow-up CTA was negative for pulmonary embolism. Patient still complains of pleuritic chest pain in the central/lateral regions of both chest along with shortness of breath. She has also got small amount of pleural effusions. Labs and medications were reviewed.Note that she had an anaphylactic reaction to usage of hydralazine Physical Exam Vital Signs: Temp Pulse Resp BP Pulse Ox 98.6 F 75 18 180/100 H 95 02/27/20 08:09 02/27/20 07:00 02/27/20 04:01 02/27/20 04:01 02/27/20 04:01 Intake & Output 02/26/20 02/27/20 02/28/20 06:59 06:59 06:59 Intake Total 260 1270 Output Total 0 0 Balance 260 1270 Weight 58.2 kg 60.8 kg General appearance: PRESENT: no acute distress Respiratory exam: PRESENT: clear to auscultation анна, decreased breath sounds. ABSENT: crackles Cardiovascular exam: PRESENT: +S1, +S2 GI/Abdominal exam: PRESENT: normal bowel sounds, soft. ABSENT: organomegaly, tenderness Extremities exam: ABSENT: pedal edema Neurological exam: PRESENT: alert, awake, oriented to person, oriented to place Psychiatric exam: PRESENT: appropriate affect Results Laboratory Results: 02/26/20 18:07 02/27/20 02:05 02/26/20 02/27/20 18:07 02:05 WBC 4.2 RBC 3.60 L Hgb 9.2 L Hct 28.8 L MCV 80 MCH 25.6 L MCHC 32.1 RDW 18.5 H Plt Count 331 Seg Neutrophils % Not Reportable Sodium 128.2 L Potassium 5.2 H Chloride 90 L Carbon Dioxide 24 Anion Gap 14 BUN 59 H Creatinine 6.94 H Est GFR ( Amer) 7 L Glucose 100 Calcium 10.4 H 02/22/20 22:04 Troponin I 0.056 Impressions: Chest X-Ray 02/22/20 21:52 IMPRESSION: Cardiomegaly with mild interstitial edema and tiny bibasilar effusions copyright 2011 [employer]- All Rights Reserved Venous Doppler Study 02/23/20 09:34 IMPRESSION: NO EVIDENCE DVT OR SVT IN EITHER LEG. Chest/Abdomen CTA 02/26/20 00:00 IMPRESSION: No pulmonary embolus. Small bilateral pleural effusions with likely adjacent compressive atelectasis. Assessment & Plan - Diagnosis (1) Pulmonary emboli Qualifiers: Pulmonary embolism type: multiple subsegmental (without acute cor pulmonale) Qualified Code(s): I26.94 - Multiple subsegmental pulmonary emboli without acute cor pulmonale Is this a current diagnosis for this admission?: Yes Plan: Intermediate VQ scan but negative CTA. Discussed with hospitalist and agree with stoppage of anticoagulation. (2) ESRD (end-stage renal disease) due to SLE Is this a current diagnosis for this admission?: Yes Plan: Currently undergoing dialysis. Is being supervised. Vital signs are stable but for uncontrolled blood pressure which should hopefully respond to ultrafiltration. We will plan to remove 1-2 L of fluid as tolerated. Dialysis orders were reviewed with the treating dialysis nurse. (3) Transplant recipient Is this a current diagnosis for this admission?: Yes Plan: Failed transplant and now back on ESRD on dialysis. (4) Anemia in chronic kidney disease, on chronic dialysis Plan: Adjust erythropoietin. Monitor. (5) Uncontrolled hypertension Plan: See response to fluid removal on dialysis. Start her on clonidine and monitor. (6) SLE (systemic lupus erythematosus) Qualifiers: Systemic lupus erythematosus type: other Systemic lupus erythematosus organ involvement: glomerular disease Qualified Code(s): M32.14 - Glomerular disease in systemic lupus erythematosus Is this a current diagnosis for this admission?: Yes Plan: Wonder if she could be having pleuritis from SLE for which she is currently on low-dose of prednisone. Discussed with hospitalist about a trial of higher dose of prednisone at 40 mg and see if she would respond to that as a therapeutic trial. (7) Shortness of breath Plan: Unknown etiology. She would need a lung function study. Question possibility of pleuritis from active SLE. As mentioned earlier trial of steroids at higher doses is warranted. (8) Chest pain Qualifiers: Chest pain type: chest pain on breathing Qualified Code(s): R07.1 - Chest pain on breathing; R07.81 - Pleurodynia Is this a current diagnosis for this admission?: Yes Plan: Pleuritic in nature. As mentioned earlier.
[2020-02-27 13:13] LABS: HEMATOCRIT 30.6 % (36.0-47.0); HEMOGLOBIN 9.8 g/dL (12.0-15.5); MEAN CORPUSCULAR HEMOGLOBIN 25.6 pg (27.0-33.4); MEAN CORPUSCULAR HGB CONC 32.1 g/dL (32.0-36.0); MEAN CORPUSCULAR VOLUME 80 fl (80-97); PLATELET COUNT 328 10^3/uL (150-450); RED BLOOD COUNT 3.83 10^6/uL (3.72-5.28); RED CELL DISTRIBUTION WIDTH 18.7 % (11.5-14.0); WHITE BLOOD COUNT 3.8 10^3/uL (4.0-10.5)
[2020-02-27] MEDS: CLONIDINE HCL 0.1 MG TABLET PO SCH ×2 (13:16→21:02)
[2020-02-27] MEDS ORDERED: ALBUTEROL SULFATE 0.083% NEB 2.5 MG/3 ML AMPUL NEB PRN (14:08)
--- NOTE | 2020-02-27 20:12 | PDOC PROGRESS REPORT ---
Subjective Progress Note for:: 02/27/20 Subjective:: YUSUF CANTRELL is a 59 year old female, PMH of SLE, Lupus nephritis, ESRD on dialysis Thursday, status post kidney transplant 2015, hypertension, atrial fibrillation, who came in the ED due to persistent chest pain. She was initially seen in the emergency room at [facility] on February 16, 2020 due to chest pain towards the end of her dialysis session. Chest pain was described as heaviness, 10 out of 10, with mild shortness of breath. Her troponin trended up with a EKG showing no ST elevation. She was diagnosed with NSTEMI in the ED and was started on heparin drip and nitroglycerin drip and she was subsequently transferred to [facility] for an angiogram since we are unable to do angiogram at [facility]. She went to [facility] on February 16 and subsequently underwent angiogram. She did not require any stent placement and she was started on aspirin. Her chest pain continued since then despite being on aspirin and nitroglycerin. She came back to the emergency room today. VQ scan was ordered which was read as intermediate probability for PE. She has no prior history. She was started on heparin drip and was subsequently admitted for further evaluation and management. Ultrasound of the lower leg did not show any DVT. D2 of hospital stay 02/24/20. She was seen and examined at bedside after undergoing dialysis. She complains of SOB when she is off the oxygen, chest pain is better but still present. She did well on dialysis. VS is stable. Plan today is to transition her from heparin drip to warfarin. Dr. Victor Hugo Toledo has seen her during this admission. D3 Hospital stay 02/25/20. She was seen and examined at bedside. She is compla ining of facial and tongue swelling which developed about an hour after she was given hydralazine. This was noted on my physical exam as well. She was given epinephrine, prednisone, famotidine and cetrizine. She continued to be drowsy and with her tongue swelling, it is worrisome for airway compromise. Dr. Nieves and I assessed her at bedside and at this time she was noted to be more awake sitting on the chair, still with tongue swelling and muffled voice. Dr. Nieves advised another dose of famotidine and benadryl and to elevate her head, no need for ICU admission yet. D4 Hospital stay 02/26/20. She was seen and examined at bedside. She reports improvement of her facial swelling, tongue swelling. She still has some chest pain and still requires oxygen support. She is supposedly on an drip being bridged to warfarin but apparently her heparin drip was stopped. Orders were never discontinued. Clarified with the pharmacist and nurse was instructed to restart heparin drip. CT angios of the chest ordered to confirm pulmonary embolism. Dr. Brooks was consulted due to episodes of PVCs in [facility], blood pressure remained stable. She is on carvedilol 12.5 twice daily. Her echo and angiogram results from Thursday and was reviewed by Dr. Brooks. D5 Hospital stay 02/27/20. She was seen and examined at bedside. She is still complaining of SOB and persistent chest pain. Cardiac cause for the chest pain was ruled out with a recent angiogram and echo from [facility]. Initially thought PE as the cause of SOB and chest pain because her VQ scan was intermediate probability. She was initially started on heparin drip and received 2 doses of warfarin but CT angio did not show PE, DVT US negative as well. Reason For Visit: Persistent chest pain and SOB,ESRD ON DIALYSIS Physical Exam Vital Signs: Temp Pulse Resp BP Pulse Ox 98.5 F 77 19 139/87 H 99 02/27/20 16:45 02/27/20 16:45 02/27/20 16:45 02/27/20 16:45 02/27/20 16:45 Intake & Output 02/26/20 02/27/20 02/28/20 06:59 06:59 06:59 Intake Total 260 1270 290 Output Total 0 0 2800 Balance 260 1270 -2510 Weight 58.2 kg 60.8 kg General appearance: PRESENT: mild distress, thin Head exam: PRESENT: atraumatic, normocephalic Eye exam: PRESENT: EOMI, PERRLA Mouth exam: PRESENT: moist Neck exam: PRESENT: full ROM Respiratory exam: PRESENT: rales, rhonchi, symmetrical. ABSENT: tachypnea, wheezes - labored breathing Cardiovascular exam: PRESENT: RRR, +S1, +S2 Pulses: PRESENT: normal radial pulses GI/Abdominal exam: PRESENT: normal bowel sounds, soft. ABSENT: rebound, tenderness Extremities exam: PRESENT: full ROM Musculoskeletal exam: PRESENT: full ROM Neurological exam: PRESENT: alert, awake, oriented to person, oriented to place, oriented to time, oriented to situation Results Laboratory Results: 02/27/20 12:30 02/27/20 02:05 02/27/20 02/27/20 02:05 12:30 WBC 3.8 L RBC 3.83 Hgb 9.8 L Hct 30.6 L MCV 80 MCH 25.6 L MCHC 32.1 RDW 18.7 H Plt Count 328 Sodium 128.2 L Potassium 5.2 H Chloride 90 L Carbon Dioxide 24 Anion Gap 14 BUN 59 H Creatinine 6.94 H Est GFR ( Amer) 7 L Glucose 100 Calcium 10.4 H 02/22/20 22:04 Troponin I 0.056 Impressions: Chest X-Ray 02/22/20 21:52 IMPRESSION: Cardiomegaly with mild interstitial edema and tiny bibasilar effusions copyright 2011 [employer]- All Rights Reserved Venous Doppler Study 02/23/20 09:34 IMPRESSION: NO EVIDENCE DVT OR SVT IN EITHER LEG. Chest/Abdomen CTA 02/26/20 00:00 IMPRESSION: No pulmonary embolus. Small bilateral pleural effusions with likely adjacent compressive atelectasis. Assessment and Plan - Diagnosis (1) Chest pain Qualifiers: Chest pain type: chest pain on breathing Qualified Code(s): R07.1 - Chest pain on breathing; R07.81 - Pleurodynia Is this a current diagnosis for this admission?: Yes Plan: - She has had persistent chest pain worse with breathing for the past 2 weeks. She was in the ED Feb 15 for chest pain and elevated troponin, so cardiac origin was suspected and she was transferred to [facility] for a cath. Cath was clean did not show any significant stenosis. She continued to have chest pain at home after being discharged from [facility] hence she landed in the ED again on 02/22/20. VQ scan was done which showed intermediate probability of PE. She was started on heparin drip with plans to bridge to warfarin. CTA was done on the which did not show a Pulmonary embolism, US DVT was normal as well. - At this point I am unsure what is causing her persistent chest pain and SOB. She does not have a fever and white count and CXR is not showing any pneumonia. She might be having pleuritis from lupus which is causing her to splint her breath hence the SOB. - cardiology following - Pulmonology consulted Dr. Blackburn - Per Dr. Gay, this may be 2/2 her Lupus from pleuritis so he recommended increase of her prednisone to 40 mg - PFT was done 02/27/20 (2) SLE (systemic lupus erythematosus) Qualifiers: Systemic lupus erythematosus type: other Systemic lupus erythematosus organ involvement: glomerular disease Qualified Code(s): M32.14 - Glomerular disease in systemic lupus erythematosus Is this a current diagnosis for this admission?: Yes Plan: - complicated by Lupus nephritis - Has not seen a planning associate - currently on prednisone increased to 40 mg daily - she would need a Rheum referral to manage her Lupus. (3) Anaphylaxis Qualifiers: Encounter type: initial encounter Qualified Code(s): T78.2XXA - Anaphylactic shock, unspecified, initial encounter Is this a current diagnosis for this admission?: Yes Plan: -IMPROVED -Patient developed facial swelling periorbital swelling, with tongue swelling and shortness of breath approximately an hour after receiving hydralazine early breastfeeding care specialist -She was given epinephrine, famotidine, prednisone, cetirizine -Hydralazine put as an allergy to her medication list -I asked Dr. Nieves to evaluate her due to concern for airway compromise in light of anaphylaxis and tongue swelling. Per Dr. Arambula may give another dose of famotidine, Benadryl. No indication for ICU admission (4) NSTEMI (non-ST elevated myocardial infarction) Is this a current diagnosis for this admission?: Yes Plan: - 1 week prior came in due to chest pain - Troponin 0.039>0.043>0.056 - EKG no acute ST elevation - recent angiogram at [facility] no significant stenosis - continue aspirin, carvedilol, lipitor (5) ESRD (end-stage renal disease) due to SLE Is this a current diagnosis for this admission?: Yes Plan: She is receiving HD T, Th, Sat. - last dialysis 02/27/20 - Dr. Gay on board (6) Transplant recipient Is this a current diagnosis for this admission?: Yes Plan: - received kidney transplant 2015 due to kidney failure 2/2 SLE - not on immunosuppresives besides prednisone - on prednisone. To continue (7) HLD (hyperlipidemia) Qualifiers: Hyperlipidemia type: unspecified Qualified Code(s): E78.5 - Hyperlipidemia, unspecified Is this a current diagnosis for this admission?: Yes Plan: - on lipitor (8) Hypertension Qualifiers: Hypertension type: essential hypertension Qualified Code(s): I10 - Essential (primary) hypertension Is this a current diagnosis for this admission?: Yes Plan: on carvedilol, amlodipine, clonidine (9) Pulmonary emboli Qualifiers: Pulmonary embolism type: multiple subsegmental (without acute cor pulmonale) Qualified Code(s): I26.94 - Multiple subsegmental pulmonary emboli without acute cor pulmonale Is this a current diagnosis for this admission?: Yes Plan: - RECENTLY RULED OUT BY A NEGATIVE CTA chest chest pain x 1 week, pleuritic pain and dyspnea - Hx of SLE, ESRD on dialysis - Cardiac origin ruled out with no significant CAD from recent angiogram [facility] - VQ scan intermediate probability - Doppler US no DVT - Wells score PE 4.5 - she is hemodynamically stable - received about 2 days of heparin and warfarin - Plan Summary Summary: She is a 59-year-old female ESRD on dialysis secondary to lupus nephritis, history of hypertension who was initially admitted February 16, 2020 due to chest pain and shortness of breath after dialysis. Her troponin at that time trended up and it was thought that the chest pain was caused by an ACS hence she was transferred to [facility] and for a cath. Angiogram did not show any significant stenosis and she was discharged on aspirin carvedilol and statin. She continued to have chest pain and shortness of breath at home hence she came to the ED again February 22, 2020. VQ scan done in the ED showed a intermediate probability. She was started on heparin drip with plans to bridge to warfarin. Ultrasound of the lower leg was negative for DVT. CT El[place] of the chest was done 920 to confirm pulmonary embolism. However CT [place]ma of the chest did not show any pulmonary embolism and the anticoagulation was stopped. At this point I am unsure of what is causing her persistent chest pain or shortness of breath with a negative cardiac work-up and no signs of pneumonia. Pulmonology was consulted. PFT ordered. Prednisone was increased to 40 mg daily as her persistent chest pain may be secondary to pleuritis from SLE. - Time Time Spent with patient: 25-34 minutes Medications reviewed and adjusted accordingly: Yes Anticipated Discharge Disposition: Home, Self Care Anticipated Discharge Timeframe: To be determined
[2020-02-28 04:22] LABS: INTERNATIONAL RATION (INR) 1.41; PROTHROMBIN TIME 17.4 SEC (11.4-15.4)
[2020-02-28] MEDS: OXYCODONE HCL IR 5 MG TABLET PO PRN ×2 (07:34→17:44)
[2020-02-28] MEDS: CALCIUM ACETATE 667 MG CAPSULE PO SCH ×3 (10:10→17:11)
[2020-02-28] MEDS: PREDNISONE 20 MG TABLET PO SCH (10:11)
[2020-02-28] MEDS: AMLODIPINE BESYLATE 10 MG TABLET PO SCH (10:11)
[2020-02-28] MEDS: CARVEDILOL 12.5 MG TABLET PO SCH ×2 (10:11→21:51)
[2020-02-28] MEDS: CLONIDINE HCL 0.1 MG TABLET PO SCH ×2 (10:11→21:51)
[2020-02-28] MEDS: LIDOCAINE 5% (700 MG) TRANSDERMAL ADH..PATCH TP SCH (12:09)
[2020-02-28] MEDS ORDERED: LACTULOSE SYRUP 20 GM/30 ML UDCUP PO ONE (13:37)
--- NOTE | 2020-02-28 13:37 | PDOC PROGRESS REPORT ---
Subjective Progress Note for:: 02/28/20 Subjective:: Patient is a 59-year-old female with a past medical history of SLE, lupus nephritis, end-stage renal dialysis, status post failed renal transplant, hypertension, atrial fibrillation, who was admitted 02/27/2024 pleuritic chest pain. Patient had a clear cardiac catheterization 02/17/2020. Negative CTA 02/27/2020 Nephrology, cardiology, and pulmonology services are consulted. Patient was seen on morning rounds. She was found resting in bed, comfortably, on supplemental oxygen by nasal cannula at 3 L/min. Per nursing, the patient self administered her oxygen due to chest discomfort; however, did not have respiratory rate or SPO2 to warrant supplemental oxygen. Patient admits to continued, generalized, chest discomfort that is worsened with deep inspiration and cough. She states that her pain is essentially unchanged from the time of her admission. She denies fever, chills, palpitations, dyspnea, orthopnea, abdominal pain, nausea vomiting and diarrhea. She has no questions or concerns at this time. No concerns per nursing. Reason For Visit: PULMONARY EMBOLISM,ESRD ON DIALYSIS Physical Exam Vital Signs: Temp Pulse Resp BP Pulse Ox 98.4 F 78 18 152/80 H 100 02/28/20 10:00 02/28/20 07:40 02/28/20 07:40 02/28/20 07:40 02/28/20 07:40 Intake & Output 02/27/20 02/28/20 02/29/20 06:59 06:59 06:59 Intake Total 1270 290 Output Total 0 2800 Balance 1270 -2510 Weight 60.8 kg 63 kg General appearance: PRESENT: no acute distress, well-developed, well-nourished Head exam: PRESENT: atraumatic, normocephalic Eye exam: PRESENT: conjunctiva pink, EOMI, PERRLA. ABSENT: scleral icterus Mouth exam: PRESENT: moist, tongue midline Respiratory exam: PRESENT: clear to auscultation анна, symmetrical, unlabored. ABSENT: rales, rhonchi, wheezes Cardiovascular exam: PRESENT: RRR, +S1, +S2. ABSENT: diastolic murmur, rubs, systolic murmur Vascular exam: PRESENT: normal capillary refill Extremities exam: PRESENT: full ROM. ABSENT: calf tenderness, clubbing, pedal edema Musculoskeletal exam: PRESENT: ambulatory Neurological exam: PRESENT: alert, awake, oriented to person, oriented to place, oriented to time, oriented to situation, CN II-XII grossly intact. ABSENT: motor sensory deficit Psychiatric exam: PRESENT: appropriate affect, normal mood. ABSENT: homicidal ideation, suicidal ideation Skin exam: PRESENT: dry, intact, warm. ABSENT: cyanosis, rash Results Laboratory Results: 02/27/20 12:30 02/27/20 02:05 02/27/20 12:30 WBC 3.8 L RBC 3.83 Hgb 9.8 L Hct 30.6 L MCV 80 MCH 25.6 L MCHC 32.1 RDW 18.7 H Plt Count 328 02/22/20 22:04 Troponin I 0.056 Impressions: Chest X-Ray 02/22/20 21:52 IMPRESSION: Cardiomegaly with mild interstitial edema and tiny bibasilar effusions copyright 2011 [employer]- All Rights Reserved Venous Doppler Study 02/23/20 09:34 IMPRESSION: NO EVIDENCE DVT OR SVT IN EITHER LEG. Chest/Abdomen CTA 02/26/20 00:00 IMPRESSION: No pulmonary embolus. Small bilateral pleural effusions with likely adjacent compressive atelectasis. Assessment and Plan - Diagnosis (1) Chest pain Qualifiers: Chest pain type: chest pain on breathing Qualified Code(s): R07.1 - Chest pain on breathing; R07.81 - Pleurodynia Is this a current diagnosis for this admission?: Yes Plan: Unclear etiology; possibly pleuritis from her SLE She has had persistent chest pain worse with breathing for the past 2 weeks. She was in the ED Feb 15 for chest pain and elevated troponin, so cardiac origin was suspected and she was transferred to [facility] for a cath. Cath was clean; did not show any significant stenosis. She continued to have chest pain at home after being discharged from [facility] hence she landed in the ED again on 02/22/20. VQ scan was done which showed intermediate probability of PE. She was started on heparin drip with plans to bridge to warfarin. CTA was done on the which did not show a Pulmonary embolism, US DVT was normal as well. - Cardiology following; appreciate Dr. Brooks's assistance. - Pulmonology consulted; appreciate Dr. Blackburn - Nephrology consulted; per Dr. Gay, this may be 2/2 her Lupus from pleuritis so he recommended increase of her prednisone to 40 mg; 1st dose today. PFT pending; patient was not able to participate despite coaching by [facility] staff Ambulatory oxygen testing pending. Continue home dose oxycodone. Trial lidoderm patches. IS to bedside. (2) SLE (systemic lupus erythematosus) Qualifiers: Systemic lupus erythematosus type: other Systemic lupus erythematosus organ involvement: glomerular disease Qualified Code(s): M32.14 - Glomerular disease in systemic lupus erythematosus Is this a current diagnosis for this admission?: Yes Plan: - complicated by Lupus nephritis - Has not seen a dehydrogenation operator head - currently on prednisone increased to 40 mg daily - she would need a Rheum referral to manage her Lupus. (3) Anaphylaxis Qualifiers: Encounter type: initial encounter Qualified Code(s): T78.2XXA - Anaphylactic shock, unspecified, initial encounter Is this a current diagnosis for this admission?: Yes Plan: Resolved. -Patient developed facial swelling periorbital swelling, with tongue swelling and shortness of breath approximately an hour after receiving hydralazine She was given epinephrine, famotidine, prednisone, cetirizine Hydralazine put as an allergy to her medication list (4) HLD (hyperlipidemia) Qualifiers: Hyperlipidemia type: unspecified Qualified Code(s): E78.5 - Hyperlipidemia, unspecified Is this a current diagnosis for this admission?: Yes Plan: Home dose statin (5) Hypertension Qualifiers: Hypertension type: essential hypertension Qualified Code(s): I10 - Essential (primary) hypertension Is this a current diagnosis for this admission?: Yes Plan: Blood pressures remain elevated; overall acceptable Continue carvedilol, amlodipine, clonidine (6) NSTEMI (non-ST elevated myocardial infarction) Is this a current diagnosis for this admission?: Yes Plan: - 1 week prior came in due to chest pain - Troponin 0.039>0.043>0.056 - EKG no acute ST elevation - recent angiogram at [facility] no significant stenosis - continue aspirin, carvedilol, lipitor Cardiology is consulted; appreciate Dr. Brooks's evaluation and recommendations. (7) Pulmonary emboli Qualifiers: Pulmonary embolism type: multiple subsegmental (without acute cor pulmonale) Qualified Code(s): I26.94 - Multiple subsegmental pulmonary emboli without acute cor pulmonale Is this a current diagnosis for this admission?: Yes Plan: - RECENTLY RULED OUT BY A NEGATIVE CTA chest chest pain x 1 week, pleuritic pain and dyspnea - Hx of SLE, ESRD on dialysis - Cardiac origin ruled out with no significant CAD from recent angiogram [facility] - VQ scan intermediate probability - Doppler US no DVT - Wells score PE 4.5 - she is hemodynamically stable Received about 2 days of heparin and warfarin (8) Transplant recipient Is this a current diagnosis for this admission?: Yes Plan: - received kidney transplant 2015 due to kidney failure 2/2 SLE - not on immunosuppresives besides prednisone On daily prednisone therapy. Have increased dose r/t possible SLE as source of chest pain. (9) ESRD (end-stage renal disease) due to SLE Is this a current diagnosis for this admission?: Yes Plan: She is receiving HD T, , Thu. - last dialysis 02/27/20 - Dr. Gay on board - Time Time Spent with patient: 25-34 minutes Medications reviewed and adjusted accordingly: Yes Anticipated Discharge Disposition: Home, Self Care Anticipated Discharge Timeframe: within 48 hours
--- NOTE | 2020-02-28 17:01 | PDOC CONSULTATION ---
Consultation Consult Date: 02/28/20 Attending physician:: EHSAN ALVARADO Provider Consulted: RAMESH VALENCIA Consult reason:: dypsnea History of Present Illness Admission Date/PCP: 02/23/20 10:27 LEANNA KAMINSKI MD History of Present Illness: YUSUF CANTRELL is a 59 year old female was getting hemodialysis over the last 6 months for a end-stage renal disease the last 3 weeks that she has had a cough that was initially dry but is now productive of some clear phlegm she denies any fevers chills nausea vomiting or diarrhea denies hemoptysis this is expected to have anemia of chronic disease getting Epogen for this condition. 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 Has occasional tightness in her chest which is worse when she is lays flat so she has been sleeping upright for the last several weeks. Nocturnal cough no edema she is unaware of any snoring restless sleep unrestful sleep but does admit to daytime somnolence. Past Medical History Cardiac Medical History: Reports: Atrial Fibrillation, Congestive Heart Failure, Hyperlipidema, Hypertension Pulmonary Medical History: Denies: Tuberculosis Neurological Medical History: Denies: Seizures Endocrine Medical History: Denies: Diabetes Mellitus Type 2 Renal/ Medical History: Reports: End Stage Renal Disease - Was on dialysis for 6 months prior to kidney transplant Malignancy Medical History: Reports: Other - History of lupus GI Medical History: Reports: Gastroesophageal Reflux Disease, Hiatal Hernia Denies: Crohn's Disease, Ulcerative Colitis Musculoskeltal Medical History: Reports: Arthritis Skin Medical History: Denies: Psoriasis Psychiatric Medical History: Reports: Depression Hematology: Reports: Anemia Infectious Medical History: Denies: HIV Past Surgical History Past Surgical History: Reports: Herniorrhaphy, Orthopedic Surgery - neck fusion, Other - Renal transplant 2001; low back surgery Tess fundoplication Denies: Hysterectomy Social History Information Source: Patient, [facility] Records Smoking Status: Never Smoker Passive smoke exposure as: Child Frequency of Alcohol Use: None Hx Recreational Drug Use: No Drugs: None Hx Prescription Drug Abuse: No Do you have pets?: No Have you had any respiratory illnesses as a child?: No Have you been exposed to any sick contacts recently?: No Have you had any recent respiratory illnesses?: No Have you travelled outside of [place] in the past 12 months?: No - Advance Directive Resuscitation Status: Full Code Family History Family History: Hypertension, Malignancy Parental Family History Reviewed: Yes Children Family History Reviewed: Yes Sibling(s) Family History Reviewed.: Yes Medication/Allergy Home Medications: Prednisone [Deltasone 5 mg Tablet] 5 mg PO [id number] 08/28/19 Amlodipine Besylate [Norvasc 10 mg Tablet] 10 mg PO DAILY 02/16/20 Calcium Acetate [Phoslo 667 mg Capsule] 1,334 mg PO MEALS 02/16/20 Carvedilol [Coreg] 25 mg PO BID 02/16/20 Mirtazapine 30 mg PO QHS 02/16/20 Atorvastatin Calcium [Lipitor 40 mg Tablet] 40 mg PO QHS 02/23/20 Clonidine HCl 0.3 mg PO TID 02/23/20 Hydrochlorothiazide [Hydrodiuril 25 mg Tablet] 25 mg PO DAILY 02/23/20 Oxycodone HCl [Roxicodone] 10 mg PO Q6HP PRN MDD 3 TABS DAILY 02/23/20 Pantoprazole Sodium 40 mg PO DAILY 02/23/20 Allergies/Adverse Reactions: hydralazine Allergy (Severe, Verified 02/25/20 18:17) Anaphylaxis latex [Latex] Allergy (Mild, Verified 08/28/19 13:56) Hives Review of Systems All systems: reviewed and no additional remarkable complaints except as stated Physical Exam Vital Signs: Temp Pulse Resp BP Pulse Ox 98.4 F 78 18 152/80 H 100 02/28/20 10:00 02/28/20 07:40 02/28/20 07:40 02/28/20 07:40 02/28/20 07:40 Intake & Output 02/27/20 02/28/20 02/29/20 06:59 06:59 06:59 Intake Total 1270 290 Output Total 0 2800 Balance 1270 -2510 Weight 60.8 kg 63 kg General appearance: PRESENT: no acute distress, cooperative, disheveled, well- developed, well-nourished Head exam: PRESENT: atraumatic, normocephalic Eye exam: PRESENT: conjunctiva pale, EOMI. ABSENT: nystagmus, periorbital swelling, scleral icterus Mouth exam: PRESENT: dry mucosa, neck supple, tongue midline Neck exam: ABSENT: carotid bruit, JVD, lymphadenopathy, thyromegaly Respiratory exam: PRESENT: decreased breath sounds, prolonged expiratory phas, rales, rhonchi, symmetrical, unlabored. ABSENT: retraction, stridor, tachypnea, wheezes Cardiovascular exam: PRESENT: RRR, +S1, +S2 Pulses: PRESENT: normal radial pulses GI/Abdominal exam: PRESENT: soft. ABSENT: distended, guarding, mass, rebound, tenderness Extremities exam: ABSENT: calf tenderness, clubbing, joint swelling, pedal edema Musculoskeletal exam: ABSENT: deformity, dislocation Neurological exam: PRESENT: awake Psychiatric exam: PRESENT: appropriate affect Skin exam: PRESENT: dry, warm Results Laboratory Results: 02/27/20 12:30 02/27/20 02:05 02/27/20 12:30 WBC 3.8 L RBC 3.83 Hgb 9.8 L Hct 30.6 L MCV 80 MCH 25.6 L MCHC 32.1 RDW 18.7 H Plt Count 328 02/22/20 22:04 Troponin I 0.056 Impressions: Chest X-Ray 02/22/20 21:52 IMPRESSION: Cardiomegaly with mild interstitial edema and tiny bibasilar effusions copyright 2011 [employer]- All Rights Reserved Venous Doppler Study 02/23/20 09:34 IMPRESSION: NO EVIDENCE DVT OR SVT IN EITHER LEG. Chest/Abdomen CTA 02/26/20 00:00 IMPRESSION: No pulmonary embolus. Small bilateral pleural effusions with likely adjacent compressive atelectasis. 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 Is this a current diagnosis for this admission?: Yes Plan: as per nehrology (2) Pulmonary emboli Qualifiers: Pulmonary embolism type: multiple subsegmental (without acute cor pulmonale) Qualified Code(s): I26.94 - Multiple subsegmental pulmonary emboli without acute cor pulmonale Is this a current diagnosis for this admission?: Yes Plan: CTA non diagnostikc (3) Shortness of breath Is this a current diagnosis for this admission?: Yes Plan: BIPAP 04/12 ABG Spirometry DuoNeb (4) Anemia in chronic kidney disease, on chronic dialysis Is this a current diagnosis for this admission?: Yes Plan: epogen as you have done - Time Time Spent with patient: 50 min Time Spent: 50 to 70 Minutes
[2020-02-28] MEDS: IPRATROPIUM/ALBUTEROL 0.5-2.5 MG/3 ML AMPUL NEB SCH (19:56)
[2020-02-29] MEDS: OXYCODONE HCL IR 5 MG TABLET PO PRN ×2 (00:34→11:37)
[2020-02-29] MEDS: IPRATROPIUM/ALBUTEROL 0.5-2.5 MG/3 ML AMPUL NEB SCH ×3 (02:13→13:43)
[2020-02-29] MEDS ORDERED: EPOETIN ALFA-EPBX 10,000 UNIT in SYRINGE, DISPOSABLE, 1 EACH IV PRN (05:00)
[2020-02-29] MEDS ORDERED: HEPARIN SOD (PORCINE) 1,000 UNIT/ML 10 ML VIAL IV PRN (05:00)
[2020-02-29 06:31] LABS: HEMATOCRIT 25.2 % (36.0-47.0); HEMOGLOBIN 8.4 g/dL (12.0-15.5); MEAN CORPUSCULAR HEMOGLOBIN 26.4 pg (27.0-33.4); MEAN CORPUSCULAR HGB CONC 33.2 g/dL (32.0-36.0); MEAN CORPUSCULAR VOLUME 80 fl (80-97); PLATELET COUNT 303 10^3/uL (150-450); RED BLOOD COUNT 3.17 10^6/uL (3.72-5.28); RED CELL DISTRIBUTION WIDTH 19.1 % (11.5-14.0); WHITE BLOOD COUNT 3.2 10^3/uL (4.0-10.5)
[2020-02-29 06:50] LABS: ANION GAP 12 (5-19); BLOOD UREA NITROGEN 60 mg/dL (7-20); CALCIUM 9.8 mg/dL (8.4-10.2); CARBON DIOXIDE 26 mmol/L (22-30); CHLORIDE 91 mmol/L (98-107); GLUCOSE 112 mg/dL (75-110)
[2020-02-29] MEDS ORDERED: PANTOPRAZOLE SODIUM 40 MG TABLET.DR PO SCH (08:45)
[2020-02-29 08:50] LABS: ARTERIAL BLOOD BASE EXCESS 4.4 mmol/L; ARTERIAL BLOOD H2CO3 1.19 mmol/L (1.05-1.35); ARTERIAL BLOOD HCO3 28.3 mmol/L (20-24); ARTERIAL BLOOD O2 SATURATION 95.7 % (94-98); ARTERIAL BLOOD PCO2 39.4 mmHg (35-45); ARTERIAL BLOOD PH 7.47 (7.35-7.45); ARTERIAL BLOOD PO2 73.9 mmHg (80-100); ARTERIAL BLOOD TOTAL CO2 29.5 mmol/L (21-25)
[2020-02-29 09:01] LABS: ARTERIAL BLOOD FIO2 21%
[2020-02-29] MEDS ORDERED: LIDOCAINE 2% VISCOUS SOLN 15 ML UDCUP PO ONE (10:00)
[2020-02-29] MEDS ORDERED: METOCLOPRAMIDE HCL ORAL SOLN 10 MG/10 ML UDCUP PO ONE (10:00)
[2020-02-29] MEDS ORDERED: MAG HYDROX/AL HYDROX/SIMETH SUSP 30 ML UDCUP PO ONE (10:00)
[2020-02-29] MEDS: HEPARIN SOD (PORCINE) 1,000 UNIT/ML 10 ML VIAL IV PRN (10:10)
[2020-02-29] MEDS: CALCIUM ACETATE 667 MG CAPSULE PO SCH ×3 (11:31→11:50)
[2020-02-29] MEDS: PREDNISONE 20 MG TABLET PO SCH (11:31)
[2020-02-29] MEDS: AMLODIPINE BESYLATE 10 MG TABLET PO SCH (11:31)
[2020-02-29] MEDS: CARVEDILOL 12.5 MG TABLET PO SCH (11:32)
[2020-02-29] MEDS: CLONIDINE HCL 0.1 MG TABLET PO SCH (11:32)
[2020-02-29] MEDS: LIDOCAINE 5% (700 MG) TRANSDERMAL ADH..PATCH TP SCH (11:33)
--- NOTE | 2020-02-29 12:35 | PDOC PROGRESS REPORT ---
Subjective Progress Note for:: 02/29/20 Reason For Visit: Patient seen on dialysis today. Undergoing dialysis without any issues. Her pleuritic chest pains have improved with higher dose of prednisone. So to has her shortness of breath but she said that still is a problem when she exerts. Unsure pulmonary function test results. Labs and medications were reviewed. Dialysis orders were reviewed with the treating dialysis nurse. Physical Exam Vital Signs: Temp Pulse Resp BP Pulse Ox 98.6 F 66 16 157/84 H 96 02/29/20 11:15 02/29/20 11:15 02/29/20 11:15 02/29/20 11:15 02/29/20 11:15 Intake & Output 02/28/20 02/29/20 03/01/20 06:59 06:59 06:59 Intake Total 290 1140 Output Total 2800 3200 Balance -2510 1140 -3200 Weight 63 kg 64.8 kg General appearance: PRESENT: no acute distress Respiratory exam: PRESENT: clear to auscultation анна, decreased breath sounds. ABSENT: crackles Cardiovascular exam: PRESENT: +S1, +S2 GI/Abdominal exam: PRESENT: normal bowel sounds, soft. ABSENT: organomegaly, tenderness Extremities exam: PRESENT: pedal edema Neurological exam: PRESENT: alert, oriented to person, oriented to place Psychiatric exam: PRESENT: appropriate affect Results Laboratory Results: 02/29/20 05:30 02/29/20 05:30 02/29/20 02/29/20 02/29/20 05:30 05:30 08:35 WBC 3.2 L RBC 3.17 L Hgb 8.4 L Hct 25.2 L MCV 80 MCH 26.4 L MCHC 33.2 RDW 19.1 H Plt Count 303 Carbonic Acid 1.19 HCO3/H2CO3 Ratio 23:1 ABG pH 7.47 H ABG pCO2 39.4 ABG pO2 73.9 L ABG HCO3 28.3 H ABG O2 Saturation 95.7 ABG Base Excess 4.4 FiO2 21% Sodium 129.3 L Potassium 5.0 Chloride 91 L Carbon Dioxide 26 Anion Gap 12 BUN 60 H Creatinine 6.81 H Est GFR ( Amer) 7 L Glucose 112 H Calcium 9.8 02/22/20 22:04 Troponin I 0.056 Impressions: Chest X-Ray 02/22/20 21:52 IMPRESSION: Cardiomegaly with mild interstitial edema and tiny bibasilar effusions copyright 2011 [employer]- All Rights Reserved Venous Doppler Study 02/23/20 09:34 IMPRESSION: NO EVIDENCE DVT OR SVT IN EITHER LEG. Chest/Abdomen CTA 02/26/20 00:00 IMPRESSION: No pulmonary embolus. Small bilateral pleural effusions with likely adjacent compressive atelectasis. 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 Is being supervised. Vital signs are stable but for uncontrolled blood pressure which should hopefully respond to ultrafiltration. We will plan to remove 2-3 L of fluid as tolerated. Dialysis orders were reviewed with the treating dialysis nurse.Advised the patient on proper dietary and fluid modifications. She is a high fluid giovanny and discussed with her that she is prone for really high fluids to gain especially because she is on high-dose of prednisone and the fact that she has to cut back her fluid intake to not more than 30 ounces a day. She has to go for dialysis tomorrow in case she is discharged today and get back on a TTS schedule. I also advised her to pursue her left lower arm AV fistula with her vascular surgeon in [place] so that we can have that working and then get her right IJ catheter removed. (2) Transplant recipient Is this a current diagnosis for this admission?: Yes Plan: Failed transplant and now back on ESRD on dialysis. (3) Anemia in chronic kidney disease, on chronic dialysis Is this a current diagnosis for this admission?: Yes Plan: Adjust erythropoietin. Monitor. (4) Uncontrolled hypertension Plan: See response to fluid removal on dialysis. Started her on clonidine with better response. (5) SLE (systemic lupus erythematosus) Qualifiers: Systemic lupus erythematosus type: other Systemic lupus erythematosus organ involvement: glomerular disease Qualified Code(s): M32.14 - Glomerular disease in systemic lupus erythematosus Is this a current diagnosis for this admission?: Yes Plan: Likely pleuritis from SLE for which she is currently on low-dose of prednisone. She seems to have responded to the higher dose of prednisone at 40 mg with improvement of her chest pains as well as dyspnea. Suggest tapering down the prednisone to 10 mg by cutting it by 5 mg every 5 days.Advised her to follow-up with lathe scalper operator post discharge. (6) Shortness of breath Is this a current diagnosis for this admission?: Yes Plan: Unknown etiology. She would need a lung function study. Question possibility of pleuritis from active SLE. As mentioned earlier trial of steroids at higher doses has helped some, but she needs to follow up with rheumatology post discharge. (7) Chest pain Qualifiers: Chest pain type: chest pain on breathing Qualified Code(s): R07.1 - Chest pain on breathing; R07.81 - Pleurodynia Is this a current diagnosis for this admission?: Yes Plan: Pleuritic in nature. As mentioned earlier.
[2020-02-29 13:04] VITALS: BP 156/82
[2020-02-29] MEDS ORDERED: MAG HYDROX/AL HYDROX/SIMETH SUSP 30 ML UDCUP ONE (13:27)
--- NOTE | 2020-02-29 15:42 | Pulmonary Function Test ---
Pulmonary Function Test Date of Procedure:: 02/27/20 INDICATION:: dyspnea Referring Provider: Limnology Teacher: Idalia Infante, SAMMYING MACHINE OPERATOR, HUMAN RESOURCES PROFESSIONAL - Report Spirometry: Spirometry: pre-FVC: 1.41 L 47 % post-FVC: 1.39 L 46% pre-FEV:1 1.13 L 46% post-FEV1: 1.15 L 47% pre-FEV1/FVC %: 80 post-FEV1/FVC%: 83 predicted: 83 [id number]%: 1.26 L 48% [id number]%: 1.36 L 52% Lung Volume: Total lung capacity: 2.85 L 58% Vital capacity: 1.41 L 47% Inspiratory capacity: 1.43 FRC N2: 1.42 L 50% ERV: 0.10 RV: 1.44 L 78% RV/TLC %:: 50 predicted 38 Impression: Moderate restrictive ventilatory defect. (Restrictive defect may mask the degree of obstruction.) Due to decreased flow in the FEV1 as well as the FEF 25-75% obstructive defect is implied
--- NOTE | 2020-02-29 16:46 | PDOC DISCHARGE SUMMARY ---
Impression - Admit/DC Date/PCP Admission Date/Primary Care Provider: 02/23/20 10:27 LEANNA KAMINSKI MD Discharge Date: 02/29/20 - Discharge Diagnosis (1) Chest pain Is this a current diagnosis for this admission?: Yes (2) SLE (systemic lupus erythematosus) Is this a current diagnosis for this admission?: Yes (3) Anaphylaxis Is this a current diagnosis for this admission?: Yes (4) HLD (hyperlipidemia) Is this a current diagnosis for this admission?: Yes (5) Hypertension Is this a current diagnosis for this admission?: Yes (6) NSTEMI (non-ST elevated myocardial infarction) Is this a current diagnosis for this admission?: Yes (7) Pulmonary emboli Is this a current diagnosis for this admission?: Yes (8) Transplant recipient Is this a current diagnosis for this admission?: Yes (9) ESRD (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 [Provider Group] (Patient will need to get referral from primary according to office.) RAMESH BLACKBURN MD [ACTIVE STAFF] - 03/05/20 8:30 am (Follow up in 4-6 weeks) CLAUDIA DUNN PA-C [ALLIED HEALTH PROFESSIONAL] - (Dialysis patient- will be seen on next dialysis day at [facility].) Prescriptions: Clonidine HCl [Catapres 0.1 mg Tablet] 0.1 mg PO Q12 #60 tablet Prednisone [Deltasone 20 mg Tablet] 40 mg PO DAILY #20 tablet Lidocaine [Lidoderm 5% (700 mg) Transdermal Patch] 1 patch TP DAILY #30 adh..patch Home Medications: Amlodipine Besylate [Norvasc 10 mg Tablet] 10 mg PO DAILY 02/16/20 Calcium Acetate [Phoslo 667 mg Capsule] 1,334 mg PO MEALS 02/16/20 Carvedilol [Coreg] 25 mg PO BID 02/16/20 Atorvastatin Calcium [Lipitor 40 mg Tablet] 40 mg PO QHS 02/23/20 Oxycodone HCl [Roxicodone] 10 mg PO Q6HP PRN MDD 3 TABS DAILY 02/23/20 Pantoprazole Sodium 40 mg PO DAILY 02/23/20 Acetaminophen [Tylenol 325 mg Tablet] 650 mg PO Q4HP PRN tablet 02/29/20 Clonidine HCl [Catapres 0.1 mg Tablet] 0.1 mg PO Q12 #60 tablet 02/29/20 Lidocaine [Lidoderm 5% (700 mg) Transdermal Patch] 1 patch TP DAILY #30 adh..patch 02/29/20 Prednisone [Deltasone 20 mg Tablet] 40 mg PO DAILY #20 tablet 02/29/20 History of Present Illiness History of Present Illness: Per H&P by Dr. Becerra: YUSUF CANTRELL is a 59 year old female, PMH of SLE, Lupus nephritis, ESRD on dialysis Thursday, status post kidney transplant 2015, hypertension, atrial fibrillation, who came in the ED due to persistent chest pain. She was initially seen in the emergency room at [place] on February 16, 2020 due to chest pain towards the end of her dialysis session. Chest pain was described as heaviness, 10 out of 10, with mild shortness of breath. Her troponin trended up with a EKG showing no ST elevation. She was diagnosed with NSTEMI in the ED and was started on heparin drip and nitroglycerin drip and she was subsequently transferred to [facility] for an angiogram since we are unable to do angiogram at [place]. She went to [facility] on February 16 and subsequently underwent angiogram. She did not require any stent placement and she was started on aspirin. Her chest pain continued since then despite being on aspirin and nitroglycerin. She came back to the emergency room today. VQ scan was ordered which was read as intermediate probability for PE. She has no prior history. She was started on heparin drip and was subsequently admitted for further evaluation and management. Ultrasound of the lower leg did not show any DVT. Hospital Course Hospital Course: (1) Chest pain Unclear etiology; possibly pleuritis from her SLE. Cardiac source has been RULED OUT. She has had persistent chest pain worse with breathing for the past 2 weeks. She was in the ED Feb 15 for chest pain and elevated troponin, so cardiac origin was suspected and she was transferred to [facility] Cath was clean; did not show any significant stenosis. She continued to have chest pain at home after being discharged from [facility] hence she landed in the ED again on 02/22/20. VQ scan was done which showed intermediate probability of PE. She was started on heparin drip with plans to bridge to warfarin. CTA was done on the which did not show a Pulmonary embolism, US DVT was normal as well. - Cardiology, Pulmonology and Nephrology services were consulted. Per Dr. Gay' recommendations, Chest discomfort may be pleuritis r/t SLE. Trial pulse dosing of p.o. prednisone. Increase prednisone to 40 mg daily x10 days; return to prior daily dosing at completion. Recommend rheumatology evaluation. Continue home dose oxycodone. Lidoderm patches. 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 (3) Anaphylaxis Resolved. -Patient developed facial swelling periorbital swelling, with tongue swelling and shortness of breath approximately an hour after receiving hydralazine She was given epinephrine, famotidine, prednisone, cetirizine Hydralazine put as an allergy to her medication list (4) HLD (hyperlipidemia) Home dose statin (5) Hypertension Blood pressures remain elevated; overall acceptable Continue carvedilol, amlodipine, clonidine Dietary and lifestyle modification are encouraged. (6) NSTEMI (non-ST elevated myocardial infarction) Recent history of NSTEMI; no CO this admission - 1 week prior came in due to chest pain - Troponin 0.039>0.043>0.056 - EKG no acute ST elevation - recent angiogram at [facility] no significant stenosis - continue aspirin, carvedilol, lipitor Cardiology is consulted; appreciate Dr. Brooks's evaluation and recommendations. Outpatient cardiology follow up. (7) Pulmonary emboli - RECENTLY RULED OUT BY A NEGATIVE CTA chest chest pain x 1 week, pleuritic pain and dyspnea - Hx of SLE, ESRD on dialysis - Cardiac origin ruled out with no significant CAD from recent angiogram [facility] - VQ scan intermediate probability - Doppler US no DVT - Wells score PE 4.5 - she is hemodynamically stable Received about 2 days of heparin and warfarin; discontinued upon CTA results. (8) Transplant recipient - received kidney transplant 2015 due to kidney failure 2/2 SLE - not on immunosuppresives besides prednisone On daily prednisone therapy. Have increased dose r/t possible SLE as source of chest pain. (9) ESRD (end-stage renal disease) due to SLE Continue outpatient dialysis. Nephrology consulted for dialysis during admission. Physical Exam Vital Signs: Temp Pulse Resp BP Pulse Ox 97.6 F 76 18 156/82 H 99 02/29/20 12:00 02/29/20 13:45 02/29/20 13:45 02/29/20 11:43 02/29/20 13:45 Intake & Output 02/28/20 02/29/20 03/01/20 06:59 06:59 06:59 Intake Total 290 1140 Output Total 2800 3200 Balance -2510 1140 -3200 Weight 63 kg 64.8 kg General appearance: PRESENT: no acute distress, well-developed, well-nourished - overweight Head exam: PRESENT: atraumatic, normocephalic Eye exam: PRESENT: conjunctiva pink, EOMI, PERRLA. ABSENT: scleral icterus Mouth exam: PRESENT: moist, tongue midline Teeth exam: PRESENT: poor dentation Respiratory exam: PRESENT: clear to auscultation анна, symmetrical, unlabored, other - ambulatory on room air. ABSENT: rales, rhonchi, wheezes Cardiovascular exam: PRESENT: RRR, +S1, +S2. ABSENT: diastolic murmur, rubs, systolic murmur Pulses: PRESENT: normal dorsalis pedis pul Vascular exam: PRESENT: normal capillary refill Extremities exam: PRESENT: full ROM. ABSENT: calf tenderness, clubbing, pedal edema Neurological exam: PRESENT: alert, awake, oriented to person, oriented to place, oriented to time, oriented to situation, CN II-XII grossly intact. ABSENT: motor sensory deficit Psychiatric exam: PRESENT: appropriate affect, normal mood. ABSENT: homicidal ideation, suicidal ideation Skin exam: PRESENT: dry, intact, warm. ABSENT: cyanosis, rash Results Laboratory Results: WBC 3.2 10^3/uL (4.0-10.5) L 02/29/20 05:30 RBC 3.17 10^6/uL (3.72-5.28) L 02/29/20 05:30 Hgb 8.4 g/dL (12.0-15.5) L 02/29/20 05:30 Hct 25.2 % (36.0-47.0) L 02/29/20 05:30 MCV 80 fl (80-97) 02/29/20 05:30 MCH 26.4 pg (27.0-33.4) L 02/29/20 05:30 MCHC 33.2 g/dL (32.0-36.0) 02/29/20 05:30 RDW 19.1 % (11.5-14.0) H 02/29/20 05:30 Plt Count 303 10^3/uL (150-450) 02/29/20 05:30 Lymph % (Auto) Not Reportable 02/26/20 18:07 Glades % (Auto) Not Reportable 02/26/20 18:07 Eos % (Auto) Not Reportable 02/26/20 18:07 Baso % (Auto) Not Reportable 02/26/20 18:07 Absolute Neuts (auto) Not Reportable 02/26/20 18:07 Absolute Lymphs (auto) Not Reportable 02/26/20 18:07 Absolute Monos (auto) Not Reportable 02/26/20 18:07 Absolute Eos (auto) Not Reportable 02/26/20 18:07 Absolute Basos (auto) Not Reportable 02/26/20 18:07 Total Counted 100 02/26/20 18:07 Seg Neutrophils % Not Reportable 02/26/20 18:07 Seg Neuts % (Manual) 72 % (42-78) 02/26/20 18:07 Band Neutrophils % 1 % (3-5) L 02/26/20 05:04 Lymphocytes % (Manual) 24 % (13-45) 02/26/20 18:07 Atypical Lymphs % 2 % (0) 02/23/20 08:10 Monocytes % (Manual) 4 % (3-13) 02/26/20 18:07 Eosinophils % (Manual) 0 % (0-6) 02/26/20 18:07 Basophils % (Manual) 0 % (0-2) 02/26/20 18:07 Abs Neuts (Manual) 3.0 10^3/uL (1.7-8.2) 02/26/20 18:07 Abs Lymphs (Manual) 1.0 10^3/uL (0.5-4.7) 02/26/20 18:07 Abs Monocytes (Manual) 0.2 10^3/uL (0.1-1.4) 02/26/20 18:07 Absolute Eos (Manual) 0.0 10^3/uL (0.0-0.6) 02/26/20 18:07 Abs Basophils (Manual) 0.0 10^3/uL (0.0-0.2) 02/26/20 18:07 Toxic Granulation 1+ 02/23/20 08:10 Toxic Vacuolation PRESENT 02/22/20 22:04 Clumped Platelets PRESENT 02/23/20 08:10 Platelet Comment ADEQUATE 02/26/20 18:07 Polychromasia SLIGHT 02/23/20 08:10 Hypochromasia SLIGHT 02/26/20 18:07 Poikilocytosis 1+ 02/26/20 05:04 Anisocytosis 2+ 02/26/20 18:07 Microcytosis SLIGHT 02/26/20 18:07 Tear Drop Cells SLIGHT 02/26/20 05:04 Ovalocytes SLIGHT 02/26/20 18:07 PT 17.4 SEC (11.4-15.4) H 02/28/20 03:43 INR 1.41 02/28/20 03:43 APTT 47.7 SEC (23.5-35.8) H 02/27/20 09:15 Carbonic Acid 1.19 mmol/L (1.05-1.35) 02/29/20 08:35 HCO3/H2CO3 Ratio 23:1 02/29/20 08:35 ABG pH 7.47 (7.35-7.45) H 02/29/20 08:35 ABG pCO2 39.4 mmHg (35-45) 02/29/20 08:35 ABG pO2 73.9 mmHg (80-100) L 02/29/20 08:35 ABG HCO3 28.3 mmol/L (20-24) H 02/29/20 08:35 ABG Total CO2 29.5 mmol/L (21-25) H 02/29/20 08:35 ABG O2 Saturation 95.7 % (94-98) 02/29/20 08:35 ABG Base Excess 4.4 mmol/L 02/29/20 08:35 FiO2 21% 02/29/20 08:35 Sodium 129.3 mmol/L (137-145) L 02/29/20 05:30 Potassium 5.0 mmol/L (3.6-5.0) 02/29/20 05:30 Chloride 91 mmol/L (98-107) L 02/29/20 05:30 Carbon Dioxide 26 mmol/L (22-30) 02/29/20 05:30 Anion Gap 12 (5-19) 02/29/20 05:30 BUN 60 mg/dL (7-20) H 02/29/20 05:30 Creatinine 6.81 mg/dL (0.52-1.25) H 02/29/20 05:30 Est GFR ( Amer) 7 (>60) L 02/29/20 05:30 Est GFR (MDRD) Non-Af 6 (>60) L 02/29/20 05:30 Glucose 112 mg/dL (75-110) H 02/29/20 05:30 Calcium 9.8 mg/dL (8.4-10.2) 02/29/20 05:30 Magnesium 2.1 mg/dL (1.6-2.3) 02/26/20 05:04 Total Bilirubin 0.5 mg/dL (0.2-1.3) 02/24/20 04:00 Direct Bilirubin 0.5 mg/dL (0.0-0.4) H 02/24/20 04:00 Neonat Total Bilirubin Not Reportable 02/24/20 04:00 Neonat Direct Bilirubin Not Reportable 02/24/20 04:00 Neonat Indirect Bili Not Reportable 02/24/20 04:00 AST 16 U/L (14-36) 02/24/20 04:00 ALT 8 U/L (<35) 02/24/20 04:00 Alkaline Phosphatase 60 U/L (38-126) 02/24/20 04:00 Troponin I 0.056 ng/mL 02/22/20 22:04 Total Protein 7.1 g/dL (6.3-8.2) 02/24/20 04:00 Albumin 3.1 g/dL (3.5-5.0) L 02/24/20 04:00 Urine Color YELLOW 02/24/20 05:55 Urine Appearance CLOUDY 02/24/20 05:55 Urine pH 8.0 (5.0-9.0) 02/24/20 05:55 Ur Specific Wever 1.029 02/24/20 05:55 Urine Protein >=500 mg/dL (NEGATIVE) H 02/24/20 05:55 Urine Glucose (UA) 150 mg/dL (NEGATIVE) H 02/24/20 05:55 Urine Ketones NEGATIVE mg/dL (NEGATIVE) 02/24/20 05:55 Urine Blood SMALL (NEGATIVE) H 02/24/20 05:55 Urine Nitrite NEGATIVE (NEGATIVE) 02/24/20 05:55 Urine Bilirubin NEGATIVE (NEGATIVE) 02/24/20 05:55 Urine Urobilinogen NEGATIVE mg/dL (<2.0) 02/24/20 05:55 Ur Leukocyte Esterase NEGATIVE (NEGATIVE) 02/24/20 05:55 Urine WBC (Auto) 24 /HPF 02/24/20 05:55 Urine RBC (Auto) 106 /HPF 02/24/20 05:55 Squamous Epi Cells Auto 19 /HPF 02/24/20 05:55 Urine Ascorbic Acid NEGATIVE (NEGATIVE) 02/24/20 05:55 02/22/20 22:04 Troponin I 0.056 Impressions: Chest X-Ray 02/22/20 21:52 IMPRESSION: Cardiomegaly with mild interstitial edema and tiny bibasilar effusions copyright 2011 [employer]- All Rights Reserved Venous Doppler Study 02/23/20 09:34 IMPRESSION: NO EVIDENCE DVT OR SVT IN EITHER LEG. Chest/Abdomen CTA 02/26/20 00:00 IMPRESSION: No pulmonary embolus. Small bilateral pleural effusions with likely adjacent compressive atelectasis. Plan Plan of Treatment: Patient is discharged home, in stable condition, into the care of family members with home health services arranged. She is advised to follow-up with her primary care provider within 1 week, with Dr. Blackburn as scheduled, with rheumatology at the earliest available a ppointment, and to keep her dialysis schedule. She is instructed to take medications as prescribed. Resume home dose prednisone upon completion of pulse dosing. Eat a heart healthy, dialysis, diet. Return to the emergency department, as needed, for concerning symptoms. Time Spent: Greater than 30 Minutes Stroke Is this a Stroke Patient?: No Acute Heart Failure Is this a Heart Failure Patient?: No
== END 2020-02-29 15:45 | disposition home health service (06) | DRG 545 ==
LOC: ER 20:45 → EH 02-23 10:27 → 5 02-23 13:25
PROVIDERS: ADMIT Internal Medicine; ATTEND Registered Nurse
PROC: 5A1D70Z Performance of Urinary Filtration, Intermittent, Less than 6 Hours Per Day (ICD-10-PCS; 2020-02-24)
PROC: 5A09357 Assistance with Respiratory Ventilation, Less than 24 Consecutive Hours, Continuous Positive Airway Pressure (ICD-10-PCS; principal; 2020-02-28)
DX: M32.14 Glomerular disease in systemic lupus erythematosus (principal); N18.6 End stage renal disease; Z94.0 Kidney transplant status; T88.6XXA Anaphylactic reaction due to adverse effect of correct drug or medicament properly administered, initial encounter; N25.81 Secondary hyperparathyroidism of renal origin; J91.8 Pleural effusion in other conditions classified elsewhere; Z99.2 Dependence on renal dialysis; E78.5 Hyperlipidemia, unspecified; I10 Essential (primary) hypertension; I48.91 Unspecified atrial fibrillation; T46.5X5A Adverse effect of other antihypertensive drugs, initial encounter; Y84.9 Medical procedure, unspecified as the cause of abnormal reaction of the patient, or of later complication, without mention of misadventure at the time of the procedure; K21.9 Gastro-esophageal reflux disease without esophagitis; F32.9 Major depressive disorder, single episode, unspecified; I49.3 Ventricular premature depolarization; R07.81 Pleurodynia; D63.1 Anemia in chronic kidney disease; I25.2 Old myocardial infarction; Z79.899 Other long term (current) drug therapy; Z98.1 Arthrodesis status; Z80.9 Family history of malignant neoplasm, unspecified; Z82.49 Family history of ischemic heart disease and other diseases of the circulatory system; Z91.040 Latex allergy status
CPT/HCPCS: 36415; 36600; 71045; 71275; 78580; 80048; 80053; 81001; 82803; 83520; 83735; 84484; 85025; 85027; 85610; 85730; 86225; 86235; 93005; 93010; 93306; 93970; 94060; 94660; 94727; 96374; 96375; 96376; 99285; A9540; J0171; J0360; J1170; J1200; J1644; J2060; J2270; J3490; J7512; J7613; Q5105; Q9969; S0028

== ENCOUNTER 2020-03-05 18:00 | Emergency (ER) | payer MEDICARE, MEDICAID ==
--- NOTE | 2020-03-05 18:41 | ER Document Report ---
ED Medical Screen (RME) - General Chief Complaint: Shortness Of Breath Stated Complaint: BLOOD PRESSURE ISSU Time Seen by Provider: 03/05/20 18:31 Primary Care Provider: LEANNA KAMINSKI MD [Primary Care Provider] - Follow up as needed Notes: patient is a 59-year-old female with a history of end-stage renal disease and lupus who presents emergency department with a chief complaint shortness of breath and low oxygen saturation. Patient was seen by pain management today and they wanted to admit her at [facility], but the patient did not want to go. Patient states that she still feels short of breath. States that she is short of breath just walking around her house. Exam: Diminished breath sounds and lower lobes. I have greeted and performed a rapid initial assessment of this patient. A comprehensive ED assessment and evaluation of the patient, analysis of test results and completion of medical decision making process will be conducted by an additional ED providers. TRAVEL OUTSIDE OF THE [place] IN LAST 30 DAYS: No - Related Data Allergies/Adverse Reactions: hydralazine Allergy (Severe, Verified 03/05/20 18:31) Anaphylaxis latex [Latex] Allergy (Mild, Verified 03/05/20 18:31) Hives Home Medications: lupus. dialysis Past Medical History - Past Medical History Cardiac Medical History: Reports: Hx Atrial Fibrillation, Hx Congestive Heart Failure, Hx Hypercholesterolemia, Hx Hypertension Pulmonary Medical History: Denies: Hx Tuberculosis Neurological Medical History: Denies: Hx Seizures Endocrine Medical History: Denies: Hx Diabetes Mellitus Type 2 Renal/ Medical History: Reports: Hx End Stage Renal Disease - Was on dialysis for 6 months prior to kidney transplant. Denies: Hx Peritoneal Dialysis GI Medical History: Reports: Hx Gastroesophageal Reflux Disease, Hx Hiatal Hernia, Hx Endoscopy - Patient had an endoscopy at [place] approximately 2 months ago.. Denies: Hx Crohn's Disease, Hx Ulcerative Colitis Musculoskeltal Medical History: Reports Hx Arthritis, Reports Hx Systemic Lupus Erythematosus Skin Medical History: Denies Hx Psoriasis Psychiatric Medical History: Reports: Hx Depression Infectious Medical History: Denies: Hx HIV Past Surgical History: Reports: Hx Herniorrhaphy, Hx Kidney (Renal Surgery) - kidney transplant 2002, Hx Orthopedic Surgery - neck fusion, Other - Renal transplant 2001; low back surgery Tess fundoplication. Denies: Hx Hysterectomy - Immunizations Hx Diphtheria, Pertussis, Tetanus Vaccination: Yes - unk Physical Exam - Vital signs Vitals: Temp Pulse Resp BP Pulse Ox 98.1 F 86 18 185/112 H 100 03/05/20 18:02 03/05/20 18:02 03/05/20 18:02 03/05/20 18:02 03/05/20 18:02 Course - Vital Signs Vital signs: Temp Pulse Resp BP Pulse Ox 98.1 F 86 18 185/112 H 100 03/05/20 18:02 03/05/20 18:02 03/05/20 18:02 03/05/20 18:02 03/05/20 18:02 Doctor's Discharge - Discharge Referrals: LEANNA KAMINSKI MD [Primary Care Provider] - Follow up as needed
[2020-03-05 20:02] LABS: ABSOLUTE EOSINOPHILS # (AUTO) 0.5 10^3/uL (0.0-0.6); ABSOLUTE LYMPHOCYTES (AUTO) 1.6 10^3/uL (0.5-4.7); ABSOLUTE MONOCYTES (AUTO) 0.5 10^3/uL (0.1-1.4); BASOPHILS % (AUTO) 0.9 % (0-2); EOSINOPHILS % (AUTO) 10.7 % (0-6); HEMATOCRIT 29.3 % (36.0-47.0); HEMOGLOBIN 9.4 g/dL (12.0-15.5); LYMPHOCYTES % (AUTO) 34.2 % (13-45); MEAN CORPUSCULAR HEMOGLOBIN 26.3 pg (27.0-33.4); MEAN CORPUSCULAR VOLUME 82 fl (80-97); MONOCYTES % (AUTO) 10.9 % (3-13); PLATELET COUNT 261 10^3/uL (150-450); RED BLOOD COUNT 3.57 10^6/uL (3.72-5.28); RED CELL DISTRIBUTION WIDTH 21.8 % (11.5-14.0); SEGMENTED NEUTROPHILS % (AUTO) 43.3 % (42-78); TOTAL CELLS COUNTED % (AUTO) 100 %; WHITE BLOOD COUNT 4.6 10^3/uL (4.0-10.5)
[2020-03-05 20:15] LABS: ALBUMIN 3.6 g/dL (3.5-5.0); ALKALINE PHOSPHATASE 74 U/L (38-126); ANION GAP 11 (5-19); ASPARTATE AMINO TRANSFERASE 19 U/L (14-36); BILIRUBIN,DIRECT 0.5 mg/dL (0.0-0.4); BILIRUBIN,TOTAL 0.7 mg/dL (0.2-1.3); BLOOD UREA NITROGEN 59 mg/dL (7-20); CALCIUM 9.5 mg/dL (8.4-10.2); CARBON DIOXIDE 30 mmol/L (22-30); CHLORIDE 88 mmol/L (98-107); CREATINE KINASE 31 U/L (30-135); GLUCOSE 100 mg/dL (75-110); POTASSIUM 4.9 mmol/L (3.6-5.0); TOTAL PROTEIN 7.5 g/dL (6.3-8.2)
--- NOTE | 2020-03-05 20:17 | RADIOLOGY REPORT (SQ) ---
EXAM DESCRIPTION: XR CHEST 2 VIEWS COMPLETED DATE/TME: 03/05/2020 18:45 CLINICAL HISTORY: 59 years, Female, shortness of breath COMPARISON: February 26, [address] and February 22, 2020 chest x-ray NUMBER OF VIEWS: 1 TECHNIQUE: 2 views of the chest were obtained consisting of PA and lateral views. LIMITATIONS: None. FINDINGS: Right central catheter is in stable position. There is stable, mild cardiac enlargement. There is a small right pleural effusion. There is mild interstitial prominence suspicious for mild interstitial edema although this is decreased from the prior chest x-ray. There is no pneumothorax. No acute or suspicious bony abnormality is seen. IMPRESSION: Stable cardiac enlargement. Small right pleural effusion is noted, likely without significant change from the recent head CT. There is evidence of mild interstitial edema, improved from the prior chest x-ray. copyright 2010 [employer]- All Rights Reserved
--- NOTE | 2020-03-05 22:43 | ER Document Report ---
ED General - General Chief Complaint: Shortness Of Breath Stated Complaint: BLOOD PRESSURE ISSU Time Seen by Provider: 03/05/20 18:31 Primary Care Provider: LEANNA KAMINSKI MD [Primary Care Provider] - Follow up as needed TRAVEL OUTSIDE OF THE [place] IN LAST 30 DAYS: No - HPI Notes: 59-year-old female presents with shortness of breath. This is been ongoing for several weeks. Patient reports she is concerned about "my oxygen", states that she cannot breathe when she wakes up in the morning. Also becomes short of breath during exertion, happened today while she was doing housework. She had a recent admission earlier this month. She states that she was told that it might be related to her lupus and was started on prednisone. She states that she was prescribed oxygen via nasal cannula, however this has not yet been delivered. She reports a constant daily chest tightness. She states that her blood pressure has been hard to control, states that her medications have been switched multiple times in doctors are trying to find a current regiment that works for her. Has not taken any of her night medication as she has been in the emergency department. Patient states that she saw pain management today, states that she was told her oxygen percent was 80% and the doctor wanted to admit her to [facility], however she refused that. Patient states that she accidentally missed her pulmonology follow-up visit today. She is a Thursday//Thursday dialysis patient, states that she went Thursday. States she makes very little pee. - Related Data Allergies/Adverse Reactions: hydralazine Allergy (Severe, Verified 03/05/20 18:31) Anaphylaxis latex [Latex] Allergy (Mild, Verified 03/05/20 18:31) Hives Home Medications: lupus. dialysis Past Medical History - General Information source: Patient - Social History Smoking Status: Never Smoker Family History: Hypertension, Malignancy Patient has homicidal ideation: No - Past Medical History Cardiac Medical History: Reports: Hx Atrial Fibrillation, Hx Congestive Heart Failure, Hx Hypercholesterolemia, Hx Hypertension Pulmonary Medical History: Denies: Hx Tuberculosis Neurological Medical History: Denies: Hx Seizures Endocrine Medical History: Denies: Hx Diabetes Mellitus Type 2 Renal/ Medical History: Reports: Hx End Stage Renal Disease - Was on dialysis for 6 months prior to kidney transplant. Denies: Hx Peritoneal Dialysis GI Medical History: Reports: Hx Gastroesophageal Reflux Disease, Hx Hiatal Hernia, Hx Endoscopy - Patient had an endoscopy at [place] approximately 2 months ago.. Denies: Hx Crohn's Disease, Hx Ulcerative Colitis Musculoskeletal Medical History: Reports Hx Arthritis, Reports Hx Systemic Lupus Erythematosus Skin Medical History: Denies Hx Psoriasis Psychiatric Medical History: Reports: Hx Depression Infectious Medical History: Denies: Hx HIV Past Surgical History: Reports: Hx Herniorrhaphy, Hx Kidney (Renal Surgery) - kidney transplant 2002, Hx Orthopedic Surgery - neck fusion, Other - Renal transplant 2001; low back surgery Tess fundoplication. Denies: Hx Hysterectomy - Immunizations Hx Diphtheria, Pertussis, Tetanus Vaccination: Yes - unk Hx Pneumococcal Vaccination: 06/08/09 Review of Systems - Review of Systems Constitutional: denies: Fever EENT: No symptoms reported Cardiovascular: denies: Edema Respiratory: Short of breath Gastrointestinal: denies: Abdominal pain Genitourinary: Other - Decreased at baseline Musculoskeletal: No symptoms reported Skin: No symptoms reported Neurological/Psychological: No symptoms reported Physical Exam - Vital signs Vitals: Temp Pulse Resp BP Pulse Ox 98.1 F 86 18 185/112 H 100 03/05/20 18:02 03/05/20 18:02 03/05/20 18:02 03/05/20 18:02 03/05/20 18:02 - General General appearance: Appears well, Alert In distress: None - HEENT Head: Normocephalic, Atraumatic Eyes: No: Scleral icterus Pupils: PERRL Neck: Other - No JVD - Respiratory Respiratory status: No respiratory distress Breath sounds: Normal. No: Rales, Wheezing - Cardiovascular Rhythm: Regular Heart sounds: Normal auscultation Pulses: Normal: Dorsalis pedis - Abdominal Tenderness: Nontender - Extremities General lower extremity: No: Edema - Neurological Neuro grossly intact: Yes Cognition: Normal Orientation: AAOx4 - Psychological Associated symptoms: Normal affect - Skin Skin Temperature: Warm Course - Re-evaluation Re-evalutation: 59-year-old female ESRD, hypertension, lupus here for shortness of breath, chronic in nature. On exam she is well-appearing, she has no increased work of breathing, lungs are actually clear. Oxygen sat at time evaluation is 95% on room air. Apparently is supposed to be on home oxygen but has not been it been delivered yet. Reviewed patient's recent admission and fairly extensive work-up. Per documentation, she had a negative cath at [facility], this was done for elevated troponin/presumed NSTEMI. On 02/22 she had a VQ scan which was concerning for PE. She underwent CTA chest which was negative for PE on 02/25. The cardiology consult and echo read are unavailable. Looks like ultimately it was concluded that patient was having pleuritic chest pain from a lupus flare, she was prescribed a 10-day course of prednisone. Patient definitely a candidate for CHF given her ESRD status, I am able to review some of the measurements from the echo and appears EF is within normal limits, looks like maybe she has some elevated right-sided pressures. Pulmonary hypertension could be possibility as well. Lupus disease process could be contributing as well. She is hypertensive currently, has not taken her night medications, will give dose of carvedilol and clonidine now. 03/06/20 01:30 No leukocytosis or left shift. Hemoglobin appears to be at baseline. Mild hyponatremia, consistent with previous values. Potassium within normal limits. Creatinine elevated as expected. Troponin elevated, however has decreased comp ared to recent values, potentially has chronic leak given she has been elevated on multiple checks recently. Chest x-ray read as improved from prior Re-reviewed her recent admission including all test, looks like she had PFTs done which showed a restrictive ventilatory defect. Blood pressure has down trended following oral medication At this current time, patient is obviously chronically ill, however I do not have a new acute finding to warrant hospital admission. She has had no documented hypoxia. I discussed with patient her work-up, it is overall reassuring today. Discussed with her need to follow-up with pulmonology as there is potential she has restrictive lung disease, which does go along with lupus. Patient verbalized understanding and feels comfortable going home. She will go to dialysis as planned. Return precautions given, patient stable at time of discharge. - Vital Signs Vital signs: Temp Pulse Resp BP Pulse Ox 98.1 F 86 17 179/110 H 100 03/05/20 18:02 03/05/20 18:02 03/06/20 01:31 03/06/20 01:31 03/06/20 01:31 - Laboratory Result Diagrams: 03/05/20 18:47 03/05/20 18:47 Laboratory results interpreted by me: 03/05/20 03/05/20 18:47 18:47 RBC 3.57 L Hgb 9.4 L Hct 29.3 L MCH 26.3 L RDW 21.8 H Eos % (Auto) 10.7 H Sodium 129.1 L Chloride 88 L BUN 59 H Creatinine 7.27 H Est GFR ( Amer) 7 L Est GFR (MDRD) Non-Af 6 L Magnesium 2.5 H Direct Bilirubin 0.5 H - Diagnostic Test Radiology reviewed: Image reviewed, Reports reviewed - EKG Interpretation by Me Additional EKG results interpreted by me: EKG as interpreted by me. Sinus rhythm, rate 82. Narrow QRS, QTC within normal limits. Evidence of LVH. Some T abnormalities, similar to previous EKG. No ST segment elevation. Discharge - Discharge Clinical Impression: Chronic shortness of breath, ESRD on dialysis Hypertension Qualifiers: Hypertension type: renovascular hypertension Qualified Code(s): I15.0 - Renovascular hypertension Condition: Stable Disposition: HOME, SELF-CARE Additional Instructions: Please try to follow-up with company that will be delivering the oxygen. Please call and reschedule a visit with pulmonology. Please continue all medications as prescribed and go to dialysis tomorrow. Return to the emergency department for any concerning worsening symptoms. Referrals: LEANNA KAMINSKI MD [Primary Care Provider] - Follow up as needed
[2020-03-05] MEDS ORDERED: CARVEDILOL 12.5 MG TABLET PO ONE (23:07)
[2020-03-05] MEDS ORDERED: CLONIDINE HCL 0.2 MG TABLET PO ONE (23:07)
[2020-03-06 01:48] VITALS: BP 179/110
--- NOTE | 2020-03-06 07:20 | EKG REPORT ---
SEVERITY:- ABNORMAL ECG - SINUS RHYTHM LEFT AXIS DEVIATION PROBABLE LEFT VENTRICULAR HYPERTROPHY : Confirmed by: Major Urbina MD 06-Mar-2020 07:19:31
== END 2020-03-06 01:49 | disposition home or self-care (01) ==
LOC: ER 18:00
DX: I13.11 Hypertensive heart and chronic kidney disease without heart failure, with stage 5 chronic kidney disease, or end stage renal disease (principal); N18.6 End stage renal disease; R06.02 Shortness of breath; T41.5X6A Underdosing of therapeutic gases, initial encounter; Z91.138 Patient's unintentional underdosing of medication regimen for other reason; E87.1 Hypo-osmolality and hyponatremia; R07.89 Other chest pain; M32.9 Systemic lupus erythematosus, unspecified; Z99.2 Dependence on renal dialysis; Z87.892 Personal history of anaphylaxis; Z88.8 Allergy status to other drugs, medicaments and biological substances; Z91.040 Latex allergy status; Z94.0 Kidney transplant status
CPT/HCPCS: 93005; 99285; 36415; 82550; 83735; 85025; 80053; 84484; 71046; 93010; A9270 ×2

== ENCOUNTER 2020-04-11 15:23 | Emergency (ER) | payer MEDICARE, MEDICAID ==
--- NOTE | 2020-04-11 16:49 | ER Document Report ---
ED Medical Screen (RME) - General Chief Complaint: Abdominal Pain Stated Complaint: ABDOMINAL SWELLING/PAIN Time Seen by Provider: 04/11/20 16:43 Primary Care Provider: LEANNA KAMINSKI MD [Primary Care Provider] - Follow up as needed Mode of Arrival: Ambulatory Information source: Patient Notes: 59-year-old female presents to ED for complaint of abdominal pain with bloody stools x3 weeks. She states she was hit in the abdomen by a car door about 3 weeks ago. She states she goes to dialysis and is told multiple times that she has the pain and the bloody stools but they have told her that she needs to follow-up with a donor services technician. She states she does have a appointment but it has been 3 weeks and the pain is getting much worse. She states she does have lupus high blood pressure and renal failure. She states she does not smoke drink or use any illicit drugs. She is swollen to the abdomen at this time. I have greeted and performed a rapid initial assessment of this patient. A comprehensive ED assessment and evaluation of the patient, analysis of test results and completion of medical decision making process will be conducted by an additional ED providers. TRAVEL OUTSIDE OF THE [place] IN LAST 30 DAYS: No - Related Data Allergies/Adverse Reactions: hydralazine Allergy (Severe, Verified 03/05/20 18:31) Anaphylaxis latex [Latex] Allergy (Mild, Verified 03/05/20 18:31) Hives Past Medical History - Past Medical History Cardiac Medical History: Reports: Hx Atrial Fibrillation, Hx Congestive Heart Failure, Hx Hypercholesterolemia, Hx Hypertension Pulmonary Medical History: Denies: Hx Tuberculosis Neurological Medical History: Denies: Hx Seizures Endocrine Medical History: Denies: Hx Diabetes Mellitus Type 2 Renal/ Medical History: Reports: Hx End Stage Renal Disease - Was on dialysis for 6 months prior to kidney transplant. Denies: Hx Peritoneal Dialysis GI Medical History: Reports: Hx Gastroesophageal Reflux Disease, Hx Hiatal Hernia, Hx Endoscopy - Patient had an endoscopy at [place] approximately 2 months ago.. Denies: Hx Crohn's Disease, Hx Ulcerative Colitis Musculoskeltal Medical History: Reports Hx Arthritis, Reports Hx Systemic Lupus Erythematosus Skin Medical History: Denies Hx Psoriasis Psychiatric Medical History: Reports: Hx Depression Infectious Medical History: Denies: Hx HIV Past Surgical History: Reports: Hx Herniorrhaphy, Hx Kidney (Renal Surgery) - kidney transplant 2002, Hx Orthopedic Surgery - neck fusion, Other - Renal transplant 2001; low back surgery Tess fundoplication. Denies: Hx Hysterectomy - Immunizations Hx Diphtheria, Pertussis, Tetanus Vaccination: Yes - unk Physical Exam - Vital signs Vitals: Temp Pulse Resp BP Pulse Ox 98.9 F 105 H 16 153/110 H 97 04/11/20 16:36 04/11/20 16:36 04/11/20 16:36 04/11/20 16:36 04/11/20 16:36 Course - Vital Signs Vital signs: Temp Pulse Resp BP Pulse Ox 98.9 F 105 H 16 153/110 H 97 04/11/20 16:36 04/11/20 16:36 04/11/20 16:36 04/11/20 16:36 04/11/20 16:36 Doctor's Discharge - Discharge Referrals: LEANNA KAMINSKI MD [Primary Care Provider] - Follow up as needed
[2020-04-11 17:39] LABS: HEMATOCRIT 29.2 % (36.0-47.0); HEMOGLOBIN 9.3 g/dL (12.0-15.5); MEAN CORPUSCULAR HEMOGLOBIN 26.9 pg (27.0-33.4); MEAN CORPUSCULAR HGB CONC 31.8 g/dL (32.0-36.0); MEAN CORPUSCULAR VOLUME 85 fl (80-97); PLATELET COUNT 225 10^3/uL (150-450); RED BLOOD COUNT 3.46 10^6/uL (3.72-5.28); RED CELL DISTRIBUTION WIDTH 20.9 % (11.5-14.0); WHITE BLOOD COUNT 3.6 10^3/uL (4.0-10.5)
[2020-04-11 17:57] LABS: ABSOLUTE LYMPHOCYTES# (MANUAL) 1.4 10^3/uL (0.5-4.7); ABSOLUTE MONOCYTES # (MANUAL) 0.3 10^3/uL (0.1-1.4); BASOPHILS % (MANUAL) 0 % (0-2); EOSINOPHILS % (MANUAL) 2 % (0-6); LYMPHOCYTES % (MANUAL) 39 % (13-45); MONOCYTES % (MANUAL) 9 % (3-13); SEGMENTED NEUTROPHILS % (MAN) 50 % (42-78); TOTAL CELLS COUNTED 100
[2020-04-11 17:59] LABS: ANISOCYTOSIS 2+; OVALOCYTES SLIGHT; PLATELET COMMENT ADEQUATE; POIKILOCYTOSIS SLIGHT; TEAR DROP CELLS SLIGHT; TOXIC VACUOLATION PRESENT
[2020-04-11 18:03] LABS: ALBUMIN 3.7 g/dL (3.5-5.0); ALKALINE PHOSPHATASE 94 U/L (38-126); ANION GAP 17 (5-19); ASPARTATE AMINO TRANSFERASE 31 U/L (14-36); BILIRUBIN,DIRECT 0.4 mg/dL (0.0-0.4); BILIRUBIN,TOTAL 0.6 mg/dL (0.2-1.3); BLOOD UREA NITROGEN 81 mg/dL (7-20); CALCIUM 9.9 mg/dL (8.4-10.2); CARBON DIOXIDE 25 mmol/L (22-30); CHLORIDE 88 mmol/L (98-107); GLUCOSE 107 mg/dL (75-110); POTASSIUM 3.2 mmol/L (3.6-5.0); TOTAL PROTEIN 8.1 g/dL (6.3-8.2)
[2020-04-11 18:05] LABS: CREATINE KINASE < 20 U/L (30-135)
--- NOTE | 2020-04-11 18:06 | RADIOLOGY REPORT (SQ) ---
EXAM DESCRIPTION: CT ABD/PELVIS NO ORAL OR IV IMAGES COMPLETED DATE/TIME: 04/11/2020 5:37 pm REASON FOR STUDY: Abdominal pain swelling injury to the right abdome COMPARISON: CT abdomen pelvis 06/24/2012, 12/05/2016, 11/16/2017, 12/12/2018 TECHNIQUE: CT scan of the abdomen and pelvis performed without intravenous or oral contrast. Images reviewed with lung, soft tissue, and bone windows. Reconstructed coronal and sagittal MPR images revi ewed. All images stored on PACS. All CT scanners at this facility use dose modulation, iterative reconstruction, and/or weight based d osing when appropriate to reduce radiation dose to as low as reasonably achievable (ALARA). [facility]: Dose Right [facility]: CareDose [facility]: Dose Right [facility]: Teradose 4D [facility]: Smart Technologies RADIATION DOSE: CT Rad equipment meets quality standard of care and radiation dose reduction techniq ues were employed. CTDIvol: 6.0 mGy. DLP: 273 mGy-cm.mGy. LIMITATIONS: None. FINDINGS: LOWER CHEST: No significant findings. No nodules or infiltrates. NON-CONTRASTED LIVER, SPLEEN, ADRENALS: Evaluation limited by lack of IV contrast. No identified sign ificant masses. Stable 4 cm cyst in the sub- diaphragmatic liver PANCREAS: No masses. No peripancreatic inflammatory changes. GALLBLADDER: There is gallbladder wall thickening, nonspecific in this patient with third-spacing of fluid along the abdominal wall. RIGHT KIDNEY AND URETER: Chronic end-stage right hydronephrosis with profound cortical thinning, unch anged from 2012. No significant calcifications. LEFT KIDNEY AND URETER: Tiny atrophic left kidney, 7 cm in length No significant calcifications. No hydronephrosis or hydroureter. RIGHT LOWER QUADRANT TRANSPLANT KIDNEY: 9 cm in length, with heavily calcified vessels. Peripherall y calcified 13 mm cyst AORTA AND RETROPERITONEUM: No aneurysm. No retroperitoneal masses or adenopathy. BOWEL AND PERITONEAL CAVITY: No obvious masses or inflammatory changes. Trace free cul-de-sac pelvic fluid. APPENDIX: Not identified PELVIS, BLADDER, AND ABDOMINAL WALL:Trace cul-de-sac water density free pelvic fluid. Fibroid uterus . Along the right flank, there is interstitial fluid between the layers of the abdominal wall, just sup erior to the right iliac crest involving an area 10 cm craniocaudad by 8 cm AP by 3 cm transverse. T his correlates with the area of prior trauma, and likely represents old hematoma. These findings were discussed with Carolyn in the emergency room Dialysis patient with third-spacing of fluid along the abdominal wall and gluteal subcutaneous fat. BONES: Diffuse bony sclerosis from renal osteodystrophy OTHER: No other significant finding. IMPRESSION: Contusion along the right flank. No gross underlying right liver laceration on non cont rasted CT. Findings discussed with Carolyn in the emergency room. COMMENT: Quality ID # [id number]: Final reports with documentation of one or more dose reduction techniques (e.g., Automated exposure control, adjustment of the mA and/or kV according to patient size, use of iterative reconstruction technique) TECHNICAL DOCUMENTATION: JOB ID: [id number] 2010 [employer]- All Rights Reserved Reading location - IP/workstation name: [id number]
[2020-04-11 20:34] VITALS: BP 161/118
== END 2020-04-12 01:30 | disposition left against medical advice (07) ==
LOC: ER 15:23
DX: S30.1XXA Contusion of abdominal wall, initial encounter (principal); W22.8XXA Striking against or struck by other objects, initial encounter; K92.1 Melena; I12.0 Hypertensive chronic kidney disease with stage 5 chronic kidney disease or end stage renal disease; N18.6 End stage renal disease; Z99.2 Dependence on renal dialysis; Z94.0 Kidney transplant status; Z87.892 Personal history of anaphylaxis; Z88.8 Allergy status to other drugs, medicaments and biological substances; Z91.040 Latex allergy status; Z53.20 Procedure and treatment not carried out because of patient's decision for unspecified reasons
CPT/HCPCS: 36415; 74176; 80053; 82550; 83690; 85025; 86850; 86900; 86901; 99281

== ENCOUNTER 2020-05-06 14:52 | Emergency (ER) | payer MEDICARE, MEDICAID ==
--- NOTE | 2020-05-06 15:25 | ER Document Report ---
ED Medical Screen (RME) - General Chief Complaint: Abdominal Pain Stated Complaint: ABDOMINAL PAIN,SWELLING Time Seen by Provider: 05/06/20 15:18 Primary Care Provider: LEANNA KAMINSKI MD [Primary Care Provider] - Follow up as needed Notes: HPI: 59-year-old female with multiple complaints. Patient has had continued right-sided abdominal pain over the last month since striking her abdomen on the car door. Patient also reports some chest discomfort today with some shortness of breath. Has had a cough for 3 weeks that is nonproductive. No definite fevers. Has not had Covid testing done in the last 3 weeks. Patient is a dialysis patient. PHYSICAL EXAMINATION: Lung sounds are clear to auscultation, mild tachycardia, mild tenderness to the right upper quadrant on palpation I have greeted and performed a rapid initial assessment of this patient. A comprehensive ED assessment and evaluation of the patient, analysis of test results and completion of medical decision making process will be conducted by an additional ED providers. TRAVEL OUTSIDE OF THE [place] IN LAST 30 DAYS: No - Related Data Allergies/Adverse Reactions: hydralazine Allergy (Severe, Verified 05/06/20 15:13) Anaphylaxis latex [Latex] Allergy (Mild, Verified 05/06/20 15:13) Hives Past Medical History - Social History Chew tobacco use (# tins/day): No Drug Abuse: None - Past Medical History Cardiac Medical History: Reports: Hx Atrial Fibrillation, Hx Congestive Heart Failure, Hx Hypercholesterolemia, Hx Hypertension Pulmonary Medical History: Denies: Hx Tuberculosis Neurological Medical History: Denies: Hx Seizures Endocrine Medical History: Denies: Hx Diabetes Mellitus Type 2 Renal/ Medical History: Reports: Hx End Stage Renal Disease - Was on dialysis for 6 months prior to kidney transplant. Denies: Hx Peritoneal Dialysis GI Medical History: Reports: Hx Gastroesophageal Reflux Disease, Hx Hiatal Hernia, Hx Endoscopy - Patient had an endoscopy at [place] approximately 2 months ago.. Denies: Hx Crohn's Disease, Hx Ulcerative Colitis Musculoskeltal Medical History: Reports Hx Arthritis, Reports Hx Systemic Lupus Erythematosus Skin Medical History: Denies Hx Psoriasis Psychiatric Medical History: Reports: Hx Depression Infectious Medical History: Denies: Hx HIV Past Surgical History: Reports: Hx Herniorrhaphy, Hx Kidney (Renal Surgery) - kidney transplant 2002, Hx Orthopedic Surgery - neck fusion, Other - Renal transplant 2001; low back surgery Tess fundoplication. Denies: Hx Hysterectomy - Immunizations Hx Diphtheria, Pertussis, Tetanus Vaccination: Yes - unk Physical Exam - Vital signs Vitals: Temp Pulse Resp BP Pulse Ox 98.1 F 82 18 140/93 H 99 05/06/20 15:04 05/06/20 15:04 05/06/20 15:04 05/06/20 15:04 05/06/20 15:04 Course - Vital Signs Vital signs: Temp Pulse Resp BP Pulse Ox 98.1 F 82 18 140/93 H 99 05/06/20 15:04 05/06/20 15:04 05/06/20 15:04 05/06/20 15:04 05/06/20 15:04 Doctor's Discharge - Discharge Referrals: LEANNA KAMINSKI MD [Primary Care Provider] - Follow up as needed
--- NOTE | 2020-05-06 16:27 | RADIOLOGY REPORT (SQ) ---
EXAM DESCRIPTION: CHEST SINGLE VIEW IMAGES COMPLETED DATE/TIME: 05/06/2020 3:05 pm REASON FOR STUDY: cough COMPARISON: Chest radiograph 03/05/2020. CT abdomen and pelvis 04/11/2020. EXAM PARAMETERS: NUMBER OF VIEWS: One view. TECHNIQUE: Single frontal radiographic view of the chest acquired. RADIATION DOSE: NA LIMITATIONS: None. FINDINGS: LUNGS AND PLEURA: The lungs are hyperinflated. Blunting at the right costophrenic angle i s stable. No focal consolidation or pleural effusion. No pneumothorax. MEDIASTINUM AND HILAR STRUCTURES: No masses. Contour normal. HEART AND VASCULAR STRUCTURES: Marked cardiomegaly, stable. No pulmonary vascular congestion. BONES: No acute findings. HARDWARE: Large-bore central venous catheter with tip at the cavoatrial junction unchanged. OTHER: No other significant finding. IMPRESSION: No significant interval change. No acute cardiopulmonary disease. Hyperinflated lungs which can be seen with obstructive lung disease. Marked cardiomegaly with no pulmonary vascular david estion. TECHNICAL DOCUMENTATION: JOB ID: [id number] 2010 [employer]- All Rights Reserved Reading location - IP/workstation name: [email or web address]
--- NOTE | 2020-05-06 17:34 | ER Document Report ---
ED GI/ - General Chief Complaint: Abdominal Pain Stated Complaint: ABDOMINAL PAIN,SWELLING Time Seen by Provider: 05/06/20 15:18 Primary Care Provider: LEANNA KAMINSKI MD [Primary Care Provider] - Follow up as needed Mode of Arrival: Ambulatory Information source: Patient Notes: This 59-year-old woman presents to the emergency department with a complaint of pain involving the right lateral aspect of the abdominal wall. She notes that the area becomes enlarged and tender on occasions. She apparently struck the area against a car door several weeks ago and has been having intermittent symptoms since that time. She has a midline incisional scar from a previous h ernia repair involving the left side of the abdominal wall. Patient is not sure whether she has a mesh in place or not. She denies nausea vomiting or changes in bowel function. She also denies fever or loss of appetite. She is a dialysis patient on hemodialysis. TRAVEL OUTSIDE OF THE [place] IN LAST 30 DAYS: No - Related Data Allergies/Adverse Reactions: hydralazine Allergy (Severe, Verified 05/06/20 15:13) Anaphylaxis latex [Latex] Allergy (Mild, Verified 05/06/20 15:13) Hives Past Medical History - Social History Smoking Status: Never Smoker Chew tobacco use (# tins/day): No Drug Abuse: None Family History: Hypertension, Malignancy Patient has homicidal ideation: No - Past Medical History Cardiac Medical History: Reports: Hx Atrial Fibrillation, Hx Congestive Heart Failure, Hx Hypercholesterolemia, Hx Hypertension Pulmonary Medical History: Denies: Hx Tuberculosis Neurological Medical History: Denies: Hx Seizures Endocrine Medical History: Denies: Hx Diabetes Mellitus Type 2 Renal/ Medical History: Reports: Hx End Stage Renal Disease - Was on dialysis for 6 months prior to kidney transplant. Denies: Hx Peritoneal Dialysis GI Medical History: Reports: Hx Gastroesophageal Reflux Disease, Hx Hiatal Hernia, Hx Endoscopy - Patient had an endoscopy at [place] approximately 2 months ago.. Denies: Hx Crohn's Disease, Hx Ulcerative Colitis Musculoskeletal Medical History: Reports Hx Arthritis, Reports Hx Systemic Lupus Erythematosus Skin Medical History: Denies Hx Psoriasis Psychiatric Medical History: Reports: Hx Depression Infectious Medical History: Denies: Hx HIV Past Surgical History: Reports: Hx Herniorrhaphy, Hx Kidney (Renal Surgery) - kidney transplant 2002, Hx Orthopedic Surgery - neck fusion, Other - Renal transplant 2001; low back surgery Tess fundoplication. Denies: Hx Hysterectomy - Immunizations Hx Diphtheria, Pertussis, Tetanus Vaccination: Yes - unk Hx Pneumococcal Vaccination: 06/08/09 Review of Systems - Review of Systems Notes: Constitutional: Negative for fever. HENT: Negative for sore throat. Eyes: Negative for visual changes. Cardiovascular: Negative for chest pain. Respiratory: Negative for shortness of breath. Gastrointestinal: See HPI Genitourinary: Negative for dysuria. Musculoskeletal: Negative for back pain. Skin: Negative for rash. Neurological: Negative for headaches, weakness or numbness. 10 point ROS negative except as marked above and in HPI. Physical Exam - Vital signs Vitals: Temp Pulse Resp BP Pulse Ox 98.1 F 82 18 140/93 H 99 05/06/20 15:04 05/06/20 15:04 05/06/20 15:04 05/06/20 15:04 05/06/20 15:04 - Notes Notes: PHYSICAL EXAMINATION: Physical Exam: General: Well-nourished well-developed in no acute distress HEENT: NC/AT, pupils equal round and reactive to light, MM moist,nares clear, oropharynx clear, airway patent Neck: supple, no adenopathy, no masses. Good range of motion Lungs: clear, no wheezing, no rales no rhonchi CVS: Regular rate and rhythm no murmur gallop or rub Abdomen: Soft, active, tenderness right lateral abdominal wall with bulging and soft central area which is reducible., Midline abdominal scar which is well- healed no breakdown. No masses, no hepatosplenomegaly Ext: No edema, clubbing or cyanosis. Neuro: Alert and responsive, moving all 4 extremities on command, cranial nerves intact, no focal findings Skin: Intact no open lesions, no rash Course - Re-evaluation Re-evalutation: 05/06/20 21:11 Imaging of the abdomen with oral contrast was performed and no acute intra- abdominal abnormality was noted. There was no clear abdominal wall defect or hernia noted. I discussed these findings with the patient and explained to her that treatment with [id number] analgesics and cold compresses would be the better treatment and she can follow-up with her primary care doctor as needed. Patient acknowledges an understanding of this plan. - Vital Signs Vital signs: Temp Pulse Resp BP Pulse Ox 98.1 F 82 18 140/93 H 99 05/06/20 15:04 05/06/20 15:04 05/06/20 15:04 05/06/20 15:04 05/06/20 15:04 - Laboratory Result Diagrams: 05/06/20 18:46 05/06/20 17:46 Laboratory results interpreted by me: 05/06/20 05/06/20 17:46 18:46 WBC 3.6 L Hgb 10.8 L Hct 34.3 L MCHC 31.6 L RDW 21.6 H Sodium 135.2 L Chloride 92 L BUN 93 H Creatinine 4.90 H Est GFR ( Amer) 11 L Est GFR (MDRD) Non-Af 9 L Direct Bilirubin 0.6 H AST 46 H Total Protein 8.4 H I have reviewed laboratory data and used this information for the treatment decisions regarding the patient. - Diagnostic Test Radiology reviewed: Image reviewed, Reports reviewed Radiology results interpreted by me: 05/06/20 21:09 Chest X-Ray 05/06/20 15:22 IMPRESSION: No significant interval change. No acute cardiopulmonary disease. Hyperinflated lungs which can be seen with obstructive lung disease. Marked cardiomegaly with no pulmonary vascular congestion. Abdomen/Pelvis CT 05/06/20 17:11 IMPRESSION: 1. Increase in pleural effusions. There is diffuse edema of the soft tissues and ascites suggesting anasarca and third spacing. 2. Four-chamber cardiac enlargement. 3. Stable appearance of the kidneys including the right lower quadrant transplant kidney. 4. No bowel obstruction. No definitive acute intra-abdominal abnormality. 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 It happens to be the area where you were injured when your abdomen struck a car door in the past. Your pain is likely musculoskeletal in etiology and likely controlled with applying a cold compress to the area of pain and using Tylenol and or ibuprofen. Please follow-up with your primary care doctor for further treatment if needed HOME CARE INSTRUCTIONS & INFORMATION: Thank you for choosing us for your medical needs. We hope you're satisfied with the care you received. After you leave, you must properly care for your problem and, at the same time, observe its progress. Any condition can change. Some illnesses can change rapidly over hours or days. If your condition worsens, return to the Emergency Department or see your physician promptly. ABOUT YOUR X-RAYS AND EKG'S: If you had an EKG or X-rays taken, they have been read by the Emergency Physician. The X-rays and EKG's will also be read by a Radiologist or [employer] Weapons Officer within 24 hours. If discrepancies are noted, you will be notified by telephone. Please be certain the ED has a correct telephone number & address where you can be reached. Also, realize that some fractures or abnormalities do not show up on initial X-rays. If your symptoms continue, see your physician. ABOUT YOUR LABORATORY TEST: If you had laboratory tests, the results have been reviewed by the Emergency Physician. Some test results (for example cultures) may not be available for several days. You will be contacted if any test result shows you need additional treatment. Please be certain the ED has a correct telephone number and address where you can be reached. ABOUT YOUR MEDICATIONS: You will receive instructions on how to take your medicine on the prescription label you receive. Additional information may be provided by the Pharmacy. If you have questions afterwards, call the ED for clarification or further instructions. Some prescribed medications may cause drowsiness. Do not perform tasks such as driving a car or operating machinery without consulting your Pharmacist. If you feel you need a refill of pain medication, your condition will need re-evaluation. Please do not call for a refill of any medication. ABOUT YOUR SIGNATURE: Signature of this document acknowledges to followin. Understanding that you received emergency treatment and that you may be released before al medical problems are known or treated. Please be certain the ED has a correct phone number & address where you can be reached. 2. Acknowledgement that you will arrange for follow-up care as recommended. 3. Authorization for the Emergency Physician to provide information to your follow-up Physician in order to maximize your care. AT ANY TIME, IF YOUR SYMPTOMS CHANGE SIGNIFICANTLY OR WORSEN OR YOU DEVELOP NEW SYMPTOMS, RETURN TO THE EMERGENCY DEPARTMENT IMMEDIATELY FOR RE-EVALUATION. OUR GOAL IS TO PROVIDE EXCELLENT MEDICAL CARE! WE HOPE THAT WE HAVE MET YOUR EXPECTATIONS DURING YOUR EMERGENCY DEPARTMENT VISIT AND THAT YOU FEEL YOU HAVE RECEIVED EXCELLENT CARE! Referrals: LEANNA KAMINSKI MD [Primary Care Provider] - Follow up as needed
[2020-05-06 18:15] LABS: ALBUMIN 3.8 g/dL (3.5-5.0); ALKALINE PHOSPHATASE 89 U/L (38-126); ANION GAP 16 (5-19); ASPARTATE AMINO TRANSFERASE 46 U/L (14-36); BILIRUBIN,DIRECT 0.6 mg/dL (0.0-0.4); BILIRUBIN,TOTAL 0.8 mg/dL (0.2-1.3); BLOOD UREA NITROGEN 93 mg/dL (7-20); CALCIUM 10.2 mg/dL (8.4-10.2); CARBON DIOXIDE 27 mmol/L (22-30); CHLORIDE 92 mmol/L (98-107); GLUCOSE 107 mg/dL (75-110); POTASSIUM 4.1 mmol/L (3.6-5.0); TOTAL PROTEIN 8.4 g/dL (6.3-8.2)
--- NOTE | 2020-05-06 18:53 | EKG REPORT ---
SEVERITY:- ABNORMAL ECG - SINUS RHYTHM VENTRICULAR BIGEMINY LEFT ANTERIOR FASCICULAR BLOCK CONSIDER LEFT VENTRICULAR HYPERTROPHY CONSIDER ANTERIOR INFARCT : Confirmed by: Major Urbina MD 06-May-2020 18:52:29
[2020-05-06 19:03] LABS: ABSOLUTE LYMPHOCYTES (AUTO) 0.7 10^3/uL (0.5-4.7); ABSOLUTE MONOCYTES (AUTO) 0.4 10^3/uL (0.1-1.4); ABSOLUTE NEUT (AUTO) 2.5 10^3/uL (1.7-8.2); BASOPHILS % (AUTO) 0.7 % (0-2); EOSINOPHILS % (AUTO) 0.2 % (0-6); HEMATOCRIT 34.3 % (36.0-47.0); HEMOGLOBIN 10.8 g/dL (12.0-15.5); LYMPHOCYTES % (AUTO) 18.6 % (13-45); MEAN CORPUSCULAR HEMOGLOBIN 28.4 pg (27.0-33.4); MEAN CORPUSCULAR HGB CONC 31.6 g/dL (32.0-36.0); MONOCYTES % (AUTO) 10.1 % (3-13); PLATELET COUNT 150 10^3/uL (150-450); RED BLOOD COUNT 3.82 10^6/uL (3.72-5.28); RED CELL DISTRIBUTION WIDTH 21.6 % (11.5-14.0); SEGMENTED NEUTROPHILS % (AUTO) 70.4 % (42-78); TOTAL CELLS COUNTED % (AUTO) 100 %; WHITE BLOOD COUNT 3.6 10^3/uL (4.0-10.5)
[2020-05-06 19:13] LABS: MEAN CORPUSCULAR VOLUME 90 fl (80-97)
--- NOTE | 2020-05-06 20:51 | RADIOLOGY REPORT (SQ) ---
EXAM DESCRIPTION: CT ABD/PELVIS ORAL ONLY CLINICAL HISTORY: 59 years Female; Abdominal hernia diffuse pain. Previous hernia repair. TECHNIQUE: CT of the abdomen and pelvis without intravenous contrast.. Oral contrast was used. All CT scans at this facility use dose modulation, iterative reconstruction, and/or weight based dosing when appropriate to reduce radiation dose to as low as reasonably achievable. This exam was performed according to our department optimization program which includes automated exposure control, adjustment of the mA and/or kv according to patient size and/or use of iterative reconstruction technique. COMPARISON: CT scan of the abdomen and pelvis without contrast April 11, 2020 FINDINGS: Lower chest: There is been development of nonspecific volume loss in the lung bases with a small right and trace left pleural effusions. Four-chamber cardiac enlargement is seen. Abdomen: Liver and biliary tree: The liver is enlarged and measures 20.5 cm in length. There is a cyst in the right liver lobe along the hemidiaphragm which is unchanged. Gallbladder small and contracted. Pancreas: Pancreas is not well seen. Spleen:Within normal limits Kidneys: The left kidney is small and atrophic. There is chronic hydronephrosis of the right kidney. The etiology of this is unclear. Right lower quadrant renal transplant is seen which has extensive vascular calcifications within the kidney. Adrenal glands:Within normal limits Vascular structures: Atherosclerotic vascular calcifications in the aorta. Visceral vessels are also densely calcified. Retroperitoneum: Retroperitoneum is difficult to assess secondary to lack of intrinsic body fat, lack of contrast and overall bowel wall edema. Abdominal wall: Diffuse edema of the subcutaneous tissues is seen. There appears to be a left paracentral abdominal wall hernia containing fat and/or fluid. GI: Oral contrast is noted in the small bowel in the pelvis. There are scattered stool in the colon. No obvious bowel obstruction or GI abnormality. Appendix: The appendix is not seen General: Small amount of ascites is scattered throughout the abdomen. This is similar to the previous exam. Pelvis: Lymph nodes: No mass or lymphadenopathy Bladder: Bladder is empty Pelvis: No pelvic mass or adenopathy. Dense calcification of the ovarian arteries. Bones: Degenerative endplate spondylosis at L5-S1. There is mild sclerosis of the bones raising the possibility of renal osteodystrophy. The appearance is stable. IMPRESSION: 1. Increase in pleural effusions. There is diffuse edema of the soft tissues and ascites suggesting anasarca and third spacing. 2. Four-chamber cardiac enlargement. 3. Stable appearance of the kidneys including the right lower quadrant transplant kidney. 4. No bowel obstruction. No definitive acute intra-abdominal abnormality.
[2020-05-06 21:31] VITALS: BP 137/84
== END 2020-05-06 21:30 | disposition home or self-care (01) ==
LOC: ER 14:52
DX: R10.9 Unspecified abdominal pain (principal); I13.2 Hypertensive heart and chronic kidney disease with heart failure and with stage 5 chronic kidney disease, or end stage renal disease; M32.9 Systemic lupus erythematosus, unspecified; Z20.828 Contact with and (suspected) exposure to other viral communicable diseases; N18.6 End stage renal disease; I50.9 Heart failure, unspecified; Z91.040 Latex allergy status; I48.91 Unspecified atrial fibrillation
CPT/HCPCS: 93005; 99285; 36415; 83690; 85025; 80053; 84484; 71045; 74176; 93010; U0003; C9803; 87635

== ENCOUNTER 2020-05-25 21:11 | Emergency (ER) | payer MEDICARE, MEDICAID ==
--- NOTE | 2020-05-25 22:02 | ER Document Report ---
ED Medical Screen (RME) - General Stated Complaint: BLEED AROUND DIALYSIS TUBE Time Seen by Provider: 05/25/20 21:48 Primary Care Provider: LEANNA KAMINSKI MD [Primary Care Provider] - Follow up as needed Mode of Arrival: Wheelchair Information source: Patient Notes: Patient is a 59-year-old female comes emergency room complaining of having bleeding around her newly placed right-sided dialysis shunt. Patient states she went to [place] to the [facility] there this afternoon around 3 where she had her old dialysis shunt removed and a new one placed. She states she went home lay down when she woke up she had blood all over her chest and it appears to be leaking from the new site. Patient denies taking any blood thinning medications. She denies any chest pain she does state that her sleeping down and short were saturated with blood and she still has some around the area now. She denies any weakness nausea vomiting or diarrhea or chest discomfort at this time. Physical examination: Patient is a frail-appearing 59-year-old female no apparent distress on examination today. Cardiac: Patient is tachycardic at 114 beats a minute. Lungs: Bilateral breath sounds increased clear to auscultation. Chest: Quick visualization of patient's area of concern is her right anterior chest where there appears to be new placement of dialysis pump material. Patient seems to be bleeding from around both areas. At this point in triage I cannot take a real good as the mentation of where it is actually coming from secondary to bleeding. I have greeted and performed a rapid initial assessment of this patient. A comprehensive ED assessment and evaluation of the patient, analysis of test results and completion of the medical decision making process will be conducted by additional ED providers. Dictation of this chart was performed using voice recognition software; therefore, there may be some unintended grammatical errors. TRAVEL OUTSIDE OF THE [place] IN LAST 30 DAYS: No - Related Data Allergies/Adverse Reactions: hydralazine Allergy (Severe, Verified 05/06/20 15:13) Anaphylaxis latex [Latex] Allergy (Mild, Verified 05/06/20 15:13) Hives Past Medical History - Past Medical History Cardiac Medical History: Reports: Hx Atrial Fibrillation, Hx Congestive Heart Failure, Hx Hypercholesterolemia, Hx Hypertension Pulmonary Medical History: Denies: Hx Tuberculosis Neurological Medical History: Denies: Hx Seizures Endocrine Medical History: Denies: Hx Diabetes Mellitus Type 2 Renal/ Medical History: Reports: Hx End Stage Renal Disease - Was on dialysis for 6 months prior to kidney transplant. Denies: Hx Peritoneal Dialysis GI Medical History: Reports: Hx Gastroesophageal Reflux Disease, Hx Hiatal Hernia, Hx Endoscopy - Patient had an endoscopy at [place] approximately 2 months ago.. Denies: Hx Crohn's Disease, Hx Ulcerative Colitis Musculoskeltal Medical History: Reports Hx Arthritis, Reports Hx Systemic Lupus Erythematosus Skin Medical History: Denies Hx Psoriasis Psychiatric Medical History: Reports: Hx Depression Infectious Medical History: Denies: Hx HIV Past Surgical History: Reports: Hx Herniorrhaphy, Hx Kidney (Renal Surgery) - kidney transplant 2002, Hx Orthopedic Surgery - neck fusion, Other - Renal transplant 2001; low back surgery Tess fundoplication. Denies: Hx Hysterectomy - Immunizations Hx Diphtheria, Pertussis, Tetanus Vaccination: Yes - unk Physical Exam - Vital signs Vitals: Temp Pulse Resp BP Pulse Ox 99.0 F 114 H 18 156/114 H 99 05/25/20 21:45 05/25/20 21:45 05/25/20 21:45 05/25/20 21:45 05/25/20 21:45 Course - Vital Signs Vital signs: Temp Pulse Resp BP Pulse Ox 99.0 F 114 H 18 156/114 H 99 05/25/20 21:45 05/25/20 21:45 05/25/20 21:45 05/25/20 21:45 05/25/20 21:45 Doctor's Discharge - Discharge Referrals: LEANNA KAMINSKI MD [Primary Care Provider] - Follow up as needed
--- NOTE | 2020-05-25 22:49 | RADIOLOGY REPORT (SQ) ---
EXAM DESCRIPTION: Site: CHEST SINGLE VIEW RP: XR CHEST 1 VIEW CLINICAL HISTORY: 59 years Female; bleeding around shunt; COMPARISON: 05/06/2020 FINDINGS: There is persistent hyperinflation. Small right pleural effusion is similar. There is a new airspace density in the medial right lower lung field. Left lung remains clear. No pneumothorax. Right IJ line tip in the right atrium. Mediastinum is unremarkable for positioning. Heart is enlarged. No acute bone findings. IMPRESSION: 1. Persistent right pleural effusion 2. Medial right lower lobe infiltrate versus atelectasis. Cannot exclude pneumonia. 3. Right IJ line in place, tip in the right atrium.
[2020-05-26 00:03] LABS: ABSOLUTE BASOPHILS # (AUTO) 0.1 10^3/uL (0.0-0.2); ABSOLUTE LYMPHOCYTES (AUTO) 1.4 10^3/uL (0.5-4.7); ABSOLUTE MONOCYTES (AUTO) 0.4 10^3/uL (0.1-1.4); ABSOLUTE NEUT (AUTO) 1.3 10^3/uL (1.7-8.2); EOSINOPHILS % (AUTO) 0.8 % (0-6); HEMATOCRIT 38.3 % (36.0-47.0); HEMOGLOBIN 12.3 g/dL (12.0-15.5); LYMPHOCYTES % (AUTO) 43.8 % (13-45); MEAN CORPUSCULAR HEMOGLOBIN 28.3 pg (27.0-33.4); MEAN CORPUSCULAR VOLUME 89 fl (80-97); MONOCYTES % (AUTO) 12.8 % (3-13); PLATELET COUNT 161 10^3/uL (150-450); RED BLOOD COUNT 4.33 10^6/uL (3.72-5.28); RED CELL DISTRIBUTION WIDTH 19.7 % (11.5-14.0); SEGMENTED NEUTROPHILS % (AUTO) 40.6 % (42-78); TOTAL CELLS COUNTED % (AUTO) 100 %; WHITE BLOOD COUNT 3.2 10^3/uL (4.0-10.5)
[2020-05-26 00:19] LABS: ALBUMIN 3.8 g/dL (3.5-5.0); ALKALINE PHOSPHATASE 109 U/L (38-126); ANION GAP 18 (5-19); ASPARTATE AMINO TRANSFERASE 27 U/L (14-36); BILIRUBIN,DIRECT 0.6 mg/dL (0.0-0.4); BILIRUBIN,TOTAL 0.7 mg/dL (0.2-1.3); CALCIUM 9.8 mg/dL (8.4-10.2); CARBON DIOXIDE 25 mmol/L (22-30); CHLORIDE 85 mmol/L (98-107); GLUCOSE 105 mg/dL (75-110); POTASSIUM 3.4 mmol/L (3.6-5.0); TOTAL PROTEIN 8.4 g/dL (6.3-8.2)
[2020-05-26 00:21] LABS: INTERNATIONAL RATION (INR) 1.34; PROTHROMBIN TIME 16.7 SEC (11.4-15.4)
[2020-05-26 00:22] LABS: PARTIAL THROMBOPLASTIN TIME 36.7 SEC (23.5-35.8)
[2020-05-26 00:27] LABS: BLOOD UREA NITROGEN 151 mg/dL (7-20)
[2020-05-26] MEDS ORDERED: TRANEXAMIC ACID INJ/PF 1,000 MG/10 ML SDV IV STA (03:41)
--- NOTE | 2020-05-26 04:05 | ER Document Report ---
ED Dialysis Cath/Shunt Problem - General Chief Complaint: Post Surgical Bleeding Stated Complaint: BLEED AROUND DIALYSIS TUBE Time Seen by Provider: 05/25/20 21:48 Primary Care Provider: LEANNA KAMINSKI MD [Primary Care Provider] - Follow up as needed Mode of Arrival: Wheelchair TRAVEL OUTSIDE OF THE [place] IN LAST 30 DAYS: No - HPI Context: Time:035. Chief Complaint: [Bleeding dialysis shunt]. [59-year-old female presents today complaining of bleeding from a right chest dialysis shunt that was replaced because of the old shunt was clogged. ]. History obtained from [patient]. Symptoms began:[Yesterday evening]. Onset: [Gradual]. Timing: [Persistent]. Quality: [Persistent venous phase]. Intensity: [Patient denies pain]. Location: [Right chest]. Radiation: [Denies]. [The pain does not migrate to a new location.]. Aggravating factors: [none]. Relieving factors: [none]. [Denies] SOB. [Denies] nausea. [Denies] vomiting. [Denies] sweats. [Denies] fever. [Denies] cough. [Denies] calf or leg swelling or pain - Related Data Allergies/Adverse Reactions: hydralazine Allergy (Severe, Verified 05/06/20 15:13) Anaphylaxis latex [Latex] Allergy (Mild, Verified 05/06/20 15:13) Hives Past Medical History - General Information source: Patient - Social History Smoking Status: Never Smoker Chew tobacco use (# tins/day): No Drug Abuse: None Family History: Hypertension, Malignancy - Past Medical History Cardiac Medical History: Reports: Hx Atrial Fibrillation, Hx Congestive Heart Failure, Hx Hypercholesterolemia, Hx Hypertension Pulmonary Medical History: Denies: Hx Tuberculosis Neurological Medical History: Denies: Hx Seizures Endocrine Medical History: Denies: Hx Diabetes Mellitus Type 2 Renal/ Medical History: Reports: Hx End Stage Renal Disease - Was on dialysis for 6 months prior to kidney transplant. Denies: Hx Peritoneal Dialysis GI Medical History: Reports: Hx Gastroesophageal Reflux Disease, Hx Hiatal Hernia, Hx Endoscopy - Patient had an endoscopy at [place] approximately 2 months ago.. Denies: Hx Crohn's Disease, Hx Ulcerative Colitis Musculoskeletal Medical History: Reports Hx Arthritis, Reports Hx Systemic Lupus Erythematosus Skin Medical History: Denies Hx Psoriasis Psychiatric Medical History: Reports: Hx Depression Infectious Medical History: Denies: Hx HIV Past Surgical History: Reports: Hx Herniorrhaphy, Hx Kidney (Renal Surgery) - kidney transplant 2002, Hx Orthopedic Surgery - neck fusion, Other - Renal transplant 2001; low back surgery Tess fundoplication. Denies: Hx Hysterectomy - Immunizations Hx Diphtheria, Pertussis, Tetanus Vaccination: Yes - unk Hx Pneumococcal Vaccination: 06/08/09 Review of Systems - Review of Systems Notes: Review of systems as below unless otherwise stated in HPI. CONSTITUTIONAL [No] fever, [No] chills. EYES [No] eye pain. ENT [No] URI symptoms, [No] sore throat, [No] ear pain. CARDIOVASCULAR [No] chest pain, [No] palpitations, [No] edema. Positive bleeding right chest dialysis port RESPIRATORY [No] Cough, [No] SOB, [No] wheezing. GASTROINTESTINAL [No] abdominal pain, [No] nausea, [No] Diarrhea, [No] Vomiting, [No] constipation, [No] melena, [No] rectal bleeding. GENITOURINARY [No] dysuria, [No] urinary frequency, [No] hematuria, [No] urinary urgency, [No] vaginal discharge, [No] vaginal bleeding. MUSCULOSKELETAL [No] Back pain. SKIN [No] Rash. NEUROLOGIC [No] Headache, [No] recent seizures, [No] paralysis,[No] parathesias. ENDOCRINE [No] polyuria. HEMO/LYMPATIC [No] easy brusing PSYCHIATRIC [No] depression. Physical Exam - Vital signs Vitals: Temp Pulse Resp BP Pulse Ox 99.0 F 114 H 18 156/114 H 99 05/25/20 21:45 05/25/20 21:45 05/25/20 21:45 05/25/20 21:45 05/25/20 21:45 - Notes Notes: CONSTITUTIONAL [Vital signs reviewed, Patient appears comfortable, Alert and oriented X 3, Normal stature.] HEAD [Atraumatic, Normocephalic.] EYES [Eyes are normal to inspection, No discharge from eyes, Extraocular muscles intact, Sclera are normal, Conjunctiva are normal.] ENT [External ears normal to inspection, Nose examination normal, Mouth normal to inspection.] NECK [Normal ROM, No jugular venous distention, No meningeal signs, ] RESPIRATORY CHEST Patient has a dual port dialysis port in her right chest. The insertion site is covered with gauze saturated in blood and the terminal ends were also covered in gauze saturated with blood. Blood appears dark and there does not appear to be active bleeding at the site upon removal of the bloodsoaked gauze NEURO [No focal motor deficits, No focal sensory deficits, Speech normal.] SKIN [Skin is warm, Skin is dry, Skin is normal color.] PSYCHIATRIC [Normal affect. ] Course - Re-evaluation Re-evalutation: 05/26/20 04:10 Combivent gauze was used to cover the entry site of the dialysis port. No bl eeding was noted during the procedure the combat gauze was saturated with TXA and a Tegaderm dressing was placed over this. There were no complications during the dressing change. Patient tolerated the procedure well. - Vital Signs Vital signs: Temp Pulse Resp BP Pulse Ox 99.0 F 114 H 18 156/114 H 99 05/25/20 21:45 05/25/20 21:45 05/25/20 21:45 05/25/20 21:45 05/25/20 21:45 - Laboratory Results Result Diagrams: 05/25/20 23:53 05/25/20 23:53 Laboratory Results Interpreted: 05/25/20 05/25/20 05/25/20 23:53 23:53 23:53 WBC 3.2 L RDW 19.7 H Absolute Neuts (auto) 1.3 L Seg Neutrophils % 40.6 L PT 16.7 H APTT 36.7 H Sodium 128.2 L Potassium 3.4 L Chloride 85 L BUN 151 H Creatinine 5.83 H Est GFR ( Amer) 9 L Est GFR (MDRD) Non-Af 7 L Direct Bilirubin 0.6 H Total Protein 8.4 H Critical Laboratory Results Reviewed: Yes Attending or Supervising Physician who Reviewed Labs: amelia - pt is dialysis pt, high creatinine, low sodium. Patient has had low sodium in the past - Radiology Results Critical Radiology Results Reviewed: No Critical Results Attending or Supervising Physician who Reviewed Radiology: EARLENE MASSEY IV - X-ray reads right middle lobe pneumonia versus atelectasis. Patient has not complained of fever cough Discharge - Discharge Clinical Impression: Problem with dialysis access Qualifiers: Encounter type: initial encounter Qualified Code(s): T82.898A - Other specified complication of vascular prosthetic devices, implants and grafts, initial encounter Condition: Stable Disposition: HOME, SELF-CARE Additional Instructions: Return to the Emergency Department without delay if any worse. Follow-up for dialysis today as scheduled HOME CARE INSTRUCTIONS & INFORMATION: Thank you for choosing us for your medical needs. We hope you're satisfied with the care you received. After you leave, you must properly care for your problem and, at the same time, observe its progress. Any condition can change. Some illnesses can change rapidly over hours or days. If your condition worsens, return to the Emergency Department or see your physician promptly. ABOUT YOUR X-RAYS AND EKG'S: If you had an EKG or X-rays taken, they have been read by the Emergency Physician. The X-rays and EKG's will also be read by a Radiologist or Stage Technician within 24 hours. If discrepancies are noted, you will be notified by telephone. Please be certain the ED has a correct telephone number & address where you can be reached. Also, realize that some fractures or abnormalities do not show up on initial X-rays. If your symptoms continue, see your physician. ABOUT YOUR LABORATORY TEST: If you had laboratory tests, the results have been reviewed by the Emergency Physician. Some test results (for example cultures) may not be available for several days. You will be contacted if any test result shows you need additional treatment. Please be certain the ED has a correct telephone number and address where you can be reached. ABOUT YOUR MEDICATIONS: You will receive instructions on how to take your medicine on the prescription label you receive. Additional information may be provided by the Pharmacy. If you have questions afterwards, call the ED for clarification or further instructions. Some prescribed medications may cause drowsiness. Do not perform tasks such as driving a car or operating machinery without consulting your Pharmacist. If you feel you need a refill of pain medication, your condition will need re-evaluation. Please do not call for a refill of any medication. ABOUT YOUR SIGNATURE: Signature of this document acknowledges to followin. Understanding that you received emergency treatment and that you may be released before al medical problems are known or treated. Please be certain the ED has a correct phone number & address where you can be reached. 2. Acknowledgement that you will arrange for follow-up care as recommended. 3. Authorization for the Emergency Physician to provide information to your follow-up Physician in order to maximize your care. AT ANY TIME, IF YOUR SYMPTOMS CHANGE SIGNIFICANTLY OR WORSEN OR YOU DEVELOP NEW SYMPTOMS, RETURN TO THE EMERGENCY DEPARTMENT IMMEDIATELY FOR RE-EVALUATION. OUR GOAL IS TO PROVIDE EXCELLENT MEDICAL CARE! WE HOPE THAT WE HAVE MET YOUR EXPECTATIONS DURING YOUR EMERGENCY DEPARTMENT VISIT AND THAT YOU FEEL YOU HAVE RECEIVED EXCELLENT CARE! Referrals: LEANNA KAMINSKI MD [Primary Care Provider] - Follow up as needed
[2020-05-26] MEDS ORDERED: ACETAMINOPHEN 325 MG TABLET PO ONE (05:10)
[2020-05-26 05:28] VITALS: BP 149/92
== END 2020-05-26 05:23 | disposition home or self-care (01) ==
LOC: ER 21:11
DX: T82.898A Other specified complication of vascular prosthetic devices, implants and grafts, initial encounter (principal); I48.91 Unspecified atrial fibrillation; I13.2 Hypertensive heart and chronic kidney disease with heart failure and with stage 5 chronic kidney disease, or end stage renal disease; N18.6 End stage renal disease; I50.9 Heart failure, unspecified; Z99.2 Dependence on renal dialysis
CPT/HCPCS: 99284; 36415; 85025; 85610; 85730; 80053; 71045; A9270; J3490